=== PATIENT | female | born 1970 | race Caucasian/White ===

== ENCOUNTER 2016-09-10 14:54 | Emergency (ER) | payer OTHER ==
[~2016-09-10] VITALS: Ht 165.1 cm; Wt 101.6 kg
[2016-09-10 14:56] VITALS: TEMP 36.6; Ht 165.1 cm; Wt 101.6 kg
[2016-09-10] MEDS ORDERED: MoRPHine SULFATE 4 MG/ML 1 ML CARP\\VIAL IV STA ×2 (15:45→17:46)
[2016-09-10] MEDS ORDERED: ONDANSETRON INJ 2 MG/ML 2 ML VIAL IV STA (15:45)
[2016-09-10] MEDS ORDERED: SODIUM CHLORIDE 0.9% 1000ML 1,000 ML IV STA (15:45)
[2016-09-10] MEDS ORDERED: OPTIRAY 320 IV PRN (16:00)
[2016-09-10 16:07] LABS: URINE APPEARANCE CLEAR (CLEAR); URINE BILIRUBIN NEG (NEG); URINE COLOR YELLOW; URINE NITRITE NEG (NEG); URINE SPECIFIC GRAVITY 1.016 (1.000-1.030); UROBILINOGEN NEG (NEG); ZZUR CULT IF INDIC CLEAN CATCH NO
[2016-09-10 16:17] LABS: BASO % 0.3 %; BASO ABS # 0.02 K/uL (0-0.2); COMPLETE YES; HEMATOCRIT 40.6 % (37-47); IG% 0.3 %; LYMPH % 26.1 %; LYMPH ABS # 1.66 K/uL (1.2-3.4); MEAN CELL VOLUME 88.1 fL (80-100); MEAN CORPUSCULAR HEMOGLOBIN 29.1 pg (25-34); MEAN PLATELET VOLUME 10.3 fL (7.4-10.4); MONO % 6.8 %; NEUT % 64.5 %; PLATELET COUNT 255 K/uL (130-400); RED BLOOD COUNT 4.61 M/uL (4.2-5.4); WHITE BLOOD COUNT 6.35 K/uL (4.8-10.8)
[2016-09-10] MEDS ORDERED: ASCO1CAP3 PO (16:17)
[2016-09-10] MEDS ORDERED: BIOTCAP2 PO (16:17)
[2016-09-10] MEDS ORDERED: CYAN10005 PO (16:17)
[2016-09-10] MEDS ORDERED: MULT-513 PO (16:17)
[2016-09-10] MEDS ORDERED: CHOL1000 PO (16:17)
[2016-09-10 16:28] LABS: BUN/CREATININE RATIO 11.8 (10-20); CALCIUM 9.2 mg/dl (8.5-10.1); CREATININE 0.96 mg/dl (0.60-1.20); POTASSIUM 3.5 mmol/L (3.5-5.1)
[2016-09-10 16:31] LABS: ALB/GLOB RATIO 1.2 (0.9-2)
[2016-09-10 16:56] LABS: MANUAL MICROSCOPIC REQUIRED? NO; REVIEW REQ? NO
--- NOTE | 2016-09-10 18:26 | DIAGNOSTIC IMAGING REPORT ---
CT OF THE ABDOMEN AND PELVIS WITH CONTRAST CLINICAL HISTORY: Lower abdominal pain and right lower quadrant tenderness. COMPARISON STUDY: None. TECHNIQUE: Following IV administration of 95 mL of Optiray-320, axial images of the abdomen and pelvis were obtained from the lung bases to the proximal femurs. Images were reviewed in the axial, sagittal, and coronal planes. IV contrast was administered without complication. Oral contrast was administered. CT DOSE: 926.35 mGycm FINDINGS: No pneumatosis, free air or portal venous gas is present. There is probable fatty infiltration of the liver. No hepatic lesions are identified. The spleen, adrenal glands, left kidney and pancreas are normal. A 9 mm water attenuation lesion arising from the lower pole of the right kidney represents a cyst. There is no biliary or pancreatic ductal dilatation. There is no peripancreatic or pericholecystic infiltration. A small fat-containing umbilical hernia is noted. The caliber and wall thickness of small and large bowel are normal. The appendix is normal. There is no free fluid. The ovaries are not enlarged. There is no lymphadenopathy. No suspicious skeletal lesions are identified. IMPRESSION: 1. No acute process within the abdomen or pelvis. Normal appendix. 2. Probable fatty infiltration of the liver. 3. Small fat-containing umbilical hernia. Electronically signed by: Kumar Soler M.D. 09/10/2016 6:24 PM Dictated Date/Time: 09/10/2016 6:18 PM
--- NOTE | 2016-09-10 18:55 | EMERGENCY ROOM VISIT NOTE ---
History First contact with patient: 15:16 Chief Complaint: ABDOMINAL PAIN Stated Complaint: BELLY PAIN Nursing Triage Summary: pt sent to ER by [facility] to rule out appey abd pain for 2 days History of Present Illness The patient is a 46 year old female who presents to the Emergency Room with complaints of lower abdominal pain which began 4 days ago. The patient states that initially, she noticed a pressure-like sensation in her lower abdomen. She states that over the past 2 days, she has developed pain across her lower abdomen which radiates into the back. She states that the pain seems to go into her rectum. The pain worsens when she is sitting up or lying flat down. She describes the pain as a burning sensation. The pain is located on both sides of her lower abdomen and in her upper abdomen. She has had 2 episodes of vomiting over the past several days. She has had normal bowel movements. Her last menstrual period ended a few days ago. She denies any abnormal vaginal discharge or bleeding. The patient denies any chest pain or shortness of breath. She denies any fevers, chills or urinary symptoms. The patient has a history of a LEEP procedure but denies any other history of abdominal surgeries. She is otherwise healthy. She rates her overall discomfort a 5/10. She did not take anything at home for pain. She does report she has been under a lot of stress recently and has had ulcers in the past. Review of Systems A complete 10 point review of systems was reviewed with the patient with pertinent positives and negatives as per history of present illness. All else were negative. Social History Smoking Status: Never Smoker Current/Historical Medications Scheduled Ascorbic Acid (Vitamin C), 1 TAB PO DAILY Biotin (Biotin 5000), 1 TAB PO DAILY Cholecalciferol (Vitamin D3), 1 TAB PO DAILY Cyanocobalamin (Vitamin B-12), 1 PO DAILY Multivitamins/Minerals (Mvi With Minerals), 1 TAB PO DAILY Allergies Coded Allergies: No Known Allergies (Unverified , 09/10/16) Physical Exam Vital Signs Date Time Temp Pulse Resp B/P (MAP) Pulse Ox O2 Delivery O2 Flow Rate FiO2 09/10/16 19:28 73 16 164/99 97 09/10/16 17:56 64 16 165/96 100 Room Air 09/10/16 16:00 73 16 167/106 96 Room Air 09/10/16 14:56 36.6 82 20 157/88 96 Room Air Physical Exam VITALS: Vitals are noted on the nurse's note and reviewed by myself. Vital signs stable. GENERAL: This is a 46-year-old female, in no acute distress, nondiaphoretic, well-developed well-nourished. SKIN: Capillary reflex less than 2 seconds. HEENT: Normocephalic. PERRLA. EOMI. Mucous membranes moist. Neck is supple without nuchal rigidity. HEART: Regular rate and rhythm without murmurs gallops or rubs. LUNGS: Clear to auscultation bilaterally without wheezes, rales or rhonchi. ABDOMEN: Positive bowel sounds x 4. Soft, mild tenderness to palpation in the suprapubic region and right lower quadrant. No guarding or rebound tenderness. NEURO: Patient was alert and oriented to person place and time. Medical Decision & Procedures ER Provider Diagnostic Interpretation: CT OF THE ABDOMEN AND PELVIS WITH CONTRAST CLINICAL HISTORY: Lower abdominal pain and right lower quadrant tenderness. COMPARISON STUDY: None. TECHNIQUE: Following IV administration of 95 mL of Optiray-320, axial images of the abdomen and pelvis were obtained from the lung bases to the proximal femurs. Images were reviewed in the axial, sagittal, and coronal planes. IV contrast was administered without complication. Oral contrast was administered. CT DOSE: 926.35 mGycm FINDINGS: No pneumatosis, free air or portal venous gas is present. There is probable fatty infiltration of the liver. No hepatic lesions are identified. The spleen, adrenal glands, left kidney and pancreas are normal. A 9 mm water attenuation lesion arising from the lower pole of the right kidney represents a cyst. There is no biliary or pancreatic ductal dilatation. There is no peripancreatic or pericholecystic infiltration. A small fat-containing umbilical hernia is noted. The caliber and wall thickness of small and large bowel are normal. The appendix is normal. There is no free fluid. The ovaries are not enlarged. There is no lymphadenopathy. No suspicious skeletal lesions are identified. IMPRESSION: 1. No acute process within the abdomen or pelvis. Normal appendix. 2. Probable fatty infiltration of the liver. 3. Small fat-containing umbilical hernia. Laboratory Results 09/10/16 15:37 Red Blood Count 4.61, Mean Corpuscular Volume 88.1, Mean Corpuscular Hemoglobin 29.1, Mean Corpuscular Hemoglobin Concent 33.0, Mean Platelet Volume 10.3, Neutrophils (%) (Auto) 64.5, Lymphocytes (%) (Auto) 26.1, Monocytes (%) (Auto) 6.8, Eosinophils (%) (Auto) 2.0, Basophils (%) (Auto) 0.3, Neutrophils # (Auto) 4.09, Lymphocytes # (Auto) 1.66, Monocytes # (Auto) 0.43, Eosinophils # (Auto) 0.13, Basophils # (Auto) 0.02 09/10/16 15:37 Test 09/10/16 15:37 09/10/16 15:38 White Blood Count 6.35 K/uL (4.8-10.8) Red Blood Count 4.61 M/uL (4.2-5.4) Hemoglobin 13.4 g/dL (12.0-16.0) Hematocrit 40.6 % (37-47) Mean Corpuscular Volume 88.1 fL (80-100) Mean Corpuscular Hemoglobin 29.1 pg (25-34) Mean Corpuscular Hemoglobin Concent 33.0 g/dl (32-36) Platelet Count 255 K/uL (130-400) Mean Platelet Volume 10.3 fL (7.4-10.4) Neutrophils (%) (Auto) 64.5 % Lymphocytes (%) (Auto) 26.1 % Monocytes (%) (Auto) 6.8 % Eosinophils (%) (Auto) 2.0 % Basophils (%) (Auto) 0.3 % Neutrophils # (Auto) 4.09 K/uL (1.4-6.5) Lymphocytes # (Auto) 1.66 K/uL (1.2-3.4) Monocytes # (Auto) 0.43 K/uL (0.11-0.59) Eosinophils # (Auto) 0.13 K/uL (0-0.5) Basophils # (Auto) 0.02 K/uL (0-0.2) RDW Standard Deviation 43.3 fL (36.4-46.3) RDW Coefficient of Variation 13.4 % (11.5-14.5) Immature Granulocyte % (Auto) 0.3 % Immature Granulocyte # (Auto) 0.02 K/uL (0.00-0.02) Anion Gap 7.0 mmol/L (3-11) Est Creatinine Clear Calc Drug Dose 85.6 ml/min Estimated GFR () 81.6 Estimated GFR (Non- 70.4 BUN/Creatinine Ratio 11.8 (10-20) Calcium Level 9.2 mg/dl (8.5-10.1) Total Bilirubin 0.4 mg/dl (0.2-1) Aspartate Amino Transf (AST/SGOT) 13 U/L (15-37) Alanine Aminotransferase (ALT/SGPT) 24 U/L (12-78) Alkaline Phosphatase 73 U/L (45-117) Total Protein 7.1 gm/dl (6.4-8.2) Albumin 3.9 gm/dl (3.4-5.0) Globulin 3.2 gm/dl (2.5-4.0) Albumin/Globulin Ratio 1.2 (0.9-2) Lipase 130 U/L (73-393) Urine Color YELLOW Urine Appearance CLEAR (CLEAR) Urine pH 5.0 (4.5-7.5) Urine Specific [place] 1.016 (1.000-1.030) Urine Protein NEG (NEG) Urine Glucose (UA) NEG (NEG) Urine Ketones NEG (NEG) Urine Occult Blood NEG (NEG) Urine Nitrite NEG (NEG) Urine Bilirubin NEG (NEG) Urine Urobilinogen NEG (NEG) Urine Leukocyte Esterase NEG (NEG) Urine Test NEG (NEG) Medications Administered Medications (Trade) Dose Ordered Sig/Estella Route Start Time Stop Time Status Last Admin Dose Admin Sodium Chloride 1,000 ml @ 999 mls/hr Q1H1M STAT IV 09/10/16 15:45 09/10/16 16:45 DC 09/10/16 16:00 999 MLS/HR Morphine Sulfate (MoRPHine SULFATE INJ) 4 mg NOW STAT IV 09/10/16 15:45 09/10/16 15:47 DC 09/10/16 15:59 4 MG Ondansetron HCl (Zofran Inj) 4 mg NOW STAT IV 09/10/16 15:45 09/10/16 15:47 DC 09/10/16 15:59 4 MG Morphine Sulfate (MoRPHine SULFATE INJ) 4 mg NOW STAT IV 09/10/16 17:46 09/10/16 17:47 DC 09/10/16 17:55 4 MG ED Course The patient was evaluated as above. Labs were drawn and IV access was obtained. Patient was medicated with 4 mg morphine IV and [address] of the abdomen and pelvis was performed and read by radiology as above. Patient was reevaluated and findings were discussed. She did request more pain medication and an additional 4 mg morphine IV were ordered. Discharge instructions were reviewed with the patient. The patient verbalized understanding of my assessment and treatment plan and was discharged home in good condition. Medical Decision Differential diagnosis includes ovarian cyst, ovarian torsion, uterine fibroids , diverticulitis, appendicitis, bowel obstruction, colitis, mesenteric adenitis , mesenteric ischemia, among others. The patient is a 46-year-old female who presents today complaining of lower abdominal pain. Labs revealed no leukocytosis, anemia or concerning electrolyte abnormalities. Lipase was not elevated. Urinalysis was not suggestive of infection. Urine was negative. CT of the abdomen and pelvis was performed with IV and oral contrast and read by radiology with no acute findings within the abdomen and pelvis. Findings were discussed with the patient. She may need further workup as an outpatient but I feel she is safe to be discharged home. I had a lengthy discussion with the patient regarding her symptoms today. I did recommend starting a PPI as she has had some GERD- like symptoms. She will follow-up with her primary care provider. She has an appointment scheduled with him next week. She was encouraged to return here for any worsening of her current condition or as needed. The patient's case was reviewed with Dr. Roberts, ED attending physician, who agreed with my assessment and treatment plan. Based on the patient's presentation and work up, I feel the patient is stable for outpatient treatment. The patient was educated to return to the emergency department for any worsening of their current condition or new/concerning symptoms. She will follow up with her PCP. Blood pressure screening: Patient was found to have an elevated blood pressure and was referred to their primary care provider for recheck and further treatment. Medication reconciliation: I attest that I have personally reviewed the patient 's current medication list. Impression Primary Impression: Lower abdominal pain Departure Information Dispostion Home / Self-Care Condition GOOD Referrals No Doctor, Assigned (PCP) Patient Instructions [facility] Additional Instructions You have been treated in the Emergency Department your Abdominal Pain. Laboratory results and imaging studies have ruled out any emergent causes for your abdominal pain which would warrant admission or surgery. For pain control, you can use the following [id number] medicines (if >12 yo): - Regular strength (325mg/tab) Tylenol (acetaminophen) 2 tabs every 4-6 hours as needed. Do not exceed 12 tablets in a 24 hour period. Avoid taking more than 4 grams (4000 mg) of Tylenol per day. This includes any other sources of acetaminophen you may take on a regular basis. - Regular strength (200 mg/tab) Advil (ibuprofen) 1-2 tabs every 4-6 hours as needed. Do not exceed a dose of 3200 mg per day. Drink plenty of water and stay well hydrated. As with any trip to the Emergency Department, you should follow-up with your Primary Care Provider from today's visit. Return to the emergency department if your symptoms persist despite treatment plan outlined above or if the following symptoms occur: intractable pain, fevers , chills, worsening nausea/vomiting, blood in your stool or urine.
[2016-09-10 19:28] VITALS: BP 164/99; PULSE 73; O2SAT 97
--- NOTE | 2016-09-12 08:48 | EDITING REQUIRED CODING QUERY ---
CQTREATMENT RENDERED WITHOUT A DIAGNOSIS To promote full compliance with coding requirements relating to patient care, physician participation is requested in all cases of laborer steel handling uncertainty. Please assist us with providing a diagnosis/symptom for the test(s) below: A diagnosis/symptom was not documented on your Order. A valid diagnosis/symptom is required to bill all insurances. Please remember that we are unable to code a diagnosis of rule out, probable, possible, questionable, or suspected. Tests that require a diagnosis: DOS 09/10/16 ER VISIT DID NOT SEE DIAGNOSIS ON ER DICTATION PLEASE ADD DIAGNOSIS Provider Signature: __See provider note Date: _09/14/2016 Thank you Luna [facility] Information Management Once completed, please kindly fax back to [phone] For questions please call [phone]
== END 2016-09-10 19:29 | disposition home or self-care (01) ==
LOC: C.EDB 14:56 → C.EDA 19:29
DX: R10.30 Lower abdominal pain, unspecified (principal); K42.9 Umbilical hernia without obstruction or gangrene

== ENCOUNTER 2017-03-01 05:22 | Inpatient (IN) | payer OTHER ==
[2017-02-13 15:45] VITALS: BMI 36.0
--- NOTE | 2017-02-13 16:00 | PAT Medication Instructions ---
Service Date Feb 13, 2017. Current Home Medication List Ascorbic Acid (Vitamin C), 1 TAB PO QAM Biotin (Biotin 5000), 1 TAB PO QAM Bupropion (Wellbutrin Sr), 150 MG PO BID Cholecalciferol (Vitamin D3), 1 TAB PO QAM Cyanocobalamin (Vitamin B-12), 1 PO QAM Multivitamins/Minerals (Mvi With Minerals), 1 TAB PO QAM Medication Instructions For Your Scheduled Surgery - Hold the following medications the morning of surgery: Ascorbic Acid (Vitamin C), 1 TAB PO QAM Biotin (Biotin 5000), 1 TAB PO QAM Cholecalciferol (Vitamin D3), 1 TAB PO QAM Cyanocobalamin (Vitamin B-12), 1 PO QAM Multivitamins/Minerals (Mvi With Minerals), 1 TAB PO QAM - Take the following medications the morning of surgery with a sip of water: Bupropion (Wellbutrin Sr), 150 MG PO BID - Take the following medications as scheduled the night before surgery: Bupropion (Wellbutrin Sr), 150 MG PO BID If you have any questions please call us at [phone] or [phone] or [phone]
[2017-02-13 16:28] LABS: BASO % 0.1 %; BASO ABS # 0.01 K/uL (0-0.2); EOS % 1.9 %; EOS ABS # 0.14 K/uL (0-0.5); HEMATOCRIT 41.1 % (37-47); HEMOGLOBIN 13.5 g/dL (12.0-16.0); IG# 0.01 K/uL (0.00-0.02); LYMPH % 19.9 %; LYMPH ABS # 1.47 K/uL (1.2-3.4); MEAN CELL VOLUME 90.3 fL (80-100); MEAN CORPUSCULAR HEMOGLOBIN 29.7 pg (25-34); MEAN CORPUSCULAR HGB CONC 32.8 g/dl (32-36); MEAN PLATELET VOLUME 10.1 fL (7.4-10.4); MONO % 7.8 %; MONO ABS # 0.58 K/uL (0.11-0.59); NEUT % 70.2 %; NEUT ABS # 5.19 K/uL (1.4-6.5); PLATELET COUNT 245 K/uL (130-400); RED CELL DISTRIBUTION WIDTH CV 13.9 % (11.5-14.5); RED CELL DISTRIBUTION WIDTH SD 45.8 fL (36.4-46.3)
[2017-02-13 16:41] LABS: CALCIUM 8.7 mg/dl (8.5-10.1); POTASSIUM 4.3 mmol/L (3.5-5.1)
[2017-03-01] VITALS (9 sets, daily range): BP systolic 114–155; BP diastolic 69–92; PULSE 71–90; TEMP 36.4–37.1; O2SAT 95–98; Ht 165.1 cm; Wt 99.1 kg
[~2017-03-01] VITALS: Ht 165.1 cm; Wt 99.1 kg
[~2017-03-01 05:22] MED LIST: ASCO1CAP3 PO; BIOTCAP2 PO; BUPR-79 PO; CHOL1000 PO; CYAN10005 PO; MULT-513 PO
[2017-03-01] MEDS: LACTATED RINGER'S 1000ML 1,000 ML IV SCH ×2 (05:47→13:21)
[2017-03-01 05:50] LABS: BASO % 0.2 %; BASO ABS # 0.01 K/uL (0-0.2); EOS % 3.7 %; EOS ABS # 0.21 K/uL (0-0.5); HEMATOCRIT 40.6 % (37-47); HEMOGLOBIN 13.6 g/dL (12.0-16.0); LYMPH % 25.3 %; LYMPH ABS # 1.43 K/uL (1.2-3.4); MEAN CELL VOLUME 89.4 fL (80-100); MONO % 8.7 %; MONO ABS # 0.49 K/uL (0.11-0.59); NEUT % 62.1 %; NEUT ABS # 3.51 K/uL (1.4-6.5); PLATELET COUNT 243 K/uL (130-400); RED CELL DISTRIBUTION WIDTH CV 13.6 % (11.5-14.5); RED CELL DISTRIBUTION WIDTH SD 44.7 fL (36.4-46.3); WHITE BLOOD COUNT 5.65 K/uL (4.8-10.8)
[2017-03-01] MEDS ORDERED: CEFAZOLIN 3000MG IV PUSH 15 ML IV SCH (06:00)
[2017-03-01] MEDS ORDERED: LACTATED RINGER'S 1000ML 1,000 ML IV SCH ×2 (06:00→09:23)
[2017-03-01 06:22] LABS: MEAN CORPUSCULAR HGB CONC 33.5 g/dl (32-36)
[2017-03-01] MEDS ORDERED: EpHEDrine SULFATE INJ 50 MG/ML AMP IV PRN (06:45)
[2017-03-01] MEDS ORDERED: ATROPINE SULFATE 0.1 MG/ML 5ML SYR IV PRN (06:45)
[2017-03-01] MEDS ORDERED: ONDANSETRON INJ 2 MG/ML 2 ML VIAL IV PRN ×2 (06:45→09:30)
[2017-03-01] MEDS ORDERED: FENTANYL CITRATE INJ 50 MCG/1 ML 2 ML VIAL ONE ×2 (06:51→09:23)
[2017-03-01] MEDS ORDERED: PROPOFOL IV EMULSION 10 MG/ML 20 ML VIAL IV ONE (06:51)
[2017-03-01] MEDS ORDERED: LIDOCAINE HCL 2% 2 ML VIAL (20MG/ML) ONE (06:51)
[2017-03-01] MEDS ORDERED: MIDAZOLAM HCL 1 MG/ML 2ML VIAL ONE (06:51)
[2017-03-01] MEDS ORDERED: ROCURONIUM BROMIDE 10 MG/ML 5 ML VIAL IV ONE (06:51)
[2017-03-01] MEDS ORDERED: BUPIVACAINE 0.5 % 5 MG/1 ML MPF 30ML VIAL ONE (06:53)
[2017-03-01] MEDS ORDERED: MINERAL OIL LIGHT 10 ML BTL ONE (06:53)
[2017-03-01] MEDS ORDERED: METHYLENE BLUE 0.5% 10 ML VIAL ONE (06:53)
[2017-03-01] MEDS ORDERED: ACETAMINOPHEN 1000 MG/100 ML IV IV ONE (06:55)
--- NOTE | 2017-03-01 07:03 | History & Physical Bridge Note ---
H&P Re-Evaluation Bridge Note: I have examined the patient, reviewed the History & Physical and in the interval since the performance of the History & Physical I have noted the following changes of clinical significance: No changes noted
[2017-03-01] MEDS ORDERED: ONDANSETRON INJ 2 MG/ML 2 ML VIAL ONE (07:33)
[2017-03-01] MEDS ORDERED: DEXAMETHASONE SOD INJ 4 MG/ML VIAL ONE (07:33)
[2017-03-01] MEDS ORDERED: OXIDIZED CELLULOSE 1 EA TOP ONE (08:55)
--- NOTE | 2017-03-01 09:28 | [facility] Post Operative Brief Note ---
Immediate Operative Summary Operative Date Mar 01, 2017. Pre-Operative Diagnosis Heavy Menstrual Bleeding Post-Operative Diagnosis Heavy Menstrual Bleeding Procedure(s) Performed Total Laparoscopic Hysterectomy, Cystoscopy Surgeon DR. Jeramy Fernandez Energy Management Specialist Surgeon(s) Dr. Tone Spencer Estimated Blood Loss 25 ML Findings Upon laparoscopic exam uterus was at midline and freely mobile. Bilateral tubes and ovaries were grossly normal. No other intraabdominal or pelvic pathology noted. The uterus and cervix were successfully removed laparoscopically and sent to pathology. Anesthesia was then instructed to push methylene blue. Once the vaginal cuff was closed laparoscopically a cystoscopy was performed. On cystoscopic exam the bladder was intact with no injury or suture noted within the wall. Bilateral ureteral openings spilled blue tinged urine indicating bilateral ureters were intact. The patient tolerated the procedure well and was sent to recovery with stable vital signs. Fluids (cc crystalloids) 1000 Specimens Permanment Specimen A: Uterus, cervix Drains Tamayo to gravity Anesthesia General Complication(s) None Disposition Recovery Room / PACU
[2017-03-01] MEDS ORDERED: MEPERIDINE HCL 50 MG/ML CARP IV PRN (09:30)
[2017-03-01] MEDS ORDERED: KETOROLAC TROMETHAMINE 30 MG/ML VIAL IV. PRN (09:30)
[2017-03-01] MEDS ORDERED: SENNA 8.6 MG TAB PO PRN (09:30)
[2017-03-01] MEDS ORDERED: BISACODYL 10 MG SUPP PR PRN (09:30)
[2017-03-01] MEDS ORDERED: MAGNESIUM HYDROXIDE SUSP 30 ML UDC PO PRN (09:30)
[2017-03-01] MEDS: FENTANYL CITRATE INJ 50 MCG/1 ML 2 ML VIAL IV PRN ×4 (09:37→09:52)
[2017-03-01] MEDS: HYDROmorphone INJ 1 MG/ML SYR IV PRN ×4 (09:57→10:12)
--- NOTE | 2017-03-01 10:14 | OPERATIVE REPORT ---
DATE OF OPERATION: 03/01/2017 PREOPERATIVE DIAGNOSIS: Heavy menstrual bleeding. POSTOPERATIVE DIAGNOSIS: Heavy menstrual bleeding. OPERATIVE PROCEDURE: Total laparoscopic hysterectomy and cystoscopy. SURGEON: Jeramy Fernandez DO CHERRY PITTER: Tone Spencer MD ANESTHESIA: General. ESTIMATED BLOOD LOSS: 25 mL IV FLUIDS: 1000 mL crystalloids. SPECIMENS: Uterus and cervix to pathology. DRAINS: Tamayo to gravity. COMPLICATIONS: None. DISPOSITION: Recovery room. OPERATIVE FINDINGS: Upon laparoscopic examination, uterus was at midline and freely mobile. Bilateral tubes and ovaries were grossly normal. No other intra-abdominal or pelvic pathology grossly seen. The uterus and cervix were successfully removed laparoscopically and sent to pathology. Anesthesia was then instructed to push methylene blue. Once the vaginal cuff was closed laparoscopically, a cystoscopy was performed. On cystoscopic exam, the bladder was intact with no injury or suture noted within the bladder wall. Bilateral ureteral openings expelled blue-tinged urine, indicating bilateral ureters were intact. The patient tolerated the procedure well and was sent to recovery with stable vital signs. OPERATIVE PROCEDURE IN DETAIL: The patient was taken to the operating room where general anesthesia was administered. Once the anesthesia was found to be adequate, the patient was placed in the dorsal lithotomy position and was prepped and draped in a manner appropriate for the procedure. A weighted speculum was then placed into the vagina. The anterior lip of the cervix was grasped with a single tooth tenaculum. A large VCare uterine manipulator was then placed within the uterus in an anteverted fashion and was suture ligated to the cervix at 12 o'clock and 6 o'clock position with 0 Vicryl suture. Once to the VCare was then placed, the weighted speculum and single tooth tenaculum were removed. A sterile Tamayo catheter was then placed within the bladder and remained indwelling throughout the entire procedure. At this point, the patient was then ready for the laparoscopic portion of the procedure. Attention was directed towards the abdomen where 0.5% Marcaine was injected below the umbilicus and an 11-mm skin incision was made in a horizontal fashion subumbilically. A Veress needle was then placed within the abdomen and normal saline was injected with no fecal content aspirated. A pneumoperitoneum was then created. The Veress needle was then removed and an 11-mm trocar was then placed within the abdomen under direct laparoscopic visualization. The patient was then placed in a steep Trendelenburg position and the bowel was displaced superiorly away from the pelvis. A second 11-mm skin incision was made on the left side of the abdomen once it was injected with 0.5% Marcaine. An 11-mm trocar was then placed within the incision and into the abdomen under direct laparoscopic visualization. A third 11-mm skin incision was made on the right side of the abdomen once Marcaine was injected, and an 11-mm trocar was placed within the abdomen under direct laparoscopic visualization. After all [address], a thorough examination of the abdomen and pelvis was then performed. Attention was then directed towards the right adnexa where the round ligament was cauterized and transected with the LigaSure. The uteroovarian ligament was then cauterized and transected and continued inferiorly through the broad ligament. The anterior leaf of the broad ligament was and a bladder flap was created on the right side of the lower uterine segment with the LigaSure and the bladder flap was pushed away from the lower uterine segment. Attention was then directed towards the left adnexa where the left round ligament was cauterized and transected and the left uteroovarian ligament was cauterized and transected, continued inferiorly through the broad ligament. The broad ligament was then and the anterior leaf of the broad ligament was cauterized and transected across the lower uterine segment completing the bladder flap. The entire bladder was pushed away from the lower uterus. Bilateral ascending uterine arteries were cauterized and transected, continued inferiorly through the cardinal-uterosacral complex, cauterized and transected and we continued inferiorly. Once we were at the level of the VCare, the cervix and uterus were amputated circumferentially with the LigaSure. Once the entire specimen was amputated, the cervix and uterus was then removed from the vagina. A sterile glove was then placed within the vagina to maintain a pneumoperitoneum. The pelvis was then copiously irrigated with warm saline solution. Excellent hemostasis was noted. The vaginal cuff was then closed with 0 Polysorb suture with the EndoStitch in a continuous locking fashion. The peritoneum was then reapproximated with 0 Polysorb in a continuous running fashion with the EndoStitch as well. Excellent hemostasis was noted. Anesthesia was instructed to push methylene blue. Interceed was then placed over the vaginal cuff to reduce adhesion formation. At this point, all instruments were removed from the abdomen and as much CO2 gas was allowed to percolate through open cannulas. At this point, attention was directed towards her perineum where the Tamayo catheter was removed. The sterile glove was then removed from the vagina. A cystoscope was then introduced into the bladder and a thorough examination was then performed. It was noted that the bladder wall was intact with no injury or suture noted within the wall. Bilateral ureteral openings expelled blue-tinged urine indicating bilateral ureters were intact. No other pathology noted within the bladder. At this point, the cystoscope was removed and a second sterile Tamayo catheter was then placed within the bladder. At this point, the procedure was found to be complete. Attention was redirected towards the abdomen where all 3 trocars were then removed. The fascias of all 3 incisions were reapproximated with 0 Vicryl suture in a [id number] fashion. All 3 skin incisions were then closed with 4-0 Monocryl in a subcuticular fashion. Excellent hemostasis was noted at all 3 incisions. All sponge, instrument and needle counts were found to be correct x2. The patient tolerated the procedure well and was sent to recovery with stable vital signs. I attest to the content of the Intraoperative Record and any orders documented therein. Any exception s are noted below.
--- NOTE | 2017-03-01 10:34 | Anesthesiology Progress Note ---
Anesthesia Post Op Note Date & Time Mar 01, 2017 at 10:34 Vital Signs Pain Intensity: 4 Vital Signs Past 12 Hours Date Time Temp Pulse Resp B/P (MAP) Pulse Ox O2 Delivery O2 Flow Rate FiO2 03/01/17 10:30 36.0 77 14 114/88 95 Nasal Cannula 4 03/01/17 10:20 75 16 123/69 97 Nasal Cannula 4 03/01/17 10:10 84 24 97/81 98 Nasal Cannula 4 03/01/17 10:00 71 16 129/79 98 Nasal Cannula 4 03/01/17 09:50 85 17 127/77 99 Oxymask 10 03/01/17 09:40 85 17 123/78 88 Oxymask 10 03/01/17 09:30 36.6 78 24 125/80 94 Oxymask 10 03/01/17 05:46 36.5 71 18 152/81 (104) 98 Room Air Notes Mental Status: alert / awake / arousable, participated in evaluation Pt Amnestic to Procedure: Yes Nausea / Vomiting: adequately controlled Pain: adequately controlled Airway Patency, RR, SpO2: stable & adequate BP & HR: stable & adequate Hydration State: stable & adequate Anesthetic Complications: no major complications apparent
[2017-03-01] MEDS: MEPERIDINE HCL 50 MG/ML CARP IV PRN ×2 (12:02→18:08)
[2017-03-01] MEDS: IBUPROFEN 600 MG TAB PO PRN ×2 (16:43→22:00)
[2017-03-01] MEDS: OXYCODONE/ACETAMINOPHEN 5-325 TAB PO PRN ×2 (16:44→22:00)
[2017-03-01] MEDS ORDERED: INFLUENZA ADMINISTRATION CHARGE ONE (18:45)
[2017-03-01] MEDS ORDERED: INFLUENZA VIRUS QUAD VACCINE 0.5 ML SYR IM. ONE (18:45)
[2017-03-01 19:23] LABS: HEMATOCRIT 36.5 % (37-47); HEMOGLOBIN 12.2 g/dL (12.0-16.0)
[2017-03-01] MEDS: BuPROPion SR 150 MG TABCR PO SCH (20:44)
[2017-03-02] MEDS: IBUPROFEN 600 MG TAB PO PRN ×2 (03:06→07:36)
[2017-03-02] MEDS: OXYCODONE/ACETAMINOPHEN 5-325 TAB PO PRN ×2 (03:07→07:37)
[2017-03-02 03:45] VITALS: BP 116/68; PULSE 61; TEMP 37.1; O2SAT 96
[2017-03-02 07:24] LABS: BASO % 0.1 %; BASO ABS # 0.01 K/uL (0-0.2); EOS % 0.8 %; EOS ABS # 0.07 K/uL (0-0.5); HEMATOCRIT 35.4 % (37-47); HEMOGLOBIN 11.5 g/dL (12.0-16.0); IG# 0.01 K/uL (0.00-0.02); LYMPH % 23.1 %; LYMPH ABS # 2.01 K/uL (1.2-3.4); MEAN CELL VOLUME 90.5 fL (80-100); MEAN CORPUSCULAR HEMOGLOBIN 29.4 pg (25-34); MEAN CORPUSCULAR HGB CONC 32.5 g/dl (32-36); MEAN PLATELET VOLUME 9.8 fL (7.4-10.4); MONO % 7.7 %; MONO ABS # 0.67 K/uL (0.11-0.59); NEUT % 68.2 %; NEUT ABS # 5.92 K/uL (1.4-6.5); PLATELET COUNT 210 K/uL (130-400); RED CELL DISTRIBUTION WIDTH SD 45.8 fL (36.4-46.3); WHITE BLOOD COUNT 8.69 K/uL (4.8-10.8)
[2017-03-02 07:35] VITALS: BP 133/77; PULSE 67; TEMP 37; O2SAT 98
[2017-03-02 08:33] LABS: CALCIUM 8.3 mg/dl (8.5-10.1); CREATININE 0.85 mg/dl (0.60-1.20); POTASSIUM 3.9 mmol/L (3.5-5.1)
[2017-03-02] MEDS: BuPROPion SR 150 MG TABCR PO SCH (08:54)
[2017-03-02] MEDS ORDERED: MTR600X PO (09:44)
[2017-03-02] MEDS ORDERED: OXYC-57 PO (09:44)
--- NOTE | 2017-03-02 09:46 | Discharge Instructions ---
Discharge Instructions Date of Service Mar 02, 2017. Admission Reason for Admission: Heavy Menstrual Bleeding Discharge Discharge Diagnosis / Problem: s/p laparoscopic hysterectomy Discharge Goals Goal(s): Routine recovery after surgery Activity Recommendations Activity Limitations: per Instructions/Follow-up section . Instructions / Follow-Up Instructions / Follow-Up POST OPERATIVE: BOWEL FUNCTION/MEDICATIONS: 1. Constipation pain and discomfort are the most common complaints 5-7 days after surgery. Points 2-6 address the things that can help. 2. Chewing gum can help stimulate the gut and help improve digestion and motility. 3. Milk of Magnesia 1-2 times per day until return of bowel function. 4. Colace is a stool softener that helps. Taking this 2-3 times per day until bowel function returns to normal is highly recommended. 5. Dulcolax is a laxative that may be used if several days have passed without a bowel movement. Alternatively Miralax may be used daily instead. 6. Drink plenty of fluids as this will also reduce constipation. 7. Narcotic pain medications will be prescribed by your physician. They are safe to use and we encourage you to use them. If you are not allergic, ibuprofen will also be prescribed. Many patients will be able to transition off of the narcotic medications to ibuprofen by postoperative day 3. ACTIVITY RECOMMENDATIONS: 1. Get plenty of rest and listen to your body. If you are tired, take a nap. 2. You may shower, but do not take a tub bath until you see your doctor at the 2 week post operative visit. 3. Absolutely NO intercourse and nothing in the vagina until you are examined by your doctor at the 6 week visit. At that visit it will be determined when such activities can be resumed. This can range from 6-12 weeks after your surgery depending on healing time. 4. The main physical activity in the first week should be walking. By the second week you can slowly increase activity. There are no limits on walking up and down stairs. 5. Do not lift more than 5-10 lbs for 4 weeks. Remember the "one-handed rule", i.e. if you can lift something with only one hand it's likely okay. 6. Minimize gear grinder like vacuuming and exercising for 4 weeks. "Overdoing it" can lead to incisions not healing, pain and vaginal bleeding , so again, listen to your body. 7. Driving can be resumed when you feel able. Do not drive within 24 hours of taking a narcotic medication. EXPECTATIONS: 1. Vaginal spotting, bleeding and discharge are common after surgery. There may even be an odor to the discharge which is often related to sutures used in the vagina. If you experience heavy vaginal bleeding, call the office number day or night [phone]. 2. Bladder discomfort is common after surgery from the catheter. This usually resolves in 1-2 weeks. 3. By the end of the 3rd or 4th week you should be feeling much better. It may take up to 6 weeks for your energy levels to return to normal. 4. Narcotic medications have side effects such as: dizziness, headache, nausea and/or vomiting. If you suspect your pain medication is causing problems, call our office and we may be able to prescribe an alternate medication. 5. The skin incisions are often covered with a liquid bandage. This will gradually peel off over time. CALL THE OFFICE IF YOU HAVE ANY OF THE FOLLOWIN. Temperature of 101 degrees or higher. 2. Severe abdominal or pelvic pain not relieved by pain medication. 3. Persistent nausea or vomiting. 4. Increased pain with urination or difficulty urinating. 5. Bright red bleeding that soaks more than 1 pad per hour. CONTACT PHONE NUMBERS: Main Office: [phone] FOLLOW-UP: Post-Operative Appointments: * Individual instructions will have been given about the timing of your first examination, but this is usually at the end of the second week home. * You will need to call the office at [phone] soon after discharge to make the appointment for your post-op check-up if it has not already been scheduled. * Additional information regarding activity, sexual intercourse and when to return to work will be given at this appointment. WE WISH YOU A SPEEDY RECOVERY! Current Hospital Diet Patient's current hospital diet: Regular Diet Discharge Diet Recommended Diet: Regular OB Diet Procedures Procedures Performed: Total Laparoscopic Hysterectomy, Cystoscopy Pending Studies Studies pending at discharge: no Medical Emergencies . Who to Call and When: Medical Emergencies: If at any time you feel your situation is an emergency, please call 911 immediately. . Non-Emergent Contact Non-Emergency issues call your: Primary Care Provider, Edge Beader . . "Provider Documentation" section prepared by Jeramy Chiera. . VTE Core Measure Inpt VTE Proph given/why not?: Treatment not indicated [place] Drug Monitoring Program Search Results: patient reviewed within database, no issues identified
--- NOTE | 2017-03-02 09:58 | Surgery Progress Note ---
Surgery Progress Note Date of Service Mar 02, 2017. Subjective Post OP Day: 1 + feeling well, + ambulating, + pain controlled Doing well. Pain well controlled. No vaginal bleeding noted. Tolerating regular diet. Ambulating without difficulty. Would like to go home today. Objective Vital Signs: Date Time Temp Pulse Resp B/P (MAP) Pulse Ox O2 Delivery O2 Flow Rate FiO2 03/02/17 07:35 37.0 67 18 133/77 (95) 98 Room Air 03/02/17 07:35 98 Room Air 03/02/17 03:45 37.1 61 16 116/68 (84) 96 Room Air 03/01/17 23:10 Room Air 03/01/17 23:10 37.1 79 16 143/78 (99) 98 Room Air 03/01/17 19:30 36.7 71 16 128/77 (94) 96 Room Air 03/01/17 19:30 96 Room Air 03/01/17 15:30 98 Room Air 03/01/17 15:30 36.6 78 16 116/77 (90) 97 Room Air 03/01/17 14:10 36.4 87 18 117/69 (85) 95 Room Air 03/01/17 13:10 36.4 90 20 127/73 (91) 96 Room Air 03/01/17 12:10 36.5 86 18 155/92 (113) 96 Nasal Cannula 1.0 03/01/17 11:40 36.4 73 18 120/73 (89) 95 Nasal Cannula 1.0 03/01/17 11:40 36.4 73 18 120/73 (89) 95 Room Air 1.0 03/01/17 11:10 97 Room Air 03/01/17 11:10 97 Room Air 03/01/17 11:10 36.9 84 20 114/69 (84) 97 Room Air 03/01/17 11:00 88 12 118/78 96 Nasal Cannula 4 03/01/17 10:45 81 10 109/85 96 Nasal Cannula 4 03/01/17 10:30 36.0 77 14 114/88 95 Nasal Cannula 4 03/01/17 10:20 75 16 123/69 97 Nasal Cannula 4 03/01/17 10:10 84 24 97/81 98 Nasal Cannula 4 03/01/17 10:00 71 16 129/79 98 Nasal Cannula 4 General Appearance: WD/WN, no apparent distress Respiratory/Chest: chest non-tender, lungs clear Cardiovascular: regular rate, rhythm Abdomen: normal bowel sounds, non distended, soft Incision(s): clean, dry, intact Extremities: normal range of motion, non-tender, no calf tenderness Laboratory Results: Results Past 24 Hours Test 03/01/17 19:01 03/02/17 07:14 Range/Units Hemoglobin 12.2 11.5 12.0-16.0 g/dL Hematocrit 36.5 35.4 37-47 % White Blood Count 8.69 4.8-10.8 K/uL Red Blood Count 3.91 4.2-5.4 M/uL Mean Corpuscular Volume 90.5 80-100 fL Mean Corpuscular Hemoglobin 29.4 25-34 pg Mean Corpuscular Hemoglobin Concent 32.5 32-36 g/dl Platelet Count 210 130-400 K/uL Mean Platelet Volume 9.8 7.4-10.4 fL Neutrophils (%) (Auto) 68.2 % Lymphocytes (%) (Auto) 23.1 % Monocytes (%) (Auto) 7.7 % Eosinophils (%) (Auto) 0.8 % Basophils (%) (Auto) 0.1 % Neutrophils # (Auto) 5.92 1.4-6.5 K/uL Lymphocytes # (Auto) 2.01 1.2-3.4 K/uL Monocytes # (Auto) 0.67 0.11-0.59 K/uL Eosinophils # (Auto) 0.07 0-0.5 K/uL Basophils # (Auto) 0.01 0-0.2 K/uL RDW Standard Deviation 45.8 36.4-46.3 fL RDW Coefficient of Variation 14.0 11.5-14.5 % Immature Granulocyte % (Auto) 0.1 % Immature Granulocyte # (Auto) 0.01 0.00-0.02 K/uL Sodium Level 139 136-145 mmol/L Potassium Level 3.9 3.5-5.1 mmol/L Chloride Level 105 98-107 mmol/L Carbon Dioxide Level 27 21-32 mmol/L Anion Gap 7.0 3-11 mmol/L Blood Urea Nitrogen 12 7-18 mg/dl Creatinine 0.85 0.60-1.20 mg/dl Est Creatinine Clear Calc Drug Dose 95.4 ml/min Estimated GFR () 94.6 Estimated GFR (Non- 81.6 BUN/Creatinine Ratio 14.0 10-20 Random Glucose 100 70-99 mg/dl Calcium Level 8.3 8.5-10.1 mg/dl Assessment & Plan POD # 1 s/p Total Laparoscopic Hysterectomy and cystoscopy -D/C home today -F/U in 1-2 weeks.
[2017-03-02 10:15] VITALS: BP 133/77; PULSE 67; TEMP 37; O2SAT 98
== END 2017-03-02 10:15 | disposition home or self-care (01) | DRG 743 ==
LOC: C.ACU 05:22 → C.MS4N 09:25 → ENRESERV 10:05
PROVIDERS: ADMIT Obstetrics & Gynecology; ATTEND Obstetrics & Gynecology
PROC: 0TJB8ZZ Inspection of Bladder, Via Natural or Artificial Opening Endoscopic (ICD-10-PCS; principal; 2017-03-01 07:00)
PROC: 0UT94ZZ Resection of Uterus, Percutaneous Endoscopic Approach (ICD-10-PCS; principal; 2017-03-01 07:00)
DX: N92.0 Excessive and frequent menstruation with regular cycle (principal); F41.9 Anxiety disorder, unspecified; F32.9 Major depressive disorder, single episode, unspecified; E66.9 Obesity, unspecified; Z68.36 Body mass index [BMI] 36.0-36.9, adult; Z87.42 Personal history of other diseases of the female genital tract; Z79.3 Long term (current) use of hormonal contraceptives; Z79.899 Other long term (current) drug therapy; Z80.41 Family history of malignant neoplasm of ovary; Z82.49 Family history of ischemic heart disease and other diseases of the circulatory system; Z83.2 Family history of diseases of the blood and blood-forming organs and certain disorders involving the immune mechanism

== ENCOUNTER 2021-02-28 10:24 | Observation (INO) ==
--- NOTE | 2021-02-28 11:06 | Emergency Department Note ---
Impression & Plan Headache, COVID-19, Weakness, Dyspnea ED Provider Note NAME: NANCY DONG AGE: 50 SEX: F : 1970 ARRIVES VIA: Walk-In INFORMANT: Patient, ED PROVIDER(S): Edgar Zuluaga MD Chief Complaint: Shortness of breath, headache HPI: Patient does present due to concern for shortness of breath headache fatigue and weakness x1 week but recently tested positive for Covid today. The patient states that yesterday she was having some chest discomfort when lying flat. Patient did have some associated shortness of breath and given that she has been feeling some generalized weakness over the last week to get Covid tested today. This was also completed in light as the patient was about to undergo some fasting and a diet and was going to have a meal last night but had no appetite and had lost taste. Patient reports feeling warm but has had no true fever at home. The patient has been taking [id number] medications but without significant improvement in symptoms. The patient was seen around the for a headache and the patient states that she has had it ever since then. The patient has any falls or trauma. The patient denies any numbness tingling or focal weakness. Patient denies any facial droop or slurred speech. Patient denies any prior history of DVT or PE. The patient is had a hysterectomy and is not on any control. Patient denies any recent prolonged car plane travel. The patient is vaccinated for COVID-19 but has not received a booster. ROS: See HPI for pertinent positives and negatives. A total of 10 systems were reviewed and otherwise negative. Past medical history: See below Surgical history: See below Social history: See below Physical Exam: GENERAL: Mildly uncomfortable in appearance, wearing a mask. EYE EXAM: Normal conjunctiva. PERRL, no anisocoria and EOM's grossly intact w/o pain. Mild photophobia. NECK: Supple, no nuchal rigidity, no adenopathy, non-tender. No signs of meningismus. FROM of the neck with good chin to chest and neck extension. No stridor. LUNGS: Clear to auscultation. Normal chest wall mechanics. HEART: NSR, no MRG. ABDOMEN: Abdomen soft, non-tender, normo-active bowel sounds, no masses, no rebound or guarding. BACK: No CVA TTP. SKIN: No rashes and no bruising. UPPER EXTREMITIES: Upper extremities are grossly normal. LOWER EXTREMITIES: Grossly normal, no edema. Negative Homans' sign bilaterally. NEURO EXAM: A&O x3, cranial nerves II-XII grossly intact, normal speech, moves all 4 extremities on command w/o issue. Good finger to nose, no drift, no sensory deficits. Differential diagnoses: Reactive airway disease, pneumonia, pneumothorax, COPD, CHF, infections, cardiac ischemia, pulmonary embolism, musculoskeletal, gastrointestinal, as well as other pathologies. Course: Patient was seen and evaluated the bedside. Full history physical exam was performed. EKG interpreted by me Sinus tachycardia, rate of 106, normal intervals, normal axis, Q-wave in lead III but not contiguous leads. Patient's morphology including Q-wave in lead III is unchanged from comparison EKG completed on February 17, 2021. Only change is the patient's rate has increased. Imaging Studies: See Below Cardiac monitoring: An order was placed for continuous cardiac monitoring. The monitor shows a rate of 82 with sinus rhythm. MDM: Patient did present due to concern for shortness of breath intractable headache and diffuse body aches. Blood works obtained along with CT head CT angiography of the head and neck and the patient was treated symptomatically. Patient's blood work shows a normal white count H&H and platelet count. The patient's kidney function is unremarkable. Troponin not detectable. EKG does show increased rate but patient has had decreased appetite. The patient has no signs or stigmata DVT on exam believe PE to be less likely. Chest x-ray is clear. The patient CT head and CT angiographies are negative. Upon reassessment the patient was still having some mild headache but this states states that it was improved. Additional headache medication was ordered. I did speak with the on- call radiologist Dr. Lowe who also reviewed the CT angios and stated that her venous phases were clear no signs of venous thrombosis. Patient has had mild improvement in symptoms with the additional headache medication. Believe meningitis to be unlikely given the patient's lack of fever here normal white counts and while the patient did have some photophobia the patient may have an u nderlying migraine disorder. Given the patient's lack of white count and fever no nuchal rigidity believe bacterial meningitis to be unlikely. Do not believe she requires an LP at this time. I did offer the patient observation versus close outpatient follow-up given the patient's symptoms do not think it unreasonable for additional pain control and fluids. I did speak with the on- call hospitalist Vianey Ashby PA-C and the patient was admitted to the medicine service by Dr. Mcgarry. Past Med/Surg History Medical History Heavy menstrual bleeding Surgical History History of total hysterectomy Family History Other No pertinent family history Social History Smoking Status: Never smoker Hx Alcohol Use: No Hx Substance Use: No Feels Safe at Home: Yes Immunizations: Vaccinated for COVID-19 but without booster Allergies Allergies Allergy/AdvReac Type Severity Reaction Status Date / Time No Known Allergies Allergy Unverified 02/28/21 12:17 Home Meds Home Medications Medication Instructions Recorded Confirmed multivitamin (Multiple Vitamins) 1 tab PO DAILY 01/30/18 02/28/21 bupropion HCl 150 mg 24 hr tablet, 150 mg PO DAILY 02/19/21 02/28/21 extended release lisinopril 40 mg tablet 40 mg PO DAILY 02/19/21 02/28/21 ondansetron HCl 4 mg tablet 4 mg PO UD PRN 02/28/21 02/28/21 Previous Rx's Medication Instructions Recorded methylprednisolone 4 mg tablets in See Rx Instructions .ROUTE 02/19/21 a dose pack .COMPLEX #21 ea Results & Data (ED) Vital Signs Vital Signs - 24 hr 02/28/21 10:28 02/28/21 11:38 02/28/21 11:40 Temperature 36.8 C Temperature Source Temporal Artery Scan Pulse Rate 105 H 110 H Pulse Rate [Radial] 104 H Pulse Rhythm Regular Pulse Rhythm [Radial] Regular Pulse Strength [Radial] Normal Respiratory Rate 18 18 20 Blood Pressure 136/81 Blood Pressure [Left Arm] 128/86 Blood Pressure Mean 99 Blood Pressure Mean [Left Arm] 100 Blood Pressure Position [Left Arm] Lying Pulse Oximetry 96 94 94 Oxygen Delivery Method Room Air Room Air Room Air Sepsis Recent Fever Within 48 Hours No Sepsis New/Unexplained Change in Mental Status No Sepsis Action Taken by Nursing No Action Required Home Medications Current Medication List: was personally reviewed by me Laboratory Data Attestation: I reviewed the patient's lab results. Result diagrams: 02/28/21 11:28 02/28/21 11:28 Lab Results 02/28/21 02/28/21 Range/Units 11:28 11:28 WBC 7.16 (4.8-10.8) K/uL RBC 4.75 (4.2-5.4) M/uL Hgb 15.1 (12.0-16.0) g/dL Hct 44.6 (37-47) % MCV 93.9 (80-100) fL MCH 31.8 (25-34) pg MCHC 33.9 (32-36) g/dL RDW Std Deviation 42.5 (36.4-46.3) fL RDW Coeff of Diamond 12.4 (11.5-14.5) % Plt Count 217 (130-400) K/uL MPV 10.6 H (7.4-10.4) fL Immature Gran % (Auto) 0.3 % Neut % (Auto) 73.4 % Lymph % (Auto) 13.1 % Cache % (Auto) 12.6 % Eos % (Auto) 0.3 % Baso % (Auto) 0.3 % Neut # (Auto) 5.26 (1.4-6.5) K/uL Lymph # (Auto) 0.94 L (1.2-3.4) K/uL Cache # (Auto) 0.90 H (0.11-0.59) K/uL Eos # (Auto) 0.02 (0-0.5) K/uL Baso # (Auto) 0.02 (0-0.2) K/uL Immature Gran # (Auto) 0.02 (0.00-0.02) K/uL Sodium 137 (136-145) mmol/L Potassium 3.9 (3.5-5.1) mmol/L Chloride 105 (98-107) mmol/L Carbon Dioxide 24 (21-32) mmol/L Anion Gap 8.0 (3-11) BUN 11 (7-18) mg/dl Creatinine 0.92 (0.6-1.2) mg/dl Est Cr Clr Drug Dosing 88.4 ml/min Est GFR ( Amer) 83.6 ml/min Est GFR (Non-Af Amer) 72.1 ml/min BUN/Creatinine Ratio 12.3 (10-20) Glucose 129 H (70-99) mg/dl Calcium 9.8 (8.5-10.1) mg/dl AST 21 (15-37) U/L ALT 38 (12-78) Alkaline Phosphatase 77 (45-117) U/L Troponin I < 0.015 (0-0.045) ng/ml Total Protein 7.8 (6.4-8.2) gm/dl Albumin 4.3 (3.4-5.0) gm/dl Globulin 3.5 (2.5-4.0) gm/dl Albumin/Globulin Ratio 1.2 (0.9-2) TSH 0.913 (0.300-4.500) uIu/ml Administered Medications Discontinued Medications Acetaminophen (Acetaminophen 500 Mg Tab) 1,000 mg PO NOW STA Stop: 02/28/21 11:15 Last Admin: 02/28/21 11:31 Dose: 1,000 mg Documented by: [id number] Diphenhydramine HCl (Diphenhydramine 50 Mg/Ml Vial) 25 mg IV NOW STA Stop: 02/28/21 11:15 Last Admin: 02/28/21 11:33 Dose: 25 mg Documented by: [id number] Sodium Chloride (Nss 1000ml) 1,000 mls @ 999 mls/hr IV .Q1H1M ANA Stop: 02/28/21 12:15 Last Infusion: 02/28/21 12:40 Dose: 0 mls/hr Documented by: [id number] Admin: 02/28/21 11:31 Dose: 999 mls/hr Documented by: [id number] Sodium Chloride (Nss 1000ml) 1,000 mls @ 999 mls/hr IV .Q1H1M ANA Stop: 02/28/21 12:15 Last Infusion: 02/28/21 12:36 Dose: 0 mls/hr Documented by: [id number] Admin: 02/28/21 11:35 Dose: 999 mls/hr Documented by: [id number] Magnesium Sulfate/Dextrose (Magnesium Sulfate / D5w) 1 gm in 100 mls @ 100 mls/hr IV NOW ONE Stop: 02/28/21 12:13 Last Infusion: 02/28/21 12:36 Dose: 0 mls/hr Documented by: [id number] Admin: 02/28/21 11:36 Dose: 100 mls/hr Documented by: [id number] Valproic Acid 1,000 mg/ (Dextrose) 60 mls @ 55 mls/hr IV NOW STA Stop: 02/28/21 14:26 Last Admin: 02/28/21 14:31 Dose: 55 mls/hr Documented by: [id number] Prochlorperazine (Compazine) 2 mls @ 1 mls/min IV ONE ONE Stop: 02/28/21 13:22 Last Admin: 02/28/21 14:30 Dose: 1 mls/min Documented by: [id number] Ioversol (Optiray 320 125ml) 111 ml IV ONCE ONE Stop: 02/28/21 13:46 Last Admin: 02/28/21 13:46 Dose: 111 ml Documented by: [id number] Ketorolac Tromethamine (Ketorolac Tromethamine 15 Mg/Ml Vial) 10 mg IV NOW ONE Stop: 02/28/21 14:27 Last Admin: 02/28/21 14:31 Dose: 10 mg Documented by: [id number] Ketorolac Tromethamine (Ketorolac Tromethamine 15 Mg/Ml Vial) Confirm Administered Dose 15 mg .ROUTE .STK-MED ONE Stop: 02/28/21 14:28 Last Admin: 02/28/21 14:38 Dose: Not Given Documented by: [id number] Ondansetron HCl (Ondansetron Inj 2 Mg/Ml 2 Ml Vial) 4 mg IV NOW STA Stop: 02/28/21 11:15 Last Admin: 02/28/21 11:32 Dose: 4 mg Documented by: [id number] Imaging Data Radiologist's Impression: Chest X-Ray 02/28/21 11:14 XR chest 1V portable CLINICAL HISTORY: weakness TECHNIQUE: Single frontal radiograph of the chest was obtained. Comparison: None available at the time of this dictation. FINDINGS: No lines and tubes are seen. The cardiomediastinal silhouette is normal. The lungs are clear. No evidence of pleural effusion or pneumothorax. IMPRESSION: No acute chest disease. ACT 112: Negative or not required by law. Electronically signed by: Eyal Garcia M.D. 02/28/2021 12:[address] 02/28/21 11:14 CT head/brain wo con, CT angio neck with con, CT angio head w con CLINICAL HISTORY: 50 years-old Female with headache. Acute headache. COVID Positive. TECHNIQUE: Multiple axial CT images of the head were obtained without contrast. CTA head and neck was obtained following the intravenous ministration of 111 mL Optiray 320. 3 the coronal and sagittal MIPS were obtained from the axial data set and were submitted for review. All measurements were obtained according to NASCET criteria. A dose lowering technique was utilized adhering to the principles of ALARA. CT DOSE: 1068.18 mGy.cm COMPARISON: None. FINDINGS: CT HEAD: No acute intracranial hemorrhage, midline shift, intracranial mass, hydrocephalus, territorial ischemia or abnormal extra-axial collection. The calvarium is intact. Mastoid air cells are clear. There is mild mucosal thickening of the ethmoid air cells and maxillary sinuses. CTA HEAD AND NECK: Bovine morphology of the thoracic aortic arch. Patency of the innominate and imaged subclavian arteries. The common and internal carotid arteries are patent. The vertebral and basilar arteries are patent. There is no significant atherosclerotic vascular disease. The middle, anterior and posterior cerebral arteries are patent. No aneurysm, dissection, high-grade stenosis or arterial occlusion. origin of the right posterior cerebral artery. Cerebral venous sinuses are patent. There is no abnormal intracranial enhancement. The lung apices are clear. Unremarkable soft tissues. No acute fracture. Mild degenerative changes of the cervical spine. IMPRESSION: 1. No acute intracranial abnormality. 2. Unremarkable CTA of the head and neck. ACT 112: Negative or not required by law. The above report was generated using voice recognition software. It may contain grammatical, syntax or spelling errors. Electronically signed by: Sanjay Little M.D. 02/28/2021 1:57 PM Head CTA 02/28/21 11:15 CT head/brain wo con, CT angio neck with con, CT angio head w con CLINICAL HISTORY: 50 years-old Female with headache. Acute headache. COVID Positive. TECHNIQUE: Multiple axial CT images of the head were obtained without contrast. CTA head and neck was obtained following the intravenous ministration of 111 mL Optiray 320. 3 the coronal and sagittal MIPS were obtained from the axial data set and were submitted for review. All measurements were obtained according to NASCET criteria. A dose lowering technique was utilized adhering to the principles of ALARA. CT DOSE: 1068.18 mGy.cm COMPARISON: None. FINDINGS: CT HEAD: No acute intracranial hemorrhage, midline shift, intracranial mass, hydrocephalus, territorial ischemia or abnormal extra-axial collection. The calvarium is intact. Mastoid air cells are clear. There is mild mucosal thickening of the ethmoid air cells and maxillary sinuses. CTA HEAD AND NECK: Bovine morphology of the thoracic aortic arch. Patency of the innominate and imaged subclavian arteries. The common and internal carotid arteries are patent. The vertebral and basilar arteries are patent. There is no significant atherosclerotic vascular disease. The middle, anterior and posterior cerebral arteries are patent. No aneurysm, dissection, high-grade stenosis or arterial occlusion. origin of the right posterior cerebral artery. Cerebral venous sinuses are patent. There is no abnormal intracranial enhancement. The lung apices are clear. Unremarkable soft tissues. No acute fracture. Mild degenerative changes of the cervical spine. IMPRESSION: 1. No acute intracranial abnormality. 2. Unremarkable CTA of the head and neck. ACT 112: Negative or not required by law. The above report was generated using voice recognition software. It may contain grammatical, syntax or spelling errors. Electronically signed by: Sanjay Little M.D. 02/28/2021 1:57 PM Neck CTA 02/28/21 11:15 CT head/brain wo con, CT angio neck with con, CT angio head w con CLINICAL HISTORY: 50 years-old Female with headache. Acute headache. COVID Positive. TECHNIQUE: Multiple axial CT images of the head were obtained without contrast. CTA head and neck was obtained following the intravenous ministration of 111 mL Optiray 320. 3 the coronal and sagittal MIPS were obtained from the axial data set and were submitted for review. All measurements were obtained according to NASCET criteria. A dose lowering technique was utilized adhering to the principl es of ALARA. CT DOSE: 1068.18 mGy.cm COMPARISON: None. FINDINGS: CT HEAD: No acute intracranial hemorrhage, midline shift, intracranial mass, hydrocephalus, territorial ischemia or abnormal extra-axial collection. The calvarium is intact. Mastoid air cells are clear. There is mild mucosal thickening of the ethmoid air cells and maxillary sinuses. CTA HEAD AND NECK: Bovine morphology of the thoracic aortic arch. Patency of the innominate and imaged subclavian arteries. The common and internal carotid arteries are patent. The vertebral and basilar arteries are patent. There is no significant atherosclerotic vascular disease. The middle, anterior and posterior cerebral arteries are patent. No aneurysm, dissection, high-grade stenosis or arterial occlusion. origin of the right posterior cerebral artery. Cerebral venous sinuses are patent. There is no abnormal intracranial enhancement. The lung apices are clear. Unremarkable soft tissues. No acute fracture. Mild degenerative changes of the cervical spine. IMPRESSION: 1. No acute intracranial abnormality. 2. Unremarkable CTA of the head and neck. ACT 112: Negative or not required by law. The above report was generated using voice recognition software. It may contain grammatical, syntax or spelling errors. Electronically signed by: Sanjay Little M.D. 02/28/2021 1:57 PM Discharge Plan Visit Data Chief Complaint: Flu Like Symptoms Stated Complaint: FEVER, CHEST PAIN, BACK PAIN, COVID +, HEADACHE ED Provider: Edgar Zuluaga Discharge Problem: Headache, COVID-19, Weakness, Dyspnea Patient Disposition: Admitted As Inpatient Forms Stand Alone Forms: [facility] [place] [employer] Prescriptions Prescriptions: No Action multivitamin [Multiple Vitamins] Tablet 1 tab PO DAILY RF: 0 ondansetron HCl 4 mg tablet 4 mg PO UD PRN (Reason: Nausea) RF: 0 lisinopril 40 mg tablet 40 mg PO DAILY RF: 0 bupropion HCl 150 mg tablet extended release 24 hr 150 mg PO DAILY RF: 0 methylprednisolone 4 mg tablets,dose pack See Rx Instructions .ROUTE .COMPLEX Qty: 21 RF: 0 Referrals Referrals: PCP,NO [Primary Care Provider] -
[2021-02-28] MEDS ORDERED: MAGNESIUM SULFATE / D5W 1 GM/100 ML BAG IV ONE (11:14)
[2021-02-28] MEDS ORDERED: ACETAMINOPHEN 500 MG TAB PO STA (11:14)
[2021-02-28] MEDS ORDERED: ONDANSETRON INJ 2 MG/ML 2 ML VIAL IV STA (11:14)
[2021-02-28] MEDS ORDERED: diphenhydrAMINE 50 MG/ML VIAL IV STA (11:14)
[2021-02-28] MEDS ORDERED: SODIUM CHLORIDE 0.9% 1000ML 1,000 ML IV SCH ×3 (11:15→21:20)
[2021-02-28 11:58] LABS: Basophils # (auto) 0.02 K/uL (0-0.2); Basophils % (auto) 0.3 %; Eosinophils # (auto) 0.02 K/uL (0-0.5); Eosinophils % (auto) 0.3 %; Hematocrit (blood only) 44.6 % (37-47); Hemoglobin 15.1 g/dL (12.0-16.0); Immature Granulocytes # (auto) 0.02 K/uL (0.00-0.02); Immature Granulocytes % (auto) 0.3 %; Lymphocytes # (auto) 0.94 K/uL (1.2-3.4); Lymphocytes % (auto) 13.1 %; Mean Corpuscular Hemoglobin 31.8 pg (25-34); Mean Corpuscular Hgb Conc 33.9 g/dL (32-36); Mean Corpuscular Volume 93.9 fL (80-100); Mean Platelet Volume 10.6 fL (7.4-10.4); Monocytes % (auto) 12.6 %; Neutrophils # (auto) 5.26 K/uL (1.4-6.5); Neutrophils % (auto) 73.4 %; Platelet Count 217 K/uL (130-400); RDW Coefficient of Variation 12.4 % (11.5-14.5); RDW Standard Deviation 42.5 fL (36.4-46.3); Red Blood Count 4.75 M/uL (4.2-5.4); White Blood Count 7.16 K/uL (4.8-10.8)
--- NOTE | 2021-02-28 12:12 | XRay Report ---
XR chest 1V portable CLINICAL HISTORY: weakness TECHNIQUE: Single frontal radiograph of the chest was obtained. Comparison: None available at the time of this dictation. FINDINGS: No lines and tubes are seen. The cardiomediastinal silhouette is normal. The lungs are clear. No evid ence of pleural effusion or pneumothorax. IMPRESSION: No acute chest disease. ACT 112: Negative or not required by law. Electronically signed by: Eyal Garcia M.D. 02/28/2021 12:11 PM
[2021-02-28 12:17] LABS: Alanine Aminotransferase 38 (12-78); Albumin Level 4.3 gm/dl (3.4-5.0); Aspartate Aminotransferase 21 U/L (15-37); BUN Creatinine Ratio 12.3 (10-20); Blood Urea Nitrogen 11 mg/dl (7-18); Calcium 9.8 mg/dl (8.5-10.1); Carbon Dioxide 24 mmol/L (21-32); Chloride 105 mmol/L (98-107); Creatinine Clr Calc Pharmacy 88.4 ml/min; Est GFR (African American) 83.6 ml/min; Est GFR (Non-African American) 72.1 ml/min; Glucose 129 mg/dl (70-99); Potassium 3.9 mmol/L (3.5-5.1); Sodium 137 mmol/L (136-145)
--- NOTE | 2021-02-28 12:25 | Electrocardiogram Report ---
Test Reason : Blood Pressure : / mmHG Vent. Rate : 106 BPM Atrial Rate : 106 BPM P-R Int : 134 ms QRS Dur : 082 ms QT Int : 334 ms P-R-T Axes : 017 041 068 degrees QTc Int : 443 ms Sinus tachycardia Otherwise normal ECG When compared with ECG of 19-FEB-2021 13:07, Vent. rate has increased BY 40 BPM Confirmed by Miguel Ángel Alaniz ([id number]) on 02/28/2021 12:25:07 PM Referred By: ED Confirmed By:Miguel Ángel Alaniz
[2021-02-28 12:27] LABS: Albumin Globulin Ratio 1.2 (0.9-2); Alkaline Phosphatase 77 U/L (45-117); Globulin 3.5 gm/dl (2.5-4.0); Thyroid Stimulating Hormone 0.913 uIu/ml (0.300-4.500); Total Protein 7.8 gm/dl (6.4-8.2); Troponin I < 0.015 ng/ml (0-0.045)
[2021-02-28] MEDS ORDERED: VALPROATE SOD 1,000 MG in DEXTROSE 5% 50 ML IV STA (13:21)
[2021-02-28] MEDS ORDERED: PROCHLORPERAZINE 2 ML IV ONE (13:21)
[2021-02-28] MEDS ORDERED: OPTIRAY 320 125ml IV ONE (13:45)
--- NOTE | 2021-02-28 13:59 | CT Scan Report ---
CT head/brain wo con, CT angio neck with con, CT angio head w con CLINICAL HISTORY: 50 years-old Female with headache. Acute headache. COVID Positive. TECHNIQUE: Multiple axial CT images of the head were obtained without contrast. CTA head and neck was obtained following the intravenous ministration of 111 mL Optiray 320. 3 the coronal and sagittal MN PS were obtained from the axial data set and were submitted for review. All measurements were obtaine d according to NASCET criteria. A dose lowering technique was utilized adhering to the principles of ALARA. CT DOSE: 1068.18 mGy.cm COMPARISON: None. FINDINGS: CT HEAD: No acute intracranial hemorrhage, midline shift, intracranial mass, hydrocephalus, territorial ischem ia or abnormal extra-axial collection. The calvarium is intact. Mastoid air cells are clear. There is mild mucosal thickening of the ethmoi d air cells and maxillary sinuses. CTA HEAD AND NECK: Bovine morphology of the thoracic aortic arch. Patency of the innominate and image d subclavian arteries. The common and internal carotid arteries are patent. The vertebral and basilar arteries are patent. There is no significant atherosclerotic vascular disease. The middle, anterior and posterior cerebral arteries are patent. No aneurysm, dissection, high-grade stenosis or arterial occlusion. origin of the right posterior cerebral artery. Cerebral venous sinuses are patent. T here is no abnormal intracranial enhancement. The lung apices are clear. Unremarkable soft tissues. No acute fracture. Mild degenerative changes of the cervical spine. IMPRESSION: 1. No acute intracranial abnormality. 2. Unremarkable CTA of the head and neck. ACT 112: Negative or not required by law. The above report was generated using voice recognition software. It may contain grammatical, syntax o r spelling errors. Electronically signed by: Sanjay Little M.D. 02/28/2021 1:57 PM
[2021-02-28] MEDS ORDERED: KETOROLAC TROMETHAMINE 15 MG/ML VIAL IV ONE (14:26)
[2021-02-28] MEDS ORDERED: KETOROLAC TROMETHAMINE 15 MG/ML VIAL ONE (14:27)
--- NOTE | 2021-02-28 16:05 | History & Physical Report ---
Date of Service February 28, 2021 Assessment & Plan (1) Headache: Plan: This is a 50yo with PMH of HTN, depression and anxiety who presents with headache, fever (tmax 101 F last night) and SOB for past week but significantly worsened symptoms since yesterday who tested positive for covid earlier today. Intermittent headache for past week with photophobia, phonophobia CT head without acute intracranial abnormality, CTA head/neck unremarkable Given Toradol, Benadryl, Tylenol, Compazine and Depakote in ED with improvement to level of pain Continue IV fluids, PRN Tylenol, Toradol and antiemetics Consider neuro consult if no improvement (2) COVID-19: Plan: Positive outpatient test in clinic today, 02/29/20. PCR test pending now Oxygen saturation of 94% on room air ESR, CRP and d-dimer pendng Received dexamethasone in ED Does not meet criteria for Remdesivir Isolation precautions (3) Hypertension: Plan: Continue lisinopril (4) Depression: Plan: Continue bupropion DVT Ppx: SQ Lovenox Code status: FULL PCP: Mumtaz Dispo: Observation med/surg Patient seen in collaboration with Dr. Mcgarry. Please see addendum. History of Present Illness Chief Complaint: covid, headache Primary Care Provider: NO PCP This is a 50yo with PMH of HTN, depression and anxiety who presents with headache, fever (tmax 101 F last night) and SOB for past week but significantly worsened symptoms since yesterday. Also experiencing worsening cough and decreased taste. Describes headache in the back with radiation towards the front, squeezing character. +photophobia, phonophobia. Has improved with medications given in ER but still painful. First experienced headache around Christmastime that has waxed and waned and was its worst starting last night. Trying OTC medications without improvement in symptoms. Denies any migraine diagnosis. No speech or swallowing difficulties, focal weakness or ambulatory dysfunction. No chest pain, wheezing, nausea, vomiting, abdominal pain, dysuria, diarrhea or constipation. Went to Dr. Meade's clinic this morning and had a positive covid test result. Is vaccinated for Covid-19 but has not yet received booster. Allergies Allergy/AdvReac Type Severity Reaction Status Date / Time No Known Allergies Allergy Unverified 02/28/21 12:17 Home Medications Medication Instructions Recorded Confirmed Type multivitamin (Multiple Vitamins) 1 tab PO DAILY 01/30/18 02/28/21 History bupropion HCl 150 mg 24 hr tablet, 150 mg PO DAILY 02/19/21 02/28/21 History extended release lisinopril 40 mg tablet 40 mg PO DAILY 02/19/21 02/28/21 History methylprednisolone 4 mg tablets in See Rx Instructions .ROUTE 02/19/21 02/28/21 Rx a dose pack .COMPLEX #21 ea ondansetron HCl 4 mg tablet 4 mg PO UD PRN 02/28/21 02/28/21 History Past Med/Surg History Medical History Anxiety Depression Hypertension Surgical History S/P laparoscopic hysterectomy Family History Other Diabetes Heart disease Hypertension Social History Smoking Status: Never smoker Tobacco Cessation Education Requested by Patient: No Hx Alcohol Use: Yes Alcohol Intake Frequency: 2-4 x/Month Hx Substance Use: Yes (tincture with THC and CBD) Prescribed Medications: Marijuana Feels Safe at Home: Yes Review of Systems Review of Systems: At least ten systems reviewed and negative except as noted in the HPI. Physical Exam Physical Exam: Please see Dr. Mcgarry's addendum for physical exam details. Results & Data Results & Data ([facility]) Vital Signs (Past 12 Hours) Vital Signs Temp Pulse Pulse Resp BP BP Pulse Ox 02/28/21 15:59 80 20 138/69 94 02/28/21 15:00 20 92 02/28/21 11:40 110 H 20 94 02/28/21 11:38 104 H 18 128/86 94 02/28/21 10:28 36.8 C 105 H 18 136/81 96 Laboratory Results Short CBC 02/28/21 Range/Units 11:28 WBC 7.16 (4.8-10.8) K/uL Hgb 15.1 (12.0-16.0) g/dL Hct 44.6 (37-47) % Plt Count 217 (130-400) K/uL BMP 02/28/21 11:28 Sodium 137 Potassium 3.9 Chloride 105 Carbon Dioxide 24 BUN 11 Creatinine 0.92 Glucose 129 H Calcium 9.8 Cardiac Enzymes 02/28/21 Range/Units 11:28 Troponin I < 0.015 (0-0.045) ng/ml Liver Function 02/28/21 Range/Units 11:28 AST 21 (15-37) U/L ALT 38 (12-78) Alkaline Phosphatase 77 (45-117) U/L Albumin 4.3 (3.4-5.0) gm/dl Diagnostic Findings Chest X-Ray 02/28/21 11:14 XR chest 1V portable CLINICAL HISTORY: weakness TECHNIQUE: Single frontal radiograph of the chest was obtained. Comparison: None available at the time of this dictation. FINDINGS: No lines and tubes are seen. The cardiomediastinal silhouette is normal. The lungs are clear. No evidence of pleural effusion or pneumothorax. IMPRESSION: No acute chest disease. ACT 112: Negative or not required by law. Electronically signed by: Eyal Garcia M.D. 02/28/2021 12:[address] 02/28/21 11:14 CT head/brain wo con, CT angio neck with con, CT angio head w con CLINICAL HISTORY: 50 years-old Female with headache. Acute headache. COVID Positive. TECHNIQUE: Multiple axial CT images of the head were obtained without contrast. CTA head and neck was obtained following the intravenous ministration of 111 mL Optiray 320. 3 the coronal and sagittal MIPS were obtained from the axial data set and were submitted for review. All measurements were obtained according to NASCET criteria. A dose lowering technique was utilized adhering to the principles of ALARA. CT DOSE: 1068.18 mGy.cm COMPARISON: None. FINDINGS: CT HEAD: No acute intracranial hemorrhage, midline shift, intracranial mass, hydrocephalus, territorial ischemia or abnormal extra-axial collection. The calvarium is intact. Mastoid air cells are clear. There is mild mucosal thickening of the ethmoid air cells and maxillary sinuses. CTA HEAD AND NECK: Bovine morphology of the thoracic aortic arch. Patency of the innominate and imaged subclavian arteries. The common and internal carotid arteries are patent. The vertebral and basilar arteries are patent. There is no significant atherosclerotic vascular disease. The middle, anterior and posterior cerebral arteries are patent. No aneurysm, dissection, high-grade stenosis or arterial occlusion. origin of the right posterior cerebral artery. Cerebral venous sinuses are patent. There is no abnormal intracranial enhancement. The lung apices are clear. Unremarkable soft tissues. No acute fracture. Mild degenerative changes of the cervical spine. IMPRESSION: 1. No acute intracranial abnormality. 2. Unremarkable CTA of the head and neck. ACT 112: Negative or not required by law. The above report was generated using voice recognition software. It may contain grammatical, syntax or spelling errors. Electronically signed by: Sanjay Little M.D. 02/28/2021 1:57 PM Head CTA 02/28/21 11:15 CT head/brain wo con, CT angio neck with con, CT angio head w con CLINICAL HISTORY: 50 years-old Female with headache. Acute headache. COVID Positive. TECHNIQUE: Multiple axial CT images of the head were obtained without contrast. CTA head and neck was obtained following the intravenous ministration of 111 mL Optiray 320. 3 the coronal and sagittal MIPS were obtained from the axial data set and were submitted for review. All measurements were obtained according to NASCET criteria. A dose lowering technique was utilized adhering to the principles of ALARA. CT DOSE: 1068.18 mGy.cm COMPARISON: None. FINDINGS: CT HEAD: No acute intracranial hemorrhage, midline shift, intracranial mass, hydrocephalus, territorial ischemia or abnormal extra-axial collection. The calvarium is intact. Mastoid air cells are clear. There is mild mucosal thickening of the ethmoid air cells and maxillary sinuses. CTA HEAD AND NECK: Bovine morphology of the thoracic aortic arch. Patency of the innominate and imaged subclavian arteries. The common and internal carotid arteries are patent. The vertebral and basilar arteries are patent. There is no significant atherosclerotic vascular disease. The middle, anterior and posterior cerebral arteries are patent. No aneurysm, dissection, high-grade stenosis or arterial occlusion. origin of the right posterior cerebral artery. Cerebral venous sinuses are patent. There is no abnormal intracranial enhancement. The lung apices are clear. Unremarkable soft tissues. No acute fracture. Mild degenerative changes of the cervical spine. IMPRESSION: 1. No acute intracranial abnormality. 2. Unremarkable CTA of the head and neck. ACT 112: Negative or not required by law. The above report was generated using voice recognition software. It may contain grammatical, syntax or spelling errors. Electronically signed by: Sanjay Little M.D. 02/28/2021 1:57 PM Neck CTA 02/28/21 11:15 CT head/brain wo con, CT angio neck with con, CT angio head w con CLINICAL HISTORY: 50 years-old Female with headache. Acute headache. COVID Positive. TECHNIQUE: Multiple axial CT images of the head were obtained without contrast. CTA head and neck was obtained following the intravenous ministration of 111 mL Optiray 320. 3 the coronal and sagittal MIPS were obtained from the axial data set and were submitted for review. All measurements were obtained according to NASCET criteria. A dose lowering technique was utilized adhering to the princip les of NAHOMI. CT DOSE: 1068.18 mGy.cm COMPARISON: None. FINDINGS: CT HEAD: No acute intracranial hemorrhage, midline shift, intracranial mass, hydrocephalus, territorial ischemia or abnormal extra-axial collection. The calvarium is intact. Mastoid air cells are clear. There is mild mucosal thickening of the ethmoid air cells and maxillary sinuses. CTA HEAD AND NECK: Bovine morphology of the thoracic aortic arch. Patency of the innominate and imaged subclavian arteries. The common and internal carotid arteries are patent. The vertebral and basilar arteries are patent. There is no significant atherosclerotic vascular disease. The middle, anterior and posterior cerebral arteries are patent. No aneurysm, dissection, high-grade stenosis or arterial occlusion. origin of the right posterior cerebral artery. Cerebral venous sinuses are patent. There is no abnormal intracranial enhancement. The lung apices are clear. Unremarkable soft tissues. No acute fracture. Mild degenerative changes of the cervical spine. IMPRESSION: 1. No acute intracranial abnormality. 2. Unremarkable CTA of the head and neck. ACT 112: Negative or not required by law. The above report was generated using voice recognition software. It may contain grammatical, syntax or spelling errors. Electronically signed by: Sanjay Little M.D. 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
[2021-02-28 16:47] LABS: Influenza A virus by PCR Negative (Neg); Influenza B virus by PCR Negative (Neg); RSV by PCR Negative (Neg)
[2021-02-28 16:54] LABS: SARS CoV2 RNA(COVID-19) InHosp POSITIVE (Negative)
[2021-02-28 17:36] LABS: D Dimer 660 ug/L FEU (0-500)
[2021-02-28 18:35] LABS: Bilirubin,Total 0.5 mg/dl (0.2-1)
[2021-02-28] MEDS: HYDROmorphone INJ 0.5 MG/0.5 ML SYR IV PRN (19:29)
[2021-02-28] MEDS ORDERED: ACETAMINOPHEN 500 MG TAB ONE (19:44)
--- NOTE | 2021-02-28 19:58 | CT Scan Report ---
CT angio chest PE protocol CT DOSE: 763.64 mGy.cm HISTORY: 50 years-old Female with PE. Acute shortness of breath. COVID Positive. TECHNIQUE: Multiple CTA images of the chest were obtained after the intravenous administration of 120 ml Optiray. Coronal and sagittal MIPS were obtained from the axial data set and were submitted for review. All measurements were obtained according to NASCET criteria. A dose lowering technique was u tilized adhering to the principles of ALARA. COMPARISON: Chest radiograph of same day FINDINGS: CTA: The heart is upper limits of normal in size. No thoracic aortic aneurysm or dissection. The pulmonary arterial tree is not well evaluated secondary to contrast bolus timing. No definitive pulmonary embo wicho identified. CT CHEST: Unremarkable thyroid. No adenopathy. No pneumothorax, pleural effusion, airspace consolidation or ove rt pulmonary edema. The inferior lung bases are only partially imaged. No suspicious pulmonary nodule s or masses identified. The central airways appear patent. Hepatomegaly with hepatic steatosis. The spleen also appears mildly enlarged. Tiny hiatal hernia. Unr emarkable soft tissues. There is no acute fracture identified. IMPRESSION: 1. Limited exam as above. No definite pulmonary embolus identified. 2. No airspace consolidation, pleural effusion or adenopathy. 3. Hepatomegaly with hepatic steatosis. ACT 112: Negative or not required by law. The above report was generated using voice recognition software. It may contain grammatical, syntax o r spelling errors. Electronically signed by: Sanjay Little M.D. 02/28/2021 7:57 PM
[2021-02-28] MEDS ORDERED: ONDANSETRON INJ 2 MG/ML 2 ML VIAL IV PRN (21:20)
[2021-02-28] MEDS ORDERED: ACETAMINOPHEN 325 MG TAB PO PRN (21:20)
[2021-02-28] MEDS ORDERED: POLYETHYLENE (MIRALAX) 17 GM PACK PO PRN (21:20)
[2021-02-28] MEDS ORDERED: PROMETHAZINE HCL 6.25 MG in SODIUM CHLORIDE 0.9% 50 ML IV PRN (21:20)
[2021-02-28] MEDS ORDERED: CALCIUM CARBONATE 500 MG CHEWABLE TAB PO PRN (21:38)
[2021-02-28] MEDS ORDERED: MELATONIN 3 MG TAB PO PRN (21:38)
[2021-02-28] MEDS: KETOROLAC TROMETHAMINE 15 MG/ML VIAL IV PRN (22:10)
[2021-02-28] MEDS: ENOXAPARIN INJ 40 MG/0.4 ML SYR SQ SCH (23:15)
[2021-03-01] MEDS: oxyCODONE HCL IR 5 MG TAB (IMMEDIATE RELEASE) PO PRN ×2 (00:39→07:38)
[2021-03-01 07:03] LABS: Basophils # (auto) 0.01 K/uL (0-0.2); Basophils % (auto) 0.2 %; Eosinophils # (auto) 0.11 K/uL (0-0.5); Eosinophils % (auto) 2.4 %; Hematocrit (blood only) 39.5 % (37-47); Hemoglobin 12.7 g/dL (12.0-16.0); Immature Granulocytes # (auto) 0.01 K/uL (0.00-0.02); Immature Granulocytes % (auto) 0.2 %; Lymphocytes # (auto) 0.98 K/uL (1.2-3.4); Lymphocytes % (auto) 21.2 %; Mean Corpuscular Hgb Conc 32.2 g/dL (32-36); Mean Corpuscular Volume 96.3 fL (80-100); Mean Platelet Volume 10.3 fL (7.4-10.4); Monocytes # (auto) 0.55 K/uL (0.11-0.59); Monocytes % (auto) 11.9 %; Neutrophils # (auto) 2.96 K/uL (1.4-6.5); Neutrophils % (auto) 64.1 %; Platelet Count 172 K/uL (130-400); RDW Coefficient of Variation 12.8 % (11.5-14.5); RDW Standard Deviation 44.7 fL (36.4-46.3); White Blood Count 4.62 K/uL (4.8-10.8)
[2021-03-01] MEDS: buPROPion XL 150 MG TABCR PO SCH (07:24)
[2021-03-01] MEDS: lisinopril 40 MG TAB PO SCH (07:24)
[2021-03-01] MEDS: MULTIVITAMIN TAB PO SCH (07:24)
[2021-03-01 07:29] LABS: Calcium 8.4 mg/dl (8.5-10.1); Creatinine Clr Calc Pharmacy 101.7 ml/min; Est GFR (African American) 98.9 ml/min; Est GFR (Non-African American) 85.4 ml/min; Potassium 3.8 mmol/L (3.5-5.1)
[2021-03-01] MEDS: HYDROmorphone INJ 0.5 MG/0.5 ML SYR IV PRN ×2 (12:10→17:02)
[2021-03-01] MEDS ORDERED: diphenhydrAMINE Capsule 25 MG CAP PO ONE (13:40)
[2021-03-01] MEDS: AMOXICILLIN/CLAVULANATE 875 MG TAB PO SCH (16:58)
--- NOTE | 2021-03-01 17:18 | Hospitalist Progress Note ---
Date of Service March 01, 2021 Assessment & Plan (1) Headache: Plan: This is a 50yo with PMH of HTN, depression and anxiety who presents with headache, fever (tmax 101 F last night) and SOB for past week but significantly worsened symptoms since yesterday who tested positive for covid earlier today. Intermittent headache for past week with photophobia, phonophobia CT head without acute intracranial abnormality, CTA head/neck unremarkable Given Toradol, Benadryl, Tylenol, Compazine and Depakote in ED with improvement to level of pain Continue IV fluids, PRN Tylenol, Toradol and antiemetics Consider neuro consult if no improvement Looks consistent with flushed facies and watery red eyes Still has severe headache without any nausea and or vomiting or neck stiffness Bilateral sinus pain and pressure Localized tenderness involving the maxillary sinus areas Has sore throat as well We'll get strep throat test and start Augmentin for possible sinusitis Benadryl was given for allergic symptoms (2) COVID-19: Plan: Positive outpatient test in clinic today, 02/29/20. PCR test pending now Oxygen saturation of 94% on room air ESR-20, CRP-2.19 and d-dimer-660 Received dexamethasone in ED on 02/19/2021 Does not meet criteria for Remdesivir and/or dexamethasone Isolation precautions (3) Hypertension: Plan: Continue lisinopril (4) Depression: Plan: Continue bupropion DVT Ppx: SQ Lovenox Code status: FULL PCP: Mumtaz Dispo: Observation med/surg Admission and Anticipated Discharge Date Admission Date: February 28, 2021 Subjective 03/01/2021 The patient was seen and examined in Covid unit She complains to have headache with sinus congestion, sore throat and bilateral earache Denies any shortness of breath but has minimal cough Hasn't been requiring any oxygen to maintain saturation Review of Systems Review of Systems: All systems reviewed and are unremarkable except as noted below Physical Exam Physical Exam: Lying in bed comfortably but very anxious Constitutional: well developed, well nourished, + ill appearing and + obese Eyes: PERRL, conjunctivae normal, anicteric sclerae ENMT: external ear and nose normal, oropharynx normal Neck: trachea midline, no thyromegaly Respiratory: no respiratory distress Auscultation: lungs clear to auscultation bilaterally and + diminished lung sounds Cardiovascular: Rate/Rhythm: regular rate and regular rhythm; not tachycardic Heart Sounds: normal S1 and normal S2; no murmur Gastrointestinal (Abdomen): Inspection/Auscultation: normal bowel sounds; abdomen not distended Percussion/Palpation: abdomen soft; abdomen nontender Musculoskeletal: No acute arthritis in any joint Neurologic: Awake and oriented x3. No focal sensory or no motor deficit appreciated Lymphatic: no cervical or axillary lymphadenopathy Results & Data Results & Data ([facility]) Vital Signs (Past 12 Hours) Vital Signs Temp Pulse Resp BP Pulse Ox 03/01/21 11:14 37.6 C H 79 18 138/94 97 03/01/21 07:51 36.8 C 75 18 117/78 95 Laboratory Results Short CBC 03/01/21 Range/Units 06:35 WBC 4.62 L (4.8-10.8) K/uL Hgb 12.7 (12.0-16.0) g/dL Hct 39.5 (37-47) % Plt Count 172 (130-400) K/uL BMP 03/01/21 06:35 Sodium 139 Potassium 3.8 Chloride 107 Carbon Dioxide 26 BUN 10 Creatinine 0.80 Glucose 107 H Calcium 8.4 L Liver Function 02/28/21 Range/Units 11:28 Total Bilirubin 0.5 (0.2-1) mg/dl Medications Administered Current Inpatient Medications Acetaminophen (Acetaminophen 325 Mg Tab) 650 mg PO Q4H PRN PRN Reason: pain/fever Stop: 03/30/21 21:19 Last Admin: 02/28/21 23:25 Dose: 650 mg Documented by: Amoxicillin/Clavulanate Potassium (Amoxicillin/Clavulanate 875 Mg Tab) 1 tab PO BIDM [facility] Stop: 03/08/21 16:59 Last Admin: 03/01/21 16:58 Dose: 1 tab Documented by: Bupropion HCl (Bupropion Xl 150 Mg Tabcr) 150 mg PO DAILY [facility] Stop: 03/31/21 08:59 Last Admin: 03/01/21 07:24 Dose: 150 mg Documented by: Calcium Carbonate (Calcium Carbonate 500 Mg Chewable Tab) 500 mg PO Q6H PRN PRN Reason: Heartburn Stop: 03/30/21 21:37 Last Admin: 02/28/21 22:07 Dose: 500 mg Documented by: Enoxaparin Sodium (Enoxaparin Inj 40 Mg/0.4 Ml Syr) 40 mg SQ Q24H ANA Stop: 03/30/21 21:59 Last Admin: 02/28/21 23:15 Dose: 40 mg Documented by: Hydromorphone HCl (Hydromorphone Inj 0.5 Mg/0.5 Ml Syr) 0.5 mg IV Q6H PRN PRN Reason: Headache or Pain Stop: 03/14/21 19:11 Last Admin: 03/01/21 17:02 Dose: 0.5 mg Documented by: Promethazine HCl 6.25 mg/ (Sodium Chloride) 50.25 mls @ 201 mls/hr IV Q6H PRN PRN Reason: Nausea And Vomiting Stop: 03/30/21 21:19 Ketorolac Tromethamine (Ketorolac Tromethamine 15 Mg/Ml Vial) 30 mg IV Q6H PRN PRN Reason: Pain Stop: 03/05/21 21:19 Last Admin: 02/28/21 22:10 Dose: 30 mg Documented by: Lisinopril (Lisinopril 40 Mg Tab) 40 mg PO DAILY ANA Stop: 03/31/21 08:59 Last Admin: 03/01/21 07:24 Dose: 40 mg Documented by: Melatonin (Melatonin 3 Mg Tab) 3 mg PO HS PRN PRN Reason: Sleep Stop: 03/30/21 21:37 Last Admin: 02/28/21 22:07 Dose: 3 mg Documented by: Multivitamins (Multivitamin Tab) 1 tab PO DAILY ANA Stop: 03/31/21 08:59 Last Admin: 03/01/21 07:24 Dose: 1 tab Documented by: Ondansetron HCl (Ondansetron Inj 2 Mg/Ml 2 Ml Vial) 4 mg IV Q6H PRN PRN Reason: Nausea Stop: 03/30/21 21:19 Oxycodone HCl (Oxycodone Hcl Ir 5 Mg Tab (Immediate Release)) 5 - 10 mg PO QID PRN PRN Reason: Pain Stop: 03/15/21 00:28 Last Admin: 03/01/21 07:38 Dose: 5 mg Documented by: Polyethylene Glycol (Polyethylene (Miralax) 17 Gm Pack) 17 gm PO DAILY PRN PRN Reason: Constipation Stop: 03/30/21 21:19 (1) Headache Headache chronicity pattern: chronic headache Headache type: unspecified Intractability: intractable Qualified Code(s): R51.9 - Headache, unspecified; G89.29 - Other chronic pain
[2021-03-01] MEDS ORDERED: diphenhydrAMINE Capsule 25 MG CAP PO PRN (17:20)
[2021-03-01] MEDS: KETOROLAC TROMETHAMINE 15 MG/ML VIAL IV PRN (19:47)
[2021-03-01] MEDS: ENOXAPARIN INJ 40 MG/0.4 ML SYR SQ SCH (21:21)
[2021-03-01] MEDS ORDERED: MELATONIN 3 MG TAB PO PRN (21:26)
[2021-03-02] MEDS: HYDROmorphone INJ 0.5 MG/0.5 ML SYR IV PRN (00:30)
[2021-03-02] MEDS: KETOROLAC TROMETHAMINE 15 MG/ML VIAL IV PRN (05:17)
[2021-03-02] MEDS: MULTIVITAMIN TAB PO SCH (07:19)
[2021-03-02] MEDS: lisinopril 40 MG TAB PO SCH (07:19)
[2021-03-02] MEDS: buPROPion XL 150 MG TABCR PO SCH (07:19)
[2021-03-02] MEDS: AMOXICILLIN/CLAVULANATE 875 MG TAB PO SCH (07:20)
[2021-03-02] MEDS: oxyCODONE HCL IR 5 MG TAB (IMMEDIATE RELEASE) PO PRN (10:36)
--- NOTE | 2021-03-02 13:11 | Hospitalist Progress Note ---
Date of Service March 02, 2021 Assessment & Plan (1) Headache: Plan: This is a 50yo with PMH of HTN, depression and anxiety who presents with headache, fever (tmax 101 F last night) and SOB for past week but significantly worsened symptoms since yesterday who tested positive for covid earlier today. Intermittent headache for past week with photophobia, phonophobia CT head without acute intracranial abnormality, CTA head/neck unremarkable Given Toradol, Benadryl, Tylenol, Compazine and Depakote in ED with improvement to level of pain Continue IV fluids, PRN Tylenol, Toradol and antiemetics Consider neuro consult if no improvement Looks consistent with flushed facies and watery red eyes Still has severe headache without any nausea and or vomiting or neck stiffness Headache is much improved and does not have any associated symptom Bilateral sinus pain and pressure Localized tenderness involving the maxillary sinus areas Has sore throat as well We'll get strep throat test and start Augmentin for possible sinusitis Benadryl was given for allergic symptoms She was advised to take [id number] nondrowsy antihistamine (2) COVID-19: Plan: Positive outpatient test in clinic today, 02/29/20. PCR test pending now Oxygen saturation of 94% on room air ESR-20, CRP-2.19 and d-dimer-660 Received dexamethasone in ED on 02/19/2021 Does not meet criteria for Remdesivir and/or dexamethasone Isolation precautions until 10 March She will be given some cough medicine (3) Hypertension: Plan: Continue lisinopril Blood pressure is controlled (4) Depression: Plan: Continue bupropion DVT Ppx: SQ Lovenox Code status: FULL PCP: Mumtaz Dispo: Observation med/surg Will be discharged home this afternoon Admission and Anticipated Discharge Date Admission Date: February 28, 2021 Subjective 03/01/2021 The patient was seen and examined in Covid unit She complains to have headache with sinus congestion, sore throat and bilateral earache Denies any shortness of breath but has minimal cough Hasn't been requiring any oxygen to maintain saturation 03/02/2021 The patient was seen and examined in Covid unit She still complains to have headache and at times could be severe Her sinus pain and pressure better Her sore throat is better and a strep throat has been negative Review of Systems Review of Systems: All systems reviewed and are unremarkable except as noted below Respiratory: But no shortness of breath Physical Exam Physical Exam: Lying in bed comfortably but very anxious Constitutional: well developed, well nourished, + ill appearing and + obese Eyes: PERRL, conjunctivae normal, anicteric sclerae ENMT: external ear and nose normal, oropharynx normal Neck: trachea midline, no thyromegaly Respiratory: no respiratory distress Auscultation: lungs clear to auscultation bilaterally and + diminished lung sounds Cardiovascular: Rate/Rhythm: regular rate and regular rhythm; not tachycardic Heart Sounds: normal S1 and normal S2; no murmur Gastrointestinal (Abdomen): Inspection/Auscultation: normal bowel sounds; abdomen not distended Percussion/Palpation: abdomen soft; abdomen nontender Musculoskeletal: No acute arthritis in any joint Neurologic: Alert, awake and oriented x3. No focal sensory and motor deficit appreciated Lymphatic: no cervical or axillary lymphadenopathy Results & Data Results & Data ([facility]) Vital Signs (Past 12 Hours) Vital Signs Temp Pulse Resp BP Pulse Ox 03/02/21 08:05 36.7 C 63 20 126/84 96 Medications Administered Current Inpatient Medications Acetaminophen (Acetaminophen 325 Mg Tab) 650 mg PO Q4H PRN PRN Reason: pain/fever Stop: 03/30/21 21:19 Last Admin: 02/28/21 23:25 Dose: 650 mg Documented by: Amoxicillin/Clavulanate Potassium (Amoxicillin/Clavulanate 875 Mg Tab) 1 tab PO BIDM [facility] Stop: 03/08/21 16:59 Last Admin: 03/02/21 07:20 Dose: 1 tab Documented by: Bupropion HCl (Bupropion Xl 150 Mg Tabcr) 150 mg PO DAILY [facility] Stop: 03/31/21 08:59 Last Admin: 03/02/21 07:19 Dose: 150 mg Documented by: Calcium Carbonate (Calcium Carbonate 500 Mg Chewable Tab) 500 mg PO Q6H PRN PRN Reason: Heartburn Stop: 03/30/21 21:37 Last Admin: 02/28/21 22:07 Dose: 500 mg Documented by: Diphenhydramine HCl (Diphenhydramine Capsule 25 Mg Cap) 25 mg PO Q6H PRN PRN Reason: Allergy Symptoms Stop: 03/31/21 17:19 Enoxaparin Sodium (Enoxaparin Inj 40 Mg/0.4 Ml Syr) 40 mg SQ Q24H ANA Stop: 03/30/21 21:59 Last Admin: 03/01/21 21:21 Dose: 40 mg Documented by: Hydromorphone HCl (Hydromorphone Inj 0.5 Mg/0.5 Ml Syr) 0.5 mg IV Q6H PRN PRN Reason: Headache or Pain Stop: 03/14/21 19:11 Last Admin: 03/02/21 00:30 Dose: 0.5 mg Documented by: Promethazine HCl 6.25 mg/ (Sodium Chloride) 50.25 mls @ 201 mls/hr IV Q6H PRN PRN Reason: Nausea And Vomiting Stop: 03/30/21 21:19 Ketorolac Tromethamine (Ketorolac Tromethamine 15 Mg/Ml Vial) 30 mg IV Q6H PRN PRN Reason: Pain Stop: 03/05/21 21:19 Last Admin: 03/02/21 05:17 Dose: 30 mg Documented by: Lisinopril (Lisinopril 40 Mg Tab) 40 mg PO DAILY ANA Stop: 03/31/21 08:59 Last Admin: 03/02/21 07:19 Dose: 40 mg Documented by: Melatonin (Melatonin 3 Mg Tab) 6 mg PO HS PRN PRN Reason: Sleep Stop: 03/30/21 21:37 Last Admin: 03/01/21 21:39 Dose: 6 mg Documented by: Multivitamins (Multivitamin Tab) 1 tab PO DAILY ANA Stop: 03/31/21 08:59 Last Admin: 03/02/21 07:19 Dose: 1 tab Documented by: Ondansetron HCl (Ondansetron Inj 2 Mg/Ml 2 Ml Vial) 4 mg IV Q6H PRN PRN Reason: Nausea Stop: 03/30/21 21:19 Oxycodone HCl (Oxycodone Hcl Ir 5 Mg Tab (Immediate Release)) 5 - 10 mg PO QID PRN PRN Reason: Pain Stop: 03/15/21 00:28 Last Admin: 03/02/21 10:36 Dose: 5 mg Documented by: Polyethylene Glycol (Polyethylene (Miralax) 17 Gm Pack) 17 gm PO DAILY PRN PRN Reason: Constipation Stop: 03/30/21 21:19 (1) Headache Headache chronicity pattern: chronic headache Headache type: unspecified Intractability: intractable Qualified Code(s): R51.9 - Headache, unspecified; G89.29 - Other chronic pain
--- NOTE | 2021-03-03 07:45 | Discharge Summary ---
Date of Service March 03, 2021 Admission HPI Per Admitting Provider This is a 50yo with PMH of HTN, depression and anxiety who presents with headache, fever (tmax 101 F last night) and SOB for past week but significantly worsened symptoms since yesterday. Also experiencing worsening cough and decreased taste. Describes headache in the back with radiation towards the front, squeezing character. +photophobia, phonophobia. Has improved with medications given in ER but still painful. First experienced headache around Christmastime that has waxed and waned and was its worst starting last night. Trying OTC medications without improvement in symptoms. Denies any migraine diagnosis. No speech or swallowing difficulties, focal weakness or ambulatory dysfunction. No chest pain, wheezing, nausea, vomiting, abdominal pain, dysuria, diarrhea or constipation. Went to Dr. Meade[facility] clinic this morning and had a positive covid test result. Is vaccinated for Covid-19 but has not yet received booster. Admission Exam Per Admitting Provider Lying in the bed very anxious Hemodynamically stable Chest-clear to auscultate bilaterally Heart S1, S2 regular Abdomen-benign Extremities-negative for any edema RESEARCH NURSE-alert, awake and oriented x3, no nuchal rigidity, no photophobia, signs of meningitis Principal Diagnosis COVID-19 virus infection, hypertension, tension headache, acute maxillary sinusitis Discharge Exam Lying in bed comfortably but very anxious Constitutional well developed, well nourished, + ill appearing and + obese Eyes PERRL, conjunctivae normal, anicteric sclerae ENMT external ear and nose normal, oropharynx normal Neck trachea midline, no thyromegaly Respiratory no respiratory distress Auscultation: lungs clear to auscultation bilaterally and + diminished lung sounds Cardiovascular Rate/Rhythm: regular rate and regular rhythm; not tachycardic Heart Sounds: normal S1 and normal S2; no murmur Gastrointestinal (Abdomen) Inspection/Auscultation: normal bowel sounds; abdomen not distended Percussion/Palpation: abdomen soft; abdomen nontender Lymphatic no cervical or axillary lymphadenopathy Discharge Data Allergies Allergy/AdvReac Type Severity Reaction Status Date / Time No Known Allergies Allergy Unverified 02/28/21 12:17 Consultations 02/28/21 15:55 ED Decision to Admit Stat Ordered Studies 02/28/21 11:14 CT head/brain wo con Stat 02/28/21 11:15 CT angio head w con Stat CT angio neck with con Stat 02/28/21 18:09 CT angio chest PE protocol Routine Hospital Course (1) Headache: This is a 50yo with PMH of HTN, depression and anxiety who presents with headache, fever (tmax 101 F last night) and SOB for past week but significantly worsened symptoms since yesterday who tested positive for covid earlier today. Intermittent headache for past week with photophobia, phonophobia CT head without acute intracranial abnormality, CTA head/neck unremarkable Given Toradol, Benadryl, Tylenol, Compazine and Depakote in ED with improvement to level of pain Continue IV fluids, PRN Tylenol, Toradol and antiemetics Consider neuro consult if no improvement Looks consistent with flushed facies and watery red eyes Still has severe headache without any nausea and or vomiting or neck stiffness Headache is much improved and does not have any associated symptom Bilateral sinus pain and pressure Localized tenderness involving the maxillary sinus areas Has sore throat as well We'll get strep throat test and start Augmentin for possible sinusitis Benadryl was given for allergic symptoms She was advised to take [id number] nondrowsy antihistamine (2) COVID-19: Positive outpatient test in clinic today, 02/29/20. PCR test pending now Oxygen saturation of 94% on room air ESR-20, CRP-2.19 and d-dimer-660 Received dexamethasone in ED on 02/19/2021 Does not meet criteria for Remdesivir and/or dexamethasone Isolation precautions until 10 March She will be given some cough medicine (3) Hypertension: Continue lisinopril Blood pressure is controlled (4) Depression: Continue bupropion DVT Ppx: SQ Lovenox Code status: FULL PCP: Mumtaz Dispo: Observation med/surg Will be discharged home this afternoon Total Time Total Time Spent Total Time Spent (In Minutes): 35 minutes Discharge Plan Discharge Items Patient Disposition: Home - Self-Care Reason For Visit: COVID, HEADACHE Discharge Diagnosis: COVID-19 virus infection, hypertension, tension headache, acute maxillary sinusitis Condition on Discharge: Good Activity: Resume your previous activity Non-emergency contact: Primary Care Provider Call non-emergency contact if: you have any medication questions and your symptoms worsen Follow-up/Referrals: Jonny Pandya MD [Primary Care Provider] - (Date & Time 03/06/2021 11:00 AM Provider Jonny Pandya MD Department Family Practice [facility] PLEASE NOTE THAT THIS IS A TELEHEALTH VIDEO APPOINTMENT. PLEASE FOLLOW THE INSTRUCTIONS PROVIDED IN YOUR EMAIL. IF YOU HAVE ANY QUESTIONS REGARDING THIS APPOINTMENT, PLEASE CALL ) Diet: Heart Healthy Addtl Attending Provider Instructions: Please take precautions to avoid fall Take it easy for the next few days You need to be in quarantine until 10 March as instructed below: You can try ibuprofen 600 mg orally with food for the headache Use of narcotics pain medication can cause rebound headache, confusion, constipation and addiction Please keep appointment with your primary care provider Home Isolation COVID-19 Instructions The following information about Home Isolation is from the CDC Website: https://www.cdc.gov/coronavirus/2019-ncov/hcp/gfidppmn-shtauyh-uvqpod.html Stay home except to get medical care People who are mildly ill with COVID-19 are able to isolate at home during their illness. You should restrict activities outside your home, except for getting medical care. Do not go to work, school, or public areas. Avoid using public transportation, ride-sharing, or taxis. Separate yourself from other people and animals in your home People: As much as possible, you should stay in a specific room and away from other people in your home. Also, you should use a separate bathroom, if available. Animals: You should restrict contact with pets and other animals while you are sick with COVID-19, just like you would around other people. Although there have not been reports of pets or other animals becoming sick with COVID-19, it is still recommended that people sick with COVID-19 limit contact with animals until more information is known about the virus. When possible, have another member of your household care for your animals while you are sick. If you are sick with COVID-19, avoid contact with your pet, including petting, snuggling, being kissed or licked, and sharing food. If you must care for your pet or be around animals while you are sick, wash your hands before and after you interact with pets and wear a face mask. Call ahead before visiting your doctor If you have a medical appointment, call the healthcare provider and tell them that you have or may have COVID-19. This will help the healthcare providers office take steps to keep other people from getting infected or exposed. Wear a face mask You should wear a face mask when you are around other people (e.g., sharing a room or vehicle) or pets and before you enter a healthcare providers office. If you are not able to wear a face mask (for example, because it causes trouble breathing), then people who live with you should not stay in the same room with you, or they should wear a face mask if they enter your room. Cover your coughs and sneezes Cover your mouth and nose with a tissue when you cough or sneeze. Throw used tis sues in a lined trash can. Immediately wash your hands with soap and water for at least 20 seconds or, if soap and water are not available, clean your hands with an alcohol-based hand tin can laborer that contains at least 60% alcohol. Clean your hands often Wash your hands often with soap and water for at least 20 seconds, especially after blowing your nose, coughing, or sneezing; going to the bathroom; and before eating or preparing food. If soap and water are not readily available, use an alcohol-based hand tin can laborer with at least 60% alcohol, covering all surfaces of your hands and rubbing them together until they feel dry. Soap and water are the best option if hands are visibly dirty. Avoid touching your eyes, nose, and mouth with unwashed hands. Avoid sharing personal household items You should not share dishes, drinking glasses, cups, eating utensils, towels, or bedding with other people or pets in your home. After using these items, they should be washed thoroughly with soap and water. Clean all high-touch surfaces everyday High touch surfaces include counters, tabletops, doorknobs, bathroom fixtures, toilets, phones, keyboards, tablets, and bedside tables. Also, clean any surfaces that may have blood, stool, or body fluids on them. Use a household cleaning spray or wipe, according to the label instructions. Labels contain instructions for safe and effective use of the cleaning product including precautions you should take when applying the product, such as wearing gloves and making sure you have good ventilation during use of the product. Monitor your symptoms Seek prompt medical attention if your illness is worsening (e.g., difficulty breathing).Beforeseeking care, call your healthcare provider and tell them that you have, or are being evaluated for, COVID-19. Put on a face mask before you enter the facility. These steps will help the healthcare providers office to keep other people in the office or waiting room from getting infected or exposed. Ask your healthcare provider to call the local or state health department. Persons who are placed under active monitoring or facilitated self- monitoring should follow instructions provided by their local health department or occupational health professionals, as appropriate. When working with your local health department check their available hours. If you have a medical emergency and need to call 911, notify the dispatch personnel that you have, or are being evaluated for COVID-19. If possible, put on a face mask before emergency medical services arrive. Discontinuing home isolation Patients with confirmed COVID-19 should remain under home isolation precautions until the risk of secondary transmission to others is thought to be low. The decision to discontinue home isolation precautions should be made on a [id number] basis, in consultation with healthcare providers and formerly [facility], [facility] and [facility] health departments. Pending Studies at Discharge: No Stand-Alone Forms: [facility], Smoking Cessation Medications and DC Order Prescriptions: New amoxicillin-pot clavulanate [Augmentin] 875-125 mg Tablet 1 tab PO BIDM 5 Days Qty: 10 RF: 0 oxycodone 5 mg Tablet 5 mg PO QID PRN (Reason: pain) 3 Days Qty: 10 RF: 0 Lactinex 1 million cell tablet,chewable 1 tab PO BID Qty: 30 RF: 0 dextromethorphan-guaifenesin [Mucus Relief ER DM-MAX] 60-1,200 mg tablet extended release 12 hr 1 tab PO BID Qty: 20 RF: 0 Continued multivitamin [Multiple Vitamins] Tablet 1 tab PO DAILY RF: 0 ondansetron HCl 4 mg tablet 4 mg PO UD PRN (Reason: Nausea) RF: 0 lisinopril 40 mg tablet 40 mg PO DAILY RF: 0 bupropion HCl 150 mg tablet extended release 24 hr 150 mg PO DAILY RF: 0 methylprednisolone 4 mg tablets,dose pack See Rx Instructions .ROUTE .COMPLEX Qty: 21 RF: 0 Discharge Orders: Discharge Order (Routine); Ordered 03/02/21 Ordered By: Misty Martínez/Other Patient Handouts: COVID-19 Home Care Admission Data Admit Date/Time: 02/28/21 16:45 Attending Provider: Misty Mcgarry Admit Provider: Misty Mcgarry Primary Care Provider: Jonny Pandya Other Providers: Misty Mcgarry Other Interventions: Discharge Summary Assessment (RN) Last Done: 03/02/21 14:12
== END 2021-03-02 14:39 | disposition home or self-care (01) ==
LOC: ED 10:24 → EDINP 10:24 → 2W 20:21

== ENCOUNTER 2023-02-08 21:04 | Observation (INO) ==
[2023-02-08] MEDS ORDERED: SODIUM CHLORIDE 0.9% 1,000 ML IV STA (22:06)
[2023-02-08] MEDS ORDERED: FAMOTIDINE 20MG IV PUSH 20 MG/5 ML SYR IV STA (22:06)
[2023-02-08] MEDS ORDERED: DICYCLOMINE HCL 10 MG/ML 2 ML AMP/VIAL IM ONE (22:06)
[2023-02-08] MEDS ORDERED: ONDANSETRON INJ 2 MG/ML 2 ML VIAL IV STA (22:06)
[2023-02-08 22:18] LABS: Appearance Urine Clear (Clear); Bilirubin Urine Negative (Negative); Blood Urine Negative (Negative); Color Urine Yellow; Glucose Urine UA Negative (Negative); Ketones Urine Negative (Negative); Leukocyte Esterase Urine Negative (Negative); Nitrite Urine Negative (Negative); Protein Urine Negative (Negative); Specific Gravity Urine 1.003 (1.000-1.030); Urobilinogen Urine Negative (Negative); pH Urine 6.5 (4.5-7.5)
[2023-02-08 22:37] LABS: Basophils # (auto) 0.06 K/uL (0.00-0.20); Basophils % (auto) 0.9 %; Eosinophils # (auto) 0.16 K/uL (0.00-0.50); Eosinophils % (auto) 2.3 %; Hematocrit (blood only) 35.1 % (37.0-47.0); Hemoglobin 10.9 g/dl (12.0-16.0); Immature Granulocytes # (auto) 0.01 K/uL (0.01-0.20); Immature Granulocytes % (auto) 0.1 %; Lymphocytes % (auto) 34.1 %; Mean Corpuscular Hgb Conc 31.1 g/dL (32.0-36.0); Mean Corpuscular Volume 83.6 fL (80.0-100.0); Mean Platelet Volume 9.2 fL (9.4-12.4); Monocytes # (auto) 0.63 K/uL (0.11-0.59); Monocytes % (auto) 8.9 %; Neutrophils # (auto) 3.78 K/uL (1.40-6.50); Neutrophils % (auto) 53.7 %; Platelet Count 417 K/uL (130-400); RDW Coefficient of Variation 14.6 % (11.5-14.5); RDW Standard Deviation 44.3 fL (36.4-46.3); White Blood Count 7.04 K/ul (4.8-10.8)
[2023-02-08 22:53] LABS: Alanine Aminotransferase 7 U/L (7-52); Albumin Globulin Ratio 1.1 (0.9-2); Alkaline Phosphatase 93 U/L (34-104); Anion Gap 9 (3-11); Aspartate Aminotransferase 9 U/L (13-39); BUN Creatinine Ratio 20.2 (10-20); Bilirubin,Total 0.3 mg/dl (0.2-1.0); Blood Urea Nitrogen 18 mg/dl (6-23); Calcium 9.8 mg/dl (8.6-10.3); Carbon Dioxide 26 mmol/L (21-32); Chloride 101 mmol/L (98-107); Creatinine Clr Calc Pharmacy 76.7 ml/min; Est GFR (African American) 85.8 ml/min; Globulin 3.7 gm/dl (2.5-4.0); Glucose 94 mg/dl (70-99(Fasting)); Lipase 34 U/L (11-82); Potassium 4.8 mmol/L (3.5-5.1); Sodium 136 mmol/L (136-145); Total Protein 7.7 gm/dl (6.0-8.3)
--- NOTE | 2023-02-08 22:58 | Emergency Department Note ---
History of Present Illness General Chief complaint: Abdominal Pain Stated complaint: ABD/RIB/BACK PAIN Time Seen by Provider: 02/08/23 21:50 History of Present Illness Maximum Pain Intensity: 8 This 52-year-old female on Wegovy for wt loss presents to the ER complaining of intermittent left-sided abdominal and back pain for the past few weeks. Patient has been treated twice for urine infection. Patient denies chest pain, dyspnea, fevers, vomiting, diarrhea. She states her urinary symptoms have cleared up. No prior abdominal surgeries. Patient tried an enema with no relief of symptoms. Last bowel movement was Saturday. Colonoscopy in the past showed benign polyps per patient. Home Medications Medication Instructions Recorded Confirmed Type bupropion HCl 150 mg 24 hr tablet, 150 mg PO DAILY 02/19/21 02/08/23 History extended release lisinopril 40 mg tablet 40 mg PO DAILY 02/19/21 02/08/23 History Multiple Vitamin Pack 1 dose PO DAILY 02/08/23 02/08/23 History cyclobenzaprine 5 mg tablet 5 mg PO TID PRN MUSCLE SPASMS 02/08/23 02/08/23 History docusate sodium 100 mg capsule 100 mg PO DAILY 02/08/23 02/08/23 History (Stool Softener) ibuprofen 600 mg tablet 600 mg PO TID PRN Pain 02/08/23 02/08/23 History inulin 2 gram chewable tablet 2 g PO DAILY 02/08/23 02/08/23 History (Fiber Gummies) semaglutide (weight loss) 2.4 2.4 mg subcut WK 02/08/23 02/08/23 History mg/0.75 mL subcutaneous pen injector (Wegovy) Allergies Allergy/AdvReac Type Severity Reaction Status Date / Time No Known Allergies Allergy Verified 02/08/23 21:50 Past Med/Surg History Medical History Depression Anxiety Hypertension Surgical History S/P laparoscopic hysterectomy Family History Other Diabetes Heart disease Hypertension Social History Smoking Status: Never smoker Hx Alcohol Use: Yes Alcohol type: wine Alcohol Intake Frequency: 2-4 x/Month Hx Substance Use: No Preferred Language: Armenian Communication Ability: Effective Registered Pharmacy Technician Required: No Beliefs That Will Affect Care: None Current Living Situation: Spouse Feels Safe at Home: Yes Assistive Devices: None Review of Systems A total of 10 systems reviewed and were otherwise negative Physical Exam Vital Signs Vital Signs - 24 hr 02/08/23 21:08 02/08/23 21:31 02/08/23 22:31 Temperature 36.6 C Temperature Source Temporal Artery Scan Pulse Rate 121 H 90 Pulse Rate from SpO2 Sensor Pulse Rhythm Regular Pulse Strength Normal Respiratory Rate 18 Respiratory Effort / Characteristics Non-Labored Spontaneous Respiratory Depth Normal Respiratory Pattern Regular Blood Pressure 120/72 Blood Pressure Mean 88 Blood Pressure Position Sitting Pulse Oximetry 98 Oxygen Delivery Method Room Air Room Air Sepsis Recent Fever Within 48 Hours No Sepsis New/Unexplained Change in Mental Status N/A Sepsis Action Taken by Nursing No Action Required 02/09/23 00:07 02/09/23 00:30 02/09/23 01:00 Temperature Temperature Source Pulse Rate 90 88 86 Pulse Rate from SpO2 Sensor 86 Pulse Rhythm Pulse Strength Respiratory Rate 23 18 17 Respiratory Effort / Characteristics Respiratory Depth Respiratory Pattern Blood Pressure 93/56 L 94/60 L 107/62 Blood Pressure Mean 68 71 77 Blood Pressure Position Pulse Oximetry 98 96 94 Oxygen Delivery Method Room Air Room Air Room Air Sepsis Recent Fever Within 48 Hours Sepsis New/Unexplained Change in Mental Status Sepsis Action Taken by Nursing 02/09/23 01:30 02/09/23 01:32 Temperature Temperature Source Pulse Rate 87 86 Pulse Rate from SpO2 Sensor 89 Pulse Rhythm Pulse Strength Respiratory Rate 19 Respiratory Effort / Characteristics Respiratory Depth Respiratory Pattern Blood Pressure 98/58 L Blood Pressure Mean 71 Blood Pressure Position Pulse Oximetry 96 Oxygen Delivery Method Room Air Sepsis Recent Fever Within 48 Hours Sepsis New/Unexplained Change in Mental Status Sepsis Action Taken by Nursing VITALS: Vitals are noted on the nurse's note and reviewed by myself. Vital signs stable. GENERAL: Pleasant female with family present, in no acute distress, nondiaphoretic, well-developed well-nourished. SKIN: Capillary reflex less than 2 seconds. HEENT: Normocephalic. PERRLA. EOMI. Nares patent. Mucous membranes moist. Neck is supple without nuchal rigidity. HEART: Regular rate and rhythm LUNGS: Clear to auscultation bilaterally without wheezes, rales or rhonchi. No retractions or accessory muscle use. ABDOMEN: Positive bowel sounds x 4. Normal tympanic percussion. Soft, diffusely tender to palpation increased pain in the lower abdomen, without masses or organomegaly. Clark sign negative. No guarding or rebound tenderness. No CVA tenderness MUSCULOSKELETAL: No gross musculoskeletal defects. NEURO: Patient was alert and oriented to person place and time. No focal neurological deficits. Course Administered Medications Discontinued Medications Azithromycin (Azithromycin 250 Mg Tab) 500 mg PO NOW ONE Stop: 02/09/23 01:40 Last Admin: 02/09/23 02:15 Dose: 500 mg Documented By: HORTENCIA Dicyclomine HCl (Dicyclomine Hcl 10 Mg/Ml 2 Ml Amp/Vial) 20 mg IM NOW ONE Stop: 02/08/23 22:07 Last Admin: 02/08/23 22:26 Dose: 20 mg Documented By: DARYL Sodium Chloride (Nss) 1,000 mls @ 999 mls/hr IV .Q1H1M STA Stop: 02/08/23 23:06 Last Infusion: 02/08/23 23:32 Dose: Infused Documented By: Admin: 02/08/23 22:21 Dose: 999 mls/hr Documented By: DARYL Famotidine (Pepcid 20mg Iv Push) 20 mg in 5 mls @ 2.5 mls/min IV NOW STA Stop: 02/08/23 22:07 Last Admin: 02/08/23 22:22 Dose: 2.5 mls/min Documented By: DARYL Ceftriaxone Sodium (Rocephin) 2,000 mg in 50 mls @ 100 mls/hr IV NOW STA Stop: 02/09/23 02:08 Last Admin: 02/09/23 02:15 Dose: 100 mls/hr Documented By: HORTENCIA Ioversol (Optiray 320 500ml) 87 ml IV ONCE ONE Stop: 02/08/23 23:50 Last Admin: 02/08/23 23:49 Dose: 87 ml Documented By: EDINSON Ondansetron HCl (Ondansetron Inj 2 Mg/Ml 2 Ml Vial) 4 mg IV NOW STA Stop: 02/08/23 22:07 Last Admin: 02/08/23 22:24 Dose: 4 mg Documented By: DARYL Medical Decision Making Medical Records Attestation: I reviewed the patient's medical records. Home Medications Current Medication List: was personally reviewed by me Laboratory Data Attestation: I reviewed the patient's lab results. 02/08/23 22:11 02/08/23 22:11 Lab Results 02/08/23 02/08/23 Range/Units 22:11 Unknown WBC 7.04 (4.8-10.8) K/ul RBC 4.20 (4.20-5.40) M/uL Hgb 10.9 L (12.0-16.0) g/dl Hct 35.1 L (37.0-47.0) % MCV 83.6 (80.0-100.0) fL MCH 26.0 (25.0-34.0) pg MCHC 31.1 L (32.0-36.0) g/dL RDW Std Deviation 44.3 (36.4-46.3) fL RDW Coeff of Diamond 14.6 H (11.5-14.5) % Plt Count 417 H (130-400) K/uL MPV 9.2 L (9.4-12.4) fL Immature Gran % (Auto) 0.1 % Neut % (Auto) 53.7 % Lymph % (Auto) 34.1 % [place] % (Auto) 8.9 % Eos % (Auto) 2.3 % Baso % (Auto) 0.9 % Neut # (Auto) 3.78 (1.40-6.50) K/uL Lymph # (Auto) 2.40 (1.20-3.40) K/uL [place] # (Auto) 0.63 H (0.11-0.59) K/uL Eos # (Auto) 0.16 (0.00-0.50) K/uL Baso # (Auto) 0.06 (0.00-0.20) K/uL Immature Gran # (Auto) 0.01 (0.01-0.20) K/uL Sodium 136 (136-145) mmol/L Potassium 4.8 (3.5-5.1) mmol/L Chloride 101 (98-107) mmol/L Carbon Dioxide 26 (21-32) mmol/L Anion Gap 9 (3-11) BUN 18 (6-23) mg/dl Creatinine 0.89 (0.6-1.2) mg/dl Est Cr Clr Drug Dosing 76.7 ml/min Est GFR ( Amer) 85.8 ml/min Est GFR (Non-Af Amer) 74.0 ml/min BUN/Creatinine Ratio 20.2 H (10-20) Glucose 94 (70-99(Fasting)) mg/dl Calcium 9.8 (8.6-10.3) mg/dl Magnesium 2.0 (1.7-2.4) mg/dl Total Bilirubin 0.3 (0.2-1.0) mg/dl AST 9 L (13-39) U/L ALT 7 (7-52) U/L Alkaline Phosphatase 93 (34-104) U/L Troponin I High Sens < 2.3 (0-14) pg/ml Total Protein 7.7 (6.0-8.3) gm/dl Albumin 4.0 (3.4-5.0) gm/dl Globulin 3.7 (2.5-4.0) gm/dl Albumin/Globulin Ratio 1.1 (0.9-2) Lipase 34 (11-82) U/L HCG, Qual Negative (Negative) Urine Color Yellow Urine Appearance Clear (Clear) Urine pH 6.5 (4.5-7.5) Ur Specific [place] 1.003 (1.000-1.030) Urine Protein Negative (Negative) Urine Glucose (UA) Negative (Negative) Urine Ketones Negative (Negative) Urine Blood Negative (Negative) Urine Nitrite Negative (Negative) Urine Bilirubin Negative (Negative) Urine Urobilinogen Negative (Negative) Ur Leukocyte Esterase Negative (Negative) Imaging Data Attestation: I personally reviewed and interpreted this imaging study as follows: Radiologist's Impression: Abdomen/Pelvis CT 02/08/23 22:06 Exam(s): CT ABDOMEN + PELVIS With Contrast IV Amt: 87 ml opti 320 EXAM: CT Abdomen and Pelvis With Intravenous Contrast CLINICAL HISTORY: mid abd pain, on Wegovy. TECHNIQUE: Axial computed tomography images of the abdomen and pelvis with intravenous contrast. Automated exposure control was utilized for the study. A dose lowering technique was utilized adhering to the principles of ALARA. CONTRAST: Patient received 87 ml opti 320 of IV contrast COMPARISON: No relevant prior studies available. FINDINGS: Lung bases: There is an abnormal solid somewhat heterogeneous density mass in the right lower lobe, partially excluded, measuring up to 4.9 x 5. 5 cm. No consolidation. ABDOMEN: Liver: Unremarkable. No mass. Gallbladder and bile ducts: The gallbladder is only mildly filled with fluid. No calcified gallstones or evidence for gallbladder wall thickening. No biliary dilatation. Pancreas: Unremarkable. No mass. No ductal dilation. Spleen: Unremarkable. No splenomegaly. Adrenals: Unremarkable. No mass. Kidneys and ureters: Excreted contrast in the kidneys somewhat limits evaluation for subtle nephrolithiasis. No hydronephrosis. No abnormal enhancement of the kidneys. Stomach and bowel: Mild to moderate distention of the stomach with retained oral contents. No gastric mucosal thickening. No bowel obstruction. No asymmetric bowel mucosal abnormality. Mild stool burden. No diverticulitis. PELVIS: Appendix: The appendix is not clearly delineated but may be fat atrophied along the lateral aspect of the cecum. No secondary findings to suggest acute appendicitis. Bladder: Minimal contrast in the posterior aspect of the bladder. No bladder wall thickening. Reproductive: Status post hysterectomy. ABDOMEN and PELVIS: Intraperitoneal space: Unremarkable. No free air. No significant fluid collection. Bones/joints: No acute fracture. No dislocation. Soft tissues: Unremarkable. Vasculature: Unremarkable. No abdominal aortic aneurysm. Lymph nodes: Unremarkable. No enlarged lymph nodes. IMPRESSION: 1. There is an abnormal solid somewhat heterogeneous density mass in the right lower lobe, partially excluded, measuring up to 4.9 x 5.5 cm. The primary diagnosis of exclusion is either a primary lung carcinoma or metastatic disease. Recommend nonemergent dedicated imaging of the chest for further workup and evaluation. 2. Mild to moderate distention of the stomach with retained oral contents. No gastric mucosal thickening. No bowel obstruction. No asymmetric bowel mucosal abnormality. Mild stool burden. No diverticulitis. No free intraperitoneal fluid or pneumoperitoneum. Electronically signed by: Vu Frye MD 02/09/23 01:31 AM [facility] Narrative Prior records/ancillary studies reviewed. Triage Nursing notes reviewed. Additional history obtained from family The patient's history was concerning for abdominal pain. Differential diagnosis: Etiologies such as appendicitis, diverticulitis, PUD, biliary pathology, UTI, pancreatitis, obstruction, mesenteric ischemia, aortic pathology, infections, inflammatory bowel disease, renal colic, as well as others were entertained. Physical examination findings: As above. ER treatment provided: An order was placed for continuous cardiac monitoring. The monitor shows a rate of 60-100 with a sinus rhythm per my Independent interpretation. IV fluids, Zofran, Pepcid, Bentyl On reassessment the patient felt better. Diagnostics interpreted by me: ECG: Ordered for upper abdominal pain EKG: Normal sinus, normal intervals, no acute ST-T wave changes. Impression normal sinus rhythm independently interpreted by myself I think arrhythmia is unlikely. EKG shows normal sinus rhythm with no interval abnormalities such as QT prolongation or WPW. There are no findings to suggest Brugada syndrome. Cardiac monitoring in the emergency department reveals no tachycardic or bradycardic dysrhythmia. Hypertrophic cardiomyopathy was considered but there are no clear historical elements pointing toward this. EKG is not suggestive. The QRS voltage is not extremely large and there are no suggestive Q waves. The labs Independently Interpreted by myself revealed no worrisome leukocytosis, normal lipase, negative urine, negative hCG Imaging studies: Chest x-ray with right lower lung large lung mass per my independent or potation CT of the abdomen pelvis was reviewed by myself and read by radiology as above Consultation: A consultation was placed with the hospitalist. The case was discussed and diagnostics were reviewed. The patient was evaluated in the ER for further treatment. Exam and history seem consistent with new large lung mass with abdominal pain. Patient was started on antibiotics for possible pneumonia. Labs and diagnostics were independently provide myself. Radiology read the CAT scan. Medicine was consulted and the case was discussed. Patient be admitted to the medical service for further evaluation and workup for new large lung mass seen on imaging tonight. Patient is agreeable. By the evaluation outlined above emergent etiologies such as appendicitis, diverticulitis, PUD, biliary pathology, UTI, pancreatitis, obstruction, mesenteric ischemia, aortic pathology, inflammatory bowel disease, renal colic, as well as others were deemed relatively unlikely. The pt informed about the findings as listed above. All questions were answered and pleased with the treatment. The chart was completed utilizing [employer] voice recognition software. Grammatical errors, random word insertions, pronoun errors, and incomplete sentences are an occassional consequence of this system due to software limitations, ambient noise, and hardware issues. Any formal questions or concerns about the content, text, or information contained within the body of this dictation should be directly addressed to the physician paraprofessional education assistant for clarification. Impression & Plan Lung mass, Abdominal pain Discharge Plan Visit Data Chief Complaint: Abdominal Pain Stated Complaint: ABD/RIB/BACK PAIN ED Provider: Juanito Saez ED Midlevel Provider: Vanessa Lindsey Discharge Problem: Lung mass, Abdominal pain Patient Disposition: Admitted As Inpatient Condition: Good Forms Stand Alone Forms: [facility] Prescriptions Prescriptions: No Action docusate sodium [Stool Softener] 100 mg Capsule 100 mg PO DAILY ibuprofen 600 mg tablet 600 mg PO TID PRN (Reason: Pain) cyclobenzaprine 5 mg tablet 5 mg PO TID PRN (Reason: MUSCLE SPASMS) Fiber Gummies 2 gram Tablet,Chewable 2 g PO DAILY Wegovy 2.4 mg/0.75 mL pen injector 2.4 mg SUBCUT WK Rx Instructions: MONDAYS Multiple Vitamin Pack 1 dose PO DAILY Rx Instructions: SEVERAL VITAMINS IN A DOSE PACK. lisinopril 40 mg tablet 40 mg PO DAILY bupropion HCl 150 mg tablet extended release 24 hr 150 mg PO DAILY Referrals Referrals: Jonny Pandya MD [Primary Care Provider] -
[2023-02-08 22:59] LABS: Troponin I High Sensitivity < 2.3 pg/ml (0-14)
[2023-02-08 23:22] LABS: Pregnancy Test, Serum Negative (Negative)
[2023-02-08] MEDS ORDERED: OPTIRAY 320 500ml IV ONE (23:49)
--- NOTE | 2023-02-09 01:32 | CT Scan Report ---
Exam(s): CT ABDOMEN + PELVIS With Contrast IV Amt: 87 ml opti 320 EXAM: CT Abdomen and Pelvis With Intravenous Contrast CLINICAL HISTORY: mid abd pain, on Wegovy. TECHNIQUE: Axial computed tomography images of the abdomen and pelvis with intravenous contrast. Automated exposure control was utilized for the study. A dose lowering technique was utilized adhering to the principles of ALARA. CONTRAST: Patient received 87 ml opti 320 of IV contrast COMPARISON: No relevant prior studies available. FINDINGS: Lung bases: There is an abnormal solid somewhat heterogeneous density mass in the right lower lobe, partially excluded, measuring up to 4.9 x 5. 5 cm. No consolidation. ABDOMEN: Liver: Unremarkable. No mass. Gallbladder and bile ducts: The gallbladder is only mildly filled with fluid. No calcified gallstones or evidence for gallbladder wall thickening. No biliary dilatation. Pancreas: Unremarkable. No mass. No ductal dilation. Spleen: Unremarkable. No splenomegaly. Adrenals: Unremarkable. No mass. Kidneys and ureters: Excreted contrast in the kidneys somewhat limits evaluation for subtle nephrolithiasis. No hydronephrosis. No abnormal enhancement of the kidneys. Stomach and bowel: Mild to moderate distention of the stomach with retained oral contents. No gastric mucosal thickening. No bowel obstruction. No asymmetric bowel mucosal abnormality. Mild stool burden. No diverticulitis. PELVIS: Appendix: The appendix is not clearly delineated but may be fat atrophied along the lateral aspect of the cecum. No secondary findings to suggest acute appendicitis. Bladder: Minimal contrast in the posterior aspect of the bladder. No bladder wall thickening. Reproductive: Status post hysterectomy. ABDOMEN and PELVIS: Intraperitoneal space: Unremarkable. No free air. No significant fluid collection. Bones/joints: No acute fracture. No dislocation. Soft tissues: Unremarkable. Vasculature: Unremarkable. No abdominal aortic aneurysm. Lymph nodes: Unremarkable. No enlarged lymph nodes. IMPRESSION: 1. There is an abnormal solid somewhat heterogeneous density mass in the right lower lobe, partially excluded, measuring up to 4.9 x 5.5 cm. The primary diagnosis of exclusion is either a primary lung carcinoma or metastatic disease. Recommend nonemergent dedicated imaging of the chest for further workup and evaluation. 2. Mild to moderate distention of the stomach with retained oral contents. No gastric mucosal thickening. No bowel obstruction. No asymmetric bowel mucosal abnormality. Mild stool burden. No diverticulitis. No free intraperitoneal fluid or pneumoperitoneum. Electronically signed by: Vu Frye MD 02/09/23 01:31 AM
[2023-02-09] MEDS ORDERED: cefTRIAXone SODIUM 2,000 MG/50 ML BAG IV STA (01:39)
[2023-02-09] MEDS ORDERED: AZITHROMYCIN 250 MG TAB PO ONE (01:39)
[2023-02-09] MEDS ORDERED: SODIUM CHLORIDE 0.9% 1,000 ML IV STA (02:19)
[2023-02-09] MEDS ORDERED: LACTULOSE SYRUP 30 GM/45 ML UDP PO STA (03:14)
[2023-02-09] MEDS ORDERED: LORazepam 0.5 MG TAB PO STA ×2 (03:14→20:26)
--- NOTE | 2023-02-09 03:15 | History & Physical Report ---
Date of Service February 09, 2023 Assessment & Plan (1) Abdominal pain: Plan: With constipation Likely adverse reaction from Wegovy home medication for obesity. Incidental finding of right lung mass on imaging New onset anemia, patient without overt bleeding symptoms, FOBT done at the ER was negative hypertension, BP on the lower side anxiety/mood disorder, at baseline OBS GMF Bowel regimen Patient instructed to contact PCP/[facility] pharmacy regarding subsequent dosing of Wegovy given increased constipation symptoms. Dedicated CT chest with contrast for right lung mass after 12 hours post IV contrast administration for CT abdomen pelvis study Inpatient pulmonology consult as per patient request once CT chest study completed. Anemia workup, transfuse PRBC if hemoglobin less than 7 and or for symptomatic anemia DVT prophylaxis. Lovenox subcu Full code Text document was generated using [employer] voice recognition software. It may contain grammatical or spelling errors. Kindly contact undersigned for clarification of any documentation item in question. History of Present Illness Chief Complaint: Abdominal pain Primary Care Provider: Jonny Pandya MD History obtained from patient and records. Medical history significant for hypertension, anxiety/mood disorder, morbid obesity on Wegovy. Last confinement February 2021 for COVID-19 illness. Patient has had significant weight loss since starting Wegovy for morbid obesity months ago. She takes laxative for constipation side effects from medication. 3 weeks ago, patient noted abdominal discomfort and dysuria symptoms. Macrodantin course followed by Bactrim for UTI. UTI symptoms resolved but abdominal discomfort persisted. Worsening fatigue over the last month. No actual chest pain or SOB or cough or headache complaints. 2 weeks ago, patient noted, Worsening achy abdominal discomfort with nausea and constipation symptoms despite home laxative regimen. No black/bloody stools. Incomplete response to outpatient OTC enema. Patient brought to by ER for evaluation. Ceftriaxone and Azithromycin administered at the ER. 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 Allergies Allergy/AdvReac Type Severity Reaction Status Date / Time melatonin AdvReac Intermediate Fatigued Verified 02/09/23 03:22 Home Medications Medication Instructions Recorded Confirmed Type bupropion HCl 150 mg 24 hr tablet, 150 mg PO DAILY 02/19/21 02/08/23 History extended release lisinopril 40 mg tablet 40 mg PO DAILY 02/19/21 02/08/23 History Multiple Vitamin Pack 1 dose PO DAILY 02/08/23 02/08/23 History cyclobenzaprine 5 mg tablet 5 mg PO TID PRN MUSCLE SPASMS 02/08/23 02/08/23 History docusate sodium 100 mg capsule 100 mg PO DAILY 02/08/23 02/08/23 History (Stool Softener) ibuprofen 600 mg tablet 600 mg PO TID PRN Pain 02/08/23 02/08/23 History inulin 2 gram chewable tablet 2 g PO DAILY 02/08/23 02/08/23 History (Fiber Gummies) semaglutide (weight loss) 2.4 2.4 mg subcut WK 02/08/23 02/08/23 History mg/0.75 mL subcutaneous pen injector (Wegovy) Past Med/Surg History Medical History Depression Anxiety Hypertension Surgical History S/P laparoscopic hysterectomy Family History Other Diabetes Heart disease Hypertension Social History Smoking Status: Never smoker Hx Alcohol Use: No Hx Substance Use: No Preferred Language: Martiniquais Communication Ability: Effective Online Facilitator Required: No Beliefs That Will Affect Care: None Current Living Situation: Spouse Feels Safe at Home: Yes Assistive Devices: Glasses Review of Systems Review of Systems: As per HPI, all other systems reviewed and negative Physical Exam Physical Exam: GENERAL: Comfortable, pleasant, slightly anxious, no respiratory distress SKIN: Pallor, warm HEENT: Pale palpebral conjunctivae, no ptosis, dry buccal mucosa NECK : Supple, no tenderness CHEST : CTA, no tenderness HEART : RRR, no obvious murmurs ABDOMEN: Some distention, hypogastric tenderness RECTAL : Intact sphincter, brown stool (FOBT negative) EXTREMITIES : No LE swelling/tenderness, no other conspicuous deformities noted NEUROLOGIC : Coherent, no facial asymmetry, no other gross focality Results & Data Results & Data Vital Signs (Past 12 Hours) Vital Signs Temp Pulse Resp BP Pulse Ox O2 Del Method 02/09/23 03:07 86 19 107/82 98 Room Air 02/09/23 02:00 94 H 22 98/69 L 97 Room Air 02/09/23 01:32 86 02/09/23 01:30 87 19 98/58 L 96 Room Air 02/09/23 01:00 86 17 107/62 94 Room Air 02/09/23 00:30 88 18 94/60 L 96 Room Air 02/09/23 00:07 90 23 93/56 L 98 Room Air 02/08/23 22:31 98 Room Air 02/08/23 21:31 90 02/08/23 21:08 36.6 C 121 H 18 120/72 Room Air Laboratory Results Laboratory Results WBC 7.04 K/ul (4.8-10.8) 02/08/23 22:11 RBC 4.20 M/uL (4.20-5.40) 02/08/23 22:11 Hgb 10.9 g/dl (12.0-16.0) L 02/08/23 22:11 Hct 35.1 % (37.0-47.0) L 02/08/23 22:11 MCV 83.6 fL (80.0-100.0) 02/08/23 22:11 MCH 26.0 pg (25.0-34.0) 02/08/23 22:11 MCHC 31.1 g/dL (32.0-36.0) L 02/08/23 22:11 RDW Std Deviation 44.3 fL (36.4-46.3) 02/08/23 22:11 RDW Coeff of Diamond 14.6 % (11.5-14.5) H 02/08/23 22:11 Plt Count 417 K/uL (130-400) H 02/08/23 22:11 MPV 9.2 fL (9.4-12.4) L 02/08/23 22:11 Immature Gran % (Auto) 0.1 % 02/08/23 22:11 Neut % (Auto) 53.7 % 02/08/23 22:11 Lymph % (Auto) 34.1 % 02/08/23 22:11 [place] % (Auto) 8.9 % 02/08/23 22:11 Eos % (Auto) 2.3 % 12/15/23 22:11 Baso % (Auto) 0.9 % 02/08/23 22:11 Neut # (Auto) 3.78 K/uL (1.40-6.50) 02/08/23 22:11 Lymph # (Auto) 2.40 K/uL (1.20-3.40) 02/08/23 22:11 [place] # (Auto) 0.63 K/uL (0.11-0.59) H 02/08/23 22:11 Eos # (Auto) 0.16 K/uL (0.00-0.50) 02/08/23 22:11 Baso # (Auto) 0.06 K/uL (0.00-0.20) 02/08/23 22:11 Immature Gran # (Auto) 0.01 K/uL (0.01-0.20) 02/08/23 22:11 Sodium 136 mmol/L (136-145) 02/08/23 22:11 Potassium 4.8 mmol/L (3.5-5.1) 02/08/23 22:11 Chloride 101 mmol/L (98-107) 02/08/23 22:11 Carbon Dioxide 26 mmol/L (21-32) 02/08/23 22:11 Anion Gap 9 (3-11) 02/08/23 22:11 BUN 18 mg/dl (6-23) 02/08/23 22:11 Creatinine 0.89 mg/dl (0.6-1.2) 02/08/23 22:11 Est Cr Clr Drug Dosing 76.7 ml/min 02/08/23 22:11 Est GFR ( Amer) 85.8 ml/min 02/08/23 22:11 Est GFR (Non-Af Amer) 74.0 ml/min 02/08/23 22:11 BUN/Creatinine Ratio 20.2 (10-20) H 02/08/23 22:11 Glucose 94 mg/dl (70-99(Fasting)) 02/08/23 22:11 Calcium 9.8 mg/dl (8.6-10.3) 02/08/23 22:11 Magnesium 2.0 mg/dl (1.7-2.4) 02/08/23 22:11 Total Bilirubin 0.3 mg/dl (0.2-1.0) 02/08/23 22:11 AST 9 U/L (13-39) L 02/08/23 22:11 ALT 7 U/L (7-52) 02/08/23 22:11 Alkaline Phosphatase 93 U/L (34-104) 02/08/23 22:11 Troponin I High Sens < 2.3 pg/ml (0-14) 02/08/23 22:11 Total Protein 7.7 gm/dl (6.0-8.3) 02/08/23 22:11 Albumin 4.0 gm/dl (3.4-5.0) 02/08/23 22:11 Globulin 3.7 gm/dl (2.5-4.0) 02/08/23 22:11 Albumin/Globulin Ratio 1.1 (0.9-2) 02/08/23 22:11 Lipase 34 U/L (11-82) 02/08/23 22:11 HCG, Qual Negative (Negative) 02/08/23 22:11 Urine Color Yellow 02/08/23 Unknown Urine Appearance Clear (Clear) 02/08/23 Unknown Urine pH 6.5 (4.5-7.5) 02/08/23 Unknown Ur Specific [place] 1.003 (1.000-1.030) 02/08/23 Unknown Urine Protein Negative (Negative) 02/08/23 Unknown Urine Glucose (UA) Negative (Negative) 02/08/23 Unknown Urine Ketones Negative (Negative) 02/08/23 Unknown Urine Blood Negative (Negative) 02/08/23 Unknown Urine Nitrite Negative (Negative) 02/08/23 Unknown Urine Bilirubin Negative (Negative) 02/08/23 Unknown Urine Urobilinogen Negative (Negative) 02/08/23 Unknown Ur Leukocyte Esterase Negative (Negative) 02/08/23 Unknown Impressions Abdomen/Pelvis CT 02/08/23 22:06 Exam(s): CT ABDOMEN + PELVIS With Contrast IV Amt: 87 ml opti 320 EXAM: CT Abdomen and Pelvis With Intravenous Contrast CLINICAL HISTORY: mid abd pain, on Wegovy. TECHNIQUE: Axial computed tomography images of the abdomen and pelvis with intravenous contrast. Automated exposure control was utilized for the study. A dose lowering technique was utilized adhering to the principles of ALARA. CONTRAST: Patient received 87 ml opti 320 of IV contrast COMPARISON: No relevant prior studies available. FINDINGS: Lung bases: There is an abnormal solid somewhat heterogeneous density mass in the right lower lobe, partially excluded, measuring up to 4.9 x 5. 5 cm. No consolidation. ABDOMEN: Liver: Unremarkable. No mass. Gallbladder and bile ducts: The gallbladder is only mildly filled with fluid. No calcified gallstones or evidence for gallbladder wall thickening. No biliary dilatation. Pancreas: Unremarkable. No mass. No ductal dilation. Spleen: Unremarkable. No splenomegaly. Adrenals: Unremarkable. No mass. Kidneys and ureters: Excreted contrast in the kidneys somewhat limits evaluation for subtle nephrolithiasis. No hydronephrosis. No abnormal enhancement of the kidneys. Stomach and bowel: Mild to moderate distention of the stomach with retained oral contents. No gastric mucosal thickening. No bowel obstruction. No asymmetric bowel mucosal abnormality. Mild stool burden. No diverticulitis. PELVIS: Appendix: The appendix is not clearly delineated but may be fat atrophied along the lateral aspect of the cecum. No secondary findings to suggest acute appendicitis. Bladder: Minimal contrast in the posterior aspect of the bladder. No bladder wall thickening. Reproductive: Status post hysterectomy. ABDOMEN and PELVIS: Intraperitoneal space: Unremarkable. No free air. No significant fluid collection. Bones/joints: No acute fracture. No dislocation. Soft tissues: Unremarkable. Vasculature: Unremarkable. No abdominal aortic aneurysm. Lymph nodes: Unremarkable. No enlarged lymph nodes. IMPRESSION: 1. There is an abnormal solid somewhat heterogeneous density mass in the right lower lobe, partially excluded, measuring up to 4.9 x 5.5 cm. The primary diagnosis of exclusion is either a primary lung carcinoma or metastatic disease. Recommend nonemergent dedicated imaging of the chest for further workup and evaluation. 2. Mild to moderate distention of the stomach with retained oral contents. No gastric mucosal thickening. No bowel obstruction. No asymmetric bowel mucosal abnormality. Mild stool burden. No diverticulitis. No free intraperitoneal fluid or pneumoperitoneum. Electronically signed by: Vu Frye MD 02/09/23 01:31 AM Diagnostic Findings EKG as per my interpretation : Rate 80, NSR, normal axis, no ischemia
[2023-02-09] MEDS ORDERED: KETOROLAC TROMETHAMINE 15 MG/ML VIAL IV STA (03:16)
[2023-02-09] MEDS ORDERED: KETOROLAC TROMETHAMINE 15 MG/ML VIAL IV PRN (03:19)
[2023-02-09] MEDS ORDERED: IBUPROFEN 200 MG TAB PO PRN (03:19)
[2023-02-09] MEDS ORDERED: ACETAMINOPHEN 325 MG TAB PO STA (03:19)
[2023-02-09] MEDS ORDERED: PROMETHAZINE HCL 12.5 MG in SODIUM CHLORIDE 0.9% 50 ML IV PRN (03:19)
[2023-02-09] MEDS ORDERED: LORazepam 0.5 MG TAB PO PRN ×3 (03:19→20:27)
[2023-02-09 04:02] LABS: Basophils # (auto) 0.04 K/uL (0.00-0.20); Basophils % (auto) 0.6 %; Eosinophils # (auto) 0.18 K/uL (0.00-0.50); Eosinophils % (auto) 2.7 %; Hematocrit (blood only) 34.6 % (37.0-47.0); Immature Granulocytes # (auto) 0.01 K/uL (0.01-0.20); Immature Granulocytes % (auto) 0.2 %; Lymphocytes # (auto) 1.87 K/uL (1.20-3.40); Lymphocytes % (auto) 28.5 %; Mean Corpuscular Hemoglobin 26.3 pg (25.0-34.0); Mean Corpuscular Hgb Conc 31.8 g/dL (32.0-36.0); Mean Corpuscular Volume 82.6 fL (80.0-100.0); Mean Platelet Volume 9.1 fL (9.4-12.4); Monocytes # (auto) 0.73 K/uL (0.11-0.59); Monocytes % (auto) 11.1 %; Neutrophils # (auto) 3.74 K/uL (1.40-6.50); Neutrophils % (auto) 56.9 %; Platelet Count 375 K/uL (130-400); RDW Coefficient of Variation 14.6 % (11.5-14.5); RDW Standard Deviation 44.2 fL (36.4-46.3); Red Blood Count 4.19 M/uL (4.20-5.40); Reticulocyte % 0.9 % (0.5-2.0); Reticulocytes # 0.04 10^6/uL (0.02-0.10); White Blood Count 6.57 K/ul (4.8-10.8)
[2023-02-09 04:18] LABS: BUN Creatinine Ratio 18.2 (10-20); Calcium 8.9 mg/dl (8.6-10.3); Creatinine Clr Calc Pharmacy 88.7 ml/min; Est GFR (African American) 102.2 ml/min; Est GFR (Non-African American) 88.2 ml/min
[2023-02-09 04:34] LABS: Thyroid Stimulating Hormone 1.475 uIu/ml (0.300-4.500)
[2023-02-09 04:40] LABS: Ferritin 322.8 ng/ml (8-388)
--- OUTSIDE RECORDS SUMMARY | 2023-02-09 06:10 | External Medical Summary | Summary of Care ---
Author Name Unknown Organization [facility] Address [address] [place] [address] Phone [phone] Care Team Providers Care Audio Video Technician Name Role Phone Jonny Pandya MD Primary Care Provider [phone] Reason for Visit * Reason Comments Urinary Tract Infection Symptoms Encounter Details Date Type Department Care Team (Latest Contact Info) Description 01/30/2023 3:20 PM EST Convenient Care Visit [facility] [address] [place] [address] Vandana Engel PA-C [address] [place] [address] Urinary tract infection without hematuria, site unspecified*; Dysuria; Acute bilateral thoracic back pain Allergies No known active allergiesdocumented as of this encounter (statuses as of 01/30/2023) Medications Medication Sig Dispensed Refills Start Date End Date Status buPROPion HCl ER (XL) 150 MG Oral Tablet Extended Release 24 Hour (Wellbutrin XL) Take 1 Tablet by mouth in the morning. In the morning.. 90 Tablet 3 03/07/2022 Active valACYclovir HCl 1 GM Oral Tablet (Valtrex)Indications: Cold sore take 2 tablets by mouth every 12 hours for 1 DAY FOR COLD SORES 12 Tablet 5 05/25/2022 Active Lisinopril 40 MG Oral TabletIndications:Ess ential hypertension with goal blood pressure less than 130/80 TAKE 1 TABLET IN THE MORNING 90 Tablet 2 07/27/2022 Active Wegovy 2.4 MG/0.75ML Subcutaneous Solution Auto-injector (Semaglutide-Weight Management) Inject 2.4 mg under the skin once a week. 9 mL 0 11/15/2022 Active Sulfamethoxazole-Trim ethoprim 800-160 MG Oral Tablet (Bactrim DS)Indications:Urinar y tract infection without hematuria, site unspecified Take 1 Tablet by mouth in the morning and 1 Tablet before bedtime. Do all this for 7 days. Until gone. 14 Tablet 0 01/30/2023 02/06/2023 Active Cyclobenzaprine HCl 5 MG Oral Tablet (Flexeril)Indications :Acute bilateral thoracic back pain Take 1 Tablet by mouth 3 times a day as needed for Muscle spasms. 30 Tablet 0 01/30/2023 Active Ibuprofen 600 MG Oral Tablet (Motrin)Indications:A cute bilateral thoracic back pain Take 1 Tablet by mouth in the morning and 1 Tablet at noon and 1 Tablet before bedtime. with food for pain. 30 Tablet 1 01/30/2023 Active documented as of this encounter (statuses as of 01/30/2023) Active Problems Problem Noted Date Diagnosed Date Depression with anxiety 02/28/2021 Morbid obesity due to excess calories 02/28/2021 HTN, goal below 130/80 12/22/2019 documented as of this encounter (statuses as of 01/30/2023) Resolved Problems Problem Noted Date Diagnosed Date Resolved Date Class 3 severe obesity due t o excess calories without serious comorbidity with body mass index (BMI) of 40.0 to 44.9 in adult 01/06/202005/2021 H/O abnormal cervical Papanicolaou smear 09/19/2016 01/06/2020 Overview: Conization 2015, pap summer 2015 neg per pt Adjustment disorder with mix ed anxiety and depressed mood 09/19/2016 02/28/2021 Encounter for screening mamm ogram for breast cancer 09/19/2016 01/06/2020 Overview: 8/-neg,50-75% FG documented as of this encounter (statuses as of 01/30/2023) Immunizations Name Administration Dates Next Due SEASONAL INFLUENZA, PF, 6 M & Above, IM , (FLULAVAL or FLUZONE) 12/22/2019 TDAP (age 10 and older)(Boostrix) 12/22/2019 12/22/2029 documented as of this encounter Social History Tobacco Use Types Packs/Day Years Used Date Smoking Tobacco: Never Smokeless Tobacco: Never Tobacco Cessation:Counseling Given: Not Answered Alcohol Use Standard Drinks/Week Comments Yes 0 (1 standard drink = 0.6 oz pur e alcohol) rare PHQ-2 Answer Date Recorded PHQ-2 Score 8 01/06/2020 Hunger Vital Sign Answer Date Recorded Within the past 12 months, y ou worried that your food would run out before you got the money to buy more. Never true 03/06/19 23 Within the past 12 months, t he food you bought just didn't last and you didn't have money to get more. Never true 03/06/2022 Sex and Gender Information Value Date Recorded Sex Assigned at Female 12/22/2019 12:34 PM EDT Gender Identity Female 12/22/2019 12:34 PM EDT Sexual Orientation Straight 12/22/2019 12 :34 PM EDT Job Start Date Occupation Industry Not on file Not on file Not on file documented as of this encounter Last Filed Vital Signs Vital Sign Reading Time Taken Comments Blood Pressure 110/70 01/30/2023 2:55 PM EST Pulse 84 01/30/2023 2:55 PM EST Temperature 37.2 C (98.9 F) 01/30/2023 2:55 PM ES T Respiratory Rate 16 01/30/2023 2:55 PM EST Oxygen Saturation 98% 01/30/2023 2:55 PM EST Inhaled Oxygen Concentration - - Weight 81.7 kg (180 lb 3.2 oz) 01/30/2023 2:55 P M EST Height 157.5 cm (5' 2") 01/30/2023 2:55 PM EST Body Mass Index 32.96 01/30/2023 2:55 PM EST documented in this encounter Progress Notes * Vandana Engel PA-C - 01/30/2023 3:08 PM EST Subjective: Nursing Notes: Lubna Cevallos LPN 01/30/23 1504 Signed 52 yo female presents with dysuria since . Given macrodantin via teledoc. Use AZO HPI: Pt is a 52 year old YO female who presents c/o: Called her tele- doctor around when she had a fever and had some dysuria at that times, rx'd for macrobid and symptoms cleared until yesterday when seemed to come back. Sudden onset Has used someazo Last time had severe burning Aching upper GI around to the middle spine, pain started , was severe then, this pain lessened but never completely went away Dysuria: yes Hematuria: no Increased Frequency: yes Urgency: yes Flank Pain: no Abdominal Pain: lower and upper GI Vaginal D/C: no Fever: no Malaise: no UTI PMHX: yes, and once had a kidney infection and was hospitalized w this Renal Stone PMHX: no Gential Lesion/Rash: no Has had some pain wrapping around upper abdomen to the back some back pain that was intense, after doing a lot of standing Review of Systems Constitutional: Pt has been losing weight this year, use of Wegovy, has been exercising and dieting Respiratory: Negative. Cardiovascular: Negative. Gastrointestinal: Positive for nausea (nothing new, pt has been on Wegovy). Musculoskeletal: Positive for back pain (as noted). Hematological: Negative. PMH: Patient Active Problem List Diagnosis Code HTN, goal below 130/80 I10 Depression with anxiety F41.8 Morbid obesity due to excess calories (HCC) E66.01 Current Outpatient Medications Medication Sig Dispense Refill buPROPion HCl ER (XL) 150 MG Oral Tablet Extended Release 24 Hour (Wellbutrin XL) Take 1 Tablet by mouth in the morning. In the morning.. 90 Tablet 3 Lisinopril 40 MG Oral Tablet TAKE 1 TABLET IN THE MORNING 90 Tablet 2 Wegovy 2.4 MG/0.75ML Subcutaneous Solution Auto-injector (Semaglutide-Weight Management) Inject 2.4mg under the skin once a week. 9 mL 0 Sulfamethoxazole-Trimethoprim 800-160 MG Oral Tablet (Bactrim DS) Take 1 Tablet by mouth in the morning and 1 Tablet before bedtime. Do all this for 7 days. Until gone. 14 Tablet 0 Cyclobenzaprine HCl 5 MG Oral Tablet (Flexeril) Take 1 Tablet by mouth 3 times a day as needed for Muscle spasms. 30 Tablet 0 Ibuprofen 600 MG Oral Tablet (Motrin) Take 1 Tablet by mouth in the morning and 1 Tablet at noon and 1 Tablet before bedtime. with food for pain. 30 Tablet 1 valACYclovir HCl 1 GM Oral Tablet (Valtrex) take 2 tablets by mouth every 12 hours for 1 DAY FOR COLD SORES 12 Tablet 5 No current facility-administered medications for this visit. Past Medical History: Diagnosis Date Depression with anxiety 02/28/2021 H/O abnormal cervical Papanicolaou smear 09/19/2016 Conization 2015, pap summer 2015 neg per pt Morbid obesity due to excess calories (HCC) 02/28/2021 Past Surgical History: Procedure Laterality Date COLONOSCOPY, DIAGNOSTIC (RECTUM) 03/12/2018 diverticulosis, repeat 5 yrs/COLONOSCOPY FLEXIBLE PROXIMAL DIAGNOSTIC performed by Latoya Murray MD at ENDOSCOPY [facility] CONIZATION OF CERVIX 04/26/2015 LAP;W/HYSTERECTOMY 03/01/2017 LUMBAR / SACRAL EPIDURAL, SINGLE LEVEL 11/04/2017 INJECTION TRANSFORAMINAL EPIDURAL LUMBAR OR SACRAL performed by Horton Rico Merino, DO at OR [facility] LUMBAR / SACRAL EPIDURAL, SINGLE LEVEL 12/19/2017 INJECTION TRANSFORAMINAL EPIDURAL LUMBAR OR SACRAL performed by Vivek Rcio Merino, DO at OR [facility] LUMBAR / SACRAL EPIDURAL, SINGLE LEVEL 06/05/2018 INJECTION TRANSFORAMINAL EPIDURAL LUMBAR OR SACRAL performed by Horton Rico Merino, DO at OR [facility] SACROILIAC JOINT INJECT W/GUIDANCE Left 02/09/2019 INJECTION SACROILIAC JOINT performed by Horton Rico Merino, DO at OR [facility] TVT [facility] 2010 prolene mesh -- Dr.Lawrence SchroederPA Review of patient's allergies indicates: No Known Allergies Objective: BP 110/70 | Pulse 84 | Temp 37.2 C (98.9 F) (Tympanic) | Resp 16 | Ht 1.575 m (5' 2") | Wt 81.7kg (180 lb 3.2 oz) | LMP 01/28/2017 | SpO2 98% | BMI 32.96 kg/m | BSA 1.89 m Physical Exam Constitutional: Appearance: Normal appearance. Cardiovascular: Rate and Rhythm: Normal rate and regular rhythm. Heart sounds: Normal heart sounds. Pulmonary: Effort: Pulmonary effort is normal. Breath sounds: Normal breath sounds. Abdominal: General: Abdomen is flat. There is no distension. Palpations: Abdomen is soft. Tenderness: There is no abdominal tenderness. There is no right CVA tenderness, left CVA tendernessor guarding. Musculoskeletal: General: Tenderness (middle thoraic spine that w palpation had some pain that radiated around the front) present. Skin: Findings: No rash. Neurological: Mental Status: She is alert and oriented to person, place, and time. Psychiatric: Mood and Affect: Mood normal. Behavior: Behavior normal. ASSESSMENT/PLAN: Urinary tract infection without hematuria, site unspecified (Primary) - Sulfamethoxazole-Trimethoprim 800-160 MG Oral Tablet (Bactrim DS); Take 1 Tablet by mouth in the morning and 1 Tablet before bedtime. Do all this for 7 days. Until gone. Dysuria - URINALYSIS, POINT OF CARE (ENTER/EDIT) - CULTURE, URINE, QUANTITATIVE Acute bilateral thoracic back pain - Cyclobenzaprine HCl 5 MG Oral Tablet (Flexeril); Take 1 Tablet by mouth 3 times a day as needed for Muscle spasms. - Ibuprofen 600 MG Oral Tablet (Motrin); Take 1 Tablet by mouth in the morning and 1 Tablet at noonand 1 Tablet before bedtime. with food for pain. Discussed home care and that seems like as a pinched nerve in her thoracic spine, not related to UTI symptoms Vandana Engel PA-C documented in this encounter Nursing Notes * Lubna Cevallos LPN - 01/30/2023 3:00 PM EST 52 yo female presents with dysuria since . Given macrodantin via teledoc. Use AZO documented in this encounter Plan of Treatment Pending Results Name Type Priority Associated Diagnoses Date /Time CULTURE, URINE, QUANTITATIVE Lab Routine Dysuria 01/30/2023 3:29 PM EST Scheduled Procedures Name Priority Associated Diagnoses Date/Ti me COLONOSCOPY FLEXIBLE PROXIMA L DIAGNOSTIC Recall Family history of uterine cancer Screening for malignant neoplasm of colon Health Maintenance Due Date Last Done Comments Hepatitis B (1 of 3 - 3-dose series) 1969 COVID-19 Vaccine (#1) 1969 HIV Screening 1984 Hepatitis C Screening 1987 Zoster Vaccines (1 of 2) 2019 Depression Screening 01/05/2021 01/06/2020 Mammogram 05/11/2021 05/11/2020, 10/10/2016 Influenza Vaccine (FLU shot) (#1) 2022 12/22/2019 COLONOSCOPY-EVERY 5 YRS AGES 18-100 03/12/2023 03/12/2018, 03/12/2018 GFR 05/31/2023 05/30/2022, 10/2018, 09/10/2016 Albumin/Creatinine Ratio 05/30/2025 05/30/2022 Diabetes Screening 05/30/2025 05/30/2022, 0 03/05/2018, 12/03/2016, Additional history exists Lipid Panel 05/31/2027 05/30/2022 DTaP,Tdap,and Td Vaccines (2 - Td or Tdap) 12/21/2029 12/22/2019 Pap Smear Discontinued 01/11/2017, 09/28/2015 GARDASIL-HPV IMMUNIZATION SERIES Aged Out No longer eligible based on patient's age to complete this topic MENINGOCOCCAL (MENACTRA/MENVEO) Aged Out No longer eligible based on patient's age to complete this topic Pneumococcal Vaccine: Pediatrics (0 to 5 Years) and At-Risk Patients (6 to 64 Years) Aged Out No longer eligible based on patient's age to complete this topic documented as of this encounter Medical Devices Not on filedocumented as of this encounter Procedures Procedure Name Priority Date/Time Associated Diagnosis Comments URINALYSIS, POINT OF CARE (ENTER/EDIT) Routine 01/30/2023 Dysuria documented in this encounter Results * (ABNORMAL) URINALYSIS, POINT OF CARE (ENTER/EDIT) (01/30/2023) Color, Urine Yellow Yellow or Light Yellow Clarity, Urine Clear Clear Glucose, Urine Negative Negative mg/dL Bilirubin, Urine Negative Negative Ketone, Urine Negative Negative mg/dL Specific [place], Urine 1.025 1.003 - 1.030 Blood, Urine Negative Negative pH, Urine 6.0 5.0 - 7.5 units Protein, Urine Negative Negative mg/dL Urobilinogen, Urine 1.0 0.2 - 1.0 mg/dL Nitrite, Urine Positive Negative Esterase, Urine Negative Negative Urine 01/30/2023 Vandana Engel PA-C LAB POINT OF C ARE TEST ENTER/EDIT ORDERABLES documented in this encounter Visit Diagnoses Diagnosis Urinary tract infection without hematuria, site unspecified- Primary Dysuria Acute bilateral thoracic back pain documented in this encounter Care Teams Audio Video Technician Relationship Specialty Start Date End Date Jonny Pandya MD [address] [facility] [place] [id number] PCP - General Family Medicine 01/06/20 documented as of this encounter
--- OUTSIDE RECORDS SUMMARY | 2023-02-09 06:10 | External Medical Summary | Summary of Care ---
Author Name Unknown Organization [facility] Address [address] [place] [address] Phone [phone] Care Team Providers Care Senior Firewall Engineer Name Role Phone Jonny Pandya MD Primary Care Provider [phone] [phone] Reason for Visit * Reason Comments Urinary Tract Infection Symptoms Encounter Details Date Type Department Care Team (Latest Contact Info) Description 01/30/2023 3:20 PM EST Convenient Care Visit [facility] [address] [place] [address] Vandana Engel PA-C [address] [place] [address] Urinary tract infection without hematuria, site unspecified*; [...] performed by Latoya Murray MD at ENDOSCOPY [facility] CONIZATION OF CERVIX 04/26/2015 LAP;W/HYSTERECTOMY 03/01/2017 LUMBAR / SACRAL EPIDURAL, SINGLE LEVEL 11/04/2017 INJECTION TRANSFORAMINAL EPIDURAL LUMBAR OR SACRAL performed by [place] Rico Merino, DO at OR [facility] LUMBAR / SACRAL EPIDURAL, SINGLE LEVEL 12/19/2017 INJECTION TRANSFORAMINAL EPIDURAL LUMBAR OR SACRAL performed by Vivek Rico Merino, DO at OR [facility] LUMBAR / SACRAL EPIDURAL, SINGLE LEVEL 06/05/2018 INJECTION TRANSFORAMINAL EPIDURAL LUMBAR OR SACRAL performed by [place] Rico Merino, DO at OR [facility] SACROILIAC JOINT INJECT W/GUIDANCE Left 02/09/2019 INJECTION SACROILIAC JOINT performed by [place] Rico Merino, DO at OR [facility] TVT [facility] 2010 prolene mesh -- Dr.Lawrence [...] Routine Dysuria 01/30/2023 3:29 PM EST Scheduled Orders Name Type Priority Associated Diagnoses Orde r Schedule URINALYSIS, POINT OF CARE (ENTER/EDIT) Point of Care Testing Routine Dysuria Ordered: 01/30/2023 Scheduled Procedures Name Priority Associated Diagnoses Date/Ti [...] Not on filedocumented as of this encounter Visit Diagnoses Diagnosis Urinary tract infection without hematuria, site unspecified- Primary Dysuria Acute bilateral thoracic back pain documented in this encounter Care Teams Senior Firewall Engineer Relationship Specialty Start Date End Date Jonny Pandya MD [address] [place] [address] PCP - General Family Medicine 01/06/20 documented as of this encounter
[2023-02-09 06:11] LABS: Folate (Folic Acid),Ser orPlas 7.97 ng/ml (>5.38)
--- OUTSIDE RECORDS SUMMARY | 2023-02-09 06:11 | External Medical Summary | Summary of Care ---
Author Name Unknown Organization [facility] Address [address] [place] [address] Phone [phone] Care Team Providers Care Ultrasound Technologist Name Role Phone Jonny Pandya MD Primary Care Provider [phone] [phone] Reason for Visit * Reason Onset Date Comments Scheduling 09/13/2022 6 months with me Encounter Details Date Type Department Care Team Description 09/13/2022 Telephone Nutrition & Weight Management, [facility] [address] [place] [address] Claudine Sifuentes PA-C [address] [place] [address] Scheduling (6 months with me ) Allergies No known active allergiesdocumented as of this encounter (statuses as of 09/19/2022) Medications Medication Sig Dispensed Refills Start Date End Date Status buPROPion HCl ER (XL) 150 MG Oral Tablet Extended Release 24 Hour (Wellbutrin XL) Take 1 Tablet by mouth in the morning. In the morning.. 90 Tablet 3 03/07/2022 Active valACYclovir HCl 1 GM Oral Tablet (Valtrex)Indications:C old sore take 2 tablets by mouth every 12 hours for 1 DAY FOR COLD SORES 12 Tablet 5 05/25/2022 Active Lisinopril 40 MG Oral TabletIndications:Esse ntial hypertension with goal blood pressure less than 130/80 TAKE 1 TABLET IN THE MORNING 90 Tablet 2 07/27/2022 Active Wegovy 2.4 MG/0.75ML Subcutaneous Solution Auto-injector (Semaglutide-Weight Management) Inject 2.4 mg under the skin once a week. 9 mL 0 08/30/2022 Active documented as of this encounter (statuses as of 09/19/2022) Active Problems Problem Noted Date Depression with anxiety 02/28/2021 Morbid obesity due to excess calories HTN, goal below 130/80 12/22/2019 documented as of this encounter (statuses as of 09/19/2022) Resolved Problems Problem Noted Date Resolved Date Class 3 severe obesity due t o excess calories without serious comorbidity with body mass index (BMI) of 40.0 to 44.9 in adult 01/06/2020 02/28/2021 H/O abnormal cervical Papanicolaou smear 017 01/06/2020 Overview: Conization 2015, pap summer 2015 neg per pt Adjustment disorder with mixed anxiety and depre ssed mood 09/19/2016 02/28/2021 Encounter for screening mammogram for breast can cer 09/19/2016 01/06/2020 Overview: 8/17-neg,50-75% FG documented as of this encounter (statuses as of 09/19/2022) Immunizations Name Administration Dates Next Due Seasonal Influenza, Quadriva lent, No Preserve, 6 Mons & Above, IM 12/22/2019 TDAP (age 10 and older)(Boostrix) 12/22/2019 12/22/2029 documented as of this encounter Social History Tobacco Use Types Packs/Day Years Used Date Smoking Tobacco: Never Smokeless Tobacco: Never Alcohol Use Standard Drinks/Week Comments Yes 0 (1 standard drink = 0.6 oz pur e alcohol) rare Food Insecurity Answer Date Recorded Within the past 12 months, y ou worried that your food would run out before you got money to buy more. Never true 03/06/2022 Within the past 12 months, t he food you bought just didn't last and you didn't have money to get more. Never true 03/06/2022 Sex Assigned at Date Recorded Female 12/22/2019 12:34 PM EDT Job Start Date Occupation Industry Not on file Not on file Not on file documented as of this encounter Miscellaneous Notes * Telephone Encounter - JONATHON Bergman 09/19/2022 3:43 PM EDT LMOM for pt to call back to schedule * Telephone Encounter - JONATHON Bergman - 09/13/2022 8:57 AM EDT Patient needs to be scheduled for the following appt per the checkout notes after VV on 09/12 w/ Susana: 6 months with me LMOM for pt to call back to schedule documented in this encounter Plan of Treatment Scheduled Procedures Name Priority Associated Diagnoses Date/Ti me COLONOSCOPY FLEXIBLE PROXIMA L DIAGNOSTIC Recall Family history of uterine cancer Screening for malignant neoplasm of colon Health Maintenance Due Date Last Done Comments Hepatitis B (1 of 3 - 3-dose series) 1969 COVID-19 Vaccine (#1) 1969 HIV Screening 1984 Hepatitis C Screening 1987 Zoster Vaccines (1 of 2) 2019 Depression Screening, Annual for Pts 12 and Over 01/05/2021 01/06/2020 Mammogram 05/11/2021 05/11/2020, 10/10/2016 Influenza [...] Not on filedocumented as of this encounter Care Teams Ultrasound Technologist Relationship Specialty Start Date End Date Jonny Pandya MD [address] [place] [address] PCP - General Family Medicine 01/06/20 documented as of this encounter
--- OUTSIDE RECORDS SUMMARY | 2023-02-09 06:11 | External Medical Summary | Summary of Care ---
Author Name Unknown Organization [facility] Address [address] [place] [address] Phone [phone] Care Team Providers Care Telephone Lines Repairer Name Role Phone Jonny Pandya MD Primary Care Provider [phone] Reason for Visit * Reason Onset Date Comments Scheduling 09/13/2022 6 months with me Encounter Details Date Type Department Care Team Description 09/13/2022 Telephone Nutrition & Weight Management, [facility] [address] [place] [address] Claudine Sifuentes PA-C [address] [place] [address] Scheduling (6 months with me ) Allergies No known active allergiesdocumented as of this encounter (statuses as of 09/13/2022) Medications Medication Sig Dispensed Refills Start Date [...] as of this encounter (statuses as of 09/13/2022) Active Problems Problem Noted Date Depression with anxiety 02/28/2021 Morbid obesity due to excess calories HTN, goal below 130/80 12/22/2019 documented as of this encounter (statuses as of 09/13/2022) Resolved Problems Problem Noted Date Resolved Date [...] as of this encounter (statuses as of 09/13/2022) Immunizations Name Administration Dates Next Due Seasonal [...] Notes * Telephone Encounter - JONATHON Bergman 09/13/2022 8:57 AM EDT Patient needs to [...] Over 01/05/2021 01/06/2020 Mammogram 05/11/2021 05/11/2020, 10/10/2016 Pap Smear 01/11/2022 01/11/2017, 09/28/2015 Influenza Vaccine (FLU shot) (#1) 2022 12/22/2019 COLONOSCOPY-EVERY 5 YRS AGES 18-100 03/12/2023 03/12/2018, 03/12/2018 GFR 05/31/2023 05/30/2022, 10/2018, 09/10/2016 Albumin/Creatinine Ratio 05/30/2025 05/30/2022 Diabetes Screening 05/30/2025 05/30/2022, 0 03/05/2018, 12/03/2016, Additional history exists Lipid Panel 05/31/2027 05/30/2022 DTaP,Tdap,and Td Vaccines (2 - Td or Tdap) 12/21/2029 12/22/2019 GARDASIL-HPV IMMUNIZATION SERIES Aged Out No longer [...] filedocumented as of this encounter Care Teams Telephone Lines Repairer Relationship Specialty Start Date End Date Jonny Pandya MD [address] [place] [address] PCP - General Family Medicine 01/06/20 documented as of this encounter
--- OUTSIDE RECORDS SUMMARY | 2023-02-09 06:11 | External Medical Summary | Summary of Care ---
Author Name Unknown Organization [facility] Address [address] [place] [address] Phone [phone] Care Team Providers Care Polisher And Sander Name Role Phone Jonny Pandya MD Primary Care Provider [phone] Reason for Visit * Reason Onset Date Comments Medication Refill 11/14/2022 Encounter Details Date Type Department Care Team Description 11/14/2022 Refill Nutrition & Weight Management, [facility] [address] [place] [address] Claudine Reynolds PA-C [address] [facility] [place] [address] Allergies No known active allergiesdocumented as of this encounter (statuses as of 11/15/2022) Medications Medication Sig Dispensed Refills Start Date End Date Status buPROPion HCl ER (XL) 150 MG Oral Tablet Extended Release 24 Hour (Wellbutrin XL) Take 1 Tablet by mouth in the morning. In the morning.. 90 Tablet 3 03/07/2022 Active valACYclovir HCl 1 GM Oral Tablet (Valtrex)Indication s:Cold sore take 2 tablets by mouth every 12 hours for 1 DAY FOR COLD SORES 12 Tablet 5 05/25/2022 Active Lisinopril 40 MG Oral TabletIndications:E ssential hypertension with goal blood pressure less than 130/80 TAKE 1 TABLET IN THE MORNING 90 Tablet 2 07/27/2022 Active Wegovy 2.4 MG/0.75ML Subcutaneous Solution Auto-injector (Semaglutide-Weight Management) Inject 2.4 mg under the skin once a week. 9 mL 0 11/15/2022 Active Wegovy 2.4 MG/0.75ML Subcutaneous Solution Auto-injector (Semaglutide-Weight Management) Inject 2.4 mg under the skin once a week. 9 mL 0 08/30/2022 11/14/2022 Discontinued (Refill) documented as of this encounter (statuses as of 11/15/2022) Active Problems Problem Noted Date Depression with anxiety 02/28/2021 Morbid obesity due to excess calories HTN, goal below 130/80 12/22/2019 documented as of this encounter (statuses as of 11/15/2022) Resolved Problems Problem Noted Date Resolved Date [...] as of this encounter (statuses as of 11/15/2022) Immunizations Name Administration Dates Next Due Seasonal Influenza, PF, 6 mo ns & Above, IM , (Flulaval) 12/22/2019 TDAP (age 10 and older)(Boostrix) 12/22/2019 [...] encounter Miscellaneous Notes * Telephone Encounter - Claudine Reynolds PA-C - 11/15/2022 9:46 AM EDT Signed Prescriptions: Disp Refills Wegovy 2.4 MG/0.75ML Subcutaneous Solution*9 mL 0 Sig: Inject 2.4 mg under the skin once a week. Authorizing Provider: CLAUDINE REYNOLDS * Telephone Encounter - Lisa Rosales LPN - 11/15/2022 9:36 AM EDTPending Prescriptions: Disp Refills Wegovy 2.4 MG/0.75ML Subcutaneous Solution*9 mL 0 Sig: Inject 2.4 mg under the skin once a week. * Telephone Encounter - Lisa Rosales LPN - 11/15/2022 9:36 AM EDT Did you pend patient's preferred pharmacy and medication before forwarding?yes Pharmacy: [facility]- [place] Pending Prescriptions: Disp Refills Wegovy 2.4 MG/0.75ML Subcutaneous Solutio*9 mL 0 Sig: Inject 2.4 mg under the skin once a week. Last Visit: 05/10/2022 (in office), 09/12/2022 (telemedicine) Next Visit: Visit date not found If no future appointments scheduled, and last appointment is greater than a year ago, please schedule patient for a follow-up appointment Last date the medication was ordered: 08/30/22 Is this request for a controlled substance?No Urine Drug Screen:No results found for this or any previous visit. Patient Phone Numbers Labs: Lab Results Component Value Date/Time CREAT 0.9 05/30/2022 09:41 AM CREAT 0.7 03/05/2018 11:10 AM POTASSIUM 4.5 05/30/2022 09:41 AM POTASSIUM 4.0 03/05/2018 11:10 AM TSH 2.36 03/05/2018 11:10 AM LDLCALC 129 05/30/2022 09:41 AM ALT 23 03/05/2018 11:10 AM documented in this encounter Plan of Treatment [...] filedocumented as of this encounter Care Teams Polisher And Sander Relationship Specialty Start Date End Date Jonny Pandya MD [address] [place] [address] PCP - General Family Medicine 01/06/20 documented as of this encounter
--- OUTSIDE RECORDS SUMMARY | 2023-02-09 06:11 | External Medical Summary ---
Author Name Unknown Address Unknown Organization K01:[facility] [place] [address] [place] [address] Laboratory Report Ordering Provider Test Date Status BENIGNOCURT 01/30/2023 15:29:06 Final Observation Date Value Abnormality Reference (Units) Status Bacteria identified in Specimen by Culture 01/30/2023 15:29:06 No significant growth Final Test: Culture, Urine, Quanti tative
Specimen Source: Urine, Clean Catch
Specimen Type: Urine
Specimen Date: 01/30/2023 3:29 PM
Result Date: 01/31/2023 4:11 PM
Result Status: Final result
Resulting Lab: [facility] [place]
[address]
[place] [id number]

CULTURE

No significant growth

null Performing Location [facility] [place] [address] [place] [id number]
--- OUTSIDE RECORDS SUMMARY | 2023-02-09 06:11 | External Medical Summary | Summary of Care ---
Author Name Unknown Organization [facility] Address [address] [place] [address] Phone [phone] Care Team Providers Care Nanosystems Engineer Name Role Phone Jonny Pandya MD Primary Care Provider [phone] Reason for Visit * Reason Comments New Med Request Encounter Details Date Type Department Care Team Description 08/29/2022 Refill Nutrition & Weight Management, [facility] [address] [place] [address] Claudine Sifuentes PA-C [address] [place] [address] Allergies No known active allergiesdocumented as of this encounter (statuses as of 08/29/2022) Medications Medication Sig Dispensed Refills Start Date End Date Status Insulin Pen Needle 32G X 6 MMIndications:Morbid obesity due to excess calories (HCC) Use as directed with Saxenda Pen 100 Each 2 02/20/2022 Active buPROPion HCl ER (XL) 150 MG Oral Tablet Extended Release 24 Hour (Wellbutrin XL) Take 1 Tablet by mouth in the morning. In the morning.. 90 Tablet 3 03/07/2022 Active valACYclovir HCl 1 GM Oral Tablet (Valtrex)Indications: Cold sore take 2 tablets by mouth every 12 hours for 1 DAY FOR COLD SORES 12 Tablet 5 05/25/2022 Active Wegovy 2.4 MG/0.75ML Subcutaneous Solution Auto-injector (Semaglutide-Weight Management) Inject 2.4 mg under the skin once a week. 9 mL 0 06/29/2022 Active Lisinopril 40 MG Oral TabletIndications:Ess ential hypertension with goal blood pressure less than 130/80 TAKE 1 TABLET IN THE MORNING 90 Tablet 2 07/27/2022 Active documented as of this encounter (statuses as of 08/29/2022) Active Problems Problem Noted Date Depression with anxiety 02/28/2021 Morbid obesity due to excess calories HTN, goal below 130/80 12/22/2019 documented as of this encounter (statuses as of 08/29/2022) Resolved Problems Problem Noted Date Resolved Date [...] as of this encounter (statuses as of 08/29/2022) Immunizations Name Administration Dates Next Due Seasonal [...] encounter Miscellaneous Notes * Telephone Encounter - Lisa Rosales LPN - 08/29/2022 9:11 AM EDTRefused Prescriptions: Disp Refills Wegovy 2.4 MG/0.75ML Subcutaneous Solution* 0 Refused By: LISA ROSALES MReason for Refusal: Other (comment below) documented in this encounter Plan of Treatment Upcoming Encounters Date Type Specialty Care Team Description 09/12/2022 Telemedicine Gastroenterology Claudine Sifuentes PA-C [address] [place] [address] Scheduled Procedures Name Priority Associated Diagnoses Date/Ti [...] 18-100 03/12/2023 03/12/2018, 03/12/2018 GFR 05/31/2023 05/30/2022, 0 10/2018, 09/10/2016 Albumin/Creatinine Ratio 05/30/2025 05/30/2022 Diabetes [...] filedocumented as of this encounter Care Teams Nanosystems Engineer Relationship Specialty Start Date End Date Jonny Pandya MD [address] [place] [address] PCP - General Family Medicine 01/06/20 documented as of this encounter
--- OUTSIDE RECORDS SUMMARY | 2023-02-09 06:11 | External Medical Summary | Summary of Care ---
Author Name Unknown Organization [facility] Address [address] [place] [address] Phone [phone] Care Team Providers Care Vp Cardiovascular Service Line Name Role Phone Jonny Pandya MD Primary Care Provider [phone] [phone] Reason for Visit * Reason Onset Date Comments Precert Approved 11/19/2022 [place] Encounter Details Date Type Department Care Team Description 11/19/2022 Telephone Nutrition & Weight Management, [facility] [address] [place] [address] Claudine Sifuentes PA-C [address] [facility] [address] Precert Approved ( ABRAHAM) Allergies No known active allergiesdocumented as of this encounter (statuses as of 11/20/2022) Medications Medication Sig Dispensed Refills Start Date [...] a week. 9 mL 0 11/15/2022 Active documented as of this encounter (statuses as of 11/20/2022) Active Problems Problem Noted Date Depression with anxiety 02/28/2021 Morbid obesity due to excess calories HTN, goal below 130/80 12/22/2019 documented as of this encounter (statuses as of 11/20/2022) Resolved Problems Problem Noted Date Resolved Date [...] as of this encounter (statuses as of 11/20/2022) Immunizations Name Administration Dates Next Due Seasonal [...] Telephone Encounter - Lisa Rosales LPN - 11/19/2022 12:35 PM EDT Wegovy 2.4mg requires prior auth. [id number] [id number] ID: [id number] Class 3 severe obesity due to excess calories with body mass index (BMI) of 40.0 to 44.9 in adult, unspecified whether serious comorbidity present (HCC) HTN, goal below 130/80 - Avoid phentermine Starting wt: 222lb Current wt: 186lb 17% loss documented in this encounter Plan of Treatment [...] filedocumented as of this encounter Care Teams Vp Cardiovascular Service Line Relationship Specialty Start Date End Date Jonny Pandya MD [address] [place] [address] PCP - General Family Medicine 01/06/20 documented as of this encounter
--- OUTSIDE RECORDS SUMMARY | 2023-02-09 06:11 | External Medical Summary | Summary of Care ---
Author Name Unknown Organization [facility] Address [address] [place] [address] Phone [phone] Care Team Providers Care Fitter Mechanic Name Role Phone Jonny Pandya MD Primary Care Provider [phone] [phone] Encounter Details Date Type Department Care Team Description 09/12/2022 Telemedicine Nutrition & Weight Management, [facility] [address] [place] [address] Claudine Sifuentes PA-C [address] [place] [address] Class 3 severe obesity due to excess calories with body mass index (BMI) of 40.0 to 44.9 in adult, unspecified whether serious comorbidity present (HCC)*; Abnormal weight gain Allergies No known active allergiesdocumented as of this encounter (statuses as of 09/12/2022) Medications Medication Sig Dispensed Refills Start Date End Date Status buPROPion HCl ER (XL) 150 MG Oral Tablet Extended Release 24 Hour (Wellbutrin XL) Take 1 Tablet by mouth in the morning. In the morning.. 90 Tablet 3 03/07/2022 Active valACYclovir HCl 1 GM Oral Tablet (Valtrex)Indicatio ns:Cold sore take 2 tablets by mouth every 12 hours for 1 DAY FOR COLD SORES 12 Tablet 5 05/25/2022 Active Lisinopril 40 MG Oral TabletIndications: Essential hypertension with goal blood pressure less than 130/80 TAKE 1 TABLET IN THE MORNING 90 Tablet 2 07/27/2022 Active Wegovy 2.4 MG/0.75ML Subcutaneous Solution Auto-injector (Semaglutide-Weigh t Management) Inject 2.4 mg under the skin once a week. 9 mL 0 08/30/2022 Active Insulin Pen Needle 32G X 6 MMIndications:Morb id obesity due to excess calories (HCC) Use as directed with Saxenda Pen 100 Each 2 02/20/2022 3 Discontinued documented as of this encounter (statuses as of 09/12/2022) Active Problems Problem Noted Date Depression with anxiety 02/28/2021 Morbid obesity due to excess calories HTN, goal below 130/80 12/22/2019 documented as of this encounter (statuses as of 09/12/2022) Resolved Problems Problem Noted Date Resolved Date [...] for breast can cer 09/19/2016 01/06/2020 Overview: 8/-neg,50-75% FG documented as of this encounter (statuses as of 09/12/2022) Immunizations Name Administration Dates Next Due Seasonal [...] on file documented as of this encounter Progress Notes * Claudine Sifuentes PA-C - 09/12/2022 10:40 AM EDT [facility] Note Follow up There are no exam notes on file for this visit. Patient location: HOME. I was in a hospital or clinic location. After connecting through [employer],patient was verified with two unique identifiers. 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 Methods to assure confidentiality were taken. Patient acknowledged consent and understanding of pr ivacy and security of the Telemedicine visit. The patient agreed to participate. HPI Sybil Workman presents in follow up to the comprehensive weight management clinic. The patient is a 52 year old female Patient is receiving ongoing education regarding dietary and physical modifications for weight loss. Initial clinic visit01/12/22. Weight 245lbs Height 62"Body mass index is 44.81 kg/m. - Today's weight: 198 lbs - Total weight loss of -47 since initial weight in clinic - Patient's last follow up with GI/Nutrition clinic was on 05/10/22 222 - The patient's weight has -24 lbs since the last visit Wt Readings from Last 6 Encounters: 05/10/22 100.8 kg (222 lb 4.8 oz) 01/12/22 111.1 kg (245 lb) 01/06/20 111.1 kg (245 lb) 04/25/18 108.2 kg (238 lb 8 oz) 04/15/18 98.4 kg (217 lb) 03/05/18 98.4 kg (217 lb) 09/12/2022 -down to 198 -is having a lot of constipation-- tries ducolax -having fatigue -got naked whey protein powder -dream goal 150; happy at 170 05/10/2022 -in clinic follow up Wegovy 2.4mg weekly -broke her toe and was not able to get around well and was snacking more 03/21/2022 -visit with provider; patient also saw RD today -some nausea the first couple weeks -got down to 225 but now at 227 -working to do 10 min exercise every day Visit 01/12/22 - Overall goal:lose weight, feel better (175-180) - Wt hx:had thought about bariatric surgery in the past. Did Keto and lost 15- 20 pounds, weight watchers - Highest wt as adult:250 - Lowest wt as adult:135 Current diet: Breakfast-- coffee, yogurt Snack-- nuts, cheese fruits Lunch-- salads Snack-- crackers, protein bar (barbell) Dinner-- variety Snack-- popcorn Drinks-- zero sugar tea, water Meals Away from Home-- 3 times per week Weight loss Pharmacotherapy: yes Semaglutide 2.4mg weekly Past Medical History Patient Active Problem List Diagnosis Code HTN, goal below 130/80 I10 Depression with anxiety F41.8 Morbid obesity due to excess calories ([facility]) E66.01 Current Medications: Current Outpatient Medications Medication Sig Dispense Refill buPROPion HCl ER (XL) 150 MG Oral Tablet Extended Release 24 Hour (Wellbutrin XL) Take 1 Tabletby mouth in the morning. In the morning.. 90 Tablet 3 valACYclovir HCl 1 GM Oral Tablet (Valtrex) take 2 tablets by mouth every 12 hours for 1 DAY FOR COLD SORES 12 Tablet 5 Lisinopril 40 MG Oral Tablet TAKE 1 TABLET IN THE MORNING 90 Tablet 2 Wegovy 2.4 MG/0.75ML Subcutaneous Solution Auto-injector (Semaglutide-Weight Management) Inject2.4 mg under the skin once a week. 9 mL 0 No current facility-administered medications for this visit. Review of Systems: Review of Systems Gastrointestinal: Negative for abdominal pain, diarrhea, nausea and vomiting. Musculoskeletal: Positive for arthralgias. PHYSICAL EXAMINATION: [facility] 01/28/2017 Physical Exam Vitals and nursing note reviewed. Constitutional: Appearance: Normal appearance. HENT: Head: Normocephalic and atraumatic. Cardiovascular: Normal rate. Pulmonary: Effort: Pulmonary effort is normal. No respiratory distress. Neurological: Mental Status: She is alert and oriented to person, place, and time. Psychiatric: Mood and Affect: Mood normal. Assessment and Plan: Abnormal weight gain / There is no height or weight on file to calculate BMI. / Morbid obesity : - Barriers are consistency - Motivators are feeling better overall, avoiding/reducing co-morbid conditions, - The patient was encouraged to to avoid all fruit juices and regular sodas, consume at least 64 ounces of water per day, keep food logs and get weighed on a weekly basis. They were encouraged to increase physical activity as prescribed. - Handouts regarding nutrition and physical activity were provided, as appropriate. There are no diagnoses linked to this encounter. GOALS -minimum 60g protein per day; aim for 20g protein per meal-- really work to get in protein; aim [id number] per day Add a multivitamin -minimum 1200 calories per day -increase exercise as able with goal 150 min per week -diet per RD -add protein -continue wegovy 2.4mg weekly Diagnoses and all orders for this visit: Class 3 severe obesity due to excess calories with body mass index (BMI) of 40.0 to 44.9 in adult, unspecified whether serious comorbidity present (HCC) Goals as above Continue wegovy 2.4mg weekly Sent in earlier this month Abnormal weight gain HTN, goal below 130/80 Continue lisinopril Depression with anxiety stable The patient agreed to try the plan as discussed and return in 6 months. They were encouraged to call or send a patient portal message in the meantime with any questions or concerns prior to their next clinic visit. I spent a total of 18 minutes on the date of service in preparation, delivery, and documentation ofthe care provided to Sybil Workman excluding any time spent in the performance of separately billed services. This included but was no limited to providing counseling about the benefits of weight loss, about their nutritional status, detailed explanations about calorie count, types of nutrients to choose, and composition of the meals. Motivational interview provided in order to prepare the patient to achieve future goals. Claudine Sifuentes PA-C, [facility] Nutrition and Weight Management [facility] ([facility]) documented in this encounter Plan of Treatment [...] as of this encounter Visit Diagnoses Diagnosis Class 3 severe obesity due to excess calories with body mass index (BMI) of 40.0 to 44.9 in adult, unspecified whether serious comorbidity present (HCC)- Primary Abnormal weight gain documented in this encounter Care Teams Fitter Mechanic Relationship Specialty Start Date End Date Jonny Pandya MD [address] [facility] [place] [address] PCP - General Family Medicine 01/06/20 documented as of this encounter
--- OUTSIDE RECORDS SUMMARY | 2023-02-09 06:11 | External Medical Summary | Summary of Care ---
Author Name Unknown Organization [facility] Address [address] [place] [address] Phone [phone] Care Team Providers Care News Librarian Name Role Phone Jonny Pandya MD Primary Care Provider [phone] Reason for Visit * Reason Comments eRx-Medication Refill Encounter Details Date Type Department Care Team Description 11/20/2022 Refill Nutrition & Weight Management, [facility] [address] [place] [address] Claudine Sifuentes PA-C [address] [facility] [place] [address] Allergies No known active allergiesdocumented as of [...] Telephone Encounter - Lisa Rosales LPN - 11/20/2022 2:34 PM EDTRefused Prescriptions: Disp Refills Wegovy 2.4 MG/0.75ML Subcutaneous Solution*9 mL 3 Sig: INJECT 2.4 MG UNDER THE SKIN WEEKLYRefused By: LISA ROSALES MReason for Refusal: Duplicate Request------- documented in this encounter Plan of Treatment [...] filedocumented as of this encounter Care Teams News Librarian Relationship Specialty Start Date End Date Jonny Pandya MD [address] [place] [address] PCP - General Family Medicine 01/06/20 documented as of this encounter
--- OUTSIDE RECORDS SUMMARY | 2023-02-09 06:11 | External Medical Summary | Summary of Care ---
Author Name Unknown Organization [facility] Address [address] [place] [address] Phone [phone] Care Team Providers Care Garment Mender Name Role Phone Jonny Pandya MD Primary Care Provider [phone] Encounter Details Date Type Department Care Team Description 08/27/2022 Orders Only Outcomes Research Department [address], [place] [id number] Vanessa Munson CHRA MyCode Research Other*[id number] Allergies No known active allergiesdocumented as of this encounter (statuses as of 08/27/2022) Medications Medication Sig Dispensed Refills Start Date [...] as of this encounter (statuses as of 08/27/2022) Active Problems Problem Noted Date Depression with anxiety 02/28/2021 Morbid obesity due to excess calories HTN, goal below 130/80 12/22/2019 documented as of this encounter (statuses as of 08/27/2022) Resolved Problems Problem Noted Date Resolved Date [...] as of this encounter (statuses as of 08/27/2022) Immunizations Name Administration Dates Next Due Seasonal [...] on file documented as of this encounter Plan of Treatment Upcoming Encounters Date Type Specialty Care Team Description 09/12/2022 Telemedicine Gastroenterology Claudine Sifuentes PA-C [address] [place] [address] Scheduled Orders Name Type Priority Associated Diagnoses Orde r Schedule MYCODE INITIAL ADULT Lab Routine My[facility] Research Other*[id number] Expected: 08/27/2022 (Approximate), Expires: 09/16/2023 Scheduled Procedures Name Priority Associated Diagnoses Date/Ti [...] as of this encounter Visit Diagnoses Diagnosis My[facility] Research Other*[id number] documented in this encounter Care Teams Garment Mender Relationship Specialty Start Date End Date Jonny Pandya MD [address] [place] [address] PCP - General Family Medicine 01/06/20 documented as of this encounter
--- OUTSIDE RECORDS SUMMARY | 2023-02-09 06:11 | External Medical Summary | Summary of Care ---
Author Name Unknown Organization [facility] Address [address] [place] [address] Phone [phone] Care Team Providers Care Crm Analyst Name Role Phone Jonny Pandya MD Primary Care Provider [phone] Reason for Visit * Reason Onset Date Comments Scheduling 09/13/2022 6 months with me Encounter Details Date Type Department Care Team Description 09/13/2022 Telephone Nutrition & Weight Management, [facility] [address] [place] [address] Claudine Sifuentes PA-C [address] [place] [address] Scheduling (6 months with me ) Allergies No known active allergiesdocumented as of this encounter (statuses as of 09/21/2022) Medications Medication Sig Dispensed Refills Start Date [...] as of this encounter (statuses as of 09/21/2022) Active Problems Problem Noted Date Depression with anxiety 02/28/2021 Morbid obesity due to excess calories HTN, goal below 130/80 12/22/2019 documented as of this encounter (statuses as of 09/21/2022) Resolved Problems Problem Noted Date Resolved Date [...] as of this encounter (statuses as of 09/21/2022) Immunizations Name Administration Dates Next Due Seasonal [...] Notes * Telephone Encounter - JONATHON Bergman 09/21/2022 1:05 PM EDT Letter sent * Telephone Encounter - JONATHON Bergman - 09/19/2022 3:43 PM EDT LMOM for pt [...] filedocumented as of this encounter Care Teams Crm Analyst Relationship Specialty Start Date End Date Jonny Pandya MD [address] [place] [address] PCP - General Family Medicine 01/06/20 documented as of this encounter
--- OUTSIDE RECORDS SUMMARY | 2023-02-09 06:11 | External Medical Summary | Summary of Care ---
Author Name Unknown Organization [facility] Address [address] [place] [address] Phone [phone] Care Team Providers Care Middle [employer] Football Coach Name Role Phone Jonny Pandya MD Primary Care Provider [phone] Reason for Visit * Reason Onset Date Comments Scheduling 09/13/2022 6 months with me Encounter Details Date Type Department Care Team Description 09/13/2022 Telephone Nutrition & Weight Management, [facility] [address] [place] [address] Claudine Sifuentes PA-C [address] [place] [address] Scheduling (6 months with me ) Allergies No known active allergiesdocumented as of this encounter (statuses as of 10/10/2022) Medications Medication Sig Dispensed Refills Start Date [...] as of this encounter (statuses as of 10/10/2022) Active Problems Problem Noted Date Depression with anxiety 02/28/2021 Morbid obesity due to excess calories HTN, goal below 130/80 12/22/2019 documented as of this encounter (statuses as of 10/10/2022) Resolved Problems Problem Noted Date Resolved Date [...] as of this encounter (statuses as of 10/10/2022) Immunizations Name Administration Dates Next Due Seasonal [...] Notes * Telephone Encounter - JONATHON Bergman 10/10/2022 10:58 AM EDT LMOM for pt to call back to schedule * Telephone Encounter - JONATHON Bergman - 09/21/2022 1:05 PM EDT Letter sent * [...] filedocumented as of this encounter Care Teams Middle School Football Coach Relationship Specialty Start Date End Date Jonny Pandya MD [address] [place] [address] PCP - General Family Medicine 01/06/20 documented as of this encounter
[2023-02-09] MEDS ORDERED: CYCLOBENZAPRINE HCL 5 MG TAB PO PRN (06:40)
--- NOTE | 2023-02-09 07:59 | XRay Report ---
TWO VIEW CHEST CLINICAL HISTORY: Mass seen by CT. FINDINGS: PA and lateral chest radiographs are compared to chest x-ray and chest CT dated 02/28/2021. C orrelation is made with abdominal CT dated 02/08/2023. The cardiomediastinal silhouette is unremarkab le. A 7.5 cm ovoid opacity projects over the right lower lung along the course of the major fissure. The lungs and pleural spaces are otherwise clear. There is no pneumothorax. The bony thorax appears intact. IMPRESSION: 1. A 7.5 cm ovoid opacity projects over the right lower lung along the course of the major fissure. T his is new from 02/28/2021 and is consistent with a pulmonary mass when correlated with today's abdomin al CT. 2. The lungs are otherwise clear. ACT 112: Negative or not required by law. Electronically signed by: Jn Aly M.D. 02/09/2023 7:57 AM
[2023-02-09] MEDS: ENOXAPARIN INJ 40 MG/0.4 ML SYR SQ SCH (08:00)
[2023-02-09] MEDS: DOCUSATE SODIUM/SENNA 50/8.6MG TAB PO SCH (08:01)
[2023-02-09] MEDS: MULTIVITAMIN TAB PO SCH (08:01)
[2023-02-09] MEDS: buPROPion XL 150 MG TABCR PO SCH (08:01)
[2023-02-09] MEDS: lisinopril 10 MG TAB PO SCH (08:01)
[2023-02-09] MEDS ORDERED: INFLUENZA VIRUS QUADRIVALENT VACCINE (IIV4) 0.5 ML SYR IM ONE (09:00)
--- NOTE | 2023-02-09 13:36 | Communication Note ---
Date of Service: February 09, 2023 Patient was seen and examined at bedside. 52-year-old lady with PMH of HTN, anxiety/mood disorder, morbid obesity on Wegovy [has had significant weight loss since starting Wegovy for morbid obesity months ago] presented with worsening abdominal discomfort with nausea and constipation symptoms despite home laxative regimen. 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 Also patient reports worsening fatigue over the last month but no active chest pain or shortness of breath or cough or headache. Patient denies any black or bloody stools. She is being managed for the following: Abdominal pain Constipation Likely adverse reaction from Wegovy being used for obesity management. Admitting CTAP with no abdominal pathology. Bowel regimen to titrate 1 bowel movement every 1 to 2 days. Hold Wegovy, patient instructed to contact [facility] pharmacy regarding subsequent dosing of Wegovy given increased constipation symptoms/abdominal pain. Will follow. Right lung mass Incidental finding on admitting CTAP, 4.9 x 5.5 cm right lower lobe mass noted and CT scan of the chest recommended. Await diagnostic CT chest, pulm consult afterwards. Will follow. New onset anemia: Baseline hemoglobin around 13, patient presented with fatigue ongoing for more than a month, admitting hemoglobin of 10.9 FOBT done in the ED was negative, patient with no complaints of black stool or bloody stool. Iron profile with low iron, low vitamin B12 and low normal folate. Supplement all of them. Will start PO iron once bowels are regular. Other chronic medical conditions: Continue with/resume home meds as and when able. hypertension, BP fairly under control anxiety/mood disorder, at baseline DVT prophylaxis. Lovenox subcu Full code
[2023-02-09] MEDS: POLYETHYLENE (MIRALAX) 17 GM PACK PO PRN (13:46)
[2023-02-09] MEDS ORDERED: OPTIRAY 320 500ml IV ONE (15:10)
--- NOTE | 2023-02-09 18:41 | CT Scan Report ---
CT SCAN OF THE CHEST WITH IV CONTRAST CLINICAL HISTORY: Lung mass. COMPARISON STUDY: Chest x-ray dated 02/09/2023. Chest CT dated 02/28/2021. TECHNIQUE: Following the IV administration of 89 cc of Optiray 320, CT scan of the thorax was perform ed from the thoracic inlet to the upper abdomen. Images are reviewed in the axial, sagittal, and elena nal planes. IV contrast was administered without complication. A dose lowering technique was utilize d adhering to the principles of ALARA. CT DOSE: 664.65 mGy.cm FINDINGS: Thyroid: Imaged portions of the thyroid gland are normal in size and attenuation. Thoracic aorta: The thoracic aorta is normal in caliber and demonstrates bovine variant arch anatomy. No dissection is seen. Pulmonary vasculature: The pulmonary trunk is normal in caliber. There are no filling defects identif ied in the central pulmonary vessels to indicate pulmonary embolus. Note that this examination was no t protocoled for evaluation of the pulmonary arteries. Heart: The heart is normal in size and without pericardial effusion. Lungs and pleural spaces: There is no airspace consolidation typical for pneumonia or pleural effusio n. The trachea and central airways are clear. There is a large heterogeneous well marginated/lobulate d mass lesion in the right lower lung centered in the right middle and right lower lobes along the ma corky fissure. This also closely approximates the minor fissure. The mass measures 6.3 x 5.1 x 7.2 cm, and extends from the left hilum to the diaphragm. Heterogeneous foci of low attenuation within the le anayeli may represent central necrosis. No additional pulmonary lesions are identified in either lung. Mediastinum: There is no mediastinal lymphadenopathy. Leny: Clear. Axillae: There is no axillary lymphadenopathy. Upper abdomen: Partially visualized upper abdominal viscera is within normal limits. Skeletal structures: No lytic or blastic bony lesions are seen. IMPRESSION: 1. There is a 7.2 cm heterogeneous mass in the right lower lung as detailed above. This is new from 2 022 and neoplasm is the diagnosis of exclusion. This is centered along the major fissure, and this co uld be bronchogenic or possibly pleural based in origin. Tissue sampling will be required. Follow-up of with pulmonology recommended. 2. No additional pulmonary lesions are identified. 3. There is no mediastinal or hilar lymphadenopathy. 4. There is no airspace consolidation typical for pneumonia or pleural effusion. ACT 112: Positive. There are findings on this exam that require communication between the performing entity and the patient following Patient Test Result Information Act ([place] Act 112) guidelines. Electronically signed by: Jn Aly M.D. 02/09/2023 6:39 PM
[2023-02-09] MEDS ORDERED: MELATONIN 3 MG TAB PO SCH (20:00)
[2023-02-09] MEDS: ACETAMINOPHEN 325 MG TAB PO PRN (20:01)
[2023-02-10] MEDS: ACETAMINOPHEN 325 MG TAB PO PRN (04:07)
[2023-02-10] MEDS ORDERED: LORazepam 1 MG TAB PO PRN (04:53)
[2023-02-10] MEDS ORDERED: LORazepam 0.5 MG TAB PO STA (05:15)
[2023-02-10] MEDS ORDERED: CYANOCOBALAMIN (B-12) 500 MCG TABLET PO SCH (09:00)
[2023-02-10] MEDS ORDERED: FERROUS GLUCONATE 324 MG TAB PO SCH (09:00)
[2023-02-10] MEDS ORDERED: FOLIC ACID 1 MG TAB PO SCH (09:00)
--- NOTE | 2023-02-10 09:50 | Pulmonary Consultation ---
Date of Consultation February 10, 2023 Assessment & Plan (1) Lung mass: Plan Impression: 52-year-old non-smoking female with incidental finding of heterogeneous mass within the fissure of the right lung. Doubling time is difficult to calculate his lesion was not present on a CT scan from about 2 years ago. Patient is relatively asymptomatic from a lung standpoint and the lesion appears to be within the fissure with distortion of the surrounding pulmonary parenchyma and subpleural tenting. Recommendations: 1. Abnormal CT scan: Images were extensively reviewed and reviewed with the patient and her at bedside. Given the fact the lesion was not identified 2 years ago and is 7 cm in size with the patient being asymptomatic and with it being within the fissure, there is a broad differential diagnosis to include pseudotumor, solitary fibrous tumor of the pleura, lymphoma, and other more rare conditions including sarcoma. Lesion is not amenable to bronchoscopic biopsy as the lesion is likely outside of the lung with the airways being displaced by the lesion. CT-guided biopsy would have a high incidence of pneumothorax as the intrapleural location would require crossing the pleura on 2 separate occasions. This point, would recommend the patient be evaluated by thoracic surgery for consideration of video-assisted thoracoscopic evaluation with potential biopsy/resection. The patient is a good pulmonary candidate. She is open to this prospect and wishes to have her evaluation conducted at [facility] [address] [facility]. I will review the case with the thoracic surgery team at [facility] [address] and have our office make an outpatient referral Saturday for the patient to be seen. I spent an extensive amount of time discussing with the patient and with her diagnostic possibilities, workup, and evaluation moving forward. 2. This is an outpatient evaluation. Advised the patient that I do not think she needs urgent surgical evaluation. She is comfortable with going home. I provided her my contact information and will assist in getting her evaluated in the outpatient setting as quickly as possible. A total of 80 minutes was spent in evaluation management coordinating care for this patient. History of Present Illness Attending Physician: Anamaria Todd MD History of Present Illness Asked by hospitalist to evaluate this patient with incidental finding on a chest x-ray of pulmonary consolidation/mass. History is obtained from discussion with the patient as well as review the electronic medical record. Patient is a 52-year-old female who is on Wegovy and has some GI issues associated with that medication. She was admitted to the hospital 02/09/2023 with complaints of abdominal pain. As part of her workup she had a CT of the chest performed. The lung bases showed a heterogeneous density in the year of the right lung which was not completely evaluated and dedicated CT scanning was recommended. The patient had a CT scan performed February 2021 which demonstrated no significant abnormality in the region of interest. CT confirmed what appeared to be a heterogeneous mass/density within the fissure with distortion of the surrounding pulmonary architecture due to mass effect. Patient is a lifelong non-smoker. She does have a history of lung cancer in some family members but they were heavy tobacco abusers. 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 No significant pet exposures. She has had about a 70 pound weight loss but this has been intentional. She does not report any coughing, wheezing, or sputum production. No chest pain or palpitations. She does not report any constitutional symptoms such as fevers chills or night sweats. She overall feels that this is as healthy as she has been in years. She cannot recall having had other imaging performed other than the CT of the chest when she was diagnosed with COVID about 2 years ago. Allergies Allergy/AdvReac Type Severity Reaction Status Date / Time melatonin AdvReac Intermediate Fatigued Verified 02/09/23 03:22 Home Medications Medication Instructions Recorded Confirmed Type bupropion HCl 150 mg 24 hr tablet, 150 mg PO DAILY 02/19/21 02/08/23 History extended release lisinopril 40 mg tablet 40 mg PO DAILY 02/19/21 02/08/23 History Multiple Vitamin Pack 1 dose PO DAILY 02/08/23 02/08/23 History cyclobenzaprine 5 mg tablet 5 mg PO TID PRN MUSCLE SPASMS 02/08/23 02/08/23 History docusate sodium 100 mg capsule 100 mg PO DAILY 02/08/23 02/08/23 History (Stool Softener) ibuprofen 600 mg tablet 600 mg PO TID PRN Pain 02/08/23 02/08/23 History inulin 2 gram chewable tablet 2 g PO DAILY 02/08/23 02/08/23 History (Fiber Gummies) semaglutide (weight loss) 2.4 2.4 mg subcut WK 02/08/23 02/08/23 History mg/0.75 mL subcutaneous pen injector (Wegovy) Patient History Medical History Depression Anxiety Hypertension Surgical History S/P laparoscopic hysterectomy Family History Other Diabetes Heart disease Hypertension Social History Smoking Status: Never smoker Hx Alcohol Use: No Hx Substance Use: No Preferred Language: Slovak Communication Ability: Effective 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 Beliefs That Will Affect Care: None Current Living Situation: Spouse Other Information That Helps Us Care for You: No Feels Safe at Home: Yes Safety Concerns: Feels Safe At This Time Assistive Devices: Glasses Assistive Devices Comment: glasses for reading Review of Systems Review of Systems: All systems reviewed & are unremarkable except as noted in Subjective Physical Exam Constitutional: WD/WN, vitals as above Neck: trachea midline, no thyromegaly Respiratory: normal respiratory effort, lungs clear to auscultation Cardiovascular: RRR, no murmur, no edema Gastrointestinal (Abdomen): normal bowel sounds, soft, nontender, no hepatosplenomegaly Musculoskeletal: Extremities: extremities normal to inspection Skin: no rashes, warm and dry Neurologic: Nonfocal exam Lymphatic: no cervical lymphadenopathy Results & Data Results & Data Vital Signs (Past 12 Hours) Vital Signs Temp Pulse Resp BP Pulse Ox O2 Del Method 02/10/23 07:02 36.7 C 78 16 106/72 99 Room Air Critical Care Results & Data Vital Signs (Past 12 Hours) Vital Signs Temp Pulse Resp BP Pulse Ox O2 Del Method 02/10/23 07:02 36.7 C 78 16 106/72 99 Room Air Lab & Micro Results (Past 24 Hours) No Data to Display No Data to Display No Data to Display Diagnostic Findings (Past 24 Hours) Chest CT 02/09/23 13:30 CT SCAN OF THE CHEST WITH IV CONTRAST CLINICAL HISTORY: Lung mass. COMPARISON STUDY: Chest x-ray dated 02/09/2023. Chest CT dated 02/28/2021. TECHNIQUE: Following the IV administration of 89 cc of Optiray 320, CT scan of the thorax was performed from the thoracic inlet to the upper abdomen. Images are reviewed in the axial, sagittal, and coronal planes. IV contrast was administered without complication. A dose lowering technique was utilized adhering to the principles of ALARA. CT DOSE: 664.65 mGy.cm FINDINGS: Thyroid: Imaged portions of the thyroid gland are normal in size and attenuation. Thoracic aorta: The thoracic aorta is normal in caliber and demonstrates bovine variant arch anatomy. No dissection is seen. Pulmonary vasculature: The pulmonary trunk is normal in caliber. There are no filling defects identified in the central pulmonary vessels to indicate pulmonary embolus. Note that this examination was not protocoled for evaluation of the pulmonary arteries. Heart: The heart is normal in size and without pericardial effusion. Lungs and pleural spaces: There is no airspace consolidation typical for pneumonia or pleural effusion. The trachea and central airways are clear. There is a large heterogeneous well marginated/lobulated mass lesion in the right lower lung centered in the right middle and right lower lobes along the major fissure. This also closely approximates the minor fissure. The mass measures 6.3 x 5.1 x 7.2 cm, and extends from the left hilum to the diaphragm. Heterogeneous foci of low attenuation within the lesion may represent central necrosis. No additional pulmonary lesions are identified in either lung. Mediastinum: There is no mediastinal lymphadenopathy. Leny: Clear. Axillae: There is no axillary lymphadenopathy. Upper abdomen: Partially visualized upper abdominal viscera is within normal limits. Skeletal structures: No lytic or blastic bony lesions are seen. IMPRESSION: 1. There is a 7.2 cm heterogeneous mass in the right lower lung as detailed above. This is new from 2021 and neoplasm is the diagnosis of exclusion. This is centered along the major fissure, and this could be bronchogenic or possibly pleural based in origin. Tissue sampling will be required. Follow-up of with pulmonology recommended. 2. No additional pulmonary lesions are identified. 3. There is no mediastinal or hilar lymphadenopathy. 4. There is no airspace consolidation typical for pneumonia or pleural effusion. ACT 112: Positive. There are findings on this exam that require communication between the performing entity and the patient following Patient Test Result Information Act ([place] Act 112) guidelines. Electronically signed by: Jn Aly M.D. 02/09/2023 6:39 PM I & O Totals 24 Hours 1202/10/23 02/11/23 06:59 06:59 06:59 Intake Total 1050 / 1050 1780 / 1780 Balance 1050 / 1050 1780 / 1780 Cumulative 02/08/23 21:04 thru 02/09/23 22:00 Intake Total 2830 Balance 2830 RT Ventilator Mngmt (Last Documented) Ventilator Ordered Settings Respiratory Rate 16 02/10/23 07:02 Ventilator - PT Measurements Respiratory Rate 16 PG Care Time/CCT Total # of Minutes Spent Total Time Spent with Patient: Total time spent is greater than 50% in coordination of care (as documented) at patient's floor/unit and/or counseling patient: Coding Level of Care Code 79186 IN/OBS CONSULT LVL 5,80M Diagnoses Lung mass R91.8
[2023-02-10] MEDS: MULTIVITAMIN TAB PO SCH (10:25)
[2023-02-10] MEDS: lisinopril 10 MG TAB PO SCH (10:25)
[2023-02-10] MEDS: buPROPion XL 150 MG TABCR PO SCH (10:25)
[2023-02-10] MEDS: DOCUSATE SODIUM/SENNA 50/8.6MG TAB PO SCH (10:26)
[2023-02-10] MEDS: ENOXAPARIN INJ 40 MG/0.4 ML SYR SQ SCH (10:27)
[2023-02-10] MEDS: POLYETHYLENE (MIRALAX) 17 GM PACK PO PRN (10:33)
[2023-02-10] MEDS ORDERED: LACTULOSE SYRUP 30 GM/45 ML UDP PO STA (11:17)
[2023-02-10] MEDS ORDERED: hydrOXYzine HCl 25 MG TAB PO PRN (11:39)
[2023-02-10] MEDS ORDERED: busPIRone 7.5 MG TAB PO SCH (11:45)
[2023-02-10] MEDS ORDERED: IRON SUCROSE 400 MG in SODIUM CHLORIDE 0.9% 250 ML IV ONE (12:00)
--- NOTE | 2023-02-10 12:26 | Discharge Summary ---
Date of Service February 10, 2023 Admission HPI Per Admitting Provider History obtained from patient and records. Medical history significant for hypertension, anxiety/mood disorder, morbid obesity on Wegovy. Last confinement February 2021 for COVID-19 illness. Patient has had significant weight loss since starting Wegovy for morbid obesity months ago. She takes laxative for constipation side effects from medication. 3 weeks ago, patient noted abdominal discomfort and dysuria symptoms. Macrodantin course followed by Bactrim for UTI. UTI symptoms resolved but abdominal discomfort persisted. Worsening fatigue over the last month. No actual chest pain or SOB or cough or headache complaints. 2 weeks ago, patient noted, Worsening achy abdominal discomfort with nausea and constipation symptoms despite home laxative regimen. No black/bloody stools. Incomplete response to outpatient OTC enema. Patient brought to by ER for evaluation. Ceftriaxone and Azithromycin administered at the ER. 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 Admission Exam Per Admitting Provider GENERAL: Comfortable, pleasant, slightly anxious, no respiratory distress SKIN: Pallor, warm HEENT: Pale palpebral conjunctivae, no ptosis, dry buccal mucosa NECK : Supple, no tenderness CHEST : CTA, no tenderness HEART : RRR, no obvious murmurs ABDOMEN: Some distention, hypogastric tenderness RECTAL : Intact sphincter, brown stool (FOBT negative) EXTREMITIES : No LE swelling/tenderness, no other conspicuous deformities noted NEUROLOGIC : Coherent, no facial asymmetry, no other gross focality Principal Diagnosis Abdominal pain and constipation likely secondary to Wegovy side effect Right lung mass, thoracic surgery eval pending New onset anemia Discharge Exam GENERAL: Alert and oriented x3. NAD, on RA. anxious appearing. HEENT: No pallor, no icterus. Pupils equal, round and reactive to light. Oral mucosa moist. NECK: No JVD, no neck masses. HEART: S1 and S2 heard. Regular rate and rhythm. No murmur, no gallop. RESPIRATORY SYSTEM: Normal AP diameter. No accessory muscle use. No wheezing, no crackles. ABDOMEN: Soft, bowel sounds present, nontender, no distention. CENTRAL NERVOUS SYSTEM: No facial droop. Speech is clear. Obeys simple commands. Moves extremities. EXTREMITIES: No edema, no erythema seen. Discharge Data Allergies Allergy/AdvReac Type Severity Reaction Status Date / Time melatonin AdvReac Intermediate Fatigued Verified 02/09/23 03:22 Consultations 02/09/23 02:05 ED Decision to Admit Stat 02/09/23 15:41 Consult Pulmonology Routine 02/10/23 09:57 Consult Patient Services Routine Ordered Studies 02/08/23 22:06 CT abd pelvis IV con only Stat 02/09/23 13:30 CT chest diagnostic w con Routine Hospital Course (1) Abdominal pain: Plan 52-year-old lady with PMH of HTN, anxiety/mood disorder, morbid obesity on Wegovy [has had significant weight loss since starting Wegovy for morbid obesity months ago] presented with worsening abdominal discomfort with nausea and constipation symptoms despite home laxative regimen. 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 Also patient reports worsening fatigue over the last month but no active chest pain or shortness of breath or cough or headache. Patient denies any black or bloody stools. She was managed for the following: Abdominal pain Constipation Likely adverse reaction from Wegovy being used for obesity management. Admitting CTAP with no abdominal pathology. Bowel regimen to titrate 1 bowel movement every 1 to 2 days. Hold Wegovy, patient instructed to contact [facility] pharmacy regarding subsequent dosing of Wegovy given increased constipation symptoms/abdominal pain. Pt reports improvement in abd misha. Right lung mass Incidental finding on admitting CTAP, 4.9 x 5.5 cm right lower lobe mass noted and CT scan of the chest recommended. CT chest reviewed, Pulm evaled, pt will need OP thoracic surgeon eval. Pt is aware and is going to f/u w/ pulm office to set up the referral. New onset anemia: Baseline hemoglobin around 13, patient presented with fatigue ongoing for more than a month, admitting hemoglobin of 10.9 FOBT done in the ED was negative, patient with no complaints of black stool or bloody stool. Iron profile with low iron, low vitamin B12 and low normal folate. Supplement all of them. Pt aware to start PO iron once bowels are regular. Will give iv iron before leaving. Other chronic medical conditions: Continue with/resume home meds as and when able. hypertension, BP lower side, home lisinopril dose reduced on dc. anxiety/mood disorder, at baseline DVT prophylaxis. Lovenox subcu Full code Patient is being discharged to home with following instruction at the point of discharge: Follow-up with your primary care physician within a week time and likely you will need labs CBC/CMP/magnesium/phosphorus. For your right lung mass evaluation, you will need follow-up with your pulmonology and establishing with outpatient thoracic surgeon for further evaluation. Coordinate with your pulmonology office to set up the referral. For your abdominal pain/constipation/fatigue, this could be likely side effects of Wegovy. Hold Wegovy until further discussion with your [facility] pharmacy regarding subsequent dosing. You can use [id number] laxatives with a goal of 1 bowel movements a day. For your newfound anemia with low iron and low folate and vitamin B12 levels, you are started on folate and vitamin B12 supplement. Once your bowel movements are regular, you can start taking iron tablet once daily. You have been given IV iron while in the hospital. Follow-up with the PCP for long-term monitoring of your anemia. For your anxiety, you will be started on a low-dose of BuSpar, you can take as needed Vistaril for your breakthrough anxiety. Continue to follow-up with the PCP office for long-term monitoring/management. Take your medications as prescribed. Please make sure that you are able to get your medications today by calling your pharmacy before you leave the hospital so that your treatment continuity is not broken. Home Health Attestation I certify that this patient is under my care and that I, or a physicians medical record assistant working with me, had a face to-face encounter that meets the home health [id number] encounter requirements with this patient. The encounter with the patient was in whole, or in part, for the following medical condition, which is the primary reason for home health care (list medical condition): I certify that, based on my findings, the following services are medically necessary home health services: My clinical findings support the need for the above services because: Further, I certify that my clinical findings support that this patient is homebound (i.e. absences from home require considerable and taxing effort and are for medical reasons or yarsani services or infrequently or of short duration when for other reasons) because: Certification for Home Health Services: Based on the above findings, I certify that this patient is confined to the home and needs intermittent care home care, physical therapy and/or speech therapy or continues to need occupational therapy. The patient is under my care, and I have initiated the establishment of the plan of care. This patient will be followed by a physician who will periodically review the plan of care. Total Time Total Time Spent Total Time Spent (In Minutes): 45 Discharge Plan Discharge Items Patient Disposition: Home - Self-Care Reason For Visit: ABD PAIN Discharge Diagnosis: Abdominal pain and constipation likely secondary to Wegovy side effect Right lung mass, thoracic surgery eval pending New onset anemia Condition on Discharge: Good Activity: Resume your previous activity Non-emergency contact: Primary Care Provider Call non-emergency contact if: you have any medication questions, your symptoms worsen and your temperature is above 101.5 Follow-up/Referrals: Jonny Pandya MD [Primary Care Provider] - Diet: Regular Addtl Attending Provider Instructions: Follow-up with your primary care physician within a week time and likely you will need labs CBC/CMP/magnesium/phosphorus. For your right lung mass evaluation, you will need follow-up with your pulmonology and establishing with outpatient thoracic surgeon for further evaluation. Coordinate with your pulmonology office to set up the referral. For your abdominal pain/constipation/fatigue, this could be likely side effects of Wegovy. Hold Wegovy until further discussion with your [facility] pharmacy regarding subsequent dosing. You can use [id number]-mdyyifm laxatives with a goal of 1 bowel movements a day. For your newfound anemia with low iron and low folate and vitamin B12 levels, you are started on folate and vitamin B12 supplement. Once your bowel movements are regular, you can start taking iron tablet once daily. You have been given IV iron while in the hospital. Follow-up with the PCP for long-term monitoring of your anemia. For your anxiety, you will be started on a low-dose of BuSpar, you can take as needed Vistaril for your breakthrough anxiety. Continue to follow-up with the PCP office for long-term monitoring/management. Take your medications as prescribed. Please make sure that you are able to get your medications today by calling your pharmacy before you leave the hospital so that your treatment continuity is not broken. Pending Studies at Discharge: No Stand-Alone Forms: [facility], Smoking Cessation Medications and DC Order Prescriptions: New ferrous gluconate 324 mg (38 mg iron) Tablet 324 mg PO QAM Qty: 30 0RF buspirone 7.5 mg Tablet 7.5 mg PO BID Qty: 60 0RF hydroxyzine HCl 25 mg Tablet 25 mg PO Q8H PRN (Reason: anxiety) Qty: 60 0RF cyanocobalamin (vitamin B-12) 500 mcg Tablet 500 mcg PO QAM Qty: 30 0RF folic acid 1 mg Tablet 1 mg PO QAM Qty: 30 0RF Continued docusate sodium [Stool Softener] 100 mg Capsule 100 mg PO DAILY ibuprofen 600 mg tablet 600 mg PO TID PRN (Reason: Pain) cyclobenzaprine 5 mg tablet 5 mg PO TID PRN (Reason: MUSCLE SPASMS) Fiber Gummies 2 gram Tablet,Chewable 2 g PO DAILY Wegovy 2.4 mg/0.75 mL pen injector 2.4 mg SUBCUT WK Rx Instructions: MONDAYS Multiple Vitamin Pack 1 dose PO DAILY Rx Instructions: SEVERAL VITAMINS IN A DOSE PACK. bupropion HCl 150 mg tablet extended release 24 hr 150 mg PO DAILY Changed lisinopril 40 mg tablet 20 mg PO DAILY Qty: 15 0RF Discharge Orders: Discharge Order (Routine); Ordered 02/10/23 Ordered By: Anamaria Todd Admission Data Admit Date/Time: 02/09/23 03:17 Attending Provider: Anamaria Todd Admit Provider: Winston Montgomery Primary Care Provider: Jonny Pandya Other Providers: Winston Montgomery; Michael Martins; Julián Peralta; Reg Davies; Marzena Kincaid; Maxine Magallon; Lucita Tirado; Kashif Broussard; Jason Wilcox; Liz Lu
--- NOTE | 2023-02-10 22:47 | Electrocardiogram Report ---
Test Reason : Blood Pressure : / mmHG Vent. Rate : 080 BPM Atrial Rate : 080 BPM P-R Int : 162 ms QRS Dur : 088 ms QT Int : 400 ms P-R-T Axes : 051 053 051 degrees QTc Int : 461 ms Normal sinus rhythm Normal ECG When compared with ECG of 28-FEB-2021 11:22, No significant change was found Confirmed by Ryder Puga ([id number]) on 02/10/2023 10:47:26 PM Referred By: REFERRED SELF Confirmed By:Ryder Puga
== END 2023-02-10 16:28 | disposition home or self-care (01) ==
LOC: ED 21:04 → 3W 21:04

== ENCOUNTER 2023-02-14 07:25 | Inpatient (IN) ==
--- OUTSIDE RECORDS SUMMARY | 2023-02-14 07:29 | External Medical Summary | Summary of Care ---
Author Name Unknown Organization [facility] Address [address] [place] [address] Phone [phone] Care Team Providers Care Double End Tenoner Setter Name Role Phone Jonny Pandya MD Primary Care Provider [phone] Encounter Details Date Type Department Care Team (Latest Contact Info) Description 02/09/2023 1:40 AM EST - 02/09/2023 3:19 PM EST Hospital Encounter Radiology Film File [address], [place] [id number] Discharge Disposition: Home - Self Care Allergies No known active allergiesdocumented as of this encounter (statuses as of 02/13/2023) Medications Medication Sig Dispensed Refills Start Date [...] a week. 9 mL 0 11/15/2022 Active Cyclobenzaprine HCl 5 MG Oral Tablet (Flexeril)Indications: Acute bilateral thoracic back pain Take 1 Tablet by mouth 3 times a day as needed for Muscle spasms. 30 Tablet 0 01/30/2023 Active Ibuprofen 600 MG Oral Tablet (Motrin)Indications:Ac [place] bilateral thoracic back pain Take 1 Tablet by mouth in the morning and 1 Tablet at noon and 1 Tablet before bedtime. with food for pain. 30 Tablet 1 01/30/2023 Active documented as of this encounter (statuses as of 02/13/2023) Active Problems Problem Noted Date Diagnosed Date Depression with anxiety 02/28/2021 Morbid obesity due to excess calories 02/28/2021 HTN, goal below 130/80 12/22/2019 documented as of this encounter (statuses as of 02/13/2023) Resolved Problems Problem Noted Date Diagnosed Date [...] ogram for breast cancer 09/19/2016 01/06/2020 Overview: 8-neg,50-75% FG documented as of this encounter (statuses as of 02/13/2023) Immunizations Name Administration Dates Next Due Seasonal Influenza, PF, 6 M & above, IM , (FluLaval or Fluzone) 12/22/2019 TDAP (age 10 and older)(Boostrix) 12/22/2019 [...] Plan of Treatment Upcoming Encounters Date Type Department Care Team (Late st Contact Info) Description 02/15/2023 11:40 AM EST Telemedicine Nutrition & Weight Management, [facility] [address] [place] [address] Claudine Sifuentes PA-C [address] [place] [address] Scheduled Procedures Name Priority Associated Diagnoses Date/Ti [...] Procedure Name Priority Date/Time Associated Diagnosis Comments RADIOLOGY EXAM - GENERAL RAD (IMAGES ONLY,NO REPORT) Routine 02/09/2023 1:40 AM EST documented in this encounter Results * RADIOLOGY EXAM - GENERAL RAD (IMAGES ONLY,NO REPORT) (02/09/2023 1:40 AM EST) 02/09/2023 1:40 AM EST Narrative Scheduling, Silent - 02/12/2023 1:47 PM EST This is an imaging study not interpreted or resulted by a [facility] or [facility] contracted radiologist. Jonny Pandya MD RADIOLOGY (RAD [facility]) documented in this encounter Care Teams Double End Tenoner Setter Relationship Specialty Start Date End Date Jonny Pandya MD [address] [facility] [place] [address] PCP - General Family Medicine 01/06/20 documented as of this encounter
--- OUTSIDE RECORDS SUMMARY | 2023-02-14 07:29 | External Medical Summary | Summary of Care ---
Author Name Unknown Organization [facility] Address [address] [place] [address] Phone [phone] Care Team Providers Care Video News Editor Name Role Phone Jonny Pandya MD Primary Care Provider [phone] Encounter Details Date Type Department Care Team (Latest Contact Info) Description 02/28/2021 7:40 PM EST - 02/28/2021 11:59 PM EST Hospital Encounter Radiology Film File [address] [place], [place] [phone] Discharge Disposition: Home - Self Care Allergies No known active allergiesdocumented as of this encounter (statuses as of 02/13/2023) Medications No known medicationsdocumented as of this encounter (statuses as of [...] ogram for breast cancer 09/19/2016 01/06/2020 Overview: 10/11-neg,50-75% FG documented as of this encounter (statuses [...] AM EST Telemedicine Nutrition & Weight Management, [facility] [address] [place] [address] Claudine Sifuentes PA-C [address] [place] [id number] Scheduled Procedures Name Priority Associated Diagnoses Date/Ti [...] Date/Time Associated Diagnosis Comments RADIOLOGY EXAM - CT (IMAGES ONLY, NO REPORT) Routine 02/28/2021 7:40 PM EST documented in this encounter Results * RADIOLOGY EXAM - CT (IMAGES ONLY, NO REPORT) (02/28/2021 7:40 PM EST) 02/28/2021 7:38 PM EST Narrative Scheduling, Silent - 02/12/2023 1:44 PM EST This is an imaging study not interpreted or resulted by a [facility] or [facility] contracted radiologist. Jonny Pandya MD RAD CT documented in this encounter Care Teams Video News Editor Relationship Specialty Start Date End Date Jonny Pandya MD [address] [place] [address] PCP - General Family Medicine 01/06/20 documented as of this encounter
--- OUTSIDE RECORDS SUMMARY | 2023-02-14 07:29 | External Medical Summary | Summary of Care ---
Author Name Unknown Organization [facility] Address [address] [place] [address] Phone [phone] Care Team Providers Care Contact Lens Curve Grinder Name Role Phone Jonny Pandya MD Primary Care Provider [phone] Encounter Details Date Type Department Care Team (Latest Contact Info) Description 02/09/2023 3:20 PM EST - 02/09/2023 11:59 PM EST Hospital Encounter Radiology Film File [address] [place], [place] [phone] Discharge Disposition: Home - Self Care Allergies [...] Active Ibuprofen 600 MG Oral Tablet (Motrin)Indications:Ac [place]ul bilateral thoracic back pain Take 1 Tablet [...] AM EST Telemedicine Nutrition & Weight Management, [facility] [address] [place] [address] Claudine Sifuentes PA-C [address] [place] [address] Scheduled Procedures Name Priority Associated Diagnoses Date/Ti [...] - CT (IMAGES ONLY, NO REPORT) Routine 02/09/2023 3:20 PM EST documented in this encounter Results * RADIOLOGY EXAM - CT (IMAGES ONLY, NO REPORT) (02/09/2023 3:20 PM EST) 02/09/2023 3:16 PM EST Narrative Scheduling, Silent - 02/12/2023 1:49 PM EST This is an imaging study not interpreted or resulted by a [facility] or [facility] contracted radiologist. Jonny Pandya MD RAD CT documented in this encounter Care Teams Contact Lens Curve Grinder Relationship Specialty Start Date End Date Jonny Pandya MD [address] [facility] [place] [address] PCP - General Family Medicine 01/06/20 documented as of this encounter
[2023-02-14] MEDS ORDERED: fentaNYL citrate PF 100 MCG/2 ML VIAL ONE ×2 (08:53→10:24)
[2023-02-14] MEDS: oxyCODONE HCL IR 5 MG TAB (IMMEDIATE RELEASE) PO PRN ×2 (11:10→22:48)
--- NOTE | 2023-02-14 11:26 | History & Physical Report ---
Date of Service February 14, 2023 Assessment & Plan (1) Lung mass: (2) Pneumothorax: (3) Hypertension: (4) Anemia: (5) Anxiety: Plan: RLL Lung Mass s/p IR guided Biopsy with resultant Pneumothorax - Admit to tele for admission - Obtain CMP, CBC w/ diff - Serial CXR, next one now to eval pneumothorax resolves - Pain control ordered - given fentanyl 100 mg IV s/p chest tube insertion, will allow toradol and oxycodone IR for pain relief, given 1x dose of ativan and dilaudid due to severe pain - will reassess as needed - Consult pulmonology for management of chest tube - Incentive spirometry Anemia - Hgb was 10.9 on admission recently, will trend, not on blood thinners/antiplatelet medications - Continue iron supplementation w/ stool softeners photovoltaic installer her recent hx of constipation issues during last admission - Hx of Fatigue ongoing for greater than 1 month, - Continue on iron, vitamin B12, folic acid HTN - Chronic, stable - Cont lisionpril Anxiety - May Continue on wellbutrin, buspar DVT ppx: teds FEN/GI: HH diet Lines: Obtain 2 PIV CODE: FULL Dispo: From home, likely to remain in the hospital x 1-2 days History of Present Illness Chief Complaint: Pneumothorax s/p IR lung mass biopsy Primary Care Provider: Jonny Pandya MD This is a 52 yo F with PMHx of anxiety, mood disorder, hypertension, morbid obesity s/p significant weight loss since starting [employer] for morbid obestity many months ago, intermittent constipation. She was recently admitted for completely unrelated reasons including hx of UTI and abdominal discomfort caused by constipation. A CT of the abdomen pelviso was concerning for a lung mass in the RLL noted, which was not present there on previous scan about 2 years ago. Provider Engagement Executive was consulted and recommended lung mass biopsy, for which she presented today for the procedure to our medical facility. The patient underwent the procedure and subsequently suffered a pneumothorax. IR has called medicine to admit the patient for further management along with pulmonology. Pt is sitting with her at bedside, she is intermittently tearful and tries to play off significant amount of pain. She is previously a very healthy person, without significant medical history. Only surgical procedure she has had is a hysterectomy in 2018, ovaries remain. She denies any other complaints. Patient has had recent bowel movement, 2 days ago status post her most recent hospital stay here for issues associated with constipation. She denies any nausea. Pt also notes that she has noticed R sided chest pain with wearing things like underwire bra. Pt is s/p chest tube insertion by pulm, VSS are stable. Will obtain CXR s/p chest tube insertion, serial CXR, pain management, incentive spirometry. Allergies Allergy/AdvReac Type Severity Reaction Status Date / Time melatonin AdvReac Intermediate Fatigued Verified 02/09/23 03:22 Home Medications Medication Instructions Recorded Confirmed Type bupropion HCl 150 mg 24 hr tablet, 150 mg PO DAILY 02/19/21 02/14/23 History extended release cyclobenzaprine 5 mg tablet 5 mg PO TID PRN MUSCLE SPASMS 02/08/23 02/14/23 History docusate sodium 100 mg capsule 100 mg PO DAILY 02/08/23 02/14/23 History (Stool Softener) ibuprofen 600 mg tablet 600 mg PO TID PRN Pain 02/08/23 02/14/23 History inulin 2 gram chewable tablet 2 g PO DAILY 02/08/23 02/14/23 History (Fiber Gummies) semaglutide (weight loss) 2.4 2.4 mg subcut WK 02/08/23 02/14/23 History mg/0.75 mL subcutaneous pen injector (Mando) buspirone 7.5 mg tablet 7.5 mg PO BID #60 tabs 02/10/23 02/14/23 Rx cyanocobalamin (vitamin B-12) 500 500 mcg PO QAM #30 tabs 02/10/23 02/14/23 Rx mcg tablet ferrous gluconate 324 mg (38 mg 324 mg PO QAM #30 tabs 02/10/23 02/14/23 Rx iron) tablet folic acid 1 mg tablet 1 mg PO QAM #30 tabs 02/10/23 02/14/23 Rx hydroxyzine HCl 25 mg tablet 25 mg PO Q8H PRN anxiety #60 tabs 02/10/23 02/14/23 Rx lisinopril 40 mg tablet 20 mg (1/2 x 40 mg) PO DAILY #15 02/10/23 02/14/23 Rx tabs Past Med/Surg History Medical History (Updated 02/14/23 @ 14:42 by Julián Peralta MD) Postprocedural pneumothorax Depression Anxiety Hypertension Surgical History S/P laparoscopic hysterectomy Family History Other Diabetes Heart disease Hypertension Social History Smoking Status: Never smoker Second Hand Exposure: No; Do You Dip or Chew Tobacco: No; Tobacco Cessation Education Requested by Patient: No Hx Alcohol Use: Yes Alcohol type: wine and hard liquor Alcohol Intake Frequency: 2-4 x/Month Hx Substance Use: Yes Prescribed Medications: Marijuana Last Used Substance: Days (ago) Preferred Language: Tunisian Communication Ability: Effective Chairperson Anesthesiology Required: No Beliefs That Will Affect Care: None Current Living Situation: Spouse and Family Other Information That Helps Us Care for You: No Feels Safe at Home: Yes Safety Concerns: Feels Safe At This Time Assistive Devices: None Review of Systems Review of Systems: Constitutional: No fever, sweats or chills Eyes: No diplopia, no worsening or blurred vision ENT: normal hearing, no trouble swallowing Respiratory: No cough, sputum, dyspnea at rest or on exertion, + significant R sided chest pain where tube is placed. Cardiovascular: No chest pain, tightness or palpitations Abdomen: No pain, nausea, vomiting, diarrhea, last BM 2 days ago Musculoskeletal: No joint pain, calf pain, swelling Neurologic: No weakness, numbness/tingling, or balance problems Psychiatric: + anxiety, no depression Skin: No rash or itch Physical Exam Physical Exam: Please refer to attending physical and exam. Results & Data Results & Data Vital Signs (Past 12 Hours) Vital Signs Temp Pulse Resp BP Pulse Ox O2 Del Method 02/14/23 11:00 36.6 C 78 20 136/78 99 Room Air 02/14/23 10:45 36.6 C 78 20 132/74 99 Room Air 02/14/23 10:30 36.6 C 78 20 136/78 99 Room Air 02/14/23 07:40 36.6 C 80 20 110/64 98 Room Air Diagnostic Findings Thoracentesis CT 02/14/23 00:00 CT-guided right middle/lower lobe lung mass core biopsy and right pleural pigtail catheter placement INDICATION: Right middle/lower lobe lung mass PROCEDURE: Procedure and risks were explained. Informed consent was obtained. A final timeout was completed. The patient was placed in a left decubitus position on the CT exam table. The right lateral thorax was prepped and draped in sterile fashion. 1% buffered lidocaine was utilized for skin anesthesia. The patient received 100 mcg fentanyl IV during the entire procedure. Utilizing CT guidance, a 19-gauge coaxial needle was advanced into the right middle/lower lobe lung mass. A 20-gauge core biopsy needle was advanced, and three 2 cm cores were obtained and given to the pathologist for review. The c oaxial needle was removed. Post-CT imaging demonstrated a small right pneumothorax. Delayed imaging demonstrated an increase in size of the right- sided pneumothorax. An 18-gauge 10 cm Chiba needle was advanced into the right pleural space under CT guidance. A 0.035 Amplatz wire was introduced through the entry needle and exchanged for an 8 [place] locking pigtail catheter. The pigtail was placed to 20 cm H2O wall suction and sutured to the skin with 2-0 silk. Post pleural pigtail catheter placement demonstrated adequate catheter position with significant reduction of the pneumothorax size. The patient tolerated both procedures well. She will be admitted for further pneumothorax/chest tube management. Vital signs will be monitored on the floor. IMPRESSION: Right middle/lower lobe lung mass core biopsy and subsequent right pleural pigtail catheter placement as detailed above. Performed, dictated, and signed by Vu Cha PA-C; to be co-signed by Dr. Oseas Brooks. Electronically signed by: Oseas Brooks M.D. 02/14/2023 12:[address] 02/14/23 08:00 CT-guided right middle/lower lobe lung mass core biopsy and right pleural pigtail catheter placement INDICATION: Right middle/lower lobe lung mass PROCEDURE: Procedure and risks were explained. Informed consent was obtained. A final timeout was completed. The patient was placed in a left decubitus position on the CT exam table. The right lateral thorax was prepped and draped in sterile fashion. 1% buffered lidocaine was utilized for skin anesthesia. The patient re ceived 100 mcg fentanyl IV during the entire procedure. Utilizing CT guidance, a 19-gauge coaxial needle was advanced into the right middle/lower lobe lung mass. A 20-gauge core biopsy needle was advanced, and three 2 cm cores were obtained and given to the pathologist for review. The coaxial needle was removed. Post-CT imaging demonstrated a small right pneumothorax. Delayed imaging demonstrated an increase in size of the right- sided pneumothorax. An 18-gauge 10 cm Chiba needle was advanced into the right pleural space under CT guidance. A 0.035 Amplatz wire was introduced through the entry needle and exchanged for an 8 [place] Citizen locking pigtail catheter. The pigtail was placed to 20 cm H2O wall suction and sutured to the skin with 2-0 silk. Post pleural pigtail catheter placement demonstrated adequate catheter position with significant reduction of the pneumothorax size. The patient tolerated both procedures well. She will be admitted for further pneumothorax/chest tube management. Vital signs will be monitored on the floor. IMPRESSION: Right middle/lower lobe lung mass core biopsy and subsequent right pleural pigtail catheter placement as detailed above. Performed, dictated, and signed by Vu Cha PA-C; to be co-signed by Dr. Oseas Brooks. Electronically signed by: Oseas Brooks M.D. 02/14/2023 12:47 PM Code Status & VTE Plan Code Status Full code VTE Prophylaxis Plan VTE Prophylaxis will be ordered: Yes Supervising Physician Co-Signing Physician Notes I have seen and discussed the case with the collaborating AUSTEN. I agree with the above H&P. I have reviewed and confirmed the patients medical history, the findings on physical examination, and the patients diagnosis and treatment plan with Allan BOYCE and agree with the information documented. In short, Ms. Sravanthi Workman is a 52 year old woman with recently discovered lung mass who underwent biopsy 02/14 with subsequent pneumothorax. Pulm placed chest tube shortly thereafter, prompting admission. Patient remained hemodynamically stable. Labs unremarkable outside of stable anemia previously evaluated during recent admission on 02/09. Patient endorses pain at chest tube site, but denies any SOB. She mostly endorses anxitey and frustration with escalation of recent events when everything seemed to be "going so well." Physical Exam GENERAL: Uncomfortable, slightly anxious, no respiratory distress SKIN: Pallor, warm; HEENT: Pale palpebral conjunctivae, no ptosis, dry buccal mucosa NECK : Supple, no tenderness CHEST : CTABL, right chest tube in place with no surrounding hematoma or erythema HEART : RRR, no obvious murmurs ABDOMEN: NTND EXTREMITIES : No LE swelling/tenderness, no other conspicuous deformities noted NEUROLOGIC : Coherent, no facial asymmetry, no other gross focalit Plan Pneumothorax 2/2 biopsy s/p pigtail Right Lung Mass -Pulm following,appreciate recommendations for chest tube management Pain management prn Anxiety Resume home medication, as well as prns Rest of plan as above
[2023-02-14] MEDS ORDERED: HYDROmorphone INJ 1 MG/ML SYRINGE IV STA (12:18)
[2023-02-14] MEDS ORDERED: LORazepam 0.5 MG in SYRINGE 0.25 ML IV STA (12:18)
--- NOTE | 2023-02-14 12:44 | CT Scan Report ---
CT-guided right middle/lower lobe lung mass core biopsy and right pleural pigtail catheter placement INDICATION: Right middle/lower lobe lung mass PROCEDURE: Procedure and risks were explained. Informed consent was obtained. A final timeout was com pleted. The patient was placed in a left decubitus position on the CT exam table. The right lateral t horax was prepped and draped in sterile fashion. 1% buffered lidocaine was utilized for skin anesthes ia. The patient received 100 mcg fentanyl IV during the entire procedure. Utilizing CT guidance, a 19-gauge coaxial needle was advanced into the right middle/lower lobe lung m ass. A 20-gauge core biopsy needle was advanced, and three 2 cm cores were obtained and given to the pathologist for review. The coaxial needle was removed. Post-CT imaging demonstrated a small right pn eumothorax. Delayed imaging demonstrated an increase in size of the right-sided pneumothorax. An 18-g auge 10 cm Chiba needle was advanced into the right pleural space under CT guidance. A 0.035 Amplatz wire was introduced through the entry needle and exchanged for an 8 [place] locking pigtail catheter. The pigtail was placed to 20 cm H2O wall suction and sutured to the skin with 2-0 silk. Post pleural pigtail catheter placement demonstrated adequate catheter position with significant reduction of the pneumothorax size. The patient tolerated both procedures well. She will be admitted for further pneum othorax/chest tube management. Vital signs will be monitored on the floor. IMPRESSION: Right middle/lower lobe lung mass core biopsy and subsequent right pleural pigtail cathet er placement as detailed above. Performed, dictated, and signed by Vu Cha PA-C; to be co-signed by Dr. Oseas Brooks. Electronically signed by: Oseas Brooks M.D. 02/14/2023 12:47 PM
--- NOTE | 2023-02-14 13:10 | XRay Report ---
XR chest 1V portable CLINICAL HISTORY: S/p chest tube, pneumothorax COMPARISON STUDY: Chest radiograph and chest CT February 09, 2023. FINDINGS: Right lung mass is again noted. Right pleural catheter is in place. As expected, there is a small amount of gas within the right chest wall. Small right pneumothorax with superior pleural sepa ration of 4 mm is noted. No consolidation is identified. IMPRESSION: 1. Right pleural catheter in place. Small right pneumothorax. 2. Redemonstration of the right lung mass. ACT 112: Negative or not required by law. Electronically signed by: Kumar Soler M.D. 02/14/2023 1:08 PM
[2023-02-14] MEDS: ONDANSETRON INJ 2 MG/ML 2 ML VIAL IV PRN ×2 (14:31→22:48)
[2023-02-14] MEDS: KETOROLAC TROMETHAMINE 15 MG/ML VIAL IV PRN (14:32)
--- NOTE | 2023-02-14 14:45 | Pulmonary Consultation ---
Date of Consultation February 14, 2023 Assessment & Plan (1) Postprocedural pneumothorax: Continue chest tube to suction for the next 2 hours. If airleak diminishes, instructed nurse to place the patient to waterseal and then we will obtain a chest x-ray 2 hours status post waterseal. (2) Lung mass: Etiology unclear. She was exposed to significant secondhand tobacco as a child. She denies any personal history of cancer. She is a lifelong non-smoker. Possible solid fibrous tumor versus other rare malignancies. Preliminary pathology suggest possible benign tissue. Will await final pathology and immunohistochemical stains. Patient is going to follow-up with thoracic surgery as an outpatient. History of Present Illness Reason for Consultation: Postprocedural pneumothorax Attending Physician: Reg Davies MD History of Present Illness 52-year-old female who was recently discharged from the hospital 02/10/2023 due to abdominal discomfort presented today for an elective CT-guided biopsy of the incidentally discovered lung mass. She was seen by Dr. Davies 02/10/2023 who referred her for a CT-guided biopsy. Unfortunately, she developed a pneumothorax postbiopsy earlier today and had a small bore pigtail chest tube placed with evacuation of the pneumothorax. She has a mild persistent air leak present at this time. She is complaining of some mild chest pain at the site of the insertion. Her is at bedside. She has not any respiratory distress at this time. Biopsy results from the lesion are pending. Allergies Allergy/AdvReac Type Severity Reaction Status Date / Time melatonin AdvReac Intermediate Fatigued Verified 02/09/23 03:22 Home Medications Medication Instructions Recorded Confirmed Type bupropion HCl 150 mg 24 hr tablet, 150 mg PO DAILY 02/19/21 02/14/23 History extended release cyclobenzaprine 5 mg tablet 5 mg PO TID PRN MUSCLE SPASMS 02/08/23 02/14/23 History docusate sodium 100 mg capsule 100 mg PO DAILY 02/08/23 02/14/23 History (Stool Softener) ibuprofen 600 mg tablet 600 mg PO TID PRN Pain 02/08/23 02/14/23 History inulin 2 gram chewable tablet 2 g PO DAILY 02/08/23 02/14/23 History (Fiber Gummies) semaglutide (weight loss) 2.4 2.4 mg subcut WK 02/08/23 02/14/23 History mg/0.75 mL subcutaneous pen injector (Mando) buspirone 7.5 mg tablet 7.5 mg PO BID #60 tabs 02/10/23 02/14/23 Rx cyanocobalamin (vitamin B-12) 500 500 mcg PO QAM #30 tabs 02/10/23 02/14/23 Rx mcg tablet ferrous gluconate 324 mg (38 mg 324 mg PO QAM #30 tabs 02/10/23 02/14/23 Rx iron) tablet folic acid 1 mg tablet 1 mg PO QAM #30 tabs 02/10/23 02/14/23 Rx hydroxyzine HCl 25 mg tablet 25 mg PO Q8H PRN anxiety #60 tabs 02/10/23 02/14/23 Rx lisinopril 40 mg tablet 20 mg (1/2 x 40 mg) PO DAILY #15 02/10/23 02/14/23 Rx tabs Patient History Medical History (Updated 02/14/23 @ 14:42 by Julián Peralta MD) Postprocedural pneumothorax Depression Anxiety Hypertension Surgical History S/P laparoscopic hysterectomy Family History Other Diabetes Heart disease Hypertension Social History Smoking Status: Never smoker Second Hand Exposure: No; Do You Dip or Chew Tobacco: No; Tobacco Cessation Education Requested by Patient: No Hx Alcohol Use: Yes Alcohol type: wine and hard liquor Alcohol Intake Frequency: 2-4 x/Month Hx Substance Use: Yes Prescribed Medications: Marijuana Last Used Substance: Days (ago) Preferred Language: Malaysian Communication Ability: Effective Arcade Games Mechanic Required: No Beliefs That Will Affect Care: None Current Living Situation: Spouse and Family Other Information That Helps Us Care for You: No Feels Safe at Home: Yes Safety Concerns: Feels Safe At This Time Assistive Devices: None Review of Systems Review of Systems: All systems reviewed & are unremarkable except as noted in HPI & below Physical Exam Physical Exam: Constitutional: Patient appears to be of their stated age. Patient is in no apparent distress. Patient is well-developed. Eyes: Pupils are equal round and reactive to light. Conjunctivae are normal. Anicteric sclera. Ears nose, mouth and throat: Deferred. Neck: Trachea is midline. Visual inspection is normal. Respiratory: Clear to auscultation bilaterally. No use of accessory muscles. No significant clubbing noted. Right pigtail catheter noted in the mid axillary line. Mild crepitus noted. Cardiovascular: Regular rate and rhythm. No murmurs. No edema. Gastrointestinal: Normal bowel sounds, soft, nontender and nondistended. No hepatosplenomegaly noted. Musculoskeletal: No cyanosis. Patient is able to move all extremities. Strength is 5 out of 5 in the upper and lower extremities. Skin: No rashes, warm dry and intact. Neurologic: No obvious focal neurological deficits seen. Psychiatric: Alert and oriented x3 with a euthymic affect. Results & Data Results & Data Vital Signs (Past 12 Hours) Vital Signs Temp Pulse Resp BP Pulse Ox O2 Del Method 02/14/23 13:17 36.8 C 70 22 105/68 95 Room Air 02/14/23 12:47 37.0 C 89 20 115/72 Room Air 02/14/23 12:17 36.6 C 72 24 110/78 96 Room Air 02/14/23 11:55 36.8 C 73 18 107/74 97 Room Air 02/14/23 11:30 36.6 C 74 20 126/74 99 Room Air 02/14/23 11:15 36.6 C 74 20 122/78 99 Room Air 02/14/23 11:00 36.6 C 78 20 136/78 99 Room Air 02/14/23 10:45 36.6 C 78 20 132/74 99 Room Air 02/14/23 10:30 36.6 C 78 20 136/78 99 Room Air 02/14/23 07:40 36.6 C 80 20 110/64 98 Room Air PG Care Time/CCT Total # of Minutes Spent Total Time Spent with Patient: Total time spent is greater than 50% in coordination of care (as documented) at patient's floor/unit and/or counseling patient: Coding Level of Care Code 23135 IN/OBS CONSULT LVL 4,60M Diagnoses Postprocedural pneumothorax J95.811 Lung mass R91.8
[2023-02-14] MEDS: hydrOXYzine HCl 25 MG TAB PO PRN ×2 (17:31→22:48)
[2023-02-14] MEDS: ACETAMINOPHEN 325 MG TAB PO PRN (17:31)
--- NOTE | 2023-02-14 18:26 | XRay Report ---
XR chest 1V portable CLINICAL HISTORY: Chest tube placed to water seal at 1600. pneumo TECHNIQUE: Single frontal radiograph of the chest was obtained. Comparison: Comparison is made to chest radiograph 02/14/[address] chest 02/09/2023 FINDINGS: Right chest tube is seen. The cardiomediastinal silhouette is normal. Right lung mass is seen. Previo usly noted pneumothorax is significantly decreased in size of a tiny basilar component. Subcutaneous emphysema is again noted. IMPRESSION: Significant decrease in size of previously noted pneumothorax with a chest tube in place. Subcutaneou s emphysema is seen. ACT 112: Negative or not required by law. Electronically signed by: Eyal Garcia M.D. 02/14/2023 6:24 PM
[2023-02-14] MEDS ORDERED: HYDROmorphone INJ 0.5 MG/0.5 ML SYR IV STA (20:15)
[2023-02-14] MEDS: busPIRone 7.5 MG TAB PO SCH (20:28)
[2023-02-14] MEDS ORDERED: bisacodyL 10 MG SUPP PR STA (23:03)
[2023-02-14] MEDS ORDERED: FAMOTIDINE 20 MG in SYRINGE 3 ML IV STA (23:13)
[2023-02-14] MEDS ORDERED: LIDOCAINE 5% 1 PATCH TD STA (23:25)
[2023-02-15] MEDS ORDERED: HYDROmorphone INJ 0.5 MG/0.5 ML SYR IV STA (01:30)
--- NOTE | 2023-02-15 07:06 | XRay Report ---
XR chest 1V portable HISTORY: 4 hours post clamping of chest tube- eval pneumo COMPARISON: Chest 02/14/2023. FINDINGS: A right lateral chest tube is unchanged in position. There has been interval increase in si ze in the moderate to large right pneumothorax with a maximal pleural gap of 4 cm. No significant mid line shift. The heart remains mildly enlarged. The left lung is clear. A 7 cm right lower lobe mass a gain noted. IMPRESSION: 1. Interval increase in size in the moderate to large right pneumothorax. The right-sided chest tube is unchanged in position. 2. Right lower lobe 7 cm mass again noted. ACT 112: Negative or not required by law. Electronically signed by: Oseas Brooks M.D. 02/15/2023 7:04 AM
--- NOTE | 2023-02-15 07:07 | XRay Report ---
XR chest 1V portable HISTORY: eval pneumothorax back to water seal/suction COMPARISON: Chest 02/14/2023. FINDINGS: Interval decrease in size in the now small right apical pneumothorax demonstrates a maximal pleural gap of 1 cm. Right-sided chest tube is unchanged in position. There is right chest wall subc utaneous emphysema again noted. The right lower lobe 7 cm mass is also noted. The left lung is clear. No evidence for pulmonary edema. The heart remains stable in size. No acute fractures. IMPRESSION: 1. Interval decrease in size of the now small right pneumothorax. The right chest tube is unchanged i n position. 2. A 7 cm right lower lobe mass again noted. ACT 112: Negative or not required by law. Electronically signed by: Oseas Brooks M.D. 02/15/2023 7:06 AM
[2023-02-15 07:51] LABS: Basophils # (auto) 0.01 K/uL (0.00-0.20); Basophils % (auto) 0.2 %; Eosinophils # (auto) 0.14 K/uL (0.00-0.50); Eosinophils % (auto) 2.9 %; Hemoglobin 10.3 g/dl (12.0-16.0); Immature Granulocytes # (auto) 0.01 K/uL (0.01-0.20); Immature Granulocytes % (auto) 0.2 %; Lymphocytes # (auto) 1.39 K/uL (1.20-3.40); Lymphocytes % (auto) 28.8 %; Mean Corpuscular Hemoglobin 26.4 pg (25.0-34.0); Mean Corpuscular Hgb Conc 31.2 g/dL (32.0-36.0); Mean Corpuscular Volume 84.6 fL (80.0-100.0); Mean Platelet Volume 9.1 fL (9.4-12.4); Monocytes # (auto) 0.43 K/uL (0.11-0.59); Monocytes % (auto) 8.9 %; Neutrophils # (auto) 2.84 K/uL (1.40-6.50); Platelet Count 322 K/uL (130-400); RDW Standard Deviation 45.3 fL (36.4-46.3); White Blood Count 4.82 K/ul (4.8-10.8)
[2023-02-15 07:52] LABS: Albumin Globulin Ratio 1.1 (0.9-2); Albumin Level 3.3 gm/dl (3.4-5.0); BUN Creatinine Ratio 22.1 (10-20); Bilirubin,Total 0.3 mg/dl (0.2-1.0); Calcium 8.5 mg/dl (8.6-10.3); Creatinine Clr Calc Pharmacy 102.3 ml/min; Est GFR (African American) 115.7 ml/min; Est GFR (Non-African American) 99.9 ml/min; Globulin 3.1 gm/dl (2.5-4.0); Potassium 4.1 mmol/L (3.5-5.1); Total Protein 6.4 gm/dl (6.0-8.3)
[2023-02-15] MEDS: ACETAMINOPHEN 325 MG TAB PO PRN ×3 (08:11→22:57)
[2023-02-15] MEDS: ONDANSETRON INJ 2 MG/ML 2 ML VIAL IV PRN (08:11)
[2023-02-15] MEDS: DOCUSATE SODIUM 100 MG CAP PO SCH (08:11)
[2023-02-15] MEDS: oxyCODONE HCL IR 5 MG TAB (IMMEDIATE RELEASE) PO PRN ×2 (08:11→14:23)
[2023-02-15] MEDS: lisinopril 20 MG TAB PO SCH (08:12)
[2023-02-15] MEDS: buPROPion XL 150 MG TABCR PO SCH (08:12)
[2023-02-15] MEDS: FERROUS GLUCONATE 324 MG TAB PO SCH (08:12)
[2023-02-15] MEDS: FOLIC ACID 1 MG TAB PO SCH (08:12)
[2023-02-15] MEDS: CYANOCOBALAMIN (B-12) 500 MCG TABLET PO SCH (08:12)
[2023-02-15] MEDS: busPIRone 7.5 MG TAB PO SCH ×2 (08:12→19:30)
[2023-02-15] MEDS ORDERED: NON-FORMULARY MEDICATION (Inulin [Fiber Gummies] 2 gram Tablet,Chewable) PO SCH (09:00)
[2023-02-15] MEDS: KETOROLAC TROMETHAMINE 15 MG/ML VIAL IV PRN ×2 (09:30→19:41)
[2023-02-15] MEDS: hydrOXYzine HCl 25 MG TAB PO PRN ×2 (09:30→19:30)
--- NOTE | 2023-02-15 10:19 | Pulmonology Progress Note ---
Date of Service February 15, 2023 Assessment & Plan (1) Postprocedural pneumothorax: Plan: She had reexpansion of pneumothorax overnight when the chest tube was clamped. She was placed back on suction to -20 cm H2O. There is no significant air leak seen today. I have placed her back to waterseal. Will repeat a chest x-ray later this afternoon. (2) Lung mass: Plan: Etiology unclear. She was exposed to significant secondhand tobacco as a child. She denies any personal history of cancer. She is a lifelong non-smoker. Possible solid fibrous tumor versus other rare malignancies. Preliminary pathology suggest possible benign tissue. Will await final pathology and immunohistochemical stains. Patient is going to follow-up with thoracic surgery as an outpatient. Admission and Anticipated Discharge Date Admission Date: February 14, 2023 Subjective Patient is experiencing a lot of pain around the right sided chest tube. Her sleep is poor last night. Her chest tube was clamped in the evening and she had reexpansion of the pneumothorax. She is currently on suction. She denies any fevers, chills or night sweats. Review of Systems Review of Systems: All systems reviewed & are unremarkable except as noted in HPI & below Physical Exam Physical Exam: Constitutional: Patient appears to be of their stated age. Patient is in no apparent distress. Patient is well-developed. Eyes: Pupils are equal round and reactive to light. Conjunctivae are normal. Anicteric sclera. Ears nose, mouth and throat: Deferred. Neck: Trachea is midline. Visual inspection is normal. Respiratory: Clear to auscultation bilaterally. No use of accessory muscles. No significant clubbing noted. Right pigtail catheter noted in the mid axillary line. Mild crepitus noted. Cardiovascular: Regular rate and rhythm. No murmurs. No edema. Gastrointestinal: Normal bowel sounds, soft, nontender and nondistended. No hepatosplenomegaly noted. Musculoskeletal: No cyanosis. Patient is able to move all extremities. Strength is 5 out of 5 in the upper and lower extremities. Skin: No rashes, warm dry and intact. Neurologic: No obvious focal neurological deficits seen. Psychiatric: Alert and oriented x3 with a euthymic affect. Results & Data Results & Data Vital Signs (Past 12 Hours) Vital Signs Temp Pulse Pulse Resp BP Pulse Ox O2 Del Method 02/15/23 10:14 36.4 C L 70 19 96/62 L 96 Room Air 02/15/23 07:49 36.7 C 77 17 127/82 97 Room Air 02/14/23 23:06 37.0 C 71 20 101/68 94 Room Air 02/14/23 22:35 64 PG Care Time/CCT Total # of Minutes Spent Total Time Spent with Patient: Total time spent is greater than 50% in coordination of care (as documented) at patient's floor/unit and/or counseling patient: Coding Level of Care Code 48126 SUB INP/OBS CARE 2/35MIN Diagnoses Postprocedural pneumothorax J95.811 Lung mass R91.8
[2023-02-15] MEDS: POLYETHYLENE (MIRALAX) 17 GM PACK PO SCH (11:09)
[2023-02-15] MEDS: HYDROmorphone INJ 0.5 MG/0.5 ML SYR IV PRN ×3 (11:09→20:49)
--- NOTE | 2023-02-15 13:18 | Hospitalist Progress Note ---
Date of Service February 15, 2023 Assessment & Plan (1) Lung mass: (2) Pneumothorax: (3) Hypertension: (4) Anemia: (5) Anxiety: Plan: RLL Lung Mass s/p IR guided Biopsy Right-sided pneumothorax Patient was recently admitted from 02/09-02/10; she was found to have lung mass. Patient came to ED on 02/[address]-guided biopsy. Found to have pneumothorax postbiopsy; pigtail chest tube was placed. Patient was admitted for further management. Reexpansion of pneumothorax overnight when chest tube was clamped. Patient is currently back on suction of -20 cm H2O. Management of chest tube as per surgery. Pain control Anemia -Hemoglobin of 10.3 Ferritin major recently is 226. 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 HTN - Chronic, stable - Cont lisionpril Anxiety - May Continue on wellbutrin, buspar DVT ppx: teds FEN/GI: HH diet Lines: Obtain 2 PIV CODE: FULL Dispo: From home, admitted due to pneumothorax; had chest tube. Possible discharge in next few days. Please note the above document was generated using voice recognition software. It may contain grammatical, syntax or spelling errors. Any formal questions or concerns about the content, text or information contained within the body of this dictation should be directly addressed to the provider for clarification Admission and Anticipated Discharge Date Admission Date: February 14, 2023 Subjective Patient seen and examined at bedside. She is lying in the bed; reports pain at the chest tube site. No shortness of breath. Review of Systems Review of Systems: All systems reviewed & are unremarkable except as noted in Subjective Physical Exam Physical Exam: Constitutional: WD/WN, vitals as above, NAD, sitting up in bed, pleasant, conversing easily Respiratory: Bilateral vesicular breath sound. Cardiovascular: RRR, no murmur, no edema Vessels: no JVD or carotid bruit Abdomen: normal bowel sounds, soft, nontender, no hepatosplenomegaly Musculoskeletal: no cyanosis or clubbing, extremities motor strength 5/5 Skin: no rashes, warm and dry normal turgor Neurologic: PERRL, EOMI, accommodation nl, no face palsy, no dysarthria CN's II- XI intact bilaterally and moves all extremities Psychiatric: A+Ox3, euthymic affect Results & Data Results & Data Vital Signs (Past 12 Hours) Vital Signs Temp Pulse Resp BP Pulse Ox O2 Del Method 02/15/23 10:14 36.4 C L 70 19 96/62 L 96 Room Air 02/15/23 08:00 Room Air 02/15/23 07:49 36.7 C 77 17 127/82 97 Room Air Laboratory Results Laboratory Results WBC 4.82 K/ul (4.8-10.8) 02/15/23 07:05 RBC 3.90 M/uL (4.20-5.40) L 02/15/23 07:05 Hgb 10.3 g/dl (12.0-16.0) L 02/15/23 07:05 Hct 33.0 % (37.0-47.0) L 02/15/23 07:05 MCV 84.6 fL (80.0-100.0) 02/15/23 07:05 MCH 26.4 pg (25.0-34.0) 02/15/23 07:05 MCHC 31.2 g/dL (32.0-36.0) L 02/15/23 07:05 RDW Std Deviation 45.3 fL (36.4-46.3) 02/15/23 07:05 RDW Coeff of Diamond 15.0 % (11.5-14.5) H 02/15/23 07:05 Plt Count 322 K/uL (130-400) 02/15/23 07:05 MPV 9.1 fL (9.4-12.4) L 02/15/23 07:05 Immature Gran % (Auto) 0.2 % 02/15/23 07:05 Neut % (Auto) 59.0 % 02/15/23 07:05 Lymph % (Auto) 28.8 % 02/15/23 07:05 Barton % (Auto) 8.9 % 02/15/23 07:05 Eos % (Auto) 2.9 % 02/15/23 07:05 Baso % (Auto) 0.2 % 02/15/23 07:05 Neut # (Auto) 2.84 K/uL (1.40-6.50) 02/15/23 07:05 Lymph # (Auto) 1.39 K/uL (1.20-3.40) 02/15/23 07:05 Barton # (Auto) 0.43 K/uL (0.11-0.59) 02/15/23 07:05 Eos # (Auto) 0.14 K/uL (0.00-0.50) 02/15/23 07:05 Baso # (Auto) 0.01 K/uL (0.00-0.20) 02/15/23 07:05 Immature Gran # (Auto) 0.01 K/uL (0.01-0.20) 02/15/23 07:05 Sodium 136 mmol/L (136-145) 02/15/23 07:05 Potassium 4.1 mmol/L (3.5-5.1) 02/15/23 07:05 Chloride 104 mmol/L (98-107) 02/15/23 07:05 Carbon Dioxide 25 mmol/L (21-32) 02/15/23 07:05 Anion Gap 7 (3-11) 02/15/23 07:05 BUN 15 mg/dl (6-23) 02/15/23 07:05 Creatinine 0.68 mg/dl (0.6-1.2) 02/15/23 07:05 Est Cr Clr Drug Dosing 102.3 ml/min 02/15/23 07:05 Est GFR ( Amer) 115.7 ml/min 02/15/23 07:05 Est GFR (Non-Af Amer) 99.9 ml/min 02/15/23 07:05 BUN/Creatinine Ratio 22.1 (10-20) H 02/15/23 07:05 Glucose 82 mg/dl (70-99(Fasting)) 02/15/23 07:05 Calcium 8.5 mg/dl (8.6-10.3) L 02/15/23 07:05 Total Bilirubin 0.3 mg/dl (0.2-1.0) 02/15/23 07:05 AST 9 U/L (13-39) L 02/15/23 07:05 ALT 7 U/L (7-52) 02/15/23 07:05 Alkaline Phosphatase 78 U/L (34-104) 02/15/23 07:05 Total Protein 6.4 gm/dl (6.0-8.3) 02/15/23 07:05 Albumin 3.3 gm/dl (3.4-5.0) L 02/15/23 07:05 Globulin 3.1 gm/dl (2.5-4.0) 02/15/23 07:05 Albumin/Globulin Ratio 1.1 (0.9-2) 02/15/23 07:[address] 02/14/23 00:00 CT-guided right middle/lower lobe lung mass core biopsy and right pleural pigtail catheter placement INDICATION: Right middle/lower lobe lung mass PROCEDURE: Procedure and risks were explained. Informed consent was obtained. A final timeout was completed. The patient was placed in a left decubitus position on the CT exam table. The right lateral thorax was prepped and draped in sterile fashion. 1% buffered lidocaine was utilized for skin anesthesia. The patient received 100 mcg fentanyl IV during the entire procedure. Utilizing CT guidance, a 19-gauge coaxial needle was advanced into the right middle/lower lobe lung mass. A 20-gauge core biopsy needle was advanced, and three 2 cm cores were obtained and given to the pathologist for review. The coaxial needle was removed. Post-CT imaging demonstrated a small right pneumothorax. Delayed imaging demonstrated an increase in size of the right- sided pneumothorax. An 18-gauge 10 cm Chiba needle was advanced into the right pleural space under CT guidance. A 0.035 Amplatz wire was introduced through the entry needle and exchanged for an 8 Nepali locking pigtail catheter. The pigtail was placed to 20 cm H2O wall suction and sutured to the skin with 2-0 silk. Post pleural pigtail catheter placement demonstrated adequate catheter position with significant reduction of the pneumothorax size. The patient tolerated both procedures well. She will be admitted for further pneumothorax/chest tube management. Vital signs will be monitored on the floor. IMPRESSION: Right middle/lower lobe lung mass core biopsy and subsequent right pleural pigtail catheter placement as detailed above. Performed, dictated, and signed by Vu Cha PA-C; to be co-signed by Dr. Oseas Brooks. Electronically signed by: Oseas Brooks M.D. 02/14/2023 12:[address] 02/14/23 08:00 CT-guided right middle/lower lobe lung mass core biopsy and right pleural pigtail catheter placement INDICATION: Right middle/lower lobe lung mass PROCEDURE: Procedure and risks were explained. Informed consent was obtained. A final timeout was completed. The patient was placed in a left decubitus position on the CT exam table. The right lateral thorax was prepped and draped in sterile fashion. 1% buffered lidocaine was utilized for skin anesthesia. The patient received 100 mcg fentanyl IV during the entire procedure. Utilizing CT guidance, a 19-gauge coaxial needle was advanced into the right middle/lower lobe lung mass. A 20-gauge core biopsy needle was advanced, and three 2 cm cores were obtained and given to the pathologist for review. The coaxial needle was removed. Post-CT imaging demonstrated a small right pneumothorax. Delayed imaging demonstrated an increase in size of the right- sided pneumothorax. An 18-gauge 10 cm Chiba needle was advanced into the right pleural space under CT guidance. A 0.035 Amplatz wire was introduced through the entry needle and exchanged for an 8 Nepali locking pigtail catheter. The pigtail was placed to 20 cm H2O wall suction and sutured to the skin with 2-0 silk. Post pleural pigtail catheter placement demonstrated adequate catheter position with significant reduction of the pneumothorax size. The patient tolerated both procedures well. She will be admitted for further pneumothorax/chest tube management. Vital signs will be monitored on the floor. IMPRESSION: Right middle/lower lobe lung mass core biopsy and subsequent right pleural pigtail catheter placement as detailed above. Performed, dictated, and signed by Vu Cha PA-C; to be co-signed by Dr. Oseas Brooks. Electronically signed by: Oseas Brooks M.D. 02/14/2023 12:47 PM Chest X-Ray 02/15/23 02:00 XR chest 1V portable HISTORY: eval pneumothorax back to water seal/suction COMPARISON: Chest 02/14/2023. FINDINGS: Interval decrease in size in the now small right apical pneumothorax demonstrates a maximal pleural gap of 1 cm. Right-sided chest tube is unchanged in position. There is right chest wall subcutaneous emphysema again noted. The right lower lobe 7 cm mass is also noted. The left lung is clear. No evidence for pulmonary edema. The heart remains stable in size. No acute fractures. IMPRESSION: 1. Interval decrease in size of the now small right pneumothorax. The right chest tube is unchanged in position. 2. A 7 cm right lower lobe mass again noted. ACT 112: Negative or not required by law. Electronically signed by: Oseas Brooks M.D. 02/15/2023 7:06 AM
--- NOTE | 2023-02-15 17:00 | XRay Report ---
XR chest 1V portable CLINICAL HISTORY: Chest Tube, Pneumothorax TECHNIQUE: Single frontal radiograph of the chest was obtained. Comparison: Comparison is made to chest x-ray 02/15/2023 FINDINGS: Right chest tube is seen. No significant residual pneumothorax is seen. The kidneys emphysema remains . The cardiomediastinal silhouette is stable. Redemonstration of right lung mass. IMPRESSION: Previously noted pneumothorax has essentially resolved. A chest tube remains in place and subcutaneou s emphysema remains. Stable right lower lobe mass. ACT 112: Negative or not required by law. Electronically signed by: Eyal Garcia M.D. 02/15/2023 4:57 PM
[2023-02-15] MEDS: ZOLPIDEM TARTRATE 5 MG TAB PO PRN (22:54)
[2023-02-16] MEDS: HYDROmorphone INJ 0.5 MG/0.5 ML SYR IV PRN ×5 (03:09→21:20)
[2023-02-16] MEDS: oxyCODONE HCL IR 5 MG TAB (IMMEDIATE RELEASE) PO PRN ×3 (05:35→19:55)
--- NOTE | 2023-02-16 07:18 | XRay Report ---
XR chest 1V portable CLINICAL HISTORY: Pneumothorax. COMPARISON STUDY: Chest radiograph February 15, 2023 at 8:20 PM. FINDINGS: Right pleural catheter is in place. As before, there is gas within the right chest wall. Th is has slightly decreased. A small right pneumothorax has decreased in size. Superior pleural separat ion now measures 3 mm, previously 6 mm. Right lower lung mass is again noted. Cardiomediastinal silho uette is stable. No evidence for pulmonary edema. IMPRESSION: Right pleural catheter in place. Small right pneumothorax, decreased in size since prior chest radiograph. ACT 112: Negative or not required by law. Electronically signed by: Kumar Soler M.D. 02/16/2023 7:16 AM
--- NOTE | 2023-02-16 08:06 | XRay Report ---
XR chest 1V portable CLINICAL HISTORY: s/p clamping of CT eval Pneumo COMPARISON STUDY: Chest radiograph February 15, 2023 at 4:46 PM. FINDINGS: Right pleural catheter remains in place. A small right pneumothorax has mildly decreased in size. Superior pleural separation measures 6 mm. Right lower lung mass is again noted. Gas within th e right chest wall is similar to prior study. IMPRESSION: Right pleural catheter in place. Slight decrease in size of a small right pneumothorax. ACT 112: Negative or not required by law. Electronically signed by: Kumar Soler M.D. 02/16/2023 8:04 AM
[2023-02-16] MEDS: buPROPion XL 150 MG TABCR PO SCH (08:20)
[2023-02-16] MEDS: FERROUS GLUCONATE 324 MG TAB PO SCH (08:20)
[2023-02-16] MEDS: FOLIC ACID 1 MG TAB PO SCH (08:20)
[2023-02-16] MEDS: CYANOCOBALAMIN (B-12) 500 MCG TABLET PO SCH (08:20)
[2023-02-16] MEDS: DOCUSATE SODIUM 100 MG CAP PO SCH (08:20)
[2023-02-16] MEDS: busPIRone 7.5 MG TAB PO SCH ×2 (08:20→19:40)
[2023-02-16] MEDS: lisinopril 20 MG TAB PO SCH (08:21)
[2023-02-16] MEDS: POLYETHYLENE (MIRALAX) 17 GM PACK PO SCH (08:25)
[2023-02-16] MEDS: hydrOXYzine HCl 25 MG TAB PO PRN ×2 (08:27→22:03)
--- NOTE | 2023-02-16 11:55 | Pulmonology Progress Note ---
Date of Service February 16, 2023 Assessment & Plan (1) Postprocedural pneumothorax: Plan: Unfortunately, she keeps developing pneumothorax when the chest tube is clamped. Will continue on suction for a few more hours and then start back on waterseal. Patient seems to have a prolonged intermittent airleak. We discussed options including prolonged hospitalization with chest tube, going home with a Heimlich valve and potential transfer to tertiary center for VATS. Will see how she does today and reevaluate the situation tomorrow. (2) Lung mass: Plan: Etiology unclear. She was exposed to significant secondhand tobacco as a child. She denies any personal history of cancer. She is a lifelong non-smoker. Possible solid fibrous tumor versus other rare malignancies. Preliminary patho logy suggest possible benign tissue. Will await final pathology and immunohistochemical stains. Patient is going to follow-up with thoracic surgery as an outpatient. (3) Subcutaneous emphysema: Plan: Secondary to chest tube insertion. Admission and Anticipated Discharge Date Admission Date: February 14, 2023 Subjective She continues to become severely symptomatic with chest tube clamping trials. She notes severe chest pain and shortness of breath. I clamped the chest tube earlier this morning and she developed rapid chest pain. Chest tube was placed back on suction with improvement of symptoms. Review of Systems Review of Systems: All systems reviewed & are unremarkable except as noted in HPI & below Physical Exam Physical Exam: Constitutional: Patient appears to be of their stated age. Patient is in no apparent distress. Patient is well-developed. Eyes: Pupils are equal round and reactive to light. Conjunctivae are normal. Anicteric sclera. Ears nose, mouth and throat: Deferred. Neck: Trachea is midline. Visual inspection is normal. Respiratory: Clear to auscultation bilaterally. No use of accessory muscles. No significant clubbing noted. Right pigtail catheter noted in the mid axillary line. Mild crepitus noted. Cardiovascular: Regular rate and rhythm. No murmurs. No edema. Gastrointestinal: Normal bowel sounds, soft, nontender and nondistended. No hepatosplenomegaly noted. Musculoskeletal: No cyanosis. Patient is able to move all extremities. Strength is 5 out of 5 in the upper and lower extremities. Skin: No rashes, warm dry and intact. Neurologic: No obvious focal neurological deficits seen. Psychiatric: Alert and oriented x3 with a euthymic affect. Results & Data Results & Data Vital Signs (Past 12 Hours) Vital Signs Temp Pulse Pulse Resp BP Pulse Ox O2 Del Method 02/16/23 11:19 36.8 C 80 19 103/55 L 97 Room Air 02/16/23 08:05 70 02/16/23 08:00 Room Air 02/16/23 07:29 36.6 C 73 19 92/55 L 97 Room Air 02/16/23 03:14 37.3 C 90 18 99/64 L 98 Room Air PG Care Time/CCT Total # of Minutes Spent Total Time Spent with Patient: Total time spent is greater than 50% in coordination of care (as documented) at patient's floor/unit and/or counseling patient: Coding Level of Care Code 61373 SUB INP/OBS CARE 2/35MIN Diagnoses Postprocedural pneumothorax J95.811 Lung mass R91.8 Subcutaneous emphysema T79.7XXA
--- NOTE | 2023-02-16 16:13 | Hospitalist Progress Note ---
Date of Service February 16, 2023 Assessment & Plan (1) Lung mass: (2) Pneumothorax: (3) Hypertension: (4) Anemia: (5) Anxiety: Plan: RLL Lung Mass s/p IR guided Biopsy Right-sided pneumothorax Patient was recently admitted from 02/09-02/10; she was found to have lung mass. Patient came to ED on 02/[address]-guided biopsy. Found to have pneumothorax postbiopsy; pigtail chest tube was placed. Patient was admitted for further management. Management of chest tube as per pulmonology. Patient currently on suction. Pain control with Dilaudid. Anemia -Hemoglobin of 10.3 Ferritin major recently is 226. 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 HTN - Chronic, stable - Cont lisionpril Anxiety - May Continue on wellbutrin, buspar DVT ppx: teds FEN/GI: HH diet Lines: Obtain 2 PIV CODE: FULL Dispo: From home, admitted due to pneumothorax; has chest tube. Possible discharge in next few days. Please note the above document was generated using voice recognition software. It may contain grammatical, syntax or spelling errors. Any formal questions or concerns about the content, text or information contained within the body of this dictation should be directly addressed to the provider for clarification Admission and Anticipated Discharge Date Admission Date: February 14, 2023 Subjective Patient seen and examined at bedside. Pigtail catheter clamped again. Patient reported sharp chest pain and shortness of breath. Placed back on suction. Review of Systems Review of Systems: All systems reviewed & are unremarkable except as noted in Subjective Physical Exam Physical Exam: Constitutional: WD/WN, vitals as above, NAD, sitting up in bed, pleasant, conversing easily Respiratory: Bilateral vesicular breath sound. Cardiovascular: RRR, no murmur, no edema Vessels: no JVD or carotid bruit Abdomen: normal bowel sounds, soft, nontender, no hepatosplenomegaly Musculoskeletal: no cyanosis or clubbing, extremities motor strength 5/5 Skin: no rashes, warm and dry normal turgor Neurologic: PERRL, EOMI, accommodation nl, no face palsy, no dysarthria CN's II- XI intact bilaterally and moves all extremities Psychiatric: A+Ox3, euthymic affect Results & Data Results & Data Vital Signs (Past 12 Hours) Vital Signs Temp Pulse Pulse Resp BP Pulse Ox O2 Del Method 02/16/23 16:10 36.9 C 81 17 104/62 98 Room Air 02/16/23 15:21 83 02/16/23 11:19 36.8 C 80 19 103/55 L 97 Room Air 02/16/23 08:05 70 02/16/23 08:00 Room Air 02/16/23 07:29 36.6 C 73 19 92/55 L 97 Room Air
[2023-02-16] MEDS ORDERED: MoRPHine SULFATE 2 MG/ML CARP IV STA (21:37)
[2023-02-16] MEDS: KETOROLAC TROMETHAMINE 15 MG/ML VIAL IV PRN (22:17)
[2023-02-17] MEDS: ZOLPIDEM TARTRATE 5 MG TAB PO PRN ×2 (01:17→23:05)
[2023-02-17] MEDS: HYDROmorphone INJ 0.5 MG/0.5 ML SYR IV PRN ×4 (01:17→20:13)
[2023-02-17 07:26] LABS: Basophils # (auto) 0.02 K/uL (0.00-0.20); Basophils % (auto) 0.4 %; Eosinophils # (auto) 0.19 K/uL (0.00-0.50); Eosinophils % (auto) 3.5 %; Hematocrit (blood only) 34.7 % (37.0-47.0); Hemoglobin 10.7 g/dl (12.0-16.0); Immature Granulocytes # (auto) 0.01 K/uL (0.01-0.20); Immature Granulocytes % (auto) 0.2 %; Lymphocytes # (auto) 1.22 K/uL (1.20-3.40); Lymphocytes % (auto) 22.3 %; Mean Corpuscular Hgb Conc 30.8 g/dL (32.0-36.0); Mean Corpuscular Volume 84.4 fL (80.0-100.0); Mean Platelet Volume 8.9 fL (9.4-12.4); Monocytes # (auto) 0.56 K/uL (0.11-0.59); Monocytes % (auto) 10.2 %; Neutrophils # (auto) 3.48 K/uL (1.40-6.50); Neutrophils % (auto) 63.4 %; Platelet Count 337 K/uL (130-400); RDW Standard Deviation 45.4 fL (36.4-46.3); Red Blood Count 4.11 M/uL (4.20-5.40); White Blood Count 5.48 K/ul (4.8-10.8)
[2023-02-17 07:40] LABS: BUN Creatinine Ratio 22.4 (10-20); Creatinine Clr Calc Pharmacy 104.5 ml/min; Est GFR (African American) 116.3 ml/min; Est GFR (Non-African American) 100.4 ml/min; Potassium 4.2 mmol/L (3.5-5.1)
[2023-02-17] MEDS: CYANOCOBALAMIN (B-12) 500 MCG TABLET PO SCH (08:13)
[2023-02-17] MEDS: lisinopril 20 MG TAB PO SCH (08:13)
[2023-02-17] MEDS: FOLIC ACID 1 MG TAB PO SCH (08:13)
[2023-02-17] MEDS: buPROPion XL 150 MG TABCR PO SCH (08:13)
[2023-02-17] MEDS: FERROUS GLUCONATE 324 MG TAB PO SCH (08:13)
[2023-02-17] MEDS: busPIRone 7.5 MG TAB PO SCH ×2 (08:13→19:59)
[2023-02-17] MEDS: DOCUSATE SODIUM 100 MG CAP PO SCH (08:13)
[2023-02-17] MEDS: POLYETHYLENE (MIRALAX) 17 GM PACK PO SCH (08:19)
[2023-02-17] MEDS: oxyCODONE HCL IR 5 MG TAB (IMMEDIATE RELEASE) PO PRN ×3 (08:19→23:03)
--- NOTE | 2023-02-17 08:37 | XRay Report ---
XR chest 1V portable HISTORY: eval right pneumothorax CT water seal COMPARISON: Chest 02/16/2023. FINDINGS: The right pleural catheter is in place. Tiny right apical pneumothorax with a pleural cap a 3 mm remains unchanged. Right chest wall subcutaneous emphysema. Right lower lobe mass again noted. The heart is normal in size. The left lung is clear. IMPRESSION: No change in the tiny right pneumothorax. Right pleural catheter is in place. ACT 112: Negative or not required by law. Electronically signed by: Oseas Brooks M.D. 02/17/2023 8:36 AM
[2023-02-17] MEDS ORDERED: MAGNESIUM HYDROXIDE SUSP 30 ML UDC PO ONE (08:44)
--- NOTE | 2023-02-17 08:48 | Pulmonology Progress Note ---
Date of Service February 17, 2023 Assessment & Plan (1) Postprocedural pneumothorax: (2) Lung mass: (3) Subcutaneous emphysema: Plan: Secondary to chest tube insertion. Plan -- Iatrogenic pneumothorax S/p biopsy 02/14/[address] -- Right-sided pulmonary mass S/p biopsy Non smoker, she was exposed to significant secondhand tobacco as a child. Follow-up pathology Outpatient CT surgery follow-up Plan: Chest x-ray from today does not show any signs of pneumothorax. Patient complained of worsening chest tightness and pain after the tube was clamped. Chest x-ray was repeated while she was complaining of the pain and no pneumothorax or worsening of the subcu emphysema was appreciated. I unclamped the tube, no air bubbling was appreciated. Patient's chest tightness and discomfort could be related to the chest tube itself irritating one of the intercostal nerves. I do not have a clear etiology especially given that there is no worsening of pneumothorax or subcu emphysema after clamping the tube for patient's chest tightness and pain getting worse after clamping. Will continue to keep the patient on waterseal, repeat chest x-ray in the morning Heimlich valve and potential transfer to tertiary center for VATS other 2 options. Patient is not interested in Heimlich valve right now Recommend right upper quadrant ultrasound as patient does have right upper quadrant tenderness with positive Clark's Case was discussed with Dr. Leal. Please note the above document was generated using voice recognition software. It may contain grammatical, syntax or spelling errors.Any formal questions or concerns about the content, text or information contained within the body of this dictation should be directly addressed to the provider for clarification. Admission and Anticipated Discharge Date Admission Date: February 14, 2023 Subjective Patient seen and examined at bedside. 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 She was in pain and seem to be frustrated She says she is in constant pain but since the tube was clamped early in the morning that tightness has worsened on the right side Denies any nausea vomiting. Was asking if she will be transferred to CT surgery. Review of Systems 2 Review of Systems: All systems reviewed & are unremarkable except as noted in Subjective Physical Exam 2 Physical Exam: Constitutional: No acute distress HEENT: EOMI, PERRLA, subcu crepitus appreciated on the right side posterior laterally Respiratory system: Good air entry bilaterally, no wheeze, no rhonchi, mild crackles bilateral lower lobes CVS: S1-S2 positive, no murmurs or gallops Abdomen: Soft, nondistended, positive bowel sounds x4, positive right upper quadrant tenderness with positive Clark's, no rebound Extremities: +2 pulses bilaterally radialis/ dorsalis pedis, no cyanosis, no edema Neuro: Awake alert oriented x3 Psych: Normal mood and affect G/U: No Tamayo Skin: no rashes, warm and dry Lymphatic: no cervical or axillary lymphadenopathy Results & Data Results & Data Vital Signs (Past 12 Hours) Vital Signs Temp Pulse Pulse Resp BP BP Pulse Ox 02/17/23 08:05 37.1 C 74 18 114/73 96 02/17/23 07:56 98 H 02/17/23 04:13 37.1 C 76 18 104/56 L 96 02/17/23 01:03 80 02/16/23 23:24 37.1 C 82 18 97/58 L 99 O2 Del Method 02/17/23 08:05 Room Air 02/17/23 07:56 02/17/23 04:13 Room Air 02/17/23 01:03 02/16/23 23:24 Room Air Laboratory Results 02/17/23 06:26 02/17/23 06:26 PG Care Time/CCT Total # of Minutes Spent Total Time Spent with Patient: Total time spent is greater than 50% in coordination of care (as documented) at patient's floor/unit and/or counseling patient: Coding Level of Care Code 19440 SUB INP/OBS CARE 3/50MIN Diagnoses Postprocedural pneumothorax J95.811 Lung mass R91.8 Subcutaneous emphysema T79.7XXA
--- NOTE | 2023-02-17 08:50 | XRay Report ---
XR chest 1V portable HISTORY: eval lung sheppard/pneumothorax CT water seal COMPARISON: Chest 02/16/2023. FINDINGS: A right pleural catheter is unchanged in position. The right pneumothorax appears to have r esolved in the interval. Right chest wall subcutaneous emphysema again noted. A right lower lobe mass remains unchanged. The left lung is clear. IMPRESSION: Right pleural catheter is unchanged in position. The right-sided pneumothorax has essentially resolve d in the interval. ACT 112: Negative or not required by law. Electronically signed by: Oseas Brooks M.D. 02/17/2023 8:48 AM
[2023-02-17] MEDS: DOCUSATE SODIUM/SENNA 50/8.6MG TAB PO SCH (10:19)
--- NOTE | 2023-02-17 10:31 | XRay Report ---
XR chest 1V portable HISTORY: Follow-up pneumothorax. COMPARISON: Chest 02/17/2023. FINDINGS: A right pleural catheter is unchanged in position. No definite right pneumothorax. A right lower lobe mass is again noted. Subcutaneous emphysema within the right lateral chest wall. The left lung is clear. The heart is normal in size. IMPRESSION: No definite right pneumothorax. The right pleural catheter is unchanged in position. ACT 112: Negative or not required by law. Electronically signed by: Oseas Brooks M.D. 02/17/2023 10:30 AM
[2023-02-17 11:06] LABS: Albumin Level 3.5 gm/dl (3.4-5.0); Bilirubin Direct 0.1 mg/dl (0-0.2); Bilirubin,Total 0.3 mg/dl (0.2-1.0); Total Protein 6.8 gm/dl (6.0-8.3)
--- NOTE | 2023-02-17 13:59 | Hospitalist Progress Note ---
Date of Service February 17, 2023 Assessment & Plan (1) Lung mass: (2) Pneumothorax: (3) Hypertension: (4) Anemia: (5) Anxiety: Plan: RLL Lung Mass s/p IR guided Biopsy Right-sided pneumothorax Patient was recently admitted from 02/09-02/10; she was found to have lung mass. Patient came to ED on 02/[address]-guided biopsy. Found to have pneumothorax postbiopsy; pigtail chest tube was placed. Patient was admitted for further management. Chest x-ray done in the morning does not show any definitive right pneumothorax. Discussed with pulmonology who recommended to further discuss with CT surgery given persistent pain and pneumothorax. Discussed with on-call cardiothoracic surgeon at [facility]. The images were transferred over for review. He recommended to continue waterseal for the next 24 to 36 hours and remove the chest tube. Other alternative he recommended going home with heimlich valve and following up with pulmonology as outpatient to remove it. He did not recommend transfer to tertiary care center at the moment. Discussed with pulmonology again; possible trial of removal of chest tube tomorrow morning. Chest x-ray in the a.m. Anemia -Hemoglobin of 10.3 Ferritin major recently is 226. 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 HTN - Chronic, stable - Cont lisionpril Anxiety - May Continue on wellbutrin, buspar DVT ppx: teds FEN/GI: HH diet Lines: Obtain 2 PIV CODE: FULL Dispo: From home, admitted due to pneumothorax; has chest tube. Possible discharge in next few days. Time spent evaluating patient, direct bedside care, chart review, placing orders, interpretation of diagnostic studies, discussion with consultants, patient, and family members, as well as other required patient management activities is 60 minutes Please note the above document was generated using voice recognition software. It may contain grammatical, syntax or spelling errors. Any formal questions or concerns about the content, text or information contained within the body of this dictation should be directly addressed to the provider for clarification Admission and Anticipated Discharge Date Admission Date: February 14, 2023 Subjective Patient seen and examined at bedside. She has significant amount of pain on her right chest around the chest tube insertion site. No complaint of shortness of breath. She is saturating well in room air. Review of Systems Review of Systems: All systems reviewed & are unremarkable except as noted in Subjective Physical Exam Physical Exam: Constitutional: WD/WN, vitals as above, NAD, sitting up in bed, pleasant, conversing easily Respiratory: Bilateral vesicular breath sound. Cardiovascular: RRR, no murmur, no edema Vessels: no JVD or carotid bruit Abdomen: normal bowel sounds, soft, nontender, no hepatosplenomegaly Musculoskeletal: no cyanosis or clubbing, extremities motor strength 5/5 Skin: no rashes, warm and dry normal turgor Neurologic: PERRL, EOMI, accommodation nl, no face palsy, no dysarthria CN's II- XI intact bilaterally and moves all extremities Psychiatric: A+Ox3, euthymic affect Results & Data Results & Data Vital Signs (Past 12 Hours) Vital Signs Temp Pulse Pulse Resp BP BP Pulse Ox 02/17/23 11:41 37.1 C 79 18 109/66 92 02/17/23 08:05 37.1 C 74 18 114/73 96 02/17/23 08:00 02/17/23 07:56 98 H 02/17/23 04:13 37.1 C 76 18 104/56 L 96 O2 Del Method 02/17/23 11:41 Room Air 02/17/23 08:05 Room Air 02/17/23 08:00 Room Air 02/17/23 07:56 02/17/23 04:13 Room Air
[2023-02-17] MEDS: KETOROLAC TROMETHAMINE 15 MG/ML VIAL IV PRN (20:12)
[2023-02-18] MEDS: HYDROmorphone INJ 0.5 MG/0.5 ML SYR IV PRN ×2 (02:03→07:41)
[2023-02-18] MEDS: KETOROLAC TROMETHAMINE 15 MG/ML VIAL IV PRN (02:16)
[2023-02-18] MEDS: hydrOXYzine HCl 25 MG TAB PO PRN (03:05)
[2023-02-18 06:47] LABS: Basophils # (auto) 0.02 K/uL (0.00-0.20); Basophils % (auto) 0.4 %; Eosinophils # (auto) 0.21 K/uL (0.00-0.50); Eosinophils % (auto) 4.2 %; Hematocrit (blood only) 34.1 % (37.0-47.0); Hemoglobin 10.4 g/dl (12.0-16.0); Immature Granulocytes # (auto) 0.01 K/uL (0.01-0.20); Immature Granulocytes % (auto) 0.2 %; Lymphocytes # (auto) 1.59 K/uL (1.20-3.40); Lymphocytes % (auto) 31.7 %; Mean Corpuscular Hemoglobin 25.9 pg (25.0-34.0); Mean Corpuscular Hgb Conc 30.5 g/dL (32.0-36.0); Mean Platelet Volume 8.9 fL (9.4-12.4); Monocytes # (auto) 0.51 K/uL (0.11-0.59); Monocytes % (auto) 10.2 %; Neutrophils # (auto) 2.68 K/uL (1.40-6.50); Neutrophils % (auto) 53.3 %; Platelet Count 353 K/uL (130-400); Red Blood Count 4.01 M/uL (4.20-5.40); White Blood Count 5.02 K/ul (4.8-10.8)
[2023-02-18 07:00] LABS: BUN Creatinine Ratio 20.3 (10-20); Calcium 9.3 mg/dl (8.6-10.3); Creatinine Clr Calc Pharmacy 40.6 ml/min; Est GFR (African American) 99.1 ml/min; Est GFR (Non-African American) 85.5 ml/min; Potassium 4.6 mmol/L (3.5-5.1)
--- NOTE | 2023-02-18 07:30 | Pulmonology Progress Note ---
Date of Service February 18, 2023 Assessment & Plan (1) Postprocedural pneumothorax: (2) Lung mass: (3) Subcutaneous emphysema: Plan: Secondary to chest tube insertion. Plan -- Iatrogenic pneumothorax S/p biopsy 02/14/[address] -- Right-sided pulmonary mass S/p biopsy Non smoker, she was exposed to significant secondhand tobacco as a child. Follow-up pathology Outpatient CT surgery follow-up Plan: Chest x-ray from today does not show any clear signs of pneumothorax Patient's chest tube has been clamped since yesterday afternoon. Plan would be to remove the chest tube today. Patient should not engage in any strenuous activity for at least 2-3 weeks. No flying in an airplane or scuba diving for at least 4-6 weeks If there is any worsening in chest pain or shortness of breath she should seek medical attention Case was discussed with Dr. Leal. No further recommendation from pulmonary perspective, will sign off Please call directly with any questions Please note the above document was generated using voice recognition software. It may contain grammatical, syntax or spelling errors.Any formal questions or concerns about the content, text or information contained within the body of this dictation should be directly addressed to the provider for clarification. Admission and Anticipated Discharge Date Admission Date: February 14, 2023 Subjective Patient seen and examined at bedside. No acute distress, no adverse events overnight Does not complain of any chest pain today The tube has been clamped since yesterday afternoon. Does complain of constipation No nausea vomiting Fair appetite She was in a pleasant mood today Patient's was in the room at the time of examination Review of Systems 2 Review of Systems: All systems reviewed & are unremarkable except as noted in Subjective Physical Exam 2 Physical Exam: Constitutional: No acute distress HEENT: EOMI, PERRLA, subcu crepitus appreciated on the right side posterior laterally Respiratory system: Good air entry bilaterally, no wheeze, no rhonchi, mild crackles bilateral lower lobes CVS: S1-S2 positive, no murmurs or gallops Abdomen: Soft, nondistended, positive bowel sounds x4, nontender, no rebound Extremities: +2 pulses bilaterally radialis/ dorsalis pedis, no cyanosis, no edema Neuro: Awake alert oriented x3 Psych: Normal mood and affect G/U: No Tamayo Skin: no rashes, warm and dry Lymphatic: no cervical or axillary lymphadenopathy Results & Data Results & Data Vital Signs (Past 12 Hours) Vital Signs Temp Pulse Pulse Resp BP Pulse Ox O2 Del Method 02/18/23 06:58 82 02/18/23 03:22 36.6 C 74 17 104/63 96 Room Air 02/17/23 23:58 85 02/17/23 22:41 36.4 C L 81 17 132/85 100 Room Air 02/17/23 20:47 Room Air Laboratory Results 02/18/23 06:10 02/18/23 06:10 PG Care Time/CCT Total # of Minutes Spent Total Time Spent with Patient: Total time spent is greater than 50% in coordination of care (as documented) at patient's floor/unit and/or counseling patient: Coding Level of Care Code 63880 SUB INP/OBS CARE 2/35MIN Diagnoses Postprocedural pneumothorax J95.811 Lung mass R91.8 Subcutaneous emphysema T79.7XXA
[2023-02-18] MEDS: busPIRone 7.5 MG TAB PO SCH (07:41)
[2023-02-18] MEDS: lisinopril 20 MG TAB PO SCH (07:41)
[2023-02-18] MEDS: FERROUS GLUCONATE 324 MG TAB PO SCH (07:42)
[2023-02-18] MEDS: DOCUSATE SODIUM/SENNA 50/8.6MG TAB PO SCH (07:42)
[2023-02-18] MEDS: CYANOCOBALAMIN (B-12) 500 MCG TABLET PO SCH (07:42)
[2023-02-18] MEDS: buPROPion XL 150 MG TABCR PO SCH (07:42)
[2023-02-18] MEDS: FOLIC ACID 1 MG TAB PO SCH (07:42)
[2023-02-18] MEDS: POLYETHYLENE (MIRALAX) 17 GM PACK PO SCH (08:41)
--- NOTE | 2023-02-18 09:26 | XRay Report ---
XR chest 1V portable CLINICAL HISTORY: f/u TECHNIQUE: Single frontal radiograph of the chest was obtained. Comparison: Comparison is made to chest radiograph 02/17/2023 FINDINGS: Pigtail catheter is again seen. The cardiomediastinal silhouette is normal. Right lower lung mass is again seen. No evidence of pneumothorax or pleural effusion. Subcutaneous emphysema is in the right c hest wall. IMPRESSION: No pneumothorax is seen. Chest tube is stable. Redemonstration of subcutaneous emphysema and right lo wer lung mass. ACT 112: Negative or not required by law. Electronically signed by: Eyal Garcia M.D. 02/18/2023 9:24 AM
--- NOTE | 2023-02-18 09:49 | Procedure Note ---
Procedure Note Date of Service February 18, 2023 Note Procedure: Pigtail chest tube removal Grain Combiner: Dr. Marzena Kincaid Indication: Resolved pneumothorax Consent: Verbal consent obtained from the patient Anesthesia: None Procedure: Consent was verified and timeout performed. Appropriate imaging studies were reviewed prior to the procedure. Patient was placed in a seated position. Dressing was removed. Single suture was cut. The pigtail catheter was unwound and gradually removed on exhalation of the patient. It was found to be intact. Site was dressed with Vaseline gauze followed by 4 x 4 and Medipore tape The patient tolerated the procedure without obvious complication Complications: None Blood loss: Less than none Coding CPT Codes Pulmonary/Thoracic - Pulmonary and Thoracic: 14935 Remove lung catheter ([id number]) [facility] [place] (Charges) Pulmonary/Thoracic Procedure 1: Pulmonary and Thoracic: 54800 Remove lung catheter
[2023-02-18] MEDS ORDERED: SOD PHOSPHATE/SOD BIPHOSPHATE ENEMA 132 ML BTL PR STA (11:10)
[2023-02-18] MEDS ORDERED: IBUPROFEN 600 MG TAB PO PRN (11:10)
--- NOTE | 2023-02-18 12:04 | Hospitalist Progress Note ---
Date of Service February 18, 2023 Assessment & Plan (1) Lung mass: (2) Pneumothorax: (3) Hypertension: (4) Anemia: (5) Anxiety: Plan: RLL Lung Mass s/p IR guided Biopsy Right-sided pneumothorax Patient was recently admitted from 02/09-02/10; she was found to have lung mass. Patient came to ED on 02/[address]-guided biopsy. Found to have pneumothorax postbiopsy; pigtail chest tube was placed. Patient was admitted for further management. Chest x-ray done in the morning does not show any definitive right pneumothorax. Chest tube removed On February 17, 2023 discussed with on-call cardiothoracic surgeon at [facility] as recommended by pulmonology here. The images were transferred over for review. He recommended to continue waterseal for the next 24 to 36 hours and remove the chest tube. Other alternative he recommended going home with heimlich valve and following up with pulmonology as outpatient to remove it. He did not recommend transfer to tertiary care center at the moment. On bowel regimen for constipation. Enema ordered for today. Anemia -Hemoglobin of 10.3 Ferritin major recently is 226. 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 She has appointment with PCP in next few days. HTN - Chronic, stable - Cont lisionpril Anxiety - May Continue on wellbutrin, buspar DVT ppx: teds FEN/GI: HH diet Lines: Obtain 2 PIV CODE: FULL Dispo: From home, admitted due to pneumothorax; chest tube removed today. Possible discharge in the a.m. if she continues to remain medically stable. Please note the above document was generated using voice recognition software. It may contain grammatical, syntax or spelling errors. Any formal questions or concerns about the content, text or information contained within the body of this dictation should be directly addressed to the provider for clarification Admission and Anticipated Discharge Date Admission Date: February 14, 2023 Subjective Patient seen at bedside. Chest tube is removed today. She has pain at the site of the chest tube insertion; no shortness of breath or cough. She continues to have constipation. Review of Systems Review of Systems: All systems reviewed & are unremarkable except as noted in Subjective Physical Exam Physical Exam: Constitutional: WD/WN, vitals as above, NAD, sitting up in bed, pleasant, conversing easily Respiratory: Bilateral vesicular breath sound. Cardiovascular: RRR, no murmur, no edema Vessels: no JVD or carotid bruit Abdomen: normal bowel sounds, soft, nontender, no hepatosplenomegaly Musculoskeletal: no cyanosis or clubbing, extremities motor strength 5/5 Skin: no rashes, warm and dry normal turgor Neurologic: PERRL, EOMI, accommodation nl, no face palsy, no dysarthria CN's II- XI intact bilaterally and moves all extremities Psychiatric: A+Ox3, euthymic affect Results & Data Results & Data Vital Signs (Past 12 Hours) Vital Signs Temp Pulse Pulse Resp BP BP Pulse Ox 02/18/23 08:02 36.5 C 70 17 105/68 96 02/18/23 06:58 82 02/18/23 03:22 36.6 C 74 17 104/63 96 O2 Del Method 02/18/23 08:02 Room Air 02/18/23 06:58 02/18/23 03:22 Room Air
[2023-02-18] MEDS ORDERED: IBUPROFEN 600MG HOME PACK PO ONE (15:47)
--- NOTE | 2023-02-18 16:04 | Discharge Summary ---
Date of Service February 18, 2023 Admission HPI Per Admitting Provider This is a 52 yo F with PMHx of anxiety, mood disorder, hypertension, morbid obesity s/p significant weight loss since starting Wegovy for morbid obestity many months ago, intermittent constipation. She was recently admitted for completely unrelated reasons including hx of UTI and abdominal discomfort caused by constipation. A CT of the abdomen pelviso was concerning for a lung mass in the RLL noted, which was not present there on previous scan about 2 years ago. [place] Manager was consulted and recommended lung mass biopsy, for which she presented today for the procedure to our medical facility. The patient underwent the procedure and subsequently suffered a pneumothorax. IR has called medicine to admit the patient for further management along with pulmonology. Pt is sitting with her at bedside, she is intermittently tearful and tries to play off significant amount of pain. She is previously a very healthy person, without significant medical history. Only surgical procedure she has had is a hysterectomy in 2018, ovaries remain. She denies any other complaints. Patient has had recent bowel movement, 2 days ago status post her most recent hospital stay here for issues associated with constipation. She denies any nausea. Pt also notes that she has noticed R sided chest pain with wearing things like underwire bra. Pt is s/p chest tube insertion by pulm, VSS are stable. Will obtain CXR s/p chest tube insertion, serial CXR, pain management, incentive spirometry. Principal Diagnosis Right-sided pneumothorax Discharge Exam Constitutional: WD/WN, vitals as above, NAD, sitting up in bed, pleasant, conversing easily Respiratory: Bilateral vesicular breath sound. Cardiovascular: RRR, no murmur, no edema Vessels: no JVD or carotid bruit Abdomen: normal bowel sounds, soft, nontender, no hepatosplenomegaly Musculoskeletal: no cyanosis or clubbing, extremities motor strength 5/5 Skin: no rashes, warm and dry normal turgor Neurologic: PERRL, EOMI, accommodation nl, no face palsy, no dysarthria CN's II- XI intact bilaterally and moves all extremities Psychiatric: A+Ox3, euthymic affect Discharge Data Allergies Allergy/AdvReac Type Severity Reaction Status Date / Time melatonin AdvReac Intermediate Fatigued Verified 02/09/23 03:22 Consultations 02/14/23 10:57 Consult Pulmonology Routine Procedures Performed Operation Date: 02/14/23 08:[address] Scan Lung Biopsy - Reg Davies MD Ordered Studies 02/14/23 IR thoracentesis w/tube CT Routine 02/14/23 08:00 IR biopsy lung RT CT Routine Hospital Course (1) Lung mass: (2) Pneumothorax: (3) Hypertension: (4) Anemia: (5) Anxiety: RLL Lung Mass s/p IR guided Biopsy Right-sided pneumothorax Patient was recently admitted from 02/09-02/10; she was found to have lung mass. Patient came to ED on 02/[address]-guided biopsy. Found to have pneumothorax postbiopsy; pigtail chest tube was placed. Patient was admitted for further management. Chest tube removed on February 18, 2023 Patient was discharged home with instruction to follow-up with her primary care doctor. 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 Anemia -Hemoglobin of 10.3 Ferritin major recently is 226. 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 She has appointment with PCP in next few days. Continue vitamin B12 supplement Please note the above document was generated using voice recognition software. It may contain grammatical, syntax or spelling errors. Any formal questions or concerns about the content, text or information contained within the body of this dictation should be directly addressed to the provider for clarification Total Time Total Time Spent Total Time Spent (In Minutes): 35 Total Time Includes: Examination of the Patient, Discharge Planning, Medication Reconciliation, Communication With Other Providers and Other Discharge Plan Discharge Items Patient Disposition: Home - Self-Care Reason For Visit: PNEUMOTHORAX Discharge Diagnosis: RLL Lung Mass s/p IR guided Biopsy Right-sided pneumothorax Activity: Resume your previous activity Non-emergency contact: Primary Care Provider Call non-emergency contact if: you have any medication questions Follow-up/Referrals: Jonny Pandya MD [Primary Care Provider] - (Date & Time 02/21/2023 10:40 AM Provider Mary Reynoso CRNP Department Family Practice [facility] ) Diet: Regular Addtl Attending Provider Instructions: You were admitted to the hospital due to right-sided pneumothorax. Please follow the instructions below; 1) You should not engage in any strenuous activity for at least 2-3 weeks. 2) No flying in an airplane or scuba diving for at least 4-6 weeks If there is any worsening in chest pain or shortness of breath, please seek medical attention as soon as possible. Please follow-up with your PCP as scheduled. Please follow-up with pulmonology Pending Studies at Discharge: No Stand-Alone Forms: My [facility], Work/School Release, Smoking Cessation Medications and DC Order Prescriptions: New ibuprofen 600 mg tablet 600 mg PO Q8H PRN (Reason: pain) Qty: 15 0RF Continued docusate sodium [Stool Softener] 100 mg Capsule 100 mg PO DAILY ibuprofen 600 mg tablet 600 mg PO TID PRN (Reason: Pain) cyclobenzaprine 5 mg tablet 5 mg PO TID PRN (Reason: MUSCLE SPASMS) Fiber Gummies 2 gram Tablet,Chewable 2 g PO DAILY Wegovy 2.4 mg/0.75 mL pen injector 2.4 mg SUBCUT WK Rx Instructions: MONDAYS ferrous gluconate 324 mg (38 mg iron) Tablet 324 mg PO QAM Qty: 30 0RF buspirone 7.5 mg Tablet 7.5 mg PO BID Qty: 60 0RF hydroxyzine HCl 25 mg Tablet 25 mg PO Q8H PRN (Reason: anxiety) Qty: 60 0RF cyanocobalamin (vitamin B-12) 500 mcg Tablet 500 mcg PO QAM Qty: 30 0RF folic acid 1 mg Tablet 1 mg PO QAM Qty: 30 0RF lisinopril 40 mg tablet 20 mg PO DAILY Qty: 15 0RF bupropion HCl 150 mg tablet extended release 24 hr 150 mg PO DAILY Discharge Orders: Discharge Order (Routine); Ordered 02/18/23 Ordered By: Bernardo Martínez/Other Patient Handouts: Preventing Deep Vein Thrombosis Admission Data Admit Date/Time: 02/14/23 10:55 Attending Provider: Bernardo Leal Admit Provider: Susana Sepulveda Primary Care Provider: Jonny Pandya Other Providers: Reg Davies; Bernardo Leal; Susana Sepulveda Other Interventions: Discharge Summary Assessment (RN) Last Done: 02/18/23 16:00
== END 2023-02-18 16:42 | disposition home or self-care (01) | DRG 201 ==
LOC: 2S 10:55 → SUATTDRO 10:55

== ENCOUNTER 2023-04-17 18:25 | Observation (INO) ==
--- NOTE | 2023-04-17 19:07 | ED Triage Note ---
Date of Service April 17, 2023 Provider in Triage Author: Princess Horne History of Present Illness This patient was briefly evaluated while in triage. An abbreviated physical exam was performed. This patient is a 53-year-old Female who presents to the ED for evaluation of fever, right sided chest/back pain. Had bi-lobectomy 2 weeks ago. States has a seroma on the back. Saw surgeon in [place] and told they don't recommend drainage unless infected. States she noticed increase in size of fluid today. States she feels there is some rattling in chest with sharp pain radiating around the right side of the chest similar in nature to when she was in the hospital. States temperature was 99F. Was around friend recently who tested positive for Covid-19. Physical Exam VITALS: Vitals are noted on the nurse's note and reviewed by myself. GENERAL: This is a 53 year old female, in no acute distress, nondiaphoretic, well-developed well-nourished. SKIN: No obvious rashes, edema, erythema HEAD: Normocephalic atraumatic. EYES: Conjunctivae without injection, sclerae without icterus. NECK: No JVD. LUNGS: No retractions or accessory muscle use. MUSCULOSKELETAL: Normal gait. NEURO: Patient was alert and oriented to person place and time. No focal neurological deficits. Initial orders for labs and / or imaging were placed and patient was placed in the waiting area until a bed is available. Please see further documentation for the full ED course.
[2023-04-17 20:29] LABS: Appearance Urine Clear (Clear); Bilirubin Urine Negative (Negative); Blood Urine Negative (Negative); Color Urine Yellow; Glucose Urine UA Negative (Negative); Ketones Urine Negative (Negative); Leukocyte Esterase Urine Negative (Negative); Nitrite Urine Negative (Negative); Protein Urine Negative (Negative); Specific Gravity Urine 1.014 (1.000-1.030); Urobilinogen Urine Negative (Negative); pH Urine 5.5 (4.5-7.5)
[2023-04-17] MEDS: SODIUM CHLORIDE 0.9% 1,000 ML IV STA (20:34)
[2023-04-17 20:38] LABS: Basophils # (auto) 0.05 K/uL (0.00-0.20); Basophils % (auto) 0.5 %; Eosinophils # (auto) 0.49 K/uL (0.00-0.50); Eosinophils % (auto) 4.5 %; Hematocrit (blood only) 36.6 % (37.0-47.0); Hemoglobin 11.4 g/dl (12.0-16.0); Immature Granulocytes # (auto) 0.08 K/uL (0.01-0.20); Immature Granulocytes % (auto) 0.7 %; Lymphocytes # (auto) 2.33 K/uL (1.20-3.40); Lymphocytes % (auto) 21.3 %; Mean Corpuscular Hemoglobin 26.6 pg (25.0-34.0); Mean Corpuscular Hgb Conc 31.1 g/dL (32.0-36.0); Mean Corpuscular Volume 85.5 fL (80.0-100.0); Mean Platelet Volume 9.1 fL (9.4-12.4); Monocytes # (auto) 0.72 K/uL (0.11-0.59); Monocytes % (auto) 6.6 %; Neutrophils # (auto) 7.25 K/uL (1.40-6.50); Neutrophils % (auto) 66.4 %; Platelet Count 416 K/uL (130-400); RDW Coefficient of Variation 16.6 % (11.5-14.5); RDW Standard Deviation 50.4 fL (36.4-46.3); Red Blood Count 4.28 M/uL (4.20-5.40); White Blood Count 10.92 K/ul (4.8-10.8)
[2023-04-17 20:51] LABS: Alanine Aminotransferase 13 U/L (7-52); Albumin Globulin Ratio 1.1 (0.9-2); Albumin Level 3.9 gm/dl (3.4-5.0); Alkaline Phosphatase 110 U/L (34-104); Anion Gap 7 (3-11); Aspartate Aminotransferase 15 U/L (13-39); BUN Creatinine Ratio 20.6 (10-20); Bilirubin,Total 0.2 mg/dl (0.2-1.0); Blood Urea Nitrogen 13 mg/dl (6-23); Calcium 9.2 mg/dl (8.6-10.3); Carbon Dioxide 28 mmol/L (21-32); Chloride 104 mmol/L (98-107); Creatinine Clr Calc Pharmacy 110.8 ml/min; Est GFR (African American) 117.9 ml/min; Est GFR (Non-African American) 101.7 ml/min; Globulin 3.5 gm/dl (2.5-4.0); Glucose 95 mg/dl (70-99(Fasting)); Lipase 15 U/L (11-82); Potassium 3.8 mmol/L (3.5-5.1); Sodium 139 mmol/L (136-145); Total Protein 7.4 gm/dl (6.0-8.3)
[2023-04-17 20:58] LABS: Troponin I High Sensitivity < 2.3 pg/ml (0-14)
[2023-04-17 21:22] LABS: Adenovirus PCR Not Detected (NotDetected); Bordetella parapertussis PCR Not Detected (NotDetected); Bordetella pertussis PCR Not Detected (NotDetected); Chlamydia pneumoniae PCR Not Detected (NotDetected); Coronavirus 229E PCR Not Detected (NotDetected); Coronavirus CoV-2 (COVID19)PCR Not Detected (NotDetected); Coronavirus HKU1 PCR Not Detected (NotDetected); Coronavirus NL63 PCR Not Detected (NotDetected); Coronavirus OC43PCR Not Detected (NotDetected); Human Metapneumovirus PCR Not Detected (NotDetected); Influenza A PCR Not Detected (NotDetected); Influenza B PCR Not Detected (NotDetected); Mycoplasma pneumoniae PCR Not Detected (NotDetected); Parainfluenza Virus 1 PCR Not Detected (NotDetected); Parainfluenza Virus 2 PCR Not Detected (NotDetected); Parainfluenza Virus 3 PCR Not Detected (NotDetected); Parainfluenza Virus 4 PCR Not Detected (NotDetected); Respiratory Syncytial VirusPCR Not Detected (NotDetected); Rhinovirus/Enterovirus PCR Not Detected (NotDetected)
--- NOTE | 2023-04-17 21:22 | Emergency Department Note ---
Impression & Plan Right-sided chest pain, Flu-like symptoms, Pneumonia, History of lung surgery ED Provider Note NAME: NANCY DONG AGE: 53 SEX: F : 1970 ARRIVES VIA: Walk-In INFORMANT: [Patient] ED PROVIDER(S): [Jn Mukherjee MD] CHIEF COMPLAINT: Fever, chest pain HISTORY OF PRESENT ILLNESS: The patient is a 53-year-old female who had surgery on April 03. She had the right middle and lower lung removed. 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 The patient has had some pain in the surgical area since the procedure. She did develop a seroma. The patient was placed on gabapentin a few days ago for the pain along the right chest wall. The patient states that today, she had a cough and felt achy. She felt like she might have the flu. She had increasing pain on the right side and developed some pleuritic pain. She thinks she hears a rattling in her chest at times when she breathes. The patient spoke with the on-call [facility] triage nurse, she was referred to the ER. The patient has not had urinary complaints. She has not had rash. No known sick contacts. PMHx/PSHx/Social Hx: See Below PHYSICAL EXAM: GENERAL: Patient is in no acute distress. HEENT: No acute trauma, normocephalic atraumatic, mucous membranes moist, no nasal congestion. NECK: No stridor, no adenopathy, no meningismus, trachea is midline. LUNGS: Diminished breath sounds on the right with some occasional crackles, the left lung is clear. Chest: The patient does have what appears to be a seroma along the surgical site on the right lateral posterior flank. There is no warmth or erythema. HEART: Without murmurs gallops or rubs, regular rate and rhythm. ABDOMEN: Soft, nontender, no peritonitis. EXTREMITIES: No cyanosis, full range of motion of all the joints without pain or difficulty. NEUROLOGIC: Oriented x 3, no acute motor or sensory deficits, no focal weakness. SKIN: No jaundice, no diaphoresis. DIFFERENTIAL DIAGNOSIS: PE, pneumonia, bronchitis, viral illness, cellulitis, abscess, among others. EMERGENCY DEPARTMENT PROCEDURES: MEDICAL DECISION MAKING: There is a mild leukocytosis, this could be consistent with infection. The patient is slightly anemic with a hemoglobin of 11.4. Platelet count is slightly elevated at 416. No renal failure or significant electrolyte abnormality. No concerning liver enzyme elevation. ECG shows a normal sinus rhythm, no ischemia or dysrhythmia. Cardiac enzyme testing x 1 is not consistent with acute cardiac injury. No evidence for pancreatitis. Urinalysis does not show infection. Respiratory bio fire was negative. Chest x-ray shows a right lung effusion. No pneumothorax. Chest CT does show a pneumonia on the right. Abdominal and pelvis CT did not show any acute surgical process. On exam, the patient was not toxic, hypoxic or febrile. The patient was given a 500 cc IV saline bolus. She was given a liter of IV saline as a bolus. She received IV morphine for pain, IV Zofran for nausea. She was given IV Dilaudid for pain. She received IV ceftriaxone as antibiotic therapy. The patient presents with right-sided pleuritic chest pain. She recently underwent a right lung resection. She appears to have pneumonia by workup. The pneumonia does explain her discomfort. I did speak with the patient's thoracic surgeon at [facility] in [place]. The patient does not require transfer to their facility. Hospitalization and IV antibiotic therapy was suggested. I spoke with the on-call hospitalist, I spoke with the patient. Case management has been involved. Admission is warranted. Prior/Outside records/notes reviewed: None. ECG per my interpretation: Indication was chest pain. The ECG shows a normal sinus rhythm with a rate of 77. There is no ST elevation, no PVCs. The QTc was 466. Continuous Cardiac Monitoring per my interpretation: An order was placed for continuous cardiac monitoring. The monitor shows a rate of 92 with normal sinus rhythm. Imaging/x-ray results per my interpretation: Chest x-ray does show a right lung effusion. I see no pneumothorax or obvious pneumonia. Chronic Medical/Social conditions affecting care: Care/Management discussed with: [facility] thoracic surgery-. Case management, the on-call hospitalist. Level of care consideration(s): After review of the information above and other included data: --I believe the patient requires escalation of care to admission DISPOSITION: Admission Past Med/Surg History Medical History Subcutaneous emphysema Postprocedural pneumothorax Depression Anxiety Hypertension Surgical History (Updated 04/18/23 @ 01:28 by nJ Mukherjee MD) S/P laparoscopic hysterectomy Family History Other Diabetes Heart disease Hypertension Social History Smoking Status: Never smoker Second Hand Exposure: No; Do You Dip or Chew Tobacco: No; Hx Alcohol Use: Yes Alcohol type: wine and hard liquor Alcohol Intake Frequency: 2-4 x/Month Hx Substance Use: Yes Prescribed Medications: Marijuana Last Used Substance: Days (ago) Preferred Language: Filipino Communication Ability: Effective Three Dimensional Map Modeler Required: No Beliefs That Will Affect Care: None Current Living Situation: Spouse and Family Feels Safe at Home: Yes Assistive Devices: None Allergies Allergies Allergy/AdvReac Type Severity Reaction Status Date / Time melatonin AdvReac Intermediate Fatigued Verified 04/17/23 22:47 Home Meds Home Medications Medication Instructions Recorded Confirmed bupropion HCl 150 mg 24 hr tablet, 150 mg PO DAILY 02/19/21 04/17/23 extended release docusate sodium 100 mg capsule 100 mg PO DAILY 02/08/23 04/17/23 (Stool Softener) acetaminophen 500 mg tablet 1,000 mg PO Q6H PRN Pain 04/17/23 04/17/23 (Tylenol Extra Strength) gabapentin 300 mg capsule 300 mg PO TID 04/17/23 04/17/23 ibuprofen 600 mg tablet 600 mg PO Q6H PRN pain 04/17/23 04/17/23 lorazepam 0.5 mg tablet 0.5 mg PO Q8H PRN ANXIETY/INSOMNIA 04/17/23 04/17/23 multivitamin 1 tab PO DAILY 04/17/23 04/17/23 oxycodone 5 mg tablet 5 mg PO Q4H PRN Pain 04/17/23 04/17/23 polyethylene glycol 3350 17 17 g PO DAILY 04/17/23 04/17/23 gram/dose oral powder (Miralax) valacyclovir 1 gram tablet 2,000 mg PO Q12H PRN Cold Sores 04/17/23 04/17/23 (Valtrex) Previous Rx's Medication Instructions Recorded buspirone 7.5 mg tablet 7.5 mg PO BID #60 tabs 02/10/23 cyanocobalamin (vitamin B-12) 500 500 mcg PO QAM #30 tabs 02/10/23 mcg tablet ferrous gluconate 324 mg (38 mg 324 mg PO QAM #30 tabs 02/10/23 iron) tablet folic acid 1 mg tablet 1 mg PO QAM #30 tabs 02/10/23 hydroxyzine HCl 25 mg tablet 25 mg PO Q8H PRN anxiety #60 tabs 02/10/23 lisinopril 40 mg tablet 20 mg (1/2 x 40 mg) PO DAILY #15 02/10/23 tabs Results & Data (ED) Vital Signs Vital Signs - 24 hr 04/17/23 19:05 04/17/23 20:49 04/17/23 21:00 Temperature 36.5 C Temperature Source Temporal Artery Scan Pulse Rate 89 Pulse Rate [Apical] 92 H Respiratory Rate 18 18 Respiratory Effort / Characteristics Non-Labored Spontaneous Non-Labored Spontaneous Respiratory Depth Normal Normal Respiratory Pattern Regular Blood Pressure 137/95 Blood Pressure [Right Arm] 159/103 H Blood Pressure Mean 109 Blood Pressure Mean [Right Arm] 121 Blood Pressure Position [Right Arm] Semi-fowlers Pulse Oximetry 100 97 Oxygen Delivery Method Room Air Room Air Sepsis Recent Fever Within 48 Hours Yes Sepsis New/Unexplained Change in Mental Status No Sepsis Action Taken by Nursing No Action Required 04/18/23 00:39 Temperature Temperature Source Pulse Rate 94 H Pulse Rate [Apical] Respiratory Rate Respiratory Effort / Characteristics Respiratory Depth Respiratory Pattern Blood Pressure Blood Pressure [Right Arm] Blood Pressure Mean Blood Pressure Mean [Right Arm] Blood Pressure Position [Right Arm] Pulse Oximetry Oxygen Delivery Method Sepsis Recent Fever Within 48 Hours Sepsis New/Unexplained Change in Mental Status Sepsis Action Taken by Retirement Medications Current Medication List: was personally reviewed by me Laboratory Data Attestation: I reviewed the patient's lab results. 04/17/23 20:09 04/17/23 20:09 Lab Results 04/17/23 04/17/23 Range/Units 20:09 20:10 WBC 10.92 H (4.8-10.8) K/ul RBC 4.28 (4.20-5.40) M/uL Hgb 11.4 L (12.0-16.0) g/dl Hct 36.6 L (37.0-47.0) % MCV 85.5 (80.0-100.0) fL MCH 26.6 (25.0-34.0) pg MCHC 31.1 L (32.0-36.0) g/dL RDW Std Deviation 50.4 H (36.4-46.3) fL RDW Coeff of Diamond 16.6 H (11.5-14.5) % Plt Count 416 H (130-400) K/uL MPV 9.1 L (9.4-12.4) fL Immature Gran % (Auto) 0.7 % Neut % (Auto) 66.4 % Lymph % (Auto) 21.3 % [place] % (Auto) 6.6 % Eos % (Auto) 4.5 % Baso % (Auto) 0.5 % Neut # (Auto) 7.25 H (1.40-6.50) K/uL Lymph # (Auto) 2.33 (1.20-3.40) K/uL [place] # (Auto) 0.72 H (0.11-0.59) K/uL Eos # (Auto) 0.49 (0.00-0.50) K/uL Baso # (Auto) 0.05 (0.00-0.20) K/uL Immature Gran # (Auto) 0.08 (0.01-0.20) K/uL Sodium 139 (136-145) mmol/L Potassium 3.8 (3.5-5.1) mmol/L Chloride 104 (98-107) mmol/L Carbon Dioxide 28 (21-32) mmol/L Anion Gap 7 (3-11) BUN 13 (6-23) mg/dl Creatinine 0.63 (0.6-1.2) mg/dl Est Cr Clr Drug Dosing 110.8 ml/min Est GFR ( Amer) 117.9 ml/min Est GFR (Non-Af Amer) 101.7 ml/min BUN/Creatinine Ratio 20.6 H (10-20) Glucose 95 (70-99(Fasting)) mg/dl Lactate 0.9 (0.4-2.0) mmol/L Calcium 9.2 (8.6-10.3) mg/dl Magnesium 2.1 (1.7-2.4) mg/dl Total Bilirubin 0.2 (0.2-1.0) mg/dl AST 15 (13-39) U/L ALT 13 (7-52) U/L Alkaline Phosphatase 110 H (34-104) U/L Troponin I High Sens < 2.3 (0-14) pg/ml Total Protein 7.4 (6.0-8.3) gm/dl Albumin 3.9 (3.4-5.0) gm/dl Globulin 3.5 (2.5-4.0) gm/dl Albumin/Globulin Ratio 1.1 (0.9-2) Lipase 15 (11-82) U/L Procalcitonin 0.03 (0-0.5) ng/ml Urine Color Yellow Urine Appearance Clear (Clear) Urine pH 5.5 (4.5-7.5) Ur Specific [place] 1.014 (1.000-1.030) Urine Protein Negative (Negative) Urine Glucose (UA) Negative (Negative) Urine Ketones Negative (Negative) Urine Blood Negative (Negative) Urine Nitrite Negative (Negative) Urine Bilirubin Negative (Negative) Urine Urobilinogen Negative (Negative) Ur Leukocyte Esterase Negative (Negative) Adenovirus (PCR) Not Detected (NotDetected) B. pertussis DNA (PCR) Not Detected (NotDetected) B.parapertussis DNA PCR Not Detected (NotDetected) C. pneumoniae DNA (PCR) Not Detected (NotDetected) Coronavirus OC43 (PCR) Not Detected (NotDetected) Coronavirus HKU1 (PCR) Not Detected (NotDetected) Coronavirus 229E (PCR) Not Detected (NotDetected) SARS-CoV-2 (PCR) Not Detected (NotDetected) Coronavirus NL63 (PCR) Not Detected (NotDetected) Human Metapneumovir PCR Not Detected (NotDetected) Influenza Type A (PCR) Not Detected (NotDetected) Influenza Type B (PCR) Not Detected (NotDetected) M. pneumoniae (PCR) Not Detected (NotDetected) Parainfluenza 1 (PCR) Not Detected (NotDetected) Parainfluenza 2 (PCR) Not Detected (NotDetected) Parainfluenza 3 (PCR) Not Detected (NotDetected) Parainfluenza 4 (PCR) Not Detected (NotDetected) RSV (PCR) Not Detected (NotDetected) Entero/Rhino (PCR) Not Detected (NotDetected) Administered Medications Potassium Chloride/Sodium Chloride (Normal Saline W/20 Meq Kcl) 20 meq in 1,000 mls @ 50 mls/hr IV .Q20H ONE; Protocol Stop: 04/18/23 19:34 Last Admin: 04/17/23 23:51 Dose: 50 mls/hr Documented By: HAYLEE Lidocaine (Lidocaine 5% 1 Patch) 1 patch TD HS ANA Stop: 05/18/23 20:59 Last Admin: 04/18/23 00:29 Dose: 1 patch Documented By: REE Oxycodone HCl (Oxycodone Hcl Ir 5 Mg Tab (Immediate Release)) 5 - 10 mg PO QID PRN PRN Reason: Pain Stop: 05/01/23 23:33 Last Admin: 04/18/23 00:32 Dose: 10 mg Documented By: REE Discontinued Medications Hydromorphone HCl (Hydromorphone Inj 0.5 Mg/0.5 Ml Syr) 0.5 mg IV NOW STA Stop: 04/17/23 22:54 Last Admin: 04/17/23 22:56 Dose: 0.5 mg Documented By: LOPEZ Sodium Chloride (Nss) 1,000 mls @ 999 mls/hr IV .Q1H1M STA Stop: 04/17/23 20:07 Last Infusion: 04/17/23 22:08 Dose: Infused Documented By: Admin: 04/17/23 20:34 Dose: 999 mls/hr Documented By: HENNA Sodium Chloride (Nss) 500 mls @ 999 mls/hr IV .Q31M ONE Stop: 04/17/23 21:38 Last Infusion: 04/17/23 22:48 Dose: Infused Documented By: Admin: 04/17/23 21:42 Dose: 999 mls/hr Documented By: LOPEZ Ceftriaxone Sodium (Rocephin) 2,000 mg in 50 mls @ 100 mls/hr IV NOW STA Stop: 04/17/23 22:56 Last Infusion: 04/18/23 00:05 Dose: Infused Documented By: Admin: 04/17/23 22:38 Dose: 100 mls/hr Documented By: LOPEZ Piperacillin Sod/Tazobactam Sod (Zosyn) 4.5 gm in 100 mls @ 200 mls/hr IV NOW ONE Stop: 04/17/23 23:42 Last Infusion: 04/18/23 00:33 Dose: Infused Documented By: Admin: 04/17/23 23:52 Dose: 200 mls/hr Documented By: HAYLEE Ioversol (Optiray 320 125ml) 115 ml IV ONCE ONE Stop: 04/17/23 21:27 Last Admin: 04/17/23 21:29 Dose: 115 ml Documented By: OLGA Lidocaine (Lidocaine 5% 1 Patch) 1 patch TD NOW STA Stop: 04/17/23 23:15 Last Admin: 04/17/23 23:54 Dose: 1 patch Documented By: HAYLEE Morphine Sulfate (Morphine Sulfate 4 Mg/Ml 1 Ml Carp\Vial) 4 mg IV NOW STA Stop: 04/17/23 21:09 Last Admin: 04/17/23 21:36 Dose: 4 mg Documented By: LOPEZ Ondansetron HCl (Ondansetron Inj 2 Mg/Ml 2 Ml Vial) 4 mg IV NOW STA Stop: 04/17/23 21:09 Last Admin: 04/17/23 21:36 Dose: 4 mg Documented By: LOPEZ Imaging Data Radiologist's Impression: Abdomen/Pelvis CT 04/17/23 21:07 Exam(s): CT ABDOMEN + PELVIS With Contrast IV Amt: 115 cc opti 320 EXAM: CT Abdomen and Pelvis With Intravenous Contrast CLINICAL HISTORY: Reason for exam: ruq pain. TECHNIQUE: Axial computed tomography images of the abdomen and pelvis with intravenous contrast. CTDI is 65.12 mGy and DLP is 2180.78 mGy-cm. Automated exposure control was utilized for the study. A dose lowering technique was utilized adhering to the principles of ALARA. CONTRAST: Patient received 115 cc opti 320 of IV contrast COMPARISON: No relevant prior studies available. FINDINGS: Lung bases: See below. Pleural space: Moderate RIGHT pleural effusion. Mild patchy consolidation of the RIGHT lung base, correlate for mild pneumonia. Partial RIGHT lobectomy. ABDOMEN: Liver: Unremarkable. No mass. Gallbladder and bile ducts: Unremarkable. No calcified stones. No ductal dilation. Pancreas: Unremarkable. No mass. No ductal dilation. Spleen: Unremarkable. No splenomegaly. Adrenals: Unremarkable. No mass. Kidneys and ureters: Unremarkable. No solid mass. No hydronephrosis. Stomach and bowel: Unremarkable. No obstruction. No mucosal thickening. PELVIS: Appendix: No findings to suggest acute appendicitis. Bladder: Unremarkable. No mass. Reproductive: Unremarkable as visualized. ABDOMEN and PELVIS: Intraperitoneal space: Unremarkable. No free air. No significant fluid collection. Bones/joints: No acute fracture. No dislocation. Soft tissues: Unremarkable. Vasculature: Unremarkable. No abdominal aortic aneurysm. Lymph nodes: Unremarkable. No enlarged lymph nodes. IMPRESSION: Moderate RIGHT pleural effusion. Mild patchy consolidation of the RIGHT lung base, correlate for mild pneumonia. Partial RIGHT lobectomy. Electronically signed by: Rashid Velasco MD 04/17/23 22:05 PM Chest CTA 04/17/23 21:07 Exam(s): CTA CHEST IV Amt: 115 cc opti 320 EXAM: CT Angiography Chest With Intravenous Contrast CLINICAL HISTORY: Reason for exam: PE. TECHNIQUE: Axial computed tomographic angiography images of the chest with intravenous contrast. CTDI is 6512 mGy and DLP is 2180.78 mGy-cm. Automated exposure control was utilized for the study. A dose lowering technique was utilized adhering to the principles of ALARA. MIP reconstructed images were created and reviewed. COMPARISON: No relevant prior studies available. FINDINGS: Pulmonary arteries: Unremarkable. No acute pulmonary embolism. Aorta: No acute findings. No thoracic aortic aneurysm. Lungs: Partial lobectomy. Patchy consolidation in the RIGHT upper and lower lobes, consistent with multilobar pneumonia. Moderate RIGHT pleural effusion. Pleural space: See above. Heart: Unremarkable. No cardiomegaly. No significant pericardial effusion. No evidence of RV dysfunction. Bones/joints: No acute fracture. No dislocation. Soft tissues: Unremarkable. Lymph nodes: Unremarkable. No enlarged lymph nodes. IMPRESSION: 1. No acute pulmonary embolism. 2. Partial lobectomy. Patchy consolidation in the RIGHT upper and lower lobes, consistent with multilobar pneumonia. Moderate RIGHT pleural effusion. Electronically signed by: Rashid Velasco MD 04/17/23 22:02 PM Discharge Plan Visit Data Chief Complaint: Fever Stated Complaint: HAD PROCEDURE LAST WEEK LAST WEEK, FEVER, SOB, HIEN ED Provider: Jn Mukherjee Discharge Problem: Right-sided chest pain, Flu-like symptoms, Pneumonia, History of lung surgery Patient Disposition: Admitted As Inpatient Condition: Fair Forms Stand Alone Forms: [facility] [employer] Prescriptions Prescriptions: No Action docusate sodium [Stool Softener] 100 mg Capsule 100 mg PO DAILY ferrous gluconate 324 mg (38 mg iron) Tablet 324 mg PO QAM Qty: 30 0RF buspirone 7.5 mg Tablet 7.5 mg PO BID Qty: 60 0RF hydroxyzine HCl 25 mg Tablet 25 mg PO Q8H PRN (Reason: anxiety) Qty: 60 0RF cyanocobalamin (vitamin B-12) 500 mcg Tablet 500 mcg PO QAM Qty: 30 0RF folic acid 1 mg Tablet 1 mg PO QAM Qty: 30 0RF lisinopril 40 mg tablet 20 mg PO DAILY Qty: 15 0RF bupropion HCl 150 mg tablet extended release 24 hr 150 mg PO DAILY multivitamin Tablet 1 tab PO DAILY valacyclovir [Valtrex] 1 gram Tablet 2,000 mg PO Q12H PRN (Reason: Cold Sores) acetaminophen [Tylenol Extra Strength] 500 mg Tablet 1,000 mg PO Q6H MDD 4 GRAMS APAP/24 HOURS PRN (Reason: Pain) lorazepam 0.5 mg tablet 0.5 mg PO Q8H PRN (Reason: ANXIETY/INSOMNIA) gabapentin 300 mg capsule 300 mg PO TID polyethylene glycol 3350 [Miralax] 17 gram/dose Powder 17 g PO DAILY oxycodone 5 mg tablet 5 mg PO Q4H PRN (Reason: Pain) ibuprofen 600 mg tablet 600 mg PO Q6H MDD 3,000 MG/24 HOURS PRN (Reason: pain) Referrals Referrals: Jonny Pandya MD [Primary Care Provider] - Discharge Problem: Pneumonia Qualifiers: Pneumonia type: due to unspecified organism Laterality: right Lung location: u nspecified part of lung Qualified Code(s): J18.9 - Pneumonia, unspecified organism
[2023-04-17] MEDS: OPTIRAY 320 125ml IV ONE (21:29)
[2023-04-17] MEDS: ONDANSETRON INJ 2 MG/ML 2 ML VIAL IV STA (21:36)
[2023-04-17] MEDS: MoRPHine SULFATE 4 MG/ML 1 ML CARP\\VIAL IV STA (21:36)
[2023-04-17] MEDS: SODIUM CHLORIDE 0.9% 500 ML IV ONE (21:42)
--- NOTE | 2023-04-17 22:03 | CT Scan Report ---
Exam(s): CTA CHEST IV Amt: 115 cc opti 320 EXAM: CT Angiography Chest With Intravenous Contrast CLINICAL HISTORY: Reason for exam: PE. TECHNIQUE: Axial computed tomographic angiography images of the chest with intravenous contrast. CTDI is 6512 mGy and DLP is 2180.78 mGy-cm. Automated exposure control was utilized for the study. A dose lowering technique was utilized adhering to the principles of ALARA. MIP reconstructed images were created and reviewed. COMPARISON: No relevant prior studies available. FINDINGS: Pulmonary arteries: Unremarkable. No acute pulmonary embolism. Aorta: No acute findings. No thoracic aortic aneurysm. Lungs: Partial lobectomy. Patchy consolidation in the RIGHT upper and lower lobes, consistent with multilobar pneumonia. Moderate RIGHT pleural effusion. Pleural space: See above. Heart: Unremarkable. No cardiomegaly. No significant pericardial effusion. No evidence of RV dysfunction. Bones/joints: No acute fracture. No dislocation. Soft tissues: Unremarkable. Lymph nodes: Unremarkable. No enlarged lymph nodes. IMPRESSION: 1. No acute pulmonary embolism. 2. Partial lobectomy. Patchy consolidation in the RIGHT upper and lower lobes, consistent with multilobar pneumonia. Moderate RIGHT pleural effusion. Electronically signed by: Rashid Velasco MD 04/17/23 22:02 PM
--- NOTE | 2023-04-17 22:06 | CT Scan Report ---
Exam(s): CT ABDOMEN + PELVIS With Contrast IV Amt: 115 cc opti 320 EXAM: CT Abdomen and Pelvis With Intravenous Contrast CLINICAL HISTORY: Reason for exam: ruq pain. TECHNIQUE: Axial computed tomography images of the abdomen and pelvis with intravenous contrast. CTDI is 65.12 mGy and DLP is 2180.78 mGy-cm. Automated exposure control was utilized for the study. A dose lowering technique was utilized adhering to the principles of ALARA. CONTRAST: Patient received 115 cc opti 320 of IV contrast COMPARISON: No relevant prior studies available. FINDINGS: Lung bases: See below. Pleural space: Moderate RIGHT pleural effusion. Mild patchy consolidation of the RIGHT lung base, correlate for mild pneumonia. Partial RIGHT lobectomy. ABDOMEN: Liver: Unremarkable. No mass. Gallbladder and bile ducts: Unremarkable. No calcified stones. No ductal dilation. Pancreas: Unremarkable. No mass. No ductal dilation. Spleen: Unremarkable. No splenomegaly. Adrenals: Unremarkable. No mass. Kidneys and ureters: Unremarkable. No solid mass. No hydronephrosis. Stomach and bowel: Unremarkable. No obstruction. No mucosal thickening. PELVIS: Appendix: No findings to suggest acute appendicitis. Bladder: Unremarkable. No mass. Reproductive: Unremarkable as visualized. ABDOMEN and PELVIS: Intraperitoneal space: Unremarkable. No free air. No significant fluid collection. Bones/joints: No acute fracture. No dislocation. Soft tissues: Unremarkable. Vasculature: Unremarkable. No abdominal aortic aneurysm. Lymph nodes: Unremarkable. No enlarged lymph nodes. IMPRESSION: Moderate RIGHT pleural effusion. Mild patchy consolidation of the RIGHT lung base, correlate for mild pneumonia. Partial RIGHT lobectomy. Electronically signed by: Rashid Velasco MD 04/17/23 22:05 PM
[2023-04-17] MEDS: cefTRIAXone SODIUM 2,000 MG/50 ML BAG IV STA (22:38)
[2023-04-17] MEDS: HYDROmorphone INJ 0.5 MG/0.5 ML SYR IV STA (22:56)
[2023-04-17 23:42] LABS: Magnesium 2.1 mg/dl (1.7-2.4)
[2023-04-17] MEDS ORDERED: PROMETHAZINE HCL 12.5 MG in SODIUM CHLORIDE 0.9% 50 ML IV PRN (23:48)
[2023-04-17] MEDS ORDERED: KETOROLAC TROMETHAMINE 15 MG/ML VIAL IV PRN (23:48)
[2023-04-17] MEDS: NSS + 20MEQ KCL 20 MEQ/1,000 ML BAG IV ONE (23:51)
[2023-04-17] MEDS: PIPERACILLIN/TAZOBACTAM 4.5 GM/100 ML BAG IV ONE (23:52)
[2023-04-17] MEDS: LIDOCAINE 5% 1 PATCH TD STA (23:54)
[2023-04-18] MEDS: LIDOCAINE 5% 1 PATCH TD SCH (00:29)
[2023-04-18] MEDS: oxyCODONE HCL IR 5 MG TAB (IMMEDIATE RELEASE) PO PRN ×2 (00:32→13:47)
--- NOTE | 2023-04-18 00:50 | History & Physical Report ---
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 OBS [facility] Outpatient follow-up with patient's CT surgeon (ER provider already in touch with Dr. Hernandes who does [place] [facility] [place] DVT prophylaxis. Lovenox subcu Full code Text document was generated using [employer] voice recognition software. It may contain grammatical or spelling errors. Kindly contact undersigned for clarification of any documentation item in question. History of Present Illness Chief Complaint: Shortness of breath, worsening right-sided chest pain Primary Care Provider: Jonny Pandya MD History obtained from patient and records. Medical history significant for right lung mass (myofibroblastoma) status post recent surgery, hypertension, chronic anemia (baseline hemoglobin of 10), anxiety/mood disorder Last [facility] confinement January, post lung mass biopsy pneumothorax status post chest tube insertion. [place] [facility] [place] 03 to 2023 under Thoracic Surgery service for right lung tumor status post elective robotic right VATS, lung bilobectomy lymphadenectomy. Pathology showing inflammatory myofibroblastic tumor with benign lymph nodes. No postop complications as per documentation. Patient told by surgeon she may or may not develop postop fluid collection from procedure as per patient. Tolerable pain on discharge. Gabapentin later on added to patient's regimen for pain. 2 days ago, patient developed worsening cough symptoms. Unable to expectorate. Worsening pleuritic right-sided chest pain with shortness of breath. Fever chills at home. Denies aspiration. IV ceftriaxone administered at the ER. 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 Allergies Allergy/AdvReac Type Severity Reaction Status Date / Time melatonin AdvReac Intermediate Fatigued Verified 04/17/23 22:47 Home Medications Medication Instructions Recorded Confirmed Type bupropion HCl 150 mg 24 hr tablet, 150 mg PO DAILY 02/19/21 04/17/23 History extended release docusate sodium 100 mg capsule 100 mg PO DAILY 02/08/23 04/17/23 History (Stool Softener) buspirone 7.5 mg tablet 7.5 mg PO BID #60 tabs 02/10/23 04/17/23 Rx cyanocobalamin (vitamin B-12) 500 500 mcg PO QAM #30 tabs 02/10/23 04/17/23 Rx mcg tablet ferrous gluconate 324 mg (38 mg 324 mg PO QAM #30 tabs 02/10/23 04/17/23 Rx iron) tablet folic acid 1 mg tablet 1 mg PO QAM #30 tabs 02/10/23 04/17/23 Rx hydroxyzine HCl 25 mg tablet 25 mg PO Q8H PRN anxiety #60 tabs 02/10/23 04/17/23 Rx lisinopril 40 mg tablet 20 mg (1/2 x 40 mg) PO DAILY #15 02/10/23 04/17/23 Rx tabs acetaminophen 500 mg tablet 1,000 mg PO Q6H PRN Pain 04/17/23 04/17/23 History (Tylenol Extra Strength) gabapentin 300 mg capsule 300 mg PO TID 04/17/23 04/17/23 History ibuprofen 600 mg tablet 600 mg PO Q6H PRN pain 04/17/23 04/17/23 History lorazepam 0.5 mg tablet 0.5 mg PO Q8H PRN ANXIETY/INSOMNIA 04/17/23 04/17/23 History multivitamin 1 tab PO DAILY 04/17/23 04/17/23 History oxycodone 5 mg tablet 5 mg PO Q4H PRN Pain 04/17/23 04/17/23 History polyethylene glycol 3350 17 17 g PO DAILY 04/17/23 04/17/23 History gram/dose oral powder (Miralax) valacyclovir 1 gram tablet 2,000 mg PO Q12H PRN Cold Sores 04/17/23 04/17/23 History (Valtrex) Past Med/Surg History Medical History Subcutaneous emphysema Postprocedural pneumothorax Depression Anxiety Hypertension Surgical History (Updated 04/18/23 @ 01:28 by Jn Mukherjee MD) S/P laparoscopic hysterectomy Family History Other Diabetes Heart disease Hypertension Social History Smoking Status: Never smoker Second Hand Exposure: No; Do You Dip or Chew Tobacco: No; Hx Alcohol Use: Yes Alcohol type: wine and hard liquor Alcohol Intake Frequency: 2-4 x/Month Hx Substance Use: Yes Prescribed Medications: Marijuana Last Used Substance: Days (ago) Preferred Language: [place] Communication Ability: Effective Newscast Director Required: No Beliefs That Will Affect Care: None Current Living Situation: Spouse and Family Feels Safe at Home: Yes Assistive Devices: None Review of Systems Review of Systems: As per HPI, all other systems reviewed and negative Physical Exam Physical Exam: GENERAL: Slightly uncomfortable, slightly anxious, pleasant, no respiratory distress SKIN: Pallor, warm HEENT: Pale palpebral conjunctivae, no ptosis, dry buccal mucosa NECK : Supple, no tenderness CHEST : Well coaptated incision right chest wall, decreased breath sounds, right chest wall tenderness HEART : RRR, no obvious murmurs ABDOMEN: Some distention, hypogastric tenderness EXTREMITIES : No LE swelling/tenderness, no other conspicuous deformities noted NEUROLOGIC : Coherent, no facial asymmetry, no other gross focality Results & Data Results & Data Vital Signs (Past 12 Hours) Vital Signs Temp Pulse Pulse Resp BP BP Pulse Ox 04/18/23 00:39 94 H 04/17/23 21:00 159/103 H 04/17/23 20:49 92 H 18 97 04/17/23 19:05 36.5 C 89 18 137/95 100 O2 Del Method 04/18/23 00:39 04/17/23 21:00 04/17/23 20:49 Room Air 04/17/23 19:05 Room Air Laboratory Results Laboratory Results WBC 10.92 K/ul (4.8-10.8) H 04/17/23 20:09 RBC 4.28 M/uL (4.20-5.40) 04/17/23 20:09 Hgb 11.4 g/dl (12.0-16.0) L 04/17/23 20:09 Hct 36.6 % (37.0-47.0) L 04/17/23 20:09 MCV 85.5 fL (80.0-100.0) 04/17/23 20:09 MCH 26.6 pg (25.0-34.0) 04/17/23 20:09 MCHC 31.1 g/dL (32.0-36.0) L 04/17/23 20:09 RDW Std Deviation 50.4 fL (36.4-46.3) H 04/17/23 20:09 RDW Coeff of Diamodn 16.6 % (11.5-14.5) H 04/17/23 20:09 Plt Count 416 K/uL (130-400) H 04/17/23 20:09 MPV 9.1 fL (9.4-12.4) L 04/17/23 20:09 Immature Gran % (Auto) 0.7 % 04/17/23 20:09 Neut % (Auto) 66.4 % 04/17/23 20:09 Lymph % (Auto) 21.3 % 04/17/23 20:09 [place] % (Auto) 6.6 % 04/17/23 20:09 Eos % (Auto) 4.5 % 04/17/23 20:09 Baso % (Auto) 0.5 % 04/17/23 20:09 Neut # (Auto) 7.25 K/uL (1.40-6.50) H 04/17/23 20:09 Lymph # (Auto) 2.33 K/uL (1.20-3.40) 04/17/23 20:09 [place] # (Auto) 0.72 K/uL (0.11-0.59) H 04/17/23 20:09 Eos # (Auto) 0.49 K/uL (0.00-0.50) 04/17/23 20:09 Baso # (Auto) 0.05 K/uL (0.00-0.20) 04/17/23 20:09 Immature Gran # (Auto) 0.08 K/uL (0.01-0.20) 04/17/23 20:09 Sodium 139 mmol/L (136-145) 04/17/23 20:09 Potassium 3.8 mmol/L (3.5-5.1) 04/17/23 20:09 Chloride 104 mmol/L (98-107) 04/17/23 20:09 Carbon Dioxide 28 mmol/L (21-32) 04/17/23 20:09 Anion Gap 7 (3-11) 04/17/23 20:09 BUN 13 mg/dl (6-23) 04/17/23 20:09 Creatinine 0.63 mg/dl (0.6-1.2) 04/17/23 20:09 Est Cr Clr Drug Dosing 110.8 ml/min 04/17/23 20:09 Est GFR ( Amer) 117.9 ml/min 04/17/23 20:09 Est GFR (Non-Af Amer) 101.7 ml/min 04/17/23 20:09 BUN/Creatinine Ratio 20.6 (10-20) H 04/17/23 20:09 Glucose 95 mg/dl (70-99(Fasting)) 04/17/23 20:09 Lactate 0.9 mmol/L (0.4-2.0) 04/17/23 20:09 Calcium 9.2 mg/dl (8.6-10.3) 04/17/23 20:09 Magnesium 2.1 mg/dl (1.7-2.4) 04/17/23 20:09 Total Bilirubin 0.2 mg/dl (0.2-1.0) 04/17/23 20:09 AST 15 U/L (13-39) 04/17/23 20:09 ALT 13 U/L (7-52) 04/17/23 20:09 Alkaline Phosphatase 110 U/L (34-104) H 04/17/23 20:09 Troponin I High Sens < 2.3 pg/ml (0-14) 04/17/23 20:09 Total Protein 7.4 gm/dl (6.0-8.3) 04/17/23 20:09 Albumin 3.9 gm/dl (3.4-5.0) 04/17/23 20:09 Globulin 3.5 gm/dl (2.5-4.0) 04/17/23 20:09 Albumin/Globulin Ratio 1.1 (0.9-2) 04/17/23 20:09 Lipase 15 U/L (11-82) 04/17/23 20:09 Procalcitonin 0.03 ng/ml (0-0.5) 04/17/23 20:09 Urine Color Yellow 04/17/23 20:10 Urine Appearance Clear (Clear) 04/17/23 20:10 Urine pH 5.5 (4.5-7.5) 04/17/23 20:10 Ur Specific [place] 1.014 (1.000-1.030) 04/17/23 20:10 Urine Protein Negative (Negative) 04/17/23 20:10 Urine Glucose (UA) Negative (Negative) 04/17/23 20:10 Urine Ketones Negative (Negative) 04/17/23 20:10 Urine Blood Negative (Negative) 04/17/23 20:10 Urine Nitrite Negative (Negative) 04/17/23 20:10 Urine Bilirubin Negative (Negative) 04/17/23 20:10 Urine Urobilinogen Negative (Negative) 04/17/23 20:10 Ur Leukocyte Esterase Negative (Negative) 04/17/23 20:10 Adenovirus (PCR) Not Detected (NotDetected) 04/17/23 20:10 B. pertussis DNA (PCR) Not Detected (NotDetected) 04/17/23 20:10 B.parapertussis DNA PCR Not Detected (NotDetected) 04/17/23 20:10 C. pneumoniae DNA (PCR) Not Detected (NotDetected) 04/17/23 20:10 Coronavirus OC43 (PCR) Not Detected (NotDetected) 04/17/23 20:10 Coronavirus HKU1 (PCR) Not Detected (NotDetected) 04/17/23 20:10 Coronavirus 229E (PCR) Not Detected (NotDetected) 04/17/23 20:10 SARS-CoV-2 (PCR) Not Detected (NotDetected) 04/17/23 20:10 Coronavirus NL63 (PCR) Not Detected (NotDetected) 04/17/23 20:10 Human Metapneumovir PCR Not Detected (NotDetected) 04/17/23 20:10 Influenza Type A (PCR) Not Detected (NotDetected) 04/17/23 20:10 Influenza Type B (PCR) Not Detected (NotDetected) 04/17/23 20:10 M. pneumoniae (PCR) Not Detected (NotDetected) 04/17/23 20:10 Parainfluenza 1 (PCR) Not Detected (NotDetected) 04/17/23 20:10 Parainfluenza 2 (PCR) Not Detected (NotDetected) 04/17/23 20:10 Parainfluenza 3 (PCR) Not Detected (NotDetected) 04/17/23 20:10 Parainfluenza 4 (PCR) Not Detected (NotDetected) 04/17/23 20:10 RSV (PCR) Not Detected (NotDetected) 04/17/23 20:10 Entero/Rhino (PCR) Not Detected (NotDetected) 04/17/23 20:10 Impressions Abdomen/Pelvis CT 04/17/23 21:07 Exam(s): CT ABDOMEN + PELVIS With Contrast IV Amt: 115 cc opti 320 EXAM: CT Abdomen and Pelvis With Intravenous Contrast CLINICAL HISTORY: Reason for exam: ruq pain. TECHNIQUE: Axial computed tomography images of the abdomen and pelvis with intravenous contrast. CTDI is 65.12 mGy and DLP is 2180.78 mGy-cm. Automated exposure control was utilized for the study. A dose lowering technique was utilized adhering to the principles of ALARA. CONTRAST: Patient received 115 cc opti 320 of IV contrast COMPARISON: No relevant prior studies available. FINDINGS: Lung bases: See below. Pleural space: Moderate RIGHT pleural effusion. Mild patchy consolidation of the RIGHT lung base, correlate for mild pneumonia. Partial RIGHT lobectomy. ABDOMEN: Liver: Unremarkable. No mass. Gallbladder and bile ducts: Unremarkable. No calcified stones. No ductal dilation. Pancreas: Unremarkable. No mass. No ductal dilation. Spleen: Unremarkable. No splenomegaly. Adrenals: Unremarkable. No mass. Kidneys and ureters: Unremarkable. No solid mass. No hydronephrosis. Stomach and bowel: Unremarkable. No obstruction. No mucosal thickening. PELVIS: Appendix: No findings to suggest acute appendicitis. Bladder: Unremarkable. No mass. Reproductive: Unremarkable as visualized. ABDOMEN and PELVIS: Intraperitoneal space: Unremarkable. No free air. No significant fluid collection. Bones/joints: No acute fracture. No dislocation. Soft tissues: Unremarkable. Vasculature: Unremarkable. No abdominal aortic aneurysm. Lymph nodes: Unremarkable. No enlarged lymph nodes. IMPRESSION: Moderate RIGHT pleural effusion. Mild patchy consolidation of the RIGHT lung base, correlate for mild pneumonia. Partial RIGHT lobectomy. Electronically signed by: Rashid Velasco MD 04/17/23 22:05 PM Chest CTA 04/17/23 21:07 Exam(s): CTA CHEST IV Amt: 115 cc opti 320 EXAM: CT Angiography Chest With Intravenous Contrast CLINICAL HISTORY: Reason for exam: PE. TECHNIQUE: Axial computed tomographic angiography images of the chest with intravenous contrast. CTDI is 6512 mGy and DLP is 2180.78 mGy-cm. Automated exposure control was utilized for the study. A dose lowering technique was utilized adhering to the principles of ALARA. MIP reconstructed images were created and reviewed. COMPARISON: No relevant prior studies available. FINDINGS: Pulmonary arteries: Unremarkable. No acute pulmonary embolism. Aorta: No acute findings. No thoracic aortic aneurysm. Lungs: Partial lobectomy. Patchy consolidation in the RIGHT upper and lower lobes, consistent with multilobar pneumonia. Moderate RIGHT pleural effusion. Pleural space: See above. Heart: Unremarkable. No cardiomegaly. No significant pericardial effusion. No evidence of RV dysfunction. Bones/joints: No acute fracture. No dislocation. Soft tissues: Unremarkable. Lymph nodes: Unremarkable. No enlarged lymph nodes. IMPRESSION: 1. No acute pulmonary embolism. 2. Partial lobectomy. Patchy consolidation in the RIGHT upper and lower lobes, consistent with multilobar pneumonia. Moderate RIGHT pleural effusion. Electronically signed by: Rashid Velasco MD 04/17/23 22:02 PM Diagnostic Findings EKG as per my interpretation :Rate 80, NSR, normal axis, T wave abnormalities septal leads
[2023-04-18 05:05] LABS: BUN Creatinine Ratio 17.9 (10-20); Calcium 8.1 mg/dl (8.6-10.3); Creatinine Clr Calc Pharmacy 83.1 ml/min; Est GFR (African American) 91.3 ml/min; Est GFR (Non-African American) 78.8 ml/min; Potassium 3.7 mmol/L (3.5-5.1)
[2023-04-18] MEDS: IBUPROFEN 600 MG TAB PO PRN (05:06)
[2023-04-18 05:19] LABS: Basophils # (auto) 0.04 K/uL (0.00-0.20); Basophils % (auto) 0.4 %; Eosinophils # (auto) 0.49 K/uL (0.00-0.50); Eosinophils % (auto) 5.5 %; Hematocrit (blood only) 32.1 % (37.0-47.0); Hemoglobin 9.7 g/dl (12.0-16.0); Immature Granulocytes # (auto) 0.04 K/uL (0.01-0.20); Immature Granulocytes % (auto) 0.4 %; Lymphocytes # (auto) 2.02 K/uL (1.20-3.40); Lymphocytes % (auto) 22.5 %; Mean Corpuscular Hemoglobin 26.5 pg (25.0-34.0); Mean Corpuscular Hgb Conc 30.2 g/dL (32.0-36.0); Mean Corpuscular Volume 87.7 fL (80.0-100.0); Mean Platelet Volume 9.4 fL (9.4-12.4); Monocytes # (auto) 0.83 K/uL (0.11-0.59); Monocytes % (auto) 9.3 %; Neutrophils # (auto) 5.54 K/uL (1.40-6.50); Neutrophils % (auto) 61.9 %; Platelet Count 334 K/uL (130-400); RDW Coefficient of Variation 16.8 % (11.5-14.5); RDW Standard Deviation 53.2 fL (36.4-46.3); Red Blood Count 3.66 M/uL (4.20-5.40); White Blood Count 8.96 K/ul (4.8-10.8)
[2023-04-18] MEDS: PIPERACILLIN/TAZOBACTAM 4.5 GM in DEXTROSE 5% MINI-B 100 ML IV SCH (06:19)
--- NOTE | 2023-04-18 07:17 | XRay Report ---
XR chest 1V portable HISTORY: 53 years-old Female Fever, right chest pain acute right-sided chest pain with fever COMPARISON: CTA chest of same day TECHNIQUE: AP view the chest FINDINGS: Cardiac silhouette is mildly enlarged. No pneumothorax or overt pulmonary edema. The left lung is jose ar. Postoperative changes of the right hemithorax with moderate size right pleural effusion. Patchy r ight lung airspace opacities. Bones appear grossly intact. IMPRESSION: 1. Patchy right lung airspace opacities are likely infectious or inflammatory. 2. Postoperative changes of the right lung with moderate-sized right pleural effusion. ACT 112: Negative or not required by law. The above report was generated using voice recognition software. It may contain grammatical, syntax o r spelling errors. Electronically signed by: Sanjay Little M.D. 04/18/2023 7:14 AM
[2023-04-18] MEDS: buPROPion XL 150 MG TABCR PO SCH (08:05)
[2023-04-18] MEDS: MULTIVITAMIN TAB PO SCH (08:05)
[2023-04-18] MEDS: GABAPENTIN 300 MG CAP PO SCH (08:05)
[2023-04-18] MEDS: busPIRone 7.5 MG TAB PO SCH (08:06)
[2023-04-18] MEDS: DOCUSATE SODIUM 100 MG CAP PO SCH (08:06)
[2023-04-18] MEDS: FERROUS GLUCONATE 324 MG TAB PO SCH (08:07)
[2023-04-18] MEDS: FOLIC ACID 1 MG TAB PO SCH (08:07)
[2023-04-18] MEDS: CYANOCOBALAMIN (B-12) 500 MCG TABLET PO SCH (08:07)
[2023-04-18] MEDS: ENOXAPARIN INJ 40 MG/0.4 ML SYR SQ SCH (08:08)
[2023-04-18] MEDS: lisinopril 20 MG TAB PO SCH (08:08)
[2023-04-18] MEDS: POLYETHYLENE (MIRALAX) 17 GM PACK PO SCH (08:12)
--- NOTE | 2023-04-18 09:02 | Pulmonary Consultation ---
Date of Consultation April 18, 2023 Assessment & Plan (1) History of lung surgery: (2) Right-sided chest pain: (3) Myofibroblastic neoplasm: (4) Pleural effusion: Plan CT chest 04/17/2023 personally reviewed: Moderate right-sided pleural effusion Right upper lobe Patchy groundglass opacity, fluid collection appreciated right posterior lateral aspect Right lower lobectomy manjula in place No significant mediastinal lymphadenopathy --Multilobar pneumonia Continue with antibiotics Respiratory bio fire is negative for everything 1 04/18/2023 Procalcitonin 0.03 -- Right sided pleural effusion likely post OR -- Myofibroblastoma S/p right middle and right lower lobectomy 04/03/[address] Parikh --Subcutaneous fluid collection on the right side It does go at the level of liver and lower. It could be fluid collection through the chest tube track which she had not too long ago, is difficult to say if there is a connection between the pleural fluid and this fluid collection It did increase in size when patient was taking breaths so there is a probability that it is. Plan: Continue broad-spectrum antibiotics. Atypical coverage with doxycycline added for 5 days Follow sputum culture. Will do thoracentesis on the right side, I do think this is most likely postop pleural fluid collection rather than infectious etiology. I personally discussed the case with the CT surgeon as well, they are in agreement with thoracentesis. Please note the above document was generated using voice recognition software. It may contain grammatical, syntax or spelling errors.Any formal questions or concerns about the content, text or information contained within the body of this dictation should be directly addressed to the provider for clarification. History of Present Illness Attending Physician: Bernardo Leal MD History of Present Illness 53-year-old female admitted to the hospital with complaints of shortness of breath Past medical history: Anxiety/mood disorder, anemia, myofibroblastoma, hypertension Pulmonary consulted for Patient was admitted in January 2023 for lung mass biopsy with pneumothorax and chest tube insertion She was not done well April 03 to for the right lung tumor, biopsy showed myofibroblastic tumor with benign lymph nodes At the time of examination patient's son was in the room. Patient was not in any respiratory distress. She was saturating 99% on room air. Heart rate was in the low 80s She did complain of some tenderness on the right side of the chest which is postsurgical. She stated that she is feeling better since coming to the hospital. Complains of occasional cough with clear phlegm. Denies any headache, no nausea, no vomiting No dysuria, no diarrhea Had any aspiration like episodes in the recent past. Allergies Allergy/AdvReac Type Severity Reaction Status Date / Time melatonin AdvReac Intermediate Fatigued Verified 04/17/23 22:47 Home Medications Medication Instructions Recorded Confirmed Type bupropion HCl 150 mg 24 hr tablet, 150 mg PO DAILY 02/19/21 04/17/23 History extended release docusate sodium 100 mg capsule 100 mg PO DAILY 02/08/23 04/17/23 History (Stool Softener) buspirone 7.5 mg tablet 7.5 mg PO BID #60 tabs 02/10/23 04/17/23 Rx cyanocobalamin (vitamin B-12) 500 500 mcg PO QAM #30 tabs 02/10/23 04/17/23 Rx mcg tablet ferrous gluconate 324 mg (38 mg 324 mg PO QAM #30 tabs 02/10/23 04/17/23 Rx iron) tablet folic acid 1 mg tablet 1 mg PO QAM #30 tabs 02/10/23 04/17/23 Rx hydroxyzine HCl 25 mg tablet 25 mg PO Q8H PRN anxiety #60 tabs 02/10/23 04/17/23 Rx lisinopril 40 mg tablet 20 mg (1/2 x 40 mg) PO DAILY #15 02/10/23 04/17/23 Rx tabs acetaminophen 500 mg tablet 1,000 mg PO Q6H PRN Pain 04/17/23 04/17/23 History (Tylenol Extra Strength) gabapentin 300 mg capsule 300 mg PO TID 04/17/23 04/17/23 History ibuprofen 600 mg tablet 600 mg PO Q6H PRN pain 04/17/23 04/17/23 History lorazepam 0.5 mg tablet 0.5 mg PO Q8H PRN ANXIETY/INSOMNIA 04/17/23 04/17/23 History multivitamin 1 tab PO DAILY 04/17/23 04/17/23 History oxycodone 5 mg tablet 5 mg PO Q4H PRN Pain 04/17/23 04/17/23 History polyethylene glycol 3350 17 17 g PO DAILY 04/17/23 04/17/23 History gram/dose oral powder (Miralax) valacyclovir 1 gram tablet 2,000 mg PO Q12H PRN Cold Sores 04/17/23 04/17/23 History (Valtrex) Patient History Medical History Subcutaneous emphysema Postprocedural pneumothorax Depression Anxiety Hypertension Surgical History (Updated 04/18/23 @ 01:28 by Jn Mukherjee MD) S/P laparoscopic hysterectomy Family History Other Diabetes Heart disease Hypertension Social History Smoking Status: Never smoker Second Hand Exposure: No; Do You Dip or Chew Tobacco: No; Hx Alcohol Use: No Hx Substance Use: No Preferred Language: Bulgarian Communication Ability: Effective Compounding And Finishing Supervisor Required: No Beliefs That Will Affect Care: None Current Living Situation: Family Feels Safe at Home: Yes Assistive Devices: None Review of Systems 2 Review of Systems: All systems reviewed & are unremarkable except as noted in HPI & below Physical Exam 2 Physical Exam: Constitutional: No acute distress HEENT: EOMI, PERRLA Respiratory system: Decreased air entry on the right side, no wheeze, no rhonchi, mild crackles bilaterally CVS: S1-S2 positive, no murmurs or gallops Abdomen: Soft, nontender, nondistended, positive bowel sounds x4 Extremities: +2 pulses bilaterally radialis/ dorsalis pedis, no cyanosis, no edema Neuro: Awake alert oriented x3 Psych: Normal mood and affect G/U: No [place]o Musculoskeletal: Patient had soft, compressible, nontender right posterior lateral swelling. Did have some tenderness around the site of the incision, no redness Skin: no rashes, warm and dry Lymphatic: no cervical or axillary lymphadenopathy Results & Data Results & Data Vital Signs (Past 12 Hours) Vital Signs Temp Pulse Pulse Resp BP Pulse Ox O2 Del Method 04/18/23 07:40 79 04/18/23 05:48 Room Air 04/18/23 05:48 36.8 C 75 13 122/74 95 Room Air 04/18/23 03:00 37.0 C 86 20 118/95 96 Room Air 02/22/24 01:30 87 20 138/73 96 Room Air 04/18/23 00:39 94 H 04/17/23 23:30 91 H 14 138/77 95 Room Air 04/17/23 21:00 159/103 H Laboratory Results 04/18/23 04:19 04/18/23 04:19 PG Care Time/CCT Total # of Minutes Spent Total Time Spent with Patient: Total time spent is greater than 50% in coordination of care (as documented) at patient's floor/unit and/or counseling patient: Coding Level of Care Code 26055 INT INP/OBS CARE 375MIN Diagnoses History of lung surgery Z98.890 Right-sided chest pain R07.9 Myofibroblastic neoplasm C49.9 Pleural effusion J90
[2023-04-18] MEDS: LORazepam 1 MG TAB PO PRN (10:07)
[2023-04-18] MEDS: HYDROmorphone INJ 0.5 MG/0.5 ML SYR IV PRN (12:25)
--- NOTE | 2023-04-18 12:52 | Electrocardiogram Report ---
Test Reason : Blood Pressure : / mmHG Vent. Rate : 077 BPM Atrial Rate : 077 BPM P-R Int : 162 ms QRS Dur : 084 ms QT Int : 412 ms P-R-T Axes : 027 029 050 degrees QTc Int : 466 ms Normal sinus rhythm Nonspecific ST abnormality When compared with ECG of 08-FEB-2023 22:21, No significant change was found Confirmed by Du Barriga ([id number]) on 04/18/2023 12:51:43 PM Referred By: REFERRED SELF Confirmed By:Sen Barriga
--- NOTE | 2023-04-18 14:20 | Communication Note ---
Date of Service: April 18, 2023 Patient seen and examined at bedside. Vitals reviewed; she is afebrile, normotensive and saturating well in room air. CTA chest reviewed with the patient and family at bedside. Plan is to continue Zosyn for antibiotic coverage. IR guided thoracentesis tomorrow as per pulmonology. Discussed with radiology; CTA chest sent to [facility]; Dr. Hernandes updated regarding the plan. He appreciated the update and agreed to the plan; recommend that this is important to rule out infection. Pain medication optimized Lovenox currently discontinued; will need to be restarted after procedure tomorrow. On physical exam; Constitutional: Pleasant female; alert oriented x 3. Respiratory: Decreased breath sound on right lower lung base. Cardiovascular: RRR, no murmur, no edema Vessels: no JVD or carotid bruit Neurologic: Grossly intact Psychiatric: A+Ox3, euthymic affect Full progress note to follow tomorrow.
--- OUTSIDE RECORDS SUMMARY | 2023-04-18 16:30 | External Medical Summary | Summary of Care ---
Author Name Unknown Organization [facility] Address [address] [place] [address] Phone [phone] Care Team Providers Care Medicaid Billing Specialist Name Role Phone Jonny Pandya MD Primary Care Provider [phone] Reason for Visit * Reason Onset Date Comments Advice 04/09/2023 Encounter Details Date Type Department Care Team (Late st Contact Info) Description 04/09/2023 Telephone [facility] Thoracic Surgery [address] [place] [address] Mayra Johnson PA-C [address] [place] [address] Advice Allergies No known active allergiesdocumented as of this encounter (statuses as of 04/09/2023) Medications Medication Sig Dispensed Refills Start Date End Date Status valACYclovir HCl 1 GM Oral Tablet (Valtrex)Indications: Cold sore take 2 tablets by mouth every 12 hours for 1 DAY FOR COLD SORES 12 Tablet 5 05/25/2022 Active Ibuprofen 600 MG Oral Tablet (Motrin)Indications:A cute bilateral thoracic back pain Take 1 Tablet by mouth in the morning and 1 Tablet at noon and 1 Tablet before bedtime. with food for pain. 30 Tablet 1 01/30/2023 Active busPIRone HCl 7.5 MG Oral Tablet (Buspar) Take 1 Tablet by mouth in the morning and 1 Tablet in the evening. 0 02/10/2023 Active Cyanocobalamin 500 MCG Oral Tablet Take 1 Tablet by mouth in the morning. 0 02/11/2023 Active Wegovy 2.4 MG/0.75ML Subcutaneous Solution Auto-injector (Semaglutide-Weight Management) Inject 2.4 mg (1 pen) under the skin once a week. 3 mL 5 02/19/2023 Active Multivitamins Oral Capsule daily. 0 02/08/2023 Active Docusate Sodium 100 MG Oral Capsule (Colace) 1 Capsule. 0 02/08/2023 Active Inulin 2 GM Oral Tablet Chewable daily. 0 02/08/2023 Active Folic Acid 1 MG Oral Tablet Take 1 Tablet by mouth in the morning. 90 Tablet 0 03/07/2023 Active Ferrous Gluconate 324 (38 Fe) MG Oral Tablet Take 1 Tablet by mouth daily with breakfast. 90 Tablet 0 03/07/2023 Active buPROPion HCl ER (XL) 150 MG Oral Tablet Extended Release 24 Hour (Wellbutrin XL) Take 1 Tablet by mouth in the morning. In the morning.. 90 Tablet 3 03/12/2023 Active LORazepam 0.5 MG Oral Tablet (Ativan)Indications:A cute anxiety Take 1 Tablet by mouth every 8 hours as needed for Anxiety or Insomnia. 30 Tablet 0 03/29/2023 Active Polyethylene Glycol 3350 17 GM/SCOOP Oral Powder (MiraLax) Take 17 g by mouth in the morning. 0 Active oxyCODONE HCl 5 MG Oral Tablet (Oxy IR) Take 1 Tablet by mouth every 4 hours as needed for Pain, Moderate or Pain, Mild (ongoing therapy). 30 Tablet 0 04/05/2023 Active Acetaminophen 500 MG Oral Tablet (Tylenol Extra Strength) Take 2 Tablets by mouth every 6 hours as needed for Pain, Moderate. 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 Obesity, Class I, BMI 30.0-34.9 (see actual BMI) 02/21/2023 Right lower lobe lung mass 02/21/2023 Depression with anxiety 02/28/2021 HTN, goal below 130/80 12/22/2019 documented as of this encounter (statuses as of 04/09/2023) Resolved Problems Problem Noted Date Diagnosed Date Resolved Date Morbid obesity due to excess calories 02/28/2021 02/21/2023 Class 3 severe obesity due t o [...] as of this encounter (statuses as of 04/09/2023) Immunizations Name Administration Dates Next Due Seasonal [...] e alcohol) rare PHQ-2 Answer Date Recorded PHQ Adult Total Score 8 02/21/2023 Hunger Vital Sign Answer Date Recorded Within the past 12 months, y ou worried that your food would run out before you got the money to buy more. Never true 03/13/19 24 Within the past 12 months, t he food you bought just didn't last and you didn't have money to get more. Never true 03/13/2023 Sex and Gender Information Value Date Recorded Sex Assigned at Female 12/22/2019 12:34 PM EDT Gender Identity Female 12/22/2019 12:34 PM EDT Sexual Orientation Straight 12/22/2019 12 :34 PM EDT Job Start Date Occupation Industry Not on file Not on file Not on file documented as of this encounter Functional Status Functional Status Response Date of Assess ment Are you deaf or do you have serious difficulty h earing? No 04/03/2023 Are you blind or do you have serious difficulty seeing, even when wearing glasses? No 04/03/2023 Do you have serious difficul ty walking or climbing stairs? (5 years old or older) No 04/03/2023 Do you have difficulty dress ing or bathing? (5 years old or older) No 04/03/2023 Because of a physical, menta l, or emotional condition, do you have difficulty doing errands alone such as visiting a doctor s office or shopping? (15 years old or older) No 04/03/19 24 Cognitive Status Response Date of Assessm ent Because of a physical, menta l, or emotional condition, do you have serious difficulty concentrating, remembering, or making decisions? (5 years old or older) No 04/03/2023 documented as of this encounter Miscellaneous Notes * Telephone Encounter - Mayra Johnson PA-C - 04/09/2023 3:17 PM EST I received a TT from Najma Jimenez, Nurse Coordinator at 1:59PM regarding concerns that patient had when she spoke with her this afternoon. Reports pain and ongoing prior chest tube incision site drainage. I called patient and she was distraught and speaking quickly, however was not short of breath. She told me that last night before bed, she had to change the dressing that was placed earlier that morning as it was saturated with a serosanguinous discharge. Drainage was only coming from the previous posterior chest tube site. She then went for a walk around her home and dressing was again saturatedafter 45 minutes. The dressing consisted of a small 4x4 guaze. Her placed an ABD pad over the incision and it remained dry until this morning when it needed to be changed. Drainage this morning was clear. She has only had to change the dressing once so far since this morning. I advised her t his is normal. She also was concerned about her pain, which she feels is inhibiting her from walking. No fevers, chills, shortness of breath, or erythema around the incisions. She unknowingly was taking 10mg of oxycodone since she had gotten home yesterday but then realized she was only to take 5mg. Since lowering the dose last night, she has had significant pain. She was panicking last night due to the pain but was afraid to take her Ativan. This has limited her mobility and therefore she is afraid that she is going to decline if she cannot walk. She is also taking 1000mg of Tylenol every 4-6 hours. She expresses that she is very anxious. Googling bi-lobectomy and not finding adequate information to help her understand her recovery which upsets her. I provided reassurance and answered questions she had regarding her surgery and recovery process. At this time, I advised her to increase the oxycodone to 10mg and alternate this with 1000mg of Tylenol for the next day or two. (Oxycodone 10mg TID and Tylenol 1000mg TID) She reports that the 10mg of oxycodone usually will provide 6-8 hours of relief for her. Then she can resume the 5mg as the pain begins to taper off. I explained that she should still try to be as active as possible. She should start to feel relief soon. I advised her that it is ok for her to take her Ativan if needed. She thanked me for the follow up phone call. I advised her to call if symptoms change or she has questions. I spent a total of 24 min on the telephone with patient. JURGEN Jimenez PA-C Thoracic Surgery 04/09/2023 documented in this encounter Plan of Treatment Upcoming Encounters Date Type Department Care Team (Late st Contact Info) Description 04/12/2023 3:20 PM EST Office Visit [facility] [address] [facility] [place] [address] Jonny Pandya MD [address] [facility] [place] [address] 04/22/2023 11:30 AM EST Office Visit [facility] [address] [place] [address] Mayra Johnson PA-C [address] [place] [address] Scheduled Procedures Name Priority Associated Diagnoses Date/Ti me COLONOSCOPY FLEXIBLE PROXIMA L DIAGNOSTIC Recall Family history of uterine cancer Screening for malignant neoplasm of colon Health Maintenance Due Date Last Done Comments Hepatitis B (1 of 3 - 3-dose series) 1969 COVID-19 Vaccine (#1) 1969 HIV Screening 1984 Hepatitis C Screening 1987 Zoster Vaccines (1 of 2) 2019 Mammogram 05/11/2021 05/11/2020, 10/10/2016 Influenza Vaccine (FLU shot) (#1) 2022 12/22/2019 COLONOSCOPY-EVERY 5 YRS AGES 18-100 03/12/2023 03/12/2018, 03/12/2018 Depression Screening 02/22/2024 02/21/2023 GFR 04/06/2024 04/06/2023, 02/0 10/2023, 04/04/2023, Additional history exists Albumin/Creatinine Ratio 05/30/2025 05/30/2022 Diabetes Screening 04/06/2026 04/06/2023, 0 04/05/2023, 04/04/2023, Additional history exists Lipid Panel 05/31/2027 05/30/2022 [...] Not on filedocumented as of this encounter Advance Directives Latest Code Status on File Code Status Date Activated Date Inactivated Comments Full Code 04/03/2023 5:04 PM 04/08/2023 3:00 PM This o rder reflects the patients wishes and were consensually agreed upon. Question Answer Comments Discussion of Advance Directives occurred with: Patient Care Teams Medicaid Billing Specialist Relationship Specialty Start Date End Date Jonny Pandya MD [address] [place] [address] PCP - General Family Medicine 01/06/20 documented as of this encounter
--- OUTSIDE RECORDS SUMMARY | 2023-04-18 16:30 | External Medical Summary | Summary of Care ---
Author Name Unknown Organization [facility] Address [address] [place] [address] Phone [phone] Care Team Providers Care Cableway Operator Name Role Phone Jonny Pandya MD Primary Care Provider [phone] Reason for Visit * Reason Onset Date Comments Other 04/15/2023 Not feeling well from surgery Encounter Details Date Type Department Care Team (Late st Contact Info) Description 04/15/2023 Telephone Thoracic Surg [facility] [address], [place] [id number] Vu Parikh MD [address] [place], [place] [id number] Other (Not feeling well from surgery ) Allergies No known active allergiesdocumented as of this encounter (statuses as of 04/15/2023) Medications Medication Sig Dispensed Refills Start Date End Date Status valACYclovir HCl 1 GM Oral Tablet (Valtrex)Indicatio ns:Cold sore take 2 tablets by mouth every 12 hours for 1 DAY FOR COLD SORES 12 Tablet 5 05/25/2022 Active Ibuprofen 600 MG Oral Tablet (Motrin)Indication s:Acute bilateral thoracic back pain Take 1 Tablet [...] Auto-injector (Semaglutide-Weigh t Management) Inject 2.4 mg (1 pen) under the skin once a week. 3 mL 5 02/19/2023 Active Multivitamins Oral Capsule daily. 0 02/08/2023 Active Docusate Sodium 100 MG Oral Capsule (Colace) 1 Capsule. 0 02/08/2023 Active Folic Acid 1 MG [...] 03/12/2023 Active LORazepam 0.5 MG Oral Tablet (Ativan)Indication s:Acute anxiety Take 1 Tablet by mouth every 8 hours as needed for Anxiety or Insomnia. 30 Tablet 0 03/29/2023 Active Polyethylene Glycol 3350 17 GM/SCOOP Oral Powder (MiraLax) Take 17 g by mouth in the morning. 0 Active Acetaminophen 500 MG Oral Tablet (Tylenol Extra Strength) Take 2 Tablets by mouth every 6 hours as needed for Pain, Moderate. 0 Active oxyCODONE HCl 5 MG Oral Tablet (Oxy IR) Take 1 Tablet by mouth every 4 hours as needed for Pain, Severe. 15 Tablet 0 04/13/2023 Active Gabapentin 300 MG Oral Capsule (Neurontin) Take 1 Capsule by mouth in the morning and 1 Capsule at noon and 1 Capsule before bedtime. 90 Capsule 0 04/15/2023 Active oxyCODONE HCl 5 MG Oral Tablet (Oxy IR) Take 1 Tablet by mouth every 4 hours as needed for Pain, Moderate or Pain, Mild (ongoing therapy). 30 Tablet 0 04/15/2023 Active oxyCODONE HCl 5 MG Oral Tablet (Oxy IR) Take 1 Tablet by mouth every 4 hours as needed for Pain, Moderate or Pain, Mild (ongoing therapy). 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 (5 years old or older) No 04/03/2023 documented as of this encounter Miscellaneous Notes * Telephone Encounter - Mayra Johnson PA-C - 04/15/2023 8:50 AM EST I returned patient's call this morning. She states that the seroma on the right chest wall that shewas seen for on 04/11 is still there. Has been keeping cold on it but is not going down. Is a softball in size and it is uncomfortable. She says that when she breathes it looks like it fluctuates withsize. The incisions look great, no drainage, fevers or redness. She states that she wasn't prepared for the surgery and had expected to be back to herself in 1-2 weeks and is struggling with it mentally. She only has a few oxycodone left and she had gotten 15 over the weekend on 04/13 prescribed by Cardiac surgery. Trying to take 5mg with Tylenol and ibuprofen not working well. She feels like she is trying to do too many things and the pain is getting worse. States that she has burning sensation on the right lateral side describing it as a sensation of an iron touching her skin. Prescribed gabapentin for nerve pain and discussed usage. I also refilled her oxycodone as she is out now. Was prescribed 15 pills on 04/13 but has been taking 10mg consistently. I advised her to limit the oxycodone to 5mg during the day and may take 10mg in the night before bed. Will call patient on to check in. Patient understands and agrees with plan. JURGEN Jimenez PA-C Thoracic Surgery * Telephone Encounter - Kaitlyn Baker OSA - 04/15/2023 8:26 AM EST Person calling: [place] Relationship to patient: self Number to return call: [phone] Reason for call (please describe): other Steffen, Patient called this AM. Not feeling well from surgery. Has been in a lot of pain. She has pain in the stomach radiating to the back, maybe fluid in the stomach??. She also has a terrible burning sensation with her skin. She can't take anymore. The patient has been limiting her pain pills to get herthrough the weekend. She needs to someone to speak with because she does not know if what she is going through is typical of the healing process for the surgery that she had. Patient can be rached atthe number listed above. [place] Texted Amadou at 8:25am on 04/15/23 Thank you, JONATHON Dow 04/15/2023, 8:33 AM documented in this encounter Plan of Treatment Upcoming Encounters Date Type Department Care Team (Late st Contact Info) Description 04/17/2023 3:20 PM EST Office Visit [facility] [address] [place] [address] Jonny Pandya MD [address] [place] [address] 04/22/2023 11:30 AM EST Office Visit Thoracic Surg [facility] [address] [place] [address] Mayra Johnson PA-C [address] [place] [address] Scheduled Procedures Name Priority Associated Diagnoses Date/Ti me COLONOSCOPY FLEXIBLE PROXIMA L DIAGNOSTIC Recall Family history of uterine cancer Screening for malignant neoplasm of colon Health Maintenance Due Date Last Done Comments HIV Screening 1984 Hepatitis C Screening 1987 Hepatitis B (1 of 3 - 19+ 3-dose series) 1988 Zoster Vaccines (1 of 2) 2019 Mammogram 05/11/2021 05/11/2020, 10/10/2016 COVID-19 Vaccine (2022- season) 2022 Influenza Vaccine (FLU shot) (#1) 2022 12/22/2019 [...] Advance Directives occurred with: Patient Care Teams Cableway Operator Relationship Specialty Start Date End Date Jonny Pandya MD [address] [place] [address] PCP - General Family Medicine 01/06/20 documented as of this encounter
--- OUTSIDE RECORDS SUMMARY | 2023-04-18 16:30 | External Medical Summary | Summary of Care ---
Author Name Unknown Organization [facility] Address [address] [place] [address] Phone [phone] Care Team Providers Care Career Specialist Name Role Phone Jonny Pandya MD Primary Care Provider [phone] Reason for Visit * Reason Onset Date Comments Medical Records Request 04/15/2023 Encounter Details Date Type Department Care Team (Late st Contact Info) Description 04/15/2023 Telephone Family Practice [facility] [address] [facility] [place] [address] Jonny Pandya MD [address] [place] [address] Medical Records Request Allergies No known active allergiesdocumented as of [...] (ongoing therapy). 30 Tablet 0 04/15/2023 Active documented as of this encounter (statuses [...] encounter Miscellaneous Notes * Telephone Encounter - Myriam Milligan OSA - 04/15/2023 9:37 AM EST [facility] is requesting the medical records of Sybil for the purpose of continuation of treatment. Forwarded to [facility]. documented in this encounter Plan of Treatment Upcoming Encounters Date Type Department Care Team (Late st Contact Info) Description 04/17/2023 3:20 PM EST Office Visit Family Practice [facility] [address] [facility] [place] [address] Jonny Pandya MD [address] [place] [address] 04/22/2023 11:30 AM EST Office Visit [facility] [address] [place], [place] [id number] Mayra Johnson PA-C [address] [place] [address] Scheduled Procedures Name Priority Associated Diagnoses Date/Ti me COLONOSCOPY FLEXIBLE PROXIMA L DIAGNOSTIC Recall Family history of uterine cancer Screening for malignant neoplasm of colon Health Maintenance Due Date Last Done Comments HIV Screening 1984 Hepatitis C Screening 1987 Hepatitis B (1 of 3 - 19+ 3-dose series) 1988 Zoster Vaccines (1 of 2) 2019 Mammogram 05/11/2021 05/11/2020, 10/10/2016 COVID-19 Vaccine (1 - 2022-24 season) 2022 Influenza Vaccine (FLU shot) (#1) 2022 12/22/2019 COLONOSCOPY-EVERY 5 YRS AGES 18-100 03/12/2023 03/12/2018, 03/12/2018 Depression Screening 02/22/2024 02/21/2023 GFR 04/06/2024 04/06/2023, 02/10/2023, 04/04/2023, Additional history exists Albumin/Creatinine Ratio 05/30/2025 [...] Advance Directives occurred with: Patient Care Teams Career Specialist Relationship Specialty Start Date End Date Jonny Pandya MD [address] [place] [address] PCP - General Family Medicine 01/06/20 documented as of this encounter
--- OUTSIDE RECORDS SUMMARY | 2023-04-18 16:30 | External Medical Summary | Summary of Care ---
Author Name Unknown Organization [facility] Address [address] [place] [address] Phone [phone] Care Team Providers Care Statistical Assistant Name Role Phone Jonny Pandya MD Primary Care Provider [phone] Reason for Visit * Reason Onset Date Comments Advice 04/09/2023 Encounter Details Date Type Department Care Team (Late st Contact Info) Description 04/09/2023 Telephone Thoracic Surg [facility] [address], [place] [id number] Vu Parikh MD [address] [place] [address] Advice Allergies No known active allergiesdocumented as of this encounter (statuses as of 04/10/2023) Medications Medication Sig Dispensed Refills Start Date End Date Status valACYclovir HCl 1 GM Oral Tablet (Valtrex)Indications:C old sore take 2 tablets by mouth every 12 hours for 1 DAY FOR COLD SORES 12 Tablet 5 05/25/2022 Active Ibuprofen 600 MG Oral Tablet (Motrin)Indications:Ac [...] Oral Capsule (Colace) 1 Capsule. 0 02/08/2023 Act duke Inulin 2 GM Oral Tablet Chewable daily. [...] 03/12/2023 Active LORazepam 0.5 MG Oral Tablet (Ativan)Indications:Ac lul anxiety Take 1 Tablet by mouth every 8 hours as needed for Anxiety or Insomnia. 30 Tablet 0 03/29/2023 Active Polyethylene Glycol 3350 17 GM/SCOOP Oral Powder (MiraLax) Take 17 g by mouth in the morning. 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 Obesity, Class I, BMI 30.0-34.9 (see actual BMI) 02/21/2023 Right lower lobe lung mass 02/21/2023 Depression with anxiety 02/28/2021 HTN, goal below 130/80 12/22/2019 documented as of this encounter (statuses as of 04/10/2023) Resolved Problems Problem Noted Date Diagnosed Date Resolved Date Morbid obesity due to excess calories 02/28/2021 02/21/2023 Class 3 severe obesity due t o excess calories without serious comorbidity with body mass index (BMI) of 40.0 to 44.9 in adult 01/06/202005/2021 H/O abnormal cervical Papanicolaou smear 09/19/2016 01/06/2020 Overview: Conization 2015, pap summer 2016 neg per pt Adjustment disorder with mix ed anxiety and depressed mood 09/19/2016 02/28/2021 Encounter for screening mamm ogram for breast cancer 09/19/2016 01/06/2020 Overview: 10/11-neg,50-75% FG documented as of this encounter (statuses as of 04/10/2023) Immunizations Name Administration Dates Next Due Seasonal [...] money to buy more. Never true 03/13/19 Within the past 12 months, t he [...] shopping? (15 years old or older) No 02/07/20 24 Cognitive Status Response Date of Assessm ent Because of a physical, menta l, or emotional condition, do you have serious difficulty concentrating, remembering, or making decisions? (5 years old or older) No 04/03/2023 documented as of this encounter Miscellaneous Notes * Telephone Encounter - Ely Murphy RN - 04/10/2023 4:24 PM EST Spoke with Sybil today. She stated that she did speak with Megan yesterday and went over the drainage. He has been taking oxycodone 10mg every 4 hours. She will need a refill, plan is to decrease to 5mg tomorrow. We talked about also using ibuprofen between the tylenol, she is taking 1000mg every 6 hours. She will need a refill, I will have megan send a refill to her pharmacy once she is out of the OR. She also stated that when they took the tape off her skin from being swollen had water blisters on it and is all excoriated. She said there is gauze still stuck to her skin. We talked about getting in shower and letting the water run over her incisions, will be able to get the gauze loose to remove. I told her not to put anything on it, she could use non-adhesive dressing if she wanted if still oozing. She could also if just sitting let it open to air to dry and heal. She will send a picture of her incision, it is swollen. I called her to make her aware that refill has been sent for her to. I offered for her to be seen tomorrow in clinic to assess the swollen area. She was agreeable to 11am clinic visit with Kaitlyn Nicole PA-C. Ely Murphy RN MSN [facility] Thoracic Surgery Nurse Navigator [facility] * Telephone Encounter - Diana Walton, JONATHON - 04/09/2023 8:26 AM EST Person calling: Patient Relationship to patient: self Number to return call: [phone] Reason for call: Pt is calling requesting to speak with nurse or doctor for advice. Pt states that she recently had sx with Dr. Parikh 04/03/2023 and states that she has noticed the incision site there is a lot of drainage and that her bandages and pads are soaked and would like to know if it is normal. Pharmacy: n/a Provider Name: Dr. Parikh documented in this encounter Plan of Treatment Upcoming Encounters Date Type Department Care Team (Late st Contact Info) Description 04/11/2023 11:00 AM EST Office Visit Thoracic Surg [facility] [address] [place] [address] Kaitlyn Nicole PA-C [address] [place], [place] [id number] 04/12/2023 3:20 PM EST Office Visit Family Practice [facility] [address] [place] [address] Jonny Pandya MD [address] [place] [address] 04/22/2023 11:30 AM EST Office Visit Thoracic [facility] [address] [place] [address] Megan Johnson PA-C [address] [place] [address] Scheduled Procedures Name Priority Associated Diagnoses Date/Ti [...] Advance Directives occurred with: Patient Care Teams Statistical Assistant Relationship Specialty Start Date End Date Jonny Pandya MD [address] [facility] [place] [address] PCP - General Family Medicine 01/06/20 documented as of this encounter
--- OUTSIDE RECORDS SUMMARY | 2023-04-18 16:30 | External Medical Summary | Summary of Care ---
Author Name Unknown Organization [facility] Address [address] [place] [address] Phone [phone] Care Team Providers Care Cob Sawyer Name Role Phone Jonny Pandya MD Primary Care Provider [phone] [phone] Encounter Details Date Type Department Care Team (Late st Contact Info) Description 04/10/2023 Orders Only Thoracic Surg [facility] [address], [place] [phone] Mayra Johnson PA-C [address] [place], [place] [phone] Allergies No known active allergiesdocumented as of [...] Mild (ongoing therapy). 30 Tablet 0 04/10/2023 Active oxyCODONE HCl 5 MG Oral Tablet (Oxy IR) Take 1 Tablet by mouth every 4 hours as needed for Pain, Moderate or Pain, Mild (ongoing therapy). 30 Tablet 0 04/05/2023 04/10/2023 Discontinued (Refill) documented as of this encounter [...] No 04/03/2023 documented as of this encounter Plan of Treatment Upcoming Encounters Date Type Department Care Team (Late st Contact Info) Description 04/12/2023 3:20 PM EST Office Visit Family Practice [facility] [address] [place] [address] Jonny Pand[facility] MD [facility] [place] [address] 04/22/2023 11:30 AM EST Office Visit [facility] [address] [place] [address] Mayra Johnson PA-C [address] [place] [address] Scheduled Procedures Name Priority Associated Diagnoses Date/Ti [...] Advance Directives occurred with: Patient Care Teams Cob Sawyer Relationship Specialty Start Date End Date Jonny Pandya MD [address] [place] [address] PCP - General Family Medicine 01/06/20 documented as of this encounter
--- OUTSIDE RECORDS SUMMARY | 2023-04-18 16:30 | External Medical Summary | Summary of Care ---
Author Name Unknown Organization [facility] Address [address] [place] [address] Phone [phone] Care Team Providers Care Automobiles Salesperson Name Role Phone Jonny Pandya MD Primary Care Provider [phone] [phone] Encounter Details Date Type Department Care Team (Late st Contact Info) Description 04/09/2023 Telephone [facility] [address] [place] [address] Jason Snyder PA-C [address] [place] [address] Allergies No known active allergiesdocumented as of [...] encounter Miscellaneous Notes * Telephone Encounter - Jason Snyder PA-C - 04/09/2023 6:54 PM EST Patient called this evening stating that she sent some pictures to [facility] and states that she continues to have fullness at her incision site. I reviewed the photos with her and reassurance was provided that I did not think this looked infected and to continue to watch for erythema, warmth, purulent drainage and fevers. She states that she does feel better on the 10mg of oxycodone and I reinforced her current plan of alternating 10mg oxycodone with tylenol as previously discussed. All other questions and concerns were addressed at this time. Fer Snyder PA-C Cardiothoracic Surgery [facility] [address] [facility] [address] documented in this encounter Plan of Treatment Upcoming Encounters Date Type Department Care Team (Late st Contact Info) Description 04/12/2023 3:20 PM EST Office Visit [facility] [address] [facility] [place] [address] Jonny Pandya MD [address] [place] [address] 04/22/2023 11:30 AM EST Office Visit Thoracic Surg [facility] [address] [place] [address] Mayra Johnson PA-C [address] [place] [address] Scheduled Procedures Name Priority Associated Diagnoses Date/Ti [...] Advance Directives occurred with: Patient Care Teams Automobiles Salesperson Relationship Specialty Start Date End Date Jonny Pandya MD [address] [place] [address] PCP - General Family Medicine 01/06/20 documented as of this encounter
--- OUTSIDE RECORDS SUMMARY | 2023-04-18 16:30 | External Medical Summary | Summary of Care ---
Author Name Unknown Organization [facility] Address [address] [place] [address] Phone [phone] Care Team Providers Care Academic Specialist Name Role Phone Jonny Pandya MD Primary Care Provider [phone] Reason for Visit * Reason Onset Date Comments Medication Refill 04/13/2023 Encounter Details Date Type Department Care Team (Late st Contact Info) Description 04/13/2023 Refill Thoracic Surg [facility] [address] [place] [address] Mayra Johnson PA-C [address] [place] [address] Allergies No known active allergiesdocumented as of this encounter (statuses as of 04/16/2023) Medications Medication Sig Dispensed Refills Start Date End Date Status valACYclovir HCl 1 GM Oral Tablet (Valtrex)Indications:C old sore take 2 tablets by mouth every 12 hours for 1 DAY FOR COLD SORES 12 Tablet 5 05/25/2022 Active Ibuprofen 600 MG Oral Tablet (Motrin)Indications:Ac [place] bilateral thoracic back pain Take 1 Tablet [...] (Colace) 1 Capsule. 0 02/08/2023 Act duke Folic Acid 1 MG Oral Tablet Take [...] Active LORazepam 0.5 MG Oral Tablet (Ativan)Indications:Ac [place] anxiety Take 1 Tablet by mouth every [...] Pain, Severe. 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 Obesity, Class I, BMI 30.0-34.9 (see actual BMI) 02/21/2023 Depression with anxiety 02/28/2021 HTN, goal below 130/80 12/22/2019 documented as of this encounter (statuses as of 04/16/2023) Resolved Problems Problem Noted Date Diagnosed Date [...] as of this encounter (statuses as of 04/16/2023) Immunizations Name Administration Dates Next Due Seasonal [...] 3:20 PM EST Office Visit Family Practice [facility] [address] [place] [address] Jonny Pandya MD [address] [place] [address] 04/22/2023 11:30 AM EST Office Visit Thoracic Surg [facility] [address] [place] [address] Mayra Johnson PA-C [address] [place] [address] Scheduled Procedures Name Priority Associated Diagnoses Date/Ti me COLONOSCOPY FLEXIBLE PROXIMA L DIAGNOSTIC Recall Family history of uterine cancer Screening for malignant neoplasm of colon Health Maintenance Due Date Last Done Comments HIV Screening 1984 Hepatitis C Screening 1987 Hepatitis B (1 of 3 - 19+ 3-dose series) 1988 Zoster Vaccines (1 of 2) 2019 Mammogram 05/11/2021 05/11/2020, 10/10/2016 COVID-19 Vaccine ( - 2022-24 season) 2022 Influenza Vaccine (FLU [...] Advance Directives occurred with: Patient Care Teams Academic Specialist Relationship Specialty Start Date End Date Jonny Pandya MD [address] [place] [address] PCP - General Family Medicine 01/06/20 documented as of this encounter
--- OUTSIDE RECORDS SUMMARY | 2023-04-18 16:30 | External Medical Summary | Summary of Care ---
Author Name Unknown Organization [facility] Address [address] [place] [address] Phone [phone] Care Team Providers Care Assembler Unit Name Role Phone Jonny Pandya MD Primary Care Provider [phone] [phone] Reason for Visit * Reason Onset Date Comments Medication Refill 04/13/2023 Encounter Details Date Type Department Care Team (Late st Contact Info) Description 04/13/2023 Telephone [facility] Card[facility] [address] [place] [address] Yessy Cedeno PA-C [address] [place] [address] Medication Refill Allergies No known active allergiesdocumented as of this encounter (statuses as of 04/13/2023) Medications Medication Sig Dispensed Refills Start Date [...] as of this encounter (statuses as of 04/13/2023) Active Problems Problem Noted Date Diagnosed Date 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 Parikh at her appointment earlier this week. She has about 8 tabs left and knows this will not last her through the weekend. I informed her that I will provide one small refill to get her through the weekend and then she should call the office on Saturday with any further pain or issues. She verbalizes understanding and is in agreement. PDMP reviewed and confirms that she got 30 tabs of Oxycodone on Monday 04/10, so I will give 15 additional tabs today. Yessy Cedeno PA-C 04/13/2023 11:40 AM documented in this encounter Plan of Treatment Upcoming Encounters Date Type Department Care Team (Late st Contact Info) Description 04/17/2023 3:20 PM EST Office Visit Family [facility] [address] [place] [address] Jonny Pandya MD [address] [place] [address] 04/22/2023 11:30 AM EST Office Visit Thoracic Surg [address] [place] [address] Mayra Johnson PA-C [address] [place] [address] Scheduled Procedures Name Priority Associated Diagnoses Date/Ti [...] 04/03/2023 5:04 PM 04/08/2023 3:00 PM This order reflects the patients wishes and were consensually agreed upon. Question Answer Comments Discussion of Advance Directives occurred with: Patient Care Teams Assembler Unit Relationship Specialty Start Date End Date Jonny Pandya MD [address] [place] [address] PCP - General Family Medicine 01/06/20 documented as of this encounter
--- OUTSIDE RECORDS SUMMARY | 2023-04-18 16:31 | External Medical Summary ---
Author Name Unknown Address Unknown Organization [id number]:[facility] [address] [facility] [address] Laboratory Report Ordering Provider Test Date Status KATINA HURD 04/03/2023 18:47:35 Final SCREENING Observation Date Value Abnormality Reference (Units ) Status SARS Coronavirus 2 04/03/2023 18:47:35 Negative N egative Final 2018 Novel Coronavirus not d etected.

This express test was developed and its performance characteristics determined by [employer]. It has not been cleared or approved by the U.S. Food and Drug Administration (FDA). FDA does not require this test to go thru premarket FDA review. This test is used for clinical purposes. It should not be regarded as investigational or for research. This laboratory is certified under the Clinical Laboratory Improvement Amendments (CLIA) as qualified to perform high complexity clinical laboratory testing.

This test is a nucleic acid amplification test (NAAT), a reverse transcriptase polymerase chain reaction (RT-PCR) test, or a Centers for Disease Control-acceptable equivalent. The test is performed in a high complexity Clinical Laboratory Improvement Amendments-(CLIA) certified laboratory. The test is acceptable for SARS-CoV-2 diagnosis, surveillance, and travel within the [place] and to most countries. Please check with local testing authorities about requirements before travel.

The validation of bronchial specimens, tracheal aspirates, and sputum for this assay was developed and performance characteristics determined by [employer]. The validation of alternate specimen types has not been cleared or approved by the U.S. Food and Drug Administration (FDA). It has been determined that such clearance is not necessary. Performing Location [facility] [address] [facility] [address]
--- OUTSIDE RECORDS SUMMARY | 2023-04-18 16:31 | External Medical Summary ---
Author Name Unknown Address Unknown Organization [id number]:[facility] [place] [address] [facility] [address] Laboratory Report Ordering Provider Test Date Status COLIN LEIGH 04/03/2023 14:11:14 Final Observation Date Value Abnormality Reference (Units) Status Body temperature 04/03/2023 14:11:14 37.0 (C) Final pH of Arterial blood 04/03/2023 14:11:14 7.255 Below low normal 7.350-7.450 (units) Final Carbon dioxide [Partial pressure] in Arterial blood 04/03/2023 14:11:14 57.7 Above upper panic limits 35.0-45.0 (mmHg) Final Oxygen [Partial pressure] in Arterial blood 04/03/2023 14:11:14 123.0 Above high normal 75.0-100.0 (mmHg) Final Base excess, Arterial 04/03/2023 14:11:14 -2.6 Below low normal -2.0-2.0 (mmol/L) Final Hemoglobin [Mass/volume] in Blood by Oximetry 04/03/2023 14:11:14 11.1 Below low normal 12.0-15.3 (g/dL) Final Oxyhemoglobin, Arterial (FO2HB) 04/03/2023 14:11:14 95.9 94.0-99.0 (% total Hgb) Final Carboxyhemoglobin 04/03/2023 14:11:14 1.2 <=1.5 (% total Hgb) Final Smokers: 0-9.0 % Methemoglobin 04/03/2023 14:11:14 0.8 <= 1.5 (% total Hgb) Final Deoxyhemoglobin/Hemoglobin .total in Arterial blood 04/03/2023 14:11:14 2.1 0.0 -5.0 (% total Hgb) Final Oxygen content in Arterial blood 04/03/2023 14:11:14 15.1 15.0-24.0 (%vol) Jeanette l Oxygen/Total gas setting [Volume Fraction] Ventilator 04/03/2023 14:11:14 Not Provided (%) Final O2 FLOW, ARTERIAL - [facility] 04/03/2023 14:11:14 Not Provided (L/min) Final Bicarbonate, Venous, POC (i-STAT) 04/03/2023 14:11:14 24.7 23.0-31.0 (mmol/L) Fi nal Performing Location [facility] [place] [address] [facility] [address]
--- OUTSIDE RECORDS SUMMARY | 2023-04-18 16:31 | External Medical Summary | Summary of Care ---
Author Name Unknown Organization [facility] Address [address] [place] [address] Phone [phone] Care Team Providers Care Irrigator Sprinkling System Name Role Phone Jonny Pandya MD Primary Care Provider [phone] [phone] Reason for Visit * Reason Onset Date Comments Advice 04/08/2023 Encounter Details Date Type Department Care Team (Late st Contact Info) Description 04/08/2023 Telephone Cardiothoracic Surg [facility] [address] [place] [address] Kristy Moffett PA-C [address] [place] [address] Advice Allergies No known active allergiesdocumented as of this encounter (statuses as of 04/08/2023) Medications Medication Sig Dispensed Refills Start Date [...] (ongoing therapy). 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 It is an "orange color". She feels a little lightheaded but no SOB. I advised her to continue dressing changes as needed and to call back inthe morning and update the team as far as drainage is concerned. Kristy Moffett PA-C documented in this encounter Plan of Treatment Upcoming Encounters Date Type Department Care Team (Late st Contact Info) Description 04/17/2023 11:00 AM EST Office Visit Family Practice [facility] [address] [facility] [place] [address] Jonny Pandya MD [address] [facility] [place] [address] 04/22/2023 11:30 AM EST Office Visit [facility] [address] [place] [address] Mayra Johnson PA-C [address] [place] [address] Scheduled Procedures Name Priority Associated Diagnoses Date/Ti [...] Advance Directives occurred with: Patient Care Teams Irrigator Sprinkling System Relationship Specialty Start Date End Date Jonny Pandya MD [address] [place] [address] PCP - General Family Medicine 01/06/20 documented as of this encounter
--- OUTSIDE RECORDS SUMMARY | 2023-04-18 16:31 | External Medical Summary ---
Author Name Unknown Address Unknown Organization [id number]:[facility] - [address] [place] [address] Laboratory Report Ordering Provider Test Date Status SHAKA JAEGER 04/05/2023 06:36:00 Final Observation Date Value Abnormality Reference (Units ) Status Magnesium 04/05/2023 06:36:00 2.3 1.5-2.6 (m g/dL) Final Performing Location [facility] - [address] [place] [address]
--- OUTSIDE RECORDS SUMMARY | 2023-04-18 16:31 | External Medical Summary ---
Author Name Unknown Address Unknown Organization [id number]:[facility] [place] - [address] [place] [address] Laboratory Report Ordering Provider Test Date Status SHAKA JAEGER 04/05/2023 06:36:00 Final Observation Date Value Abnormality Reference (Units ) Status BUN 04/05/2023 06:36:00 12 6-20 (mg/dL) Final Creatinine 04/05/2023 06:36:00 0.8 0.5-1.0 (mg/dL) Final Glomerular filtration rate/1.73 sq M.predicted [Volume Rate/Area] in Serum, Plasma or Blood by Creatinine-based formula (CKD-EPI) 04/05/2023 06:36:00 88 >=60 (mL/min) Final eGFR is calculated based on the CKD-EPI 2020 equation SODIUM 04/05/2023 06:36:00 137 135-146 (m mol/L) Final Potassium 04/05/2023 06:36:00 3.8 3.5-5.1 (m mol/L) Final Cl 04/05/2023 06:36:00 100 98-107 (mm ol/L) Final CO2 04/05/2023 06:36:00 29 22-32 (mmo l/L) Final Anion gap 04/05/2023 06:36:00 8 7-15 (mmol /L) Final Glucose 04/05/2023 06:36:00 79 70-120 (mg /dL) Final Calcium 04/05/2023 06:36:00 8.5 8.4-10.2 ( mg/dL) Final Albumin 04/05/2023 06:36:00 3.3 Below low normal 3.8 -5.0 (g/dL) Final Phosphate 04/05/2023 06:36:00 2.9 2.5-4.8 (m g/dL) Final Performing Location LABOR[facility]ORY [facility] - [address] [place] [address]
--- OUTSIDE RECORDS SUMMARY | 2023-04-18 16:31 | External Medical Summary ---
Author Name Unknown Address Unknown Organization [id number]:[facility] [place] [address] [place] [address] Laboratory Report Ordering Provider Test Date Status DEE DEE LLANES 04/05/2023 06:36:00 Final Observation Date Value Abnormality Reference (Units ) Status MYCODE SPECIMEN-SST 04/05/2023 06:36:00 Freezing of extracted DNA, whole blood and/or serum. Final Performing Location [facility]ORY [facility] - [address] [place] [address]
--- OUTSIDE RECORDS SUMMARY | 2023-04-18 16:31 | External Medical Summary ---
Author Name Unknown Address Unknown Organization K01[place] [place] [address] [place] [id number] Laboratory Report Ordering Provider Test Date Status SHAKA JAEGER 04/04/2023 06:35:00 Final Observation Date Value Abnormality Reference (Units ) Status BUN 04/04/2023 06:35:00 12 6-20 (mg/dL) Final Creatinine 04/04/2023 06:35:00 0.7 0.5-1.0 (mg/dL) Final Glomerular filtration rate/1.73 sq M.predicted [Volume Rate/Area] in Serum, Plasma or Blood by Creatinine-based formula (CKD-EPI) 04/04/2023 06:35:00 >90 >=60 (mL/min) Final eGFR is calculated based on the CKD-EPI 2020 equation SODIUM 04/04/2023 06:35:00 137 135-146 (m mol/L) Final Potassium 04/04/2023 06:35:00 4.3 3.5-5.1 (m mol/L) Final Cl 04/04/2023 06:35:00 101 98-107 (mm ol/L) Final CO2 04/04/2023 06:35:00 27 22-32 (mmo l/L) Final Anion gap 04/04/2023 06:35:00 9 7-15 (mmol /L) Final Glucose 04/04/2023 06:35:00 101 70-120 (mg /dL) Final Calcium 04/04/2023 06:35:00 9.0 8.4-10.2 ( mg/dL) Final Albumin 04/04/2023 06:35:00 3.5 Below low normal 3.8 -5.0 (g/dL) Final Phosphate 04/04/2023 06:35:00 3.7 2.5-4.8 (m g/dL) Final Performing Location [facility] [place] [address] [place] [id number]
--- OUTSIDE RECORDS SUMMARY | 2023-04-18 16:31 | External Medical Summary ---
Author Name Unknown Address Unknown Organization [id number]:[facility] [place] [address] [place] [id number] Laboratory Report Ordering Provider Test Date Status SHAKA JAEGER 04/06/2023 05:30:00 Final Observation Date Value Abnormality Reference (Units ) Status BUN 04/06/2023 05:30:00 11 6-20 (mg/dL) Final Creatinine 04/06/2023 05:30:00 0.7 0.5-1.0 (mg/dL) Final Glomerular filtration rate/1.73 sq M.predicted [Volume Rate/Area] in Serum, Plasma or Blood by Creatinine-based formula (CKD-EPI) 04/06/2023 05:30:00 >90 >=60 (mL/min) Final eGFR is calculated based on the CKD-EPI 2020 equation SODIUM 04/06/2023 05:30:00 138 135-146 (m mol/L) Final Potassium 04/06/2023 05:30:00 4.3 3.5-5.1 (m mol/L) Final Cl 04/06/2023 05:30:00 102 98-107 (mm ol/L) Final CO2 04/06/2023 05:30:00 29 22-32 (mmo l/L) Final Anion gap 04/06/2023 05:30:00 7 7-15 (mmol /L) Final Glucose 04/06/2023 05:30:00 90 70-120 (mg /dL) Final Calcium 04/06/2023 05:30:00 8.7 8.4-10.2 ( mg/dL) Final Albumin 04/06/2023 05:30:00 3.4 Below low normal 3.8 -5.0 (g/dL) Final Phosphate 04/06/2023 05:30:00 3.7 2.5-4.8 (m g/dL) Final Performing Location [facility] - [address] [place] [address]
--- OUTSIDE RECORDS SUMMARY | 2023-04-18 16:31 | External Medical Summary ---
Author Name Unknown Address Unknown Organization : Laboratory Report Ordering Provider Test Date Status ABDIAS WILDER 04/03/2023 09:53:12 Final Observation Date Value Abnormality Reference (Units ) Status Glucose Point of Care 04/03/2023 09:53:12 84 70-120 (mg/dL) Final Performing Location
--- OUTSIDE RECORDS SUMMARY | 2023-04-18 16:31 | External Medical Summary | Summary of Care ---
Author Name Unknown Organization [facility] Address [address] [place] [address] Phone [phone] Care Team Providers Care Cloth Opener Hand Name Role Phone Jed Pandya MD Primary Care Provider [phone] Reason for Visit * Auth/Cert Specialty Diagnoses / Procedures Referred By Contac t Referred To Contact Diagnoses Right lower lobe lung mass Right lower lobe lung mass [R91.8] Procedures THORACOSCOPY W/ LOBECTOMY LYMPHADENECTOMY VIA THORACOSCOPY ROBOTIC THORACOSCOPY WITH LOBECTOMY ROBOTIC THORACOSCOPY WITH LYMPHADENECTOMY Referral ID Status Reason Start Date Expiration Date Visits Re quested Visits Authorized [id number] Encounter Details Date Type Department Care Team (Latest Contact Info) Description 04/03/2023 8:51 AM EST - 04/08/2023 10:55 AM [facility] Hospital Encounter [facility], [facility] 8th Floor [address], [place] [id number] Vu Parikh MD [address], [place] [id number] Discharge Disposition: Home - Self Care Allergies No known active allergiesdocumented as of this encounter (statuses as of 04/08/2023) Medications Medication Sig Dispensed Refills Start Date End Date Status valACYclovir HCl 1 GM Oral Tablet (Valtrex)Indicati ons:Cold sore take 2 tablets by mouth every 12 hours for 1 DAY FOR COLD SORES 12 Tablet 5 05/25/2022 Active Ibuprofen 600 MG Oral Tablet (Motrin)Indicatio ns:Acute bilateral thoracic back pain Take 1 Tablet [...] Active Wegovy 2.4 MG/0.75ML Subcutaneous [facility] Inject 2.4 mg (1 pen) under the [...] 03/12/2023 Active LORazepam 0.5 MG Oral Tablet (Ativan)Indicatio ns:Acute anxiety Take 1 Tablet by mouth every [...] (ongoing therapy). 30 Tablet 0 04/05/2023 Active Sulfamethoxazole- Trimethoprim 800-160 MG Oral Tablet (Bactrim DS)Indications:Ur inary tract infection without hematuria, site unspecified Take 1 Tablet by mouth in the morning and 1 Tablet before bedtime. Do all this for 7 days. Until gone. 14 Tablet 0 01/30/2023 Discontinued Cyclobenzaprine HCl 5 MG Oral Tablet (Flexeril)Indicat ions:Acute bilateral thoracic back pain Take 1 Tablet by mouth 3 times a day as needed for Muscle spasms. 30 Tablet 0 01/30/2023 4 Discontinued(Med ication List Clean Up) hydrOXYzine HCl 25 MG Oral Tablet Take 1 Tablet by mouth 3 times a day as needed for Anxiety. 0 02/10/2023 4 Discontinued(Med ication List Clean Up) documented as of this encounter (statuses as [...] Sign Reading Time Taken Comments Blood Pressure 120/74 04/08/2023 6:57 AM EST Pulse 70 04/08/2023 6:57 AM EST Temperature 36.9 C (98.4 F) 04/08/2023 6:57 AM ES T Respiratory Rate 18 04/08/2023 6:57 AM EST Oxygen Saturation 99% 04/08/2023 6:57 AM EST Inhaled Oxygen Concentration - - Weight 60.1 kg (132 lb 8 oz) 04/08/2023 6:20 AM EST Height 165.1 cm (5' 5") 04/03/2023 9:44 PM EST Body Mass Index 22.05 04/03/2023 9:44 PM EST documented in this encounter Functional Status Functional Status Response [...] No 04/03/2023 documented as of this encounter Discharge Summaries * Mayra Johnson PA-C - 04/05/2023 4:52 PM EST [address] [place] [address] Admission Date: 04/03/2023 Discharge Date: 04/08/2023 DISCHARGE DIAGNOSES: Active Hospital Problems Diagnosis *Principal Diagnosis - Right lower lobe lung mass Obesity, Class I, BMI 30.0-34.9 (see actual BMI) Depression with anxiety HTN, goal below 130/80 Resolved Hospital Problems No resolved problems to display. Other Significant Diagnoses: none CONDITION ON DISCHARGE: stable Cognition: normal DISPOSITION ON DISCHARGE: home FOLLOW-UP: Future Appointments Appt Date/Time Provider Department 04/17/2023 11:00 AM Jed Pandya MD [facility] 04/22/2023 11:30 AM Mayra Johnson PA-C Thoracic Surg [facility] Inpatient test results pending: pathology MEDICATIONS ON DISCHARGE: MEDICATION UPDATES AT DISCHARGE START taking these medications INSTRUCTIONS oxyCODONE 5 MG immediate release tablet Commonly known as: Oxy IR Take 1 Tablet by mouth every 4 hours as needed for Pain, Moderate or Pain, Mild (ongoing therapy). CONTINUE taking these medications INSTRUCTIONS buPROPion XL 150 MG Tb24 Commonly known as: Wellbutrin XL Take 1 Tablet by mouth in the morning. In the morning.. busPIRone 7.5 MG Tabs Commonly known as: Buspar Take 1 Tablet by mouth in the morning and 1 Tablet in the evening. Cyanocobalamin 500 MCG Tablet Take 1 Tablet by mouth in the morning. Docusate Sodium 100 MG Capsule Commonly known as: Colace 1 Capsule. Ferrous Gluconate 324 (38 Fe) MG Tablet Take 1 Tablet by mouth daily with breakfast. folic acid 1 MG Tablet Take 1 Tablet by mouth in the morning. Ibuprofen 600 MG Tablet Commonly known as: Motrin Take 1 Tablet by mouth in the morning and 1 Tablet at noon and 1 Tablet before bedtime. with food for pain. Inulin 2 g Chew daily. LORAzepam 0.5 MG Tablet Commonly known as: Ativan Take 1 Tablet by mouth every 8 hours as needed for Anxiety or Insomnia. MiraLax powder Generic drug: Polyethylene Glycol 3350 Take 17 g by mouth in the morning. Multivitamins Capsule daily. valACYclovir 1000 MG Tablet Commonly known as: Valtrex take 2 tablets by mouth every 12 hours for 1 DAY FOR COLD SORES Wegovy 2.4 MG/0.75ML Soaj Generic drug: Semaglutide-Weight Management Inject 2.4 mg (1 pen) under the skin once a week. STOP taking these medications sulfamethoxazole-trimethoprim DS 800-160 MG per tablet Commonly known as: Bactrim DS ALLERGIES: Patient has no known allergies. INSTRUCTIONS: Activity: As tolerated Diet: normal diet Code Status: Full Code Indwelling devices: none ADMISSION HISTORY & PHYSICAL EXAM (focused): THORACIC SURGERY CLINIC @ [facility] 03/11/2023 HPI: Sybil Workman is a 52 year old female presenting for evaluation of a right-sided intrathoracic mass, presumably located between the middle and lower lobes of the lung. Referring Provider: Jed Pandya MD Patient location: HOME. I was in a hospital or clinic location. After connecting through [employer],patient was verified with two unique identifiers. 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 Methods to assure confidentiality were taken. Patient acknowledged consent and understanding of pr ivacy and security of the Telemedicine visit. The patient agreed to participate. HPI Summary: Sybil presented last month to [facility] with significant abdominal pain. -- turned out to be constipation -- pain has resolved completely Incidentally, a CXR picked up a right lung mass. -- led to CT Chest imaging -- led to pulmonary involvement (Dr. Davies) -- led to outpatient bronchoscopy -- led to iatrogenic PTX, chest tube, and admission -- path was non-diagnostic Just had a PET/CT (see data below). Tells me she has noticed intermittent deep right-sided chest discomfort. Standing all day on Thanksgiving, for example, seemed to exacerbate this symptom. She still notices it today, albeit intermittently and not a severe pain. She denies any dyspnea. She otherwise remains at her baseline state of good health. She has been onWegovy for weight loss management over the past several months. She has also noticed increased fatigue. She was recently diagnosed with iron deficiency anemia and this is being medically managed. Her , Rob, is with her for today's video meeting. ASSESSMENT: 1. 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 No significant directly-related symptoms, although she intermittently does sense deep right-sided chest discomfort. She is being actively managed for iron- deficiency anemia. 3. Reasonably well preserved performance status. 4. Well preserved pulmonary function. 5. Image findings, differential diagnosis, and management options reviewed with Sybil and her , Rob. I have also discussed this case specifically and in detail with Dr. Davies. The exact etiology of the mass remains unknown, but the risk of malignancy remains high. Given the lack of any jenna or distant disease, it appears reasonable to proceed directly to diagnostic and therapeutic (curative intent) surgical resection. 6. Surgery would entail initial robotic thoracoscopy for exploration to determine the location of the mass and what would be involved in resection (direct resection, lobectomy, bilobectomy). If necessary, we would convert to thoracotomy. We reviewed the goals, conduct, risks, benefits, and alternatives to this surgery in detail. The primary risks during surgery are hypoxia, bleeding (including major and life threatening), and injury to surrounding structures. The primary post-operative risks include, but are not limited to, hypoxia, bleeding, air leaks, infection (wounds, lung, pleural space,urine, blood, etc), atrial fibrillation, VT, CVA, DVT, PE, chylothorax, need for additional procedures/surgery, human error, , and other imponderables. She is willing and anxious to proceed. PLAN: 1. Surgery soon as follows: -- robotic right VATS (thoracoscopy) -- possible thoracotomy -- resection of chest mass -- possible lobectomy -- middle lobectomy -- lower lobectomy -- middle-lower bilobectomy HOSPITAL COURSE (focused): On 04/03/2023, the patient was taken to the OR and underwent a Robotic right VATS (thoracoscopy) -- middle and lower bilobectomy and lymphadenectomy . There were no operative complications. Hemodynamics remained stable. All prior to admission medications were restarted as appropriate. The patient's chest tubes were removed on POD#4. The remainder of the patient's post op course was unremarkable and met all criteria for discharge. The patient was discharged on POD #5. Operations & Procedures: Robotic right VATS (thoracoscopy) -- middle and lower bilobectomy and lymphadenectomy Complications: none applicable SIGNIFICANT RESULTS: Vital Signs (last recorded): Most Recent Systolic BP: 120 mmHg (04/08/23656) Most Recent Diastolic BP: 74 mmHg (04/08/23656) Pulse: 70 (04/08/23656) Resp: 18 (04/08/23656) Most Recent Temperature: 36.89 C (04/08/23656) Weight: 60.1 kg (132 lb 8 oz) (04/08/23619) SpO2: 99 % (04/08/23656) O2 flow rate: 0 L/MIN (04/08/235) Labs: CHEMISTRY: BUN, Creatinine, GFR Estimated, Sodium, Potassium, Chloride, Carbon Dioxide, Glucose, Calcium (see below for most recent value): Lab Results Component Value Date/Time BUN 11 04/06/2023 05:30 AM BUN 16 03/05/2018 11:10 AM CREAT 0.7 04/06/2023 05:30 AM CREAT 0.7 03/05/2018 11:10 AM GFRESTIMATED >60.0 03/05/2018 11:10 AM NA 138 04/06/2023 05:30 AM NA 141 03/05/2018 11:10 AM POTASSIUM 4.3 04/06/2023 05:30 AM POTASSIUM 4.0 03/05/2018 11:10 AM CL 102 04/06/2023 05:30 AM CL 103 03/05/2018 11:10 AM CO2 29 04/06/2023 05:30 AM CO2 28 03/05/2018 11:10 AM CA 8.7 04/06/2023 05:30 AM CA 9.3 03/05/2018 11:10 AM HEMOGLOBIN: Hgb (see below for last three most recent values): Lab Results Component Value Date/Time HGB 10.7 (L) 04/04/2023 06:35 AM HGB 12.6 03/26/2023 01:02 PM HGB 14.7 03/05/2018 11:10 AM HGB 13.8 12/03/2016 12:21 PM HGB 13.4 09/10/2016 12:00 AM Imaging (focused): CXR 04/07/2023 - Lungs fully expanded on postoperative imaging bilaterally CONSULTS ORDERED: None REFERRING PHYSICIAN: Ref: JED PANDYA[[id number]] [address] [place] [address] (office) [phone] (fax) PRIMARY CARE PROVIDER: PCP: Jed Pandya MD [address] / [place] [address] (office) [phone] (fax) Note: To contact a physician responsible for this patients hospital care, please call navabi [phone]. documented in this encounter Discharge Instructions * Discharge Instr - AVS* Mayra Johnson PA-C - 04/05/2023 8:30 AM EST Discharge Date: 04/08/2023 You may call the department of Thoracic Surgery at [phone] during business hours for any questions or test results. For after-hours emergencies call [phone] and have the doctor or physicianassistant labor relations worker paged. The information below provides you with the instructions and the list of medications you need to betaking following discharge from the hospital. If you have any questions, please ask before leaving.Please carry this letter with you when you see your doctor in the clinic. If you have questions, you can reach us at the numbers above. Brief summary of your inpatient care: You were admitted to Thoracic Surgery for a surgical procedure. Your doctors during this hospitalization included: ZenaidasRenata Parikh Your primary diagnosis at discharge was: Right lung mass Inpatient test results pending: pathology Operations & Procedures: Robotic right VATS (thoracoscopy) -- middle and lower bilobectomy and lymphadenectomy Complications: none Advance Directive Documented: Advance Directive Does the Patient have an Advance Directive? No Diet: Resume your normal (pre-admission) diet. Driving: Do not drive until you are off narcotics for one full week and can walk normally and firmly apply the brake without pain. Date you may return to work or school: To be determined at your follow-up office visit. See your primary care physician (Jed Pandya MD) for a follow up appointment within 1-2 week(s). Follow up: Thoracic Surgery Clinic in 2 weeks. An appointment will be scheduled for you. Special Instructions: ACTIVITY: You are encouraged to be as active as possible. You may climb stairs as tolerated withoutrestriction. RESTRICTIONS: You may lift objects as long as it doesn't cause excessive pain. WOUND CARE/SURGICAL SITE CARE: A small amount of drainage is normal. You may shower daily. Avoid pool, hot tub or bath for at least 7 days. Clean all wounds daily. Apply gauze area, as needed, to anyopen or draining wounds until sealed and dry. documented in this encounter H&P Notes * Kaitlyn Nicole PA-C - 04/03/2023 10:09 AM EST HISTORY & PHYSICAL INTERVAL NOTE - Thoracic Surgery Service [facility] [place] [address] History and Physical Update: Name: Sybil Workman Location[place] [facility] [place] Date: 04/03/2023 Time: 10:10 AM DATE OF HISTORY AND PHYSICAL: 03/11/2023 BP: 108 mmHg/75 mmHg (04/03/23946) Pulse: 70 (04/03/23946) Temp: 37 C (04/03/23946) Temp Summary: Temp Min: 37 C (98.6 F) Max: 37 C (98.6 F) SpO2: 98 % (04/03/23946) O2 flow rate: Supplemental O2 Delivery: Room Air, None (04/03/23 1001) Heart Exam: regular rate and rhythm Lung Exam: clear to auscultation bilaterally Other Pertinent Physical Exam: NA I have reviewed the H&P previously performed and examined the patient today. There are no new findings noted. Did you CONFIRM beta-blockade? n/a - this patient does not take beta-blockade Did you CONFIRM anticoagulation? n/a - this patient does not take anticoagulation Did you CONFIRM EKG? yes - EKG done within prior 6 months and reviewed Bronchoscopy Risk Assessment: Is this patient suspected of having pulmonary Mycobacterium tuberculosis or microorganism spread via airborne dissemination? No Operative plan reviewed with patient. All questions answered to apparent satisfaction. Associated attestation - Vu Parikh MD - 04/03/2023 11:00 AM EST I have reviewed the advanced practitioner's documentation on the date of service referenced in note, and I agree with, and take responsibility for the plan of care. No new symptoms or medical problems since we last met. She can definitely sense deep right-sided chest pressure with certain physical movements, but nothing severe and she otherwise would have thought it was just a muscle sprain (we had discussed this previously). She has good recall of the goals and conduct for today's surgery and asked several thoughtful questions. The plan is robotic exploration and then to determine how best to resect the mass (with lung, without lung, with robot, via thoracotomy, etc). The mass is very close and even adjacent to a portion of the pulmonary artery, which I showed her on CT imaging, and therefore even a pneumonectomy remains a remote (but undesirable) possibility. She is more than willing to proceed even if pneumonectomy were necessary. The surgery is both diagnostic and therapeutic. I specifically discussed the potential for ANY possible complication, including serious morbidity and/or mortality as a direct result of the operation. The more common or typical complications of theproposed procedure were discussed, as well as the potential for human error on the part of the healthcare team. All of the patient's questions were answered to apparent satisfaction. The patient willingly provided informed consent. Source Note - Vu Parikh MD - 03/11/2023 8:33 AM EST THORACIC SURGERY CLINIC @ [facility] 03/11/2023 HPI: Sybil Workman is a 52 year old female presenting for evaluation of a right-sided intrathoracic mass, presumably located between the middle and lower lobes of the lung. Referring Provider: Jed Pandya MD Patient location: HOME. I was in a hospital or clinic location. After connecting through [employer],patient was verified with two unique identifiers. 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 Methods to assure confidentiality were taken. Patient acknowledged consent and understanding of pr ivacy and security of the Telemedicine visit. The patient agreed to participate. HPI Summary: Sybil presented last month to [facility] with significant abdominal pain. -- turned out to be constipation -- pain has resolved completely Incidentally, a CXR picked up a right lung mass. -- led to CT Chest imaging -- led to pulmonary involvement (Dr. Davies) -- led to outpatient bronchoscopy -- led to iatrogenic PTX, chest tube, and admission -- path was non-diagnostic Just had a PET/CT (see data below). Tells me she has noticed intermittent deep right-sided chest discomfort. Standing all day on Thanksgiving, for example, seemed to exacerbate this symptom. She still notices it today, albeit intermittently and not a severe pain. She denies any dyspnea. She otherwise remains at her baseline state of good health. She has been onWegovy for weight loss management over the past several months. She has also noticed increased fatigue. She was recently diagnosed with iron deficiency anemia and this is being medically managed. Her , Rob, is with her for today's video meeting. Allergies: Review of patient's allergies indicates: No Known Allergies Current Outpatient Medications Medication Sig Dispense Refill [...] Tablet TAKE 1 TABLET IN THE MORNING (Patient taking differently: Take 0.5 Tablets by mouth in the morning.) 90 Tablet 2 Cyclobenzaprine HCl 5 MG Oral Tablet (Flexeril) Take 1 Tablet by mouth 3 times a day as needed for Muscle spasms. 30 Tablet 0 Ibuprofen 600 MG Oral Tablet (Motrin) Take 1 Tablet by mouth in the morning and 1 Tablet at noon and 1 Tablet before bedtime. with food for pain. 30 Tablet 1 busPIRone HCl 7.5 MG Oral Tablet (Buspar) Take 1 Tablet by mouth in the morning and 1 Tablet in theevening. hydrOXYzine HCl 25 MG Oral Tablet Take 1 Tablet by mouth 3 times a day as needed for Anxiety. Cyanocobalamin 500 MCG Oral Tablet Take 1 Tablet by mouth in the morning. Wegovy 1.7 MG/0.75ML Subcutaneous Solution Auto-injector (Semaglutide-Weight Management) Inject 1.7mg (1 pen) under the skin once a week. (Patient not taking: Reported on 02/21/2023) 9 mL 0 Wegovy 2.4 MG/0.75ML Subcutaneous Solution Auto-injector (Semaglutide-Weight Management) Inject 2.4mg (1 pen) under the skin once a week. 3 mL 5 Multivitamins Oral Capsule daily. Docusate Sodium 100 MG Oral Capsule (Colace) 1 Capsule. Inulin 2 GM Oral Tablet Chewable daily. Folic Acid 1 MG Oral Tablet Take 1 Tablet by mouth in the morning. 90 Tablet 0 Ferrous Gluconate 324 (38 Fe) MG Oral Tablet Take 1 Tablet by mouth daily with breakfast. 90 Tablet0 No current facility-administered medications for this visit. 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 in [facility] Morbid obesity due to excess calories (HCC) 02/28/2021 Obesity, Class I, BMI 30.0-34.9 (see actual BMI) 02/21/2023 Right lower lobe lung mass 02/21/2023 Past Surgical History: Procedure Laterality Date COLONOSCOPY, DIAGNOSTIC (RECTUM) 03/12/2018 diverticulosis, repeat 5 yrs/COLONOSCOPY FLEXIBLE PROXIMAL DIAGNOSTIC performed by Latoya Murray MD at ENDOS[facility] CONIZATION OF CERVIX 04/26/2015 LAP;W/HYSTERECTOMY 03/01/2017 LUMBAR / SACRAL EPIDURAL, SINGLE LEVEL 11/04/2017 INJECTION TRANSFORAMINAL EPIDURAL LUMBAR OR SACRAL performed by Vivek Rico Merino, DO at OR [facility] LUMBAR / SACRAL EPIDURAL, SINGLE LEVEL 12/19/2017 INJECTION TRANSFORAMINAL EPIDURAL LUMBAR OR SACRAL performed by [facility] Cousins, DO at OR [facility] LUMBAR / SACRAL EPIDURAL, SINGLE LEVEL 06/05/2018 INJECTION TRANSFORAMINAL EPIDURAL LUMBAR OR SACRAL performed by [facility] Wilber, DO at OR [facility] SACROILIAC JOINT INJECT W/GUIDANCE Left 02/09/2019 INJECTION SACROILIAC JOINT performed by [facility] Wilber, DO at OR [facility] TVT [facility] 2010 prolene mesh -- [place] Social History Socioeconomic History Marital status: Spouse name: Not on file Number of children: Not on file Years of education: Not on file Highest education level: Not on file Occupational History Not on file Tobacco Use Smoking status: Never Smokeless tobacco: Never Vaping Use Vaping Use: Never used Substance and Sexual Activity Alcohol use: Yes Comment: rare Drug use: Yes Types: Marijuana Comment: medical marijuana Sexual activity: Yes Partners: Male Other Topics Concern Not on file Social History Narrative Not on file Social Determinants of Health Financial Resource Strain: Not on file Food Insecurity: No Food Insecurity (03/06/2022) Hunger Vital Sign Worried About Running Out of Food in the Last Year: Never true Ran Out of Food in the Last Year: Never true Transportation Needs: Not on file Physical Activity: Not on file Stress: Not on file Social Connections: Not on file Intimate Partner Violence: Not on file Housing Stability: Not on file Family History Problem Relation Age of Onset Cancer Mother 23 ov ca?--mother was on ?PETTY Hypertension Mother Blood Disorder Father from infection =dog bite,h/osplenectomy No Known Problems Sister No Known Problems Brother Cancer Aunt (Unspecified) maternal --?ov ca-m took ?PETTY REVIEW OF SYSTEMS: Any pertinent positives are noted in the HPI; all others are negative. PHYSICAL EXAM: There were no vitals filed for this visit. There is no height or weight on file to calculate BMI. ECOG Performance Status: 0 = Fully active, able to carry on all pre-disease performance without restriction Exam deferred -- telephonic and/or telemedicine encounter. 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 No significant directly-related symptoms, although she intermittently does sense deep right-sided chest discomfort. She is being actively managed for iron- deficiency anemia. 3. Reasonably well preserved performance status. 4. Well preserved pulmonary function. 5. Image findings, differential diagnosis, and management options reviewed with Sybil and her , Rob. I have also discussed this case specifically and in detail with Dr. Davies. The exact etiology of the mass remains unknown, but the risk of malignancy remains high. Given the lack of any jenna or distant disease, it appears reasonable to proceed directly to diagnostic and therapeutic (curative intent) surgical resection. 6. Surgery would entail initial robotic thoracoscopy for exploration to determine the location of the mass and what would be involved in resection (direct resection, lobectomy, bilobectomy). If necessary, we would convert to thoracotomy. We reviewed the goals, conduct, risks, benefits, and alternatives to this surgery in detail. The primary risks during surgery are hypoxia, bleeding (including major and life threatening), and injury to surrounding structures. The primary post-operative risks include, but are not limited to, hypoxia, bleeding, air leaks, infection (wounds, lung, pleural space,urine, blood, etc), atrial fibrillation, VT, CVA, DVT, PE, chylothorax, need for additional procedures/surgery, human error, , and other imponderables. She is willing and anxious to proceed. PLAN: 1. Surgery soon as follows: -- robotic right VATS (thoracoscopy) -- possible thoracotomy -- resection of chest mass -- possible lobectomy -- middle lobectomy -- lower lobectomy -- middle-lower bilobectomy 2. The rationale, risks, benefits, and alternatives to the proposed surgical procedure were discussed thoroughly with the patient and her . I specifically discussed the potential for ANY possible complication, including serious morbidity and/or mortality as a direct result of the operation. The more common or typical complications of the proposed procedure were discussed, as well as the potential for human error on the part of the healthcare team. All of the patient's questions, and those of her , were answered to apparent satisfaction. The patient willingly provided informed consent. Vu Parikh MD FACS System Chief, Thoracic Surgery [facility] [place] [address] [place] [address] documented in this encounter Nursing Notes * Fabiola Avila RN - 04/03/2023 10:17 PM EST Dual Licensed Skin Assessment completed by TAYO Miguel, and Fabiola Snyder RN. The patient is/has a N/A Skin Breakdown (includes non blanchable erythema): Yes - Surgical/Procedural changes only. * Jair Vanessa NA - 04/03/2023 9:33 PM EST Post Anesthesia Care Unit Transport Note [facility] [address] [facility] [address] Dept. Sybil Workman Transported from PeriOp to : [facility] Time: 2126 Care of patient transferred to: Fabiola CR Transported via: Bed Belongings with Patient: YES Pulse : 78 Temp : 36.4 BP : 105/60 Respirations : 18 Pulse Ox : 97 O2 : 2L SCDS: On but not activated/no machine * Fabiola Avila RN - 04/03/2023 9:30 PM EST Patient arrived from PACU in stable condition to Room 865. Oriented to room and surroundings. Vitalsigns stable. A&O, Lung sounds diminished on right side. Chest tube in place, draining serous drainage. Dressing clean, dry, intact. Incisions x3 closed with dermabond, no drainage. at bedside. Encouraged to ring for assistance. Call dumont within reach. * Kaitlyn Fragoso RN - 04/03/2023 8:33 PM EST PERIOP TO IP HANDOFF COMMUNICATION NOTE [address] [address] Name: Sybil Workman AGE: [id number] year old Location: [facility]/DE Date: 04/03/2023 Attention to: Fabiola Avila Report from: Kaitlyn Fragoso RN Patient arriving via: Bed Time of call: 8:35 PM Phone Ext: [phone] Reason for SBAR (Situation, Background, Assessment, Recommendation) handoff: OR Sending to: [id number] Emotional/Personal Events & Special Needs: none Prescriptions in chart: No Code Status: Full Code Safety Concerns: no safety concerns identified Allergies: Patient has no known allergies. 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 [facility] Morbid obesity due to excess calories (HCC) 02/28/2021 Obesity, Class I, BMI 30.0-34.9 (see actual BMI) 02/21/2023 Right lower lobe lung mass 02/21/2023 PSH: Past Surgical History: Procedure Laterality Date COLONOSCOPY, DIAGNOSTIC (RECTUM) 03/12/2018 diverticulosis, repeat 5 yrs/COLONOSCOPY FLEXIBLE PROXIMAL DIAGNOSTIC performed by Latoya Murray MD at ENDOSCOPY [facility] CONIZATION OF CERVIX 04/26/2015 LAP;W/HYSTERECTOMY 03/01/2017 LUMBAR / SACRAL EPIDURAL, SINGLE LEVEL 11/04/2017 INJECTION TRANSFORAMINAL EPIDURAL LUMBAR OR SACRAL performed by Vivek Merino, DO at OR [facility] LUMBAR / SACRAL EPIDURAL, SINGLE LEVEL 12/19/2017 INJECTION TRANSFORAMINAL EPIDURAL LUMBAR OR SACRAL performed by [place] Rico Merino, DO at OR [facility] LUMBAR / SACRAL EPIDURAL, SINGLE LEVEL 06/05/2018 INJECTION TRANSFORAMINAL EPIDURAL LUMBAR OR SACRAL performed by [place] Rico Merino, at OR [facility] SACROILIAC JOINT INJECT W/GUIDANCE Left 02/09/2019 INJECTION SACROILIAC JOINT performed by [place] Rico Merino, DO at OR [facility] TVT [facility] 2010 prolene mesh -- KRAIG Joseph Isolation: Isolation: Robotic right VATS (thoracoscopy) -- middle and lower bilobectomy and lymphadenectomy Procedure: Type of Anesthesia: General endotracheal anesthesia Block: local anesthesia in addition IV intake: 1800 mL EBL: OR: 175 mL PACU: 0 mL Urine output: OR 490 mL PACU 0 mL IUBC (Tamayo): none Incision location: R lateral flank Dressing location: R chest tube otherwise topical surgical adhesive Time of last skin assessment: 1914 Pressure injuries or areas of concern: none Lines: Peripheral Line Right Metacarpal 20 Gauge (Active) Number of days: 1848 Peripheral Line Anterior;Left Hand (Active) Status Capped/Locked;Flushes easily 04/03/23 1742 Tubing Changed N/A 04/03/23 174 Phlebitis Scale 0 04/03/23 174 Infiltration Scale 0 04/03/231741 Site Description (Other) Without redness, swelling or drainage 04/03/231741 Site Intervention Flushed 04/03/23 174 Dressing Assessment Dressing clean, dry, and intact 04/03/231741 Dressing Intervention None required 04/03/231741 Number of days: 0 Peripheral Line Right Foot (Active) Status Capped/Locked;Flushes easily 04/03/23 174 Tubing Changed N/A 04/03/23 1742 Phlebitis Scale 0 04/03/23 1742 Infiltration Scale 0 04/03/23 174 Site Description (Other) Without redness, swelling or drainage 04/03/23 174 Site Intervention Flushed 04/03/23 174 Dressing Assessment Dressing clean, dry, and intact 04/03/23 174 Dressing Intervention None required 04/03/23 174 Number of days: 0 Peripheral Line Lower;Right Arm (Active) Status Fluids infusing 04/03/23 174 Tubing Changed N/A 04/03/23 174 Phlebitis Scale 0 04/03/23 174 Infiltration Scale 0 04/03/23 174 Site Description (Other) Without redness, swelling or drainage 04/03/23 174 Site Intervention Flushed 04/03/23 174 Dressing Assessment Dressing clean, dry, and intact 04/03/23 174 Dressing Intervention None required 04/03/23 174 Number of days: 0 Arterial Line Left Radial (Active) Tubing Changed N/A 04/03/23 174 Site Description Without redness, swelling or drainage 04/03/23 174 Site Intervention None required 04/03/23 174 Dressing Assessment Dressing clean, dry, and intact 04/03/23 174 Dressing Intervention None required 04/03/23 174 Number of days: 0 Chest Tube Right Back (Active) Number of days: 0 Chest Tube Lateral;Right Pleural (Active) Status Bubbling;No air leak 04/03/23 172 Site Description Without redness, swelling or drainage 04/03/23 172 Dressing Assessment Dressing clean, dry, and intact 04/03/23 172 Description of Output Sanguineous 04/03/231719 Dressing Intervention Applied 04/03/23 172 Number of days: 0 Chest Tube Right;Lateral Pleural (Active) Status No air leak;Bubbling 04/03/23 172 Site Description Without redness, swelling or drainage 04/03/23 172 Dressing Assessment Dressing clean, dry, and intact 04/03/231719 Description of Output Sanguineous 04/03/231719 Dressing Intervention Applied 04/03/231719 Number of days: 0 Vital Signs: BP: 111/66 (04/03/232014) Temp: 36.4 C (97.5 F) (04/03/232014) Pulse: 77 (04/03/232014) Resp: 12 (04/03/232014) SpO2: 99 % (04/03/232014) O2 flow rate: 2 L/MIN (04/03/232014) Time of last pain medication: 2041 Med: Oxycodone Time of last antibiotic: 1646 Med: Ancef Time of last antiemetic: 1525 Med: Zofran INSTRUMENTATION ENGINEERING TECHNICIAN: no Drips: no Neurological: Speech: Clear (04/03/232014) Level of Consciousness: Alert (04/03/232014) RUE Motor Strength: 5-Active movement with full resistance (04/03/232014) RLE Motor Strength: 5-Active movement with full resistance (04/03/232014) LUE Motor Strength: 5-Active movement with full resistance (04/03/232014) LLE Motor Strength: 5-Active movement with full resistance (04/03/232014) Coma Score: 15 (04/03/232014) Respiratory: Respiratory WNL: X - Exceptions to WNL as documented below (04/03/232014) Depth/Rhythm: Regular (04/03/231741) Dyspnea Occurance: None (04/03/232014) Effort: Unlabored (04/03/232014) Oxygen therapy/ Mechanical vent O2 flow rate: 2 L/MIN (04/03/232014) Supplemental O2 Delivery: Nasal Cannula (04/03/232014) Cardiac: Cardiovascular WNL: WNL - within normal limits (04/03/232014) Rhythm: NSR (04/03/232014) Extremities: +Sensation;Right;Left;Upper;Lower;Brazos;Warm (04/03/232014) Pulses Right: Dorsalis Pedis +;Palpable;Radial + (04/03/232014) Pulses Left: Dorsalis Pedis +;Palpable;Radial + (04/03/232014) Capillary Refill: 3 sec (04/03/232014) GI: GI WNL: WNL - within normal limits (04/03/232014) Abdomen: Soft;Non-distended;Non-tender (04/03/231741) Bowel Sounds: Hypoactive;All Quadrants (04/03/231741) : WNL: X - Exceptions to WNL as documented below (No urine to assess at this time) (04/03/232014) Due to Void: 2342 Integumentary:Integumentary WNL: X - Exceptions to WNL as documented below (see skin integrity) (04/03/232014) Skin Description: Dry;Warm (04/03/231741) Skin Color: Brazos (04/03/231741) Skin Lesion: (see below) (04/03/231741) Family updated on transfer: yes Additional Assessment Information: Chest tube with air leak * Kenyatta Proctor RN - 04/03/2023 10:12 AM EST Dual Licensed Skin Assessment completed by myself and Denise Sifuentes. The patient is/has a N/A Skin Breakdown (includes non blanchable erythema): No * Kristina Orozco NA - 04/03/2023 9:09 AM EST Patient does not meet criteria for testing. Pt. Had a Hysterectomy. * Heidy Rey RN - 04/01/2023 1:41 PM EST PREOP PATIENT INFORMATION AND EDUCATION: MEDICATION INSTRUCTIONS: The day of surgery/procedure, you may TAKE the following medications with a sip of water up to 3 hours prior to your arrival time: Lorazepam if needed Bupropion Buspirone Cyclobenzaprine if needed AVOID/ DO NOT TAKE any medications the morning of surgery/procedure that are not listed above. STOP taking the following medications the noted number of days prior to surgery/procedure unless otherwise specified by your surgeon: You are prescribed wegovy, a medication classified as a GLP-1 Agonist. This medication may be associated with delayed gastric emptying (delayed emptying of your stomach content into your intestine). Due to the delay in emptying your stomach you may experience symptoms such as abdominal discomfort/bloating, nausea and/or vomiting. These symptoms can increase your risks of potential complications associated with anesthesia. You will have the opportunity to discuss your symptoms the day of surgerywhen you will meet your anesthesia team and a plan of care is made. Please follow these recommendations based on whether you are experiencing symptoms or not to reducethe risk of potential complications associated with anesthesia: -You are taking a WEEKLY-dosed GLP-1 agonist HOLD your dose a minimum of 3 days prior to your procedure AND follow a CLEAR LIQUID diet for 24 hours before your procedure. INSTRUCTIONS FOR CLEAR LIQUID DIET 24 HOURS BEFORE YOUR PROCEDURE: -The day before your procedure you may eat breakfast, it is recommended to eat your breakfast before 9:00 AM -The day before your procedure after eating breakfast, you MUST follow a clear liquid diet. A clearliquid diet includes water, soda, clear juices (without pulp), black coffee or tea (without milk/cream), jello (without anything added to it) and broth (without anything added to it). -The day of your procedure you may have clear liquids until 3 hours prior to your procedure's arrival time. Please follow surgeon's instructions regarding use of Aspirin, Coumadin, Plavix, Eliquis, and any other blood thinner including NSAIDs (non-steroidal anti- inflammatory drugs, eg, Advil, Ibuprofen, Motrin, Aleve, Naproxen); if you have any questions regarding your anticoagulation therapy please contact your surgeon's clinic. Please verify any proposed stoppage of your anticoagulation therapy with the agent's prescribing provider. 10 days prior to surgery/procedure Stop all Herbal supplements, Green Tea, Turmeric, Melatonin, CBD, THC, etc. Stop all Vitamins (including Vitamin E) 24 hours prior to surgery/procedure DO NOT consume any alcohol. DO NOT use medical marijuana. DO NOT smoke or use tobacco products of any kind after midnight prior to surgery. *Using any of these products may increase your risks of procedural complications. IF IT IS LESS THAN RECOMMENDED STOPPAGE TIME PLEASE STOP AT TIME OF NOTIFICATION. THE DAY BEFORE YOUR SURGERY: -Drink plenty of fluid the day before your surgery. Contact your surgeon's office if you develop any of the following within 2 weeks of surgery: A cold Infection Fever Shingles Chicken pox or exposure to chicken pox Open areas such as scrapes, cuts, metzger or other skin conditions Rashes GENERAL INSTRUCTIONS FOR PREPARING FOR SURGERY: BATHING INSTRUCTIONS: Bathe the evening prior to and the morning of surgery/procedure. Cleanse your body using ONLY anti-bacterial soap (eg, Dial, Safeguard) or any specific soap/cleansers and instructions provided by your surgeon (eg, Chlorhexidine). -You should brush your teeth the morning of surgery. Do NOT apply any lotions, powders, sprays, creams, oils, make-up, or deodorants after bathing. No hairspray, or nail croatian on fingers or toes. Day of surgery/procedure do not use tampons. If you wear contacts wear your eyeglasses if available otherwise bring your contact supplies with you to remove them prior to your surgery/procedure. If you wear glasses or dentures, please bring cases in which you can store them during your surgery. Please remove all piercings and jewelry and leave them at home. Wear comfortable and loose clothing. -Please leave all valuables at home. -If you use a CPAP and are staying overnight, please bring your mask and tubing with you to the hospital. -If you use an assistive mobility device (walker, cane, etc), please label it with your name and bring to hospital. -An escort subway train driver is required if you are being discharged the same day of the surgery. You should have a responsible adult over the age of 18 [address] you home. This person should be present with youin the hospital at the time of discharge and for the first 24 hours after the surgery to support your needs. If you are taking a taxi home, you must have your responsible democrat accompany you in the taxi ride home at the time of discharge. OR times subject to change. Please check voicemail messages the day/evening before your surgery forany updates. PRE-OP: You will be taken to the pre-op area where your vital signs (blood pressure, pulse and temperature)will be taken. Any preparations that need to be done will be done there. When it is time for your surgery, you will be taken to the operating room. PARENTS OF PEDIATRIC PATIENTS WILL BE ALLOWED TO STAY WITH THEIR CHILDREN UNTIL THEY ARE ESCORTED TO THE OPERATING ROOM OUTPATIENT SURGERY PATIENTS: After your surgery you will be taken to the Same Day Surgery Unit when you are awake and will go home from there. You will get instructions about your home care before you leave. Arrange to have someone drive you home from the hospital. You may not drive for 24 hours after anesthesia. You must havean adult stay with you at home for 24 hours after your operation. This is very important. If you are not able to comply with these guidelines, your Short Stay surgery cannot be done. ADMISSION PATIENTS: After your stay in the recovery area, you will be taken to your room. Your family may visit you in your room based on current visitation policy. If a next day discharge is expected, it is important to make arrangements for a subway train driver to take you home. Please be aware our visitation policies are subject to change Professionals, attendants, caregivers or family members are allowable visitors for patients with intellectual, developmental or cognitive disabilities, communication barriers or behavioral concerns. Because patients' and families' needs vary, they will be taken into account when applying visitation restrictions. [facility]: Contact # [phone] Directions to Surgical Suite in from the Riri Entrance The [facility]. Enter through Main Lobby Entrance and the Waiting Room is directly in front of you. Proceed to check in and give them your name. Directions to Surgical Suite from the East Entrance Enter the East entrance and follow the hallway to the J elevator. Take the J elevator up to Level 1. [facility] The [facility]ing Room will be on your Right. Proceed to check in and give them your Name. Directions to Surgical Suite from the Parking Garage Enter the [facility] lobby and proceed down the herndon to the left. At the end of the herndon, turn right. Continue down the long hallway to the main [facility]. The Surgical Waiting Room will be on your Right. Proceed to check in and give them your Name. NO ANESTHESIA EVAL REQUESTED PER CASE DOCUMENTATION. Patient identified by: name/birthdate Person taught: Patient [place] case procedure confirmed with surgical consent Laterality confirmed as Right Surgery date at time of Pre-Surgery Center Encounter: 04/03/23 What procedure is patient having? Robotic right thoracoscopy w/lobectomy & jenna dissection In an emergency, is patient willing to accept blood products or blood transfusion? yes Do you need to place a blood bank order? No Anesthesia consent pool notified? N/A Anesthesia evaluation requested per case documentation? No Preop Evaluation Requested? No PATIENT EDUCATION SCREENING Person taught: Patient Motivation Level: Asks Questions Language Barrier: No Physical Barrier: N/A METHOD: Lecture-telephone interview Patient Preferred Learning Methods: Lecture-Telephone interview Health History interview completed, questions answered, and the following patient instructions provided via telephone interview: Preoperative bathing instructions General preoperative instructions Medication instructions NPO instructions OUTCOME: State / Describe / Explain Heidy Rey, MSN, RN [facility] 04/01/2023 documented in this encounter OR Notes * OR Surgeon - Vu Parikh MD - 04/03/2023 4:56 PM EST [place] [id number] OPERATIVE REPORT Name: Sybil Workman Date: 04/03/2023 Time: 5:50 PM Date of Surgery: 04/03/2023 Pre Operative Diagnosis: Right lung mass Post Operative Diagnosis: Right lung mass Procedures: Robotic right VATS (thoracoscopy) -- middle and lower bilobectomy and lymphadenectomy Surgeon: Vu Parikh MD FACS Assistants: Prema Ramachandran MD (R2) and Mayra Johnson PA-C Anesthesia: General endotracheal anesthesia (double lumen tube) and local anesthesia (20 ml 1.3% liposomal bupivacaine mixed with 30 ml of 0.25% bupivacaine) infiltrated in the intercostal spaces. Findings: 1. Airways patent bilaterally with small quantity of secretions. 2. Pleural surfaces negative for metastatic disease. 3. Presence of large tumor between middle and lower lobes. -- fused to parenchyma of both lobes -- not adherent to the pulmonary artery in fissure -- middle and lower bilobectomy required for oncologic margins 4. Enlarged mediastinal nodes. -- benign subcarinal lymph node by frozen section -- multiple other nodes harvested as well 5. Bronchial margin negative for malignancy. 6. Frozen section on tumor is non-diagnostic. 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 INDICATIONS AND PERTINENT HISTORY: Sybil Workman ( is a 53 year old female with a large FDG-avid lung mass seeminglyin the space between the middle and lower lobes of the lung. Outside biopsy was non-diagnostic but suggestive of inflammatory myofibroblastic tumor. She presents for definitive diagnostic and curative intent pulmonary resection. The rationale, risks, benefits, and alternatives to the proposed surgical procedure were discussed thoroughly with the patient and her . I specifically discussed the potential for ANY possiblecomplication, including serious morbidity and/or mortality as a direct result of the operation. Themore common or typical complications of the proposed procedure were discussed, as well as the realistic potential for human error on the part of the healthcare team. All of the patient's questions were answered to apparent satisfaction. The patient willingly provided both verbal and written informed consent. PROCEDURE IN DETAIL: The patient was seen and examined as appropriate in the preoperative holding area and the planned site of surgery marked. Upon arrival in the operating room a "Time Out" was performed by the collective operating room team to properly verify the patient's identity, the planned operative procedure, and the planned operative site(s). The patient's radiographs were displayed in the room throughout the procedure for confirmation and guidance as necessary. Appropriate antibiotic prophylaxis was administered within one hour prior to the surgery. Venous thromboprophylaxis was accomplished using bilateral venous compression devices. General anesthesia wasadministered by the anesthesia staff along with a double lumen endotracheal tube to accomplish single lung ventilation for the procedure. The flexible bronchoscope was inserted easily through the endotracheal tube and into the trachea. All airways were inspected to the level of segmental bronchi. No major endoluminal abnormalities werenoted, including edema, erythema, lesions, or masses. The bronchoscope was removed at the conclusion of the examination. ROBOTIC THORACOSCOPY: The patient was carefully placed in a lateral decubitus position with the right side of the chest facing the ceiling. Care was taken by the entire operating room team to comfortably pad all of the pressure points, including the head, neck, axilla, torso, and extremities using soft blankets, pillows, and foam pads as necessary. The table was flexed and the chest was prepped and draped in the usualsterile surgical fashion. An 8-mm incision was made in the 8th intercostal space along the mid-axillary line. The pleura was bluntly but carefully penetrated to create a pneumothorax and thereby push the underlying lung parenchyma and diaphragm muscle away from the incision. An 8-mm robotic port was placed and its position within the pleural space verified using the robotic camera. Insufflation was accomplished to a pressure of 8 mmHg without hemodynamic compromise. Local anesthesia was injected as a nerve block posteriorly in spaces 7 through 11 to cover all incisions. Three additional robotic ports were placed along the 8th intercostal space. An assist port was placed just above the diaphragm and along the anterol ateral chest wall. The da Jeannie Xi robot was docked and robotic instruments inserted into the pleural space under direct vision. Robotic inspection revealed no signs of metastatic pleural disease. The large mass was readily apparent in the anterior major fissure between the middle and lower lobes. The mass was adherent to both lobes and at least partially covered by lung parenchyma. It did not appear possible, or martin, to try the mass from one or both lobes. We committed, therefore, to middle and lowerbilobectomy to ensure clear oncologic margins. Both fissures appeared open but incomplete. The inferior pulmonary ligament was divided and the posterior mediastinum entered to harvest lymph nodes from levels 7, 9R, and 11R. No nodes were seen in level 8R. One of the subcarinal lymph nodes was enlarged and pale lou, so we sent it for frozen section. Pathology called back stating the nodeis benign. Mediastinal jenna harvest continued in the paratracheal space, yielding level 2R and 4R lymph nodes. Working within the major fissure, the ongoing lower lobe pulmonary artery was located using carefulbipolar dissection. The mass was present and loosely adherent to the pulmonary artery where all 3 lobes came together. Careful bipolar cautery allowed us to separate the mass off the pulmonary arteryin this location. The vascular anatomy was somewhat anomalous here, with two large visible upper lobe veins, and two large ongoing pulmonary artery branches feeding the middle and lower lobes. We completed the posterior fissure using a blue load on the robotic stapler. The minor fissure was completed similarly using a combination of bipolar cautery and another blue load on the stapler. The middle and lower lobe veins were cleared of surrounding tissue. No hilar nodes were present around these veins. The veins were divided individually using white loads on the stapler. The pulmonaryartery supplying the middle and lower lobes was carefully encircled proximal to their bifurcation. The artery was divided with a single white load on the stapler. The bronchus intermedius was cleared of surrounding connective tissue and the robotic stapler applied with a green load. Anesthesia partially inflated the upper lobe to prove airway patency and the stapler was fired to complete the bilobectomy. The lobe was placed within an endo-bag and removed via the assist port, which was enlarged as necessary. Given the large size of the tumor, and the presence of two en bloc lobes, we utilized a rib flat polisher briefly to allow safe intact specimen removal. Frozen section upon the bronchial margin was negative for malignancy. Frozen section on the mass was non-diagnostic, deferring the diagnosis to permanent analysis. The pathologist did, however, note spindle cells mixed with significant inflammation. The pleural space was irrigated with a large volume of sterile water, and hemostasis appeared excellent. All of the robot instruments were removed and a single 28-Tanzanian chest tube was placed throughthe most anterior port. The tube was secured to the chest wall with a #1 Ethibond simple suture, and connected to water seal drainage with low continuous 20-cm H2O suction. The robotic camera was utilized to visualize pulmonary re-inflation by anesthesia staff and then the robot was carefully undocked completely. All remaining incisions were closed in layers using absorbable sutures. The sponge, needle and instrument count was reported to me as being correct by the perioperative staff prior to completion of skin closure. The skin was washed and dried and the incisions were covered with a thin layer of skin adhesive. Gauze dressings were applied around the chest tube and the patient was carefully returned to a normal supine position. The patient was awakened from anesthesia, extubated in the operating room, and transported to the recovery room breathing spontaneously in a stable condition, having suffered no apparent untoward event. There were no known complications during the surgery. Is this patient a [facility] patient? Yes Bronchoscopy performed prior to resection: yes - performed today in OR Patient's Clinical Stage: III Invasive mediastinal staging completed prior to surgery: no Number of mediastinal lymph node station that were sampled/dissected: 3 or more Patient has a lesion greater than 2 cm: yes Type of pulmonary resection: bi-lobectomy ATTESTATION: I was present for the entire procedure and performed all critical portions. Was there a qualified resident that took part in the case? Yes - Resident was qualified to assist. documented in this encounter Miscellaneous Notes * Progress Notes - Post-Op Global - Prema Ramachandran MD - 04/08/2023 6:55 AM EST PROGRESS NOTE - Thoracic Surgery [facility] [place] [address] Name: Sybil Workman [place] [facility] [place] [facility] Date: 04/08/2023 Time: 6:55 AM DIAGNOSIS: Right Lung Mass OPERATION: 04/03 Robotic Right Middle-Lower Bilobectomy SUBJECTIVE: NAEON. Chest tubes removed yesterday, posterior bandage soiled & being removed by nursing this AM. Pain stable, controlled. No CP or SOB. Vomited once in afternoon, ~200cc, after chest tube removal. Thinks it was a fluke, denies n/v since & tolerating diet. Having bowel function. Ambulating well. Feels good about possible discharge today & wants to go home. VITAL SIGNS: Reviewed. ORA. PHYSICAL EXAM: Incisions/Wounds: normal post-op appearance Lungs: normal respiratory effort. Prior CT sites w/ soiling to posterior one, being changed. Incisions c/d/I w/ dermabond. Heart: normal rate and rhythm Abdomen: normal Extremities: no edema Neuro: awake and alert and grossly intact CXR: none today LABS: none today -- 04/03 surgical pathology = pending IMPRESSION and PLAN: Right Lung Mass Principal Problem: Right lower lobe lung mass (POA: Yes) Active Problems: HTN, goal below 130/80 (POA: Yes) Depression with anxiety (POA: Yes) Obesity, Class I, BMI 30.0-34.9 (see actual BMI) (POA: Yes) POA = Present On Admission Pain Management: usual post-op regimen + ketorolac The patient's pain is well controlled: yes Chest Tube Management: removed 04/07 with 1x episode emesis afterward, otherwise tolerated well -- wound care instructions reviewed - bandage being changed to posterior site per RN this AM 2/2 soiling -- No repeat AM CXR needed before discharge. Physical Recovery: -- continue OOB physical activity as tolerated -- continue pulmonary hygiene exercises as tolerated Home today tentatively. Final plan to be d/w Attending Surgeon, Dr. Parikh. Prema Ramachandran MD [facility] General Surgery PGY-2 Associated attestation - Vu Parikh MD - 04/08/2023 1:14 PM EST I saw and evaluated the patient today. I have reviewed the trainee note and agree. No major problems since we removed the chest tubes yesterday morning. She did have a single episodeof emesis soon thereafter and attributes this to her nerves and the pain. She has felt quite well since that time. Ongoing recovery instructions reviewed. Awaiting surgical pathology. See us back in about 2 weeks. Okay for home discharge. All questions answered to apparent satisfaction. * Progress Notes - Post-Op Global - Vu Parikh MD - 04/07/2023 9:04 AM EST PROGRESS NOTE - Thoracic Surgery [facility] [place] [address] Name: Sybil Workman [place]: [facility] [place] [facility] Date: 04/07/2023 Time: 10:21 AM DIAGNOSIS: Right Lung Mass OPERATION: 04/03 Robotic Right Middle-Lower Bilobectomy SUBJECTIVE: No major new clinical events overnight. Her and her nurse, Katiuska, are with her in the room this morning. She walked 3 times yesterday. She feels tired and a little in pain after each walk, but her upper anterior chest wall is less painful today. No other new problems. VITAL SIGNS: Reviewed. TUBES/LINES: Chest Tube 24 Hour Fluid Output: 300 ml Chest Tube Total Fluid Level: 1400 ml Chest Tube Suction: H2O seal only Tidal Motions: moderate Air Leak: none PHYSICAL EXAM: Incisions/Wounds: normal post-op appearance Lungs: normal respiratory effort Heart: normal rate and rhythm Abdomen: normal Extremities: no edema Neuro: awake and alert and grossly intact CXR: normal post-op appearance and stable small residual right pleural air space s/p bi-lobectomy LABS: reviewed -- 04/03 surgical pathology = pending IMPRESSION and PLAN: Right Lung Mass Principal Problem: Right lower lobe lung mass (POA: Yes) Active Problems: HTN, goal below 130/80 (POA: Yes) Depression with anxiety (POA: Yes) Obesity, Class I, BMI 30.0-34.9 (see actual BMI) (POA: Yes) POA = Present On Admission Pain Management: usual post-op regimen + ketorolac The patient's pain is well controlled: yes Chest Tube Management: remove today -- wound care instructions reviewed -- observe here today in case of PTX -- she has a residual pleural space, but no true PTX Physical Recovery: -- continue OOB physical activity as tolerated -- continue pulmonary hygiene exercises as tolerated Home tomorrow if no new problems overnight. Updates reviewed again with Sybil and her , as well as with her nurse, Katiuska. All questions answered to apparent satisfaction. * Progress Notes - Post-Op Global - Vu Parikh MD - 04/06/2023 7:42 AM EST PROGRESS NOTE - Thoracic Surgery [facility] [place] [address] Name: Sybil Workman Location: [facility] [place] [facility] Date: 04/06/2023 Time: 8:54 AM DIAGNOSIS: Right Lung Mass OPERATION: 04/03 Robotic Right Middle-Lower Bilobectomy SUBJECTIVE: No major new clinical events overnight. Has been walking more, and this morning is already OOB to the bedside chair, wearing some of her own clothes, and generally feeling better. Her cough is a bit more productive now (and it remains painful). Her baseline pain is significantly improved, albeit still present. She is using fewer doses of narcotics (especially IV). She does pretty wellwith the flutter device, and is still struggling to get the incentive spirometer effort up to (or beyond) goal. VITAL SIGNS: Reviewed. TUBES/LINES: Chest Tube 24 Hour Fluid Output: 170 ml Chest Tube Total Fluid Level: 1100 ml Chest Tube Suction: H2O seal only Tidal Motions: moderate Air Leak: intermittent, expiratory, and size: 1 PHYSICAL EXAM: Incisions/Wounds: normal post-op appearance Lungs: normal respiratory effort Heart: normal rate and rhythm Abdomen: normal Extremities: no edema Neuro: awake and alert and grossly intact CXR: normal post-op appearance and stable small residual right pleural air space s/p bi-lobectomy LABS: reviewed -- 04/03 surgical pathology = pending IMPRESSION and PLAN: Right Lung Mass Principal Problem: Right lower lobe lung mass (POA: Yes) Active Problems: HTN, goal below 130/80 (POA: Yes) Depression with anxiety (POA: Yes) Obesity, Class I, BMI 30.0-34.9 (see actual BMI) (POA: Yes) POA = Present On Admission Pain Management: usual post-op regimen + ketorolac The patient's pain is well controlled: yes Chest Tube Management: keep today, water seal -- her leak is only occasionally seen -- I saw it when she first was speaking to me, then it ended -- I did not see it with forced expiration (coughing) -- she and I agree to keep the tubes in place again today Physical Recovery: -- continue OOB physical activity as tolerated -- continue pulmonary hygiene exercises as tolerated Updates reviewed again with Sybil. All questions answered to apparent satisfaction. * Care Plan - Beba Lomax RN - 04/05/2023 10:16 PM EST Clinical Goal(s): Pt will have adequate pain control this shift (04/05/23 0700) Possible barriers to meeting goal(s)/advancing plan of care: recent procedure Stability of the patient: Moderately stable - low risk of patient condition declining or worsening Summary regarding today's goal(s): Met: pt had adequate pain control this shift Recommendations: continue frequent pain reassessments * Communication - Kaitlyn Nicole PA-C - 04/05/2023 5:15 PM EST Thoracic Surgery Saw patient this afternoon. Patient had left chest tube to water seal since this morning after a walk. No air leak observed. Remains on room air. Will leave to water seal. AM CXR ordered and will consider chest tube removal tomorrow. Kaitlyn Nicole PA-C * Progress Notes - Post-Op Global - Kaitlyn Nicole PA-C - 04/05/2023 11:44 AM EST PROGRESS NOTE - Thoracic Surgery [facility] [place] [address] Name: Sybil Workman Location: [facility] [place] [facility] Date: 04/05/2023 Time: 11:44 AM DIAGNOSIS: Right Lung Mass OPERATION: 04/03 Robotic Right Middle-Lower Bilobectomy SUBJECTIVE: Resting in bed this morning. present at bedside. She continues to complain of significant post operative pain. States that the Toradol has helped. She was able to walk around her room last night. VITAL SIGNS: Reviewed. TUBES/LINES: Chest Tube 24 Hour Fluid Output: 505 ml Chest Tube Total Fluid Level: 930 ml Chest Tube Suction: minus 20 cm H2O Tidal Motions: minimal Air Leak: intermittent, expiratory, and size: 1 PHYSICAL EXAM: Incisions/Wounds: normal post-op appearance Lungs: normal respiratory effort Heart: normal rate and rhythm Abdomen: normal Extremities: no edema Neuro: awake and alert CXR: normal post-op appearance and tiny right apical space - stable from previous imaging, chest tubes in place LABS: reviewed IMPRESSION and PLAN: Right Lung Mass Principal Problem: Right lower lobe lung mass (POA: Yes) Active Problems: HTN, goal below 130/80 (POA: Yes) Depression with anxiety (POA: Yes) Obesity, Class I, BMI 30.0-34.9 (see actual BMI) (POA: Yes) POA = Present On Admission Pain Management: usual post-op regimen The patient's pain is well controlled: yes Chest Tube Management: water seal -- small intermittent air leak on exam today -- chest tube to water seal Continue respiratory therapy Encouraged OOB and ambulation in halls today ADDENDUM: Patient noted shortness of breath and thought she was feeling crepitus in his chest. (She experienced this after her biopsy that required chest tube placement). She was put back to suction. CXR did not demonstrate increase in subcutaneous emphysema and her right lung was well expanded. There was no crepitus on exam. Air leak continues to be nearly absent. Will continue chest tube to - 20 cm suction today. AM CXR ordered. Associated attestation - Vu Parikh MD - 04/05/2023 3:04 PM EST I have reviewed the advanced practitioner's documentation on the date of service referenced in note, and I agree with, and take responsibility for the plan of care. No major new changes overnight, although her pain remains the primary issue. She was able to walk around in her room last night, and she walked to use the bathroom today. Intermittent and infrequent grade 1 expiratory air leak with the tube on -20 cm H2O suction. She began feeling uncomfortable walking to and from the bathroom without chest tube suction so we resumed -20 suction and updated CXR shows no PTX. There is a small quantity of lateral subcutaneous emphysema which appears unchanged ever since the first post-op CXR. She has no obvious palpable subcutaneous emphysema except immediatelysurrounding the chest tube site. Updates reviewed with Jocelyn and her . Encouraged her to ambulate out in the halls today,and she is looking forward to doing so. Okay to remove suction from the tube for ambulation, trips to the bathroom and transportation. All questions answered to apparent satisfaction. * Care Plan - Beba Lomax RN - 04/04/2023 9:42 PM EST Clinical Goal(s): Patient will have adequate pain control (04/04/23699) Possible barriers to meeting goal(s)/advancing plan of care: recent procedure Stability of the patient: Moderately stable - low risk of patient condition declining or worsening Summary regarding today's goal(s): Not Met: pt's pain remained uncontrolled Recommendations: continue frequent pain assessments * Ancillary Progress Note - Princess Cates MSW - 04/04/2023 9:17 AM EST CARE MANAGEMENT - ADULT INITIAL SCREENING [facility] [place] [address] Name: Sybil Workman Location: [facility] [place] [facility] Date: 04/04/2023 Time: 9:18 AM Discussed patient with the interdisciplinary care team. This Design Painter performed a chart review to complete admission screen and assessed needs for transition planning. The manager urgent care role and services were explained and emotional support was provided. Chief Complaint: No chief complaint on file. Prior Living Arrangements What was your living situation prior to admission/observation?: With Spouse (04/03/232143) Do you have serious difficulty walking or climbing stairs? (5 years old or older): No (04/03/232143) History of falling: No (04/04/23731) Prior Level of Functioning Describe the patient's ability prior to admission/observation to perform ADLs: Performs independently (04/03/232143) Describe the patient's mobility status prior to admission: Patient ambulates independently (04/03/232143) Patient uses assistive device: No (04/03/232143) Caregiver Information Patient Contacts Name Relation Home Work Mobile Rob Paulino Spouse [phone] Risk Stratification/Psychosocial/Care Gaps Risk Stratification Psycho Social / Medical Concerns Identified: Adjustment to illness/injury (04/04/23915) Readmission Risk Score: 8.35 (04/04/23 0801) AM-PAC Score With Stairs : 18 (04/04/23 0007) Prior to Admission Services Services Prior to Admission BELL PERSON Services (Services received within the last 30 days with exception, Psych within last two years): N/A (04/04/23915) Outpatient Design Painter: No care team leader/research psychologist to display Patient/Family Expectations: Anticipate Pt to return home w/ spouse at time of DC. For further screening information, please refer to the Care Management flow document. * Progress Notes - Post-Op Global - Prema Ramachandran MD - 04/04/2023 7:57 AM EST PROGRESS NOTE - Thoracic Surgery [facility] [place] [address] Name: Sybil Workman Location: [facility] [place] [facility] Date: 04/04/2023 Time: 7:57 AM DIAGNOSIS: Right Lung Mass OPERATION: 04/03 Robotic Right Middle-Lower Bilobectomy SUBJECTIVE: NAEON. POD 1 s/p Robotic R VATS w/ RML & RLL bilobectomies, recovering well. Had significant uncontrolled pain in R neck & chest last night because her R hand IV was not functioning, got changed to L arm IV this AM & received one dose of dilaudid breakthrough with improvement. Did get x2 doses PO [id number] prns. Still catching up with some uncontrolled pain mostly in neck. Numb at R lower chest. Denies SOB or CP otherwise. Denies n/v. Not passing gas or having bowel movements yet. Needs to ambulate. Wants to see picture of mass. Has some anxiety. VITAL SIGNS: Reviewed. Weaned to room air overnight & satting well. TUBES/LINES: Chest Tube 24 Hour Fluid Output: 425 ml Chest Tube Total Fluid Level: 425 ml Chest Tube Suction: minus 20 cm H2O Tidal Motions: large Air Leak: expiratory and size: 1 PHYSICAL EXAM: Incisions/Wounds: normal post-op appearance Lungs: normal respiratory effort Heart: normal rate and rhythm Abdomen: normal Extremities: no edema Neuro: awake and alert CXR: normal post-op appearance LABS: reviewed IMPRESSION and PLAN: Right Lung Mass Principal Problem: Right lower lobe lung mass (POA: Yes) Active Problems: HTN, goal below 130/80 (POA: Yes) Depression with anxiety (POA: Yes) Obesity, Class I, BMI 30.0-34.9 (see actual BMI) (POA: Yes) POA = Present On Admission Pain Management: usual post-op regimen The patient's pain is well controlled: yes Chest Tube Management: keep on 20 cm suction Constipation: Resume BELL PERSON Miralax Final plan to be d/w Attending Surgeon, Dr. Parikh. Prema Ramachandran MD [facility] General Surgery PGY-2 Associated attestation - Vu Parikh MD - 04/04/2023 6:10 PM EST I saw and evaluated the patient today. I have reviewed the trainee note and agree. No major problems since yesterday's surgery. Rob is in the room with her. Had pain overnight -- turned out her right arm IV was blown. -- doses of hydromorphone were therefore ineffective -- now has new functioning IV -- pain is better controlled now, but still present -- primarily pain is when coughing -- she has not walked yet due to the pain -- using bedside commode for now There is about 700 ml of fluid in the chest tube collection chamber this evening. There is an intermittent forced expiratory grade 1 air leak with the tube on -20 cm H2O suction. Detailed updates reviewed on the operative findings. PLANS: Add ketorolac around the clock to increase pain control. Monitor renal function while on ketorolac. Repeat CXR tomorrow. Increase physical activity tomorrow as tolerated. All questions answered to apparent satisfaction. * Respiratory Progress Note - Eyal Alvarez RRT - 04/03/2023 10:26 PM EST PATIENT DRIVEN PROTOCOL - Respiratory Care Services [address] [address] Name: Sybil Workman Location: [facility] [place] [facility] Date: 04/03/2023 Time: 10:26 PM Patient Driven Protocol Summary: Initial evaluation performed. This Treatment Plan and medications will be reviewed by the Primary Care Team for any contraindications. Respiratory Care Treatment Plan Pulmonary Volume Expansion Therapy: Incentive Spirometry PRN to prevent or treat alveolar consolidation and atelectasis. . Secretion Management Treatment: Flutter TherapyPRN to enhance mobilization of secretions and prevent or treat alveolar consolidation and atelectasis. . The patient will be re-evaluated: No re-evaluation needed. Indications for treatment met. The Triage Level is: (Assessment Score = 0 - 5) Level 5. Triage Level Definitions: Level 1 Severe Respiratory/Airway Compromise Level 2 Moderate Respiratory/Airway Compromise or high risk for pulmonary complications Level 3 Mild Respiratory/Airway Compromise or moderate risk for pulmonary complications Level 4 Episodic Respiratory/Airway Compromise or low risk for pulmonary complications Level 5 No Respiratory/Airway Compromise Triage 1 Triage 2 Triage 3 Triage 4 Triage 5 greater than 20 16 - 20 11 - 15 6 - 10 0 - 5 Medical Record Assessment Clinical Findings Pulmonary Status: 0 - No History Surgical Status: 1 - General Surgery Chest X-Ray: 0 - Clear Assessment Score: 1 Patient Assessment Clinical Findings Respiratory Pattern: 0 - RR 12 - 20; Patient only gets breathless with strenuous exercise. Breath Sounds: 0 - Clear to auscultation Cough Effectiveness: 0 - Strong non-productive Sputum Production: 0 - No sputum production Level of Activity: 1 - Ambulatory with assist O2 needed to keep SpO2 greater than or equal to 92%: 1 - Oxygen 1-3 LPM or FiO2 less than 35% Assessment Score: 2 Total Assessment Score: 3 Breath Sounds: Inspiratory and expiratory clear and diminished bilaterally.. Cough and Sputum: An effective cough produced no sputum... CXR: .EXAM XR CHEST 1 VIEW- 04/03/2023 6:06 pm HISTORY immediate film postop right middle and lower lobe lobectomy COMPARISON None TECHNIQUE A single portable presumably upright AP view of the chest was obtained at 1802 hours. FINDINGS Catheters: None Tubes: There are 2 chest tubes in the right hemithorax. Foreign bodies: No radiopaque foreign bodies are identified. The chest wall and cardiomediastinal structures are unremarkable. There is a right pneumothorax. There is no pleural effusion. The lungs are clear. There is elevation of the right hemidiaphragm. IMPRESSION IMPRESSION Right-sided pneumothorax. Vital Signs: Resp: 16 (04/03/232126) Pulse: 78 (04/03/232126) Temp: 36.4 C (97.5 F) (04/03/232126) BP: 105/60 (04/03/232126) SpO2: 98 % (04/03/232126) PFT: Predicted IC: 2.35 L. Inspiratory capacity: 1.0L. Primary Service: Thoracic Surgery. Admitting Diagnosis: Right lower lobe lung mass [R91.8] Prescriptions/Home Medications/Durable Medical Equipment: Prior to Admission medications Medication Sig Last Dose Discont. Polyethylene Glycol 3350 17 GM/SCOOP Oral Powder (MiraLax) Take 17 g by mouth in the morning. 04/02/2023 LORazepam 0.5 MG Oral Tablet (Ativan) Take 1 Tablet by mouth every 8 hours as needed for Anxiety orInsomnia. 04/03/2023 buPROPion HCl ER (XL) 150 MG Oral Tablet Extended Release 24 Hour (Wellbutrin XL) Take 1 Tablet by mouth in the morning. In the morning.. 04/02/2023 Ferrous Gluconate 324 (38 Fe) MG Oral Tablet Take 1 Tablet by mouth daily with breakfast. 03/24/2023 Folic Acid 1 MG Oral Tablet Take 1 Tablet by mouth in the morning. 03/24/2023 Docusate Sodium 100 MG Oral Capsule (Colace) 1 Capsule. 03/24/2023 Inulin 2 GM Oral Tablet Chewable daily. 03/24/2023 Multivitamins Oral Capsule daily. 03/24/2023 busPIRone HCl 7.5 MG Oral Tablet (Buspar) Take 1 Tablet by mouth in the morning and 1 Tablet in theevening. 04/02/2023 Cyanocobalamin 500 MCG Oral Tablet Take 1 Tablet by mouth in the morning. 03/24/2023 Ibuprofen 600 MG Oral Tablet (Motrin) Take 1 Tablet by mouth in the morning and 1 Tablet at noon and 1 Tablet before bedtime. with food for pain. 03/24/2023 Wegovy 2.4 MG/0.75ML Subcutaneous Solution Auto-injector (Semaglutide-Weight Management) Inject 2.4mg (1 pen) under the skin once a week. 03/13/2023 Sulfamethoxazole-Trimethoprim 800-160 MG Oral Tablet (Bactrim DS) Take 1 Tablet by mouth in the morning and 1 Tablet before bedtime. Do all this for 7 days. Until gone. valACYclovir HCl 1 GM Oral Tablet (Valtrex) take 2 tablets by mouth every 12 hours for 1 DAY FOR COLD SORES Over 30 Days . * Progress Notes - Post-Op [facility] - Vu Parikh MD - 04/03/2023 6:21 PM EST Post-op CXR personally reviewed. -- normal post-op appearance -- chest tube(s) in good position Operative findings reviewed immediately post-op with patient's . Updates also reviewed just now with Sybil, although she is not yet fully awake. Expiratory grade 1 air leak present with chest tube on -20 cm H2O suction. -- 70 ml in collection chamber [facility] Documentation Statement: Was the post-op CXR performed and reviewed within 4 hours of leaving the operating room? Yes documented in this encounter Plan of Treatment Upcoming Encounters Date Type Department Care Team (Late st Contact Info) Description 04/17/2023 11:00 AM EST Office Visit [facility] [address] [address] Jed Pandya MD [address] [id number] 04/22/2023 11:30 AM EST Office Visit Thoracic Surg [facility] [address] [place] [address] Mayra Johnson PA-C [address], [place] [id number] Pending Results Name Type Priority Associated Diagnoses Date /Time SURGICAL PATHOLOGY Pathology Routine Right lower lobe lung mass 04/03/2023 1:42 PM EST Scheduled Orders Name Type Priority Associated Diagnoses Orde r Schedule SURGICAL PATHOLOGY Pathology Routine Right lower lobe lung mass Release Upon Ordering for 1 Occurrences starting 04/03/2023, 1 completed Scheduled Procedures Name Priority Associated Diagnoses Date/Ti [...] Procedure Name Priority Date/Time Associated Diagnosis Comments XR ABDOMEN 1 VIEW Routine 04/07/2023 12: 49 PM EST XR CHEST 1 VIEW Routine 04/07/2023 7:42 AM EST XR CHEST 1 VIEW Routine 04/06/2023 7:15 AM EST RENAL FUNCTION PANEL Routine 04/06/2023 5:30 AM EST MAGNESIUM Routine 04/06/2023 5:30 AM EST XR CHEST 1 VIEW STAT 04/05/2023 9:49 AM EST XR CHEST 1 VIEW Routine 04/05/2023 7:21 AM EST MYCODE SST1 Routine 04/05/2023 6:36 AM EST MYCODE INITIAL ADULT-PINK Routine 04/05/2023 6:36 AM EST MYCODE INITIAL ADULT-2SST Routine 04/05/2023 6:36 AM EST MYCODE INITIAL ADULT Routine 04/05/2023 6:36 AM EST RENAL FUNCTION PANEL Routine 04/05/2023 6:36 AM EST MAGNESIUM Routine 04/05/2023 6:36 AM EST XR CHEST 1 VIEW Routine 04/04/2023 7:04 AM EST RENAL FUNCTION PANEL Routine 04/04/2023 6:35 AM EST CBC Routine 04/04/2023 6:35 AM EST MAGNESIUM Routine 04/04/2023 6:35 AM EST SARS-COV-2 (COVID-19), NAAT STAT 04/03/2023 6:47 PM EST XR CHEST 1 VIEW STAT 04/03/2023 6:06 PM EST BLOOD GAS, ARTERIAL STAT 04/03/2023 2 :11 PM EST HC COMPATIBILITY ELECTRONIC CROSSMATCH Routine 04/03/2023 10:55 AM EST Lymphadenectomy via Thoracoscopy 04/03/2023 10:50 AM EST Right lower lobe lung mass Lung Bilobectomy via Thoracoscopy 04/03/2023 10:50 AM EST Right lower lobe lung mass GLUCOSE METER, POINT OF CARE ISAAC 04/03/2023 9:53 AM EST documented in this encounter Results * XR ABDOMEN 1 VIEW (04/07/2023 12:49 PM EST) Anatomical Region Laterality Modality Abdomen, Pelvis Computed Radiogr aphy 04/07/2023 2:49 PM EST Impressions 04/07/2023 3:08 PM EST IMPRESSION Nonobstructive bowel gas pattern. I have personally reviewed this examination and agree with the resident/fellow physician's interpretation. Narrative 04/07/2023 3:08 PM EST EXAM XR ABDOMEN 1 VIEW - 04/07/2023 12:49 pm HISTORY N/V COMPARISON Outside PET-CT dated 03/06/2023. TECHNIQUE Supine AP view of the abdomen. FINDINGS LINES, DEVICES, SURGICAL MATERIAL: None. ABDOMEN: Nonobstructive bowel gas pattern. No supine evidence of pneumoperitoneum. BONES/OTHER: Mild degenerative changes of the spine and hips. Right chest wall subcutaneous emphysema is again noted. Procedure Note Umberto Garcia, - 04/07/2023 EXAM XR ABDOMEN 1 VIEW - 04/07/2023 12:49 pm HISTORY N/V COMPARISON Outside PET-CT dated 03/06/2023. TECHNIQUE Supine AP view of the abdomen. FINDINGS LINES, DEVICES, SURGICAL MATERIAL: None. ABDOMEN: Nonobstructive bowel gas pattern. No supine evidence ofpneumoperitoneum. BONES/OTHER: Mild degenerative changes of the spine and hips. Right chestwall subcutaneous emphysema is again noted. IMPRESSION IMPRESSION Nonobstructive bowel gas pattern. I have personally reviewed this examination and agree with the resident/fellow physician's interpretation. Kaitlyn Hicks PA-C RADIOLOGY ([facility]) * XR CHEST 1 VIEW (04/07/2023 7:42 AM EST) Anatomical Region Laterality Modality Chest Computed Radiogr aphy 04/07/2023 1:59 PM EST Impressions 04/07/2023 2:57 PM EST IMPRESSION 1. Similar small right-sided pneumothorax in the right apex and medial right lung base. 2. Similar mild atelectatic changes in the right mid and lower lung. I have personally reviewed this examination and agree with the resident/fellow physician's interpretation. Narrative 04/07/2023 2:57 PM EST EXAM XR CHEST 1 VIEW- 04/07/2023 7:42 am HISTORY routine post-op RML/RLL bilobectomy COMPARISON Chest x-ray 04/06/2023 TECHNIQUE A single portable upright AP view of the chest was obtained at 0737 hours. FINDINGS Catheters: None Tubes: There are 2 right-sided chest tubes, unchanged in position. Foreign bodies: No radiopaque foreign bodies are identified. Status post right middle and lower bilobectomy. The chest wall and cardiomediastinal structures are stable in appearance. Again noted is subcutaneous emphysema in the right chest wall. There is no discernible pleural effusion. There is a similar small right pneumothorax. Mild atelectatic changes are noted in the right mid and lower lung. Procedure Note Go, Chad Gay MD - 04/07/2023 EXAM XR CHEST 1 VIEW- 04/07/2023 7:42 am HISTORY routine post-op RML/RLL bilobectomy COMPARISON Chest x-ray 04/06/2023 TECHNIQUE A single portable upright AP view of the chest was obtained at 0737hours. FINDINGS Catheters: None Tubes: There are 2 right-sided chest tubes, unchanged in position. Foreign bodies: No radiopaque foreign bodies are identified. Status post right middle and lower bilobectomy. The chest wall andcardiomediastinal structures are stable in appearance. Again noted issubcutaneous emphysema in the right chest wall. There is no discerniblepleural effusion. There is a similar small right pneumothorax. Mildatelectatic changes are noted in the right mid and lower lung. IMPRESSION IMPRESSION 1. Similar small right-sided pneumothorax in the right apex and medialright lung base. 2. Similar mild atelectatic changes in the right mid and lower lung. I have personally reviewed this examination and agree with the resident/fellow physician's interpretation. Vu Parikh MD RADIOLOGY ([facility]) * XR CHEST 1 VIEW (04/06/2023 7:15 AM EST) Anatomical Region Laterality Modality Chest Computed Radiogr aphy 04/06/2023 11:4 4 AM EST Impressions 04/06/2023 11:41 AM EST IMPRESSION 1. There is a right-sided pneumothorax. These are in the right apex and medial right base. 2. Linear opacities in the right mid and lower lung, which may represent atelectasis. Narrative 04/06/2023 11:41 AM EST EXAM XR CHEST 1 VIEW- 04/06/2023 7:15 am HISTORY s/p right middle and lower lobectomy, evaluate for PTX COMPARISON Portable chest from 04/05/2023 TECHNIQUE A single portable presumably upright AP view of the chest was obtained at 0711 hours. FINDINGS Catheters: None Tubes: There are 2 right-sided chest tubes. Foreign bodies: No radiopaque foreign bodies are identified. The chest wall and cardiomediastinal structures are stable in appearance. There is subcutaneous emphysema in the right chest wall. There is no pleural effusion. There is a small right pneumothorax. There are coarse linear densities in the right mid and lower lung, which may represent atelectasis. Procedure Note Go, Chad Gay MD - 04/06/2023 EXAM XR CHEST 1 VIEW- 04/06/2023 7:15 am HISTORY s/p right middle and lower lobectomy, evaluate for PTX COMPARISON Portable chest from 04/05/2023 TECHNIQUE A single portable presumably upright AP view of the chest was obtained [id number] hours. FINDINGS Catheters: None Tubes: There are 2 right-sided chest tubes. Foreign bodies: No radiopaque foreign bodies are identified. The chest wall and cardiomediastinal structures are stable in appearance.There is subcutaneous emphysema in the right chest wall. There is nopleural effusion. There is a small right pneumothorax. There are coarselinear densities in the right mid and lower lung, which may representatelectasis. IMPRESSION IMPRESSION 1. There is a right-sided pneumothorax. These are in the right apex andmedial right base. 2. Linear opacities in the right mid and lower lung, which may representatelectasis. Kaitlyn Nicole PA-C RADIOLOGY ([facility]) * (ABNORMAL) RENAL FUNCTION PANEL (04/06/2023 5:30 AM EST) BUN 11 6 - 20 mg/dL 04/06/2023 6:14 AM EST [facility]AT[facility] Creatinine 0.7 0.5 - 1.0 mg/dL 04/06/2023 6:14 AM EST [facility] Estimated Glomerular Filtration Rate >90 >=60 mL/min 04/06/2023 6:14 AM EST [facility] Comment:eGFR is calculated b ased on the CKD-EPI 2020 equation Sodium 138 135 - 146 mmol/L 04/06/2023 6:14 AM EST [facility] Potassium 4.3 3.5 - 5.1 mmol/L 04/06/2023 6:14 AM EST [facility] Chloride 102 98 - 107 mmol/L 04/06/2023 6:14 AM EST [facility] CO2 29 22 - 32 mmol/L 04/06/2023 6:14 AM EST [facility] Anion Gap 7 7 - 15 mmol/L 04/06/2023 6:14 AM EST [facility] Glucose 90 70 - 120 mg/dL 04/06/2023 6:14 AM EST [facility] Calcium 8.7 8.4 - 10.2 mg/dL 04/06/2023 6:14 AM EST [facility] Albumin 3.4(L) 3.8 - 5.0 g/dL 04/06/2023 6:14 AM EST [facility] Phosphorus 3.7 2.5 - 4.8 mg/dL 04/06/2023 6:14 AM EST [facility] Blood Venous blood specimen / Unknown Venipuncture / Unknown 04/06/2023 5:30 AM EST 04/06/2023 5:38 AM EST Kaitlyn Nicole PA-C LAB BLOOD ORDER [facility] LABORATORY [facility] [address] [place] [address] * MAGNESIUM (04/06/2023 5:30 AM EST) Magnesium 2.4 1.5 - 2.6 mg/dL 04/06/2023 6:14 AM EST LABORATORY [facility] Blood Venous blood specimen / Unknown Venipuncture / Unknown 04/06/2023 5:30 AM EST 04/06/2023 5:38 AM EST Kaitlyn CORNELL-C LAB BLOOD ORDER [facility] Performing Organization Address [facility] Co de Phone Number LABORATORY [facility] [address] [place] [address] * XR CHEST 1 VIEW (04/05/2023 9:49 AM EST) Anatomical Region Laterality Modality Chest Computed Radiogr aphy 04/05/2023 1:23 PM EST Impressions 04/05/2023 1:20 PM EST IMPRESSION Status post right lobectomy with chest tubes in the right chest, no discernible pneumothorax Right subcutaneous emphysema Right paratracheal soft tissue density likely great vessels extending into the right chest post lobectomy and volume loss. Narrative 04/05/2023 1:20 PM EST EXAM XR CHEST 1 VIEW- 04/05/2023 9:49 am HISTORY shortness of breath with tube on water seal COMPARISON Chest x-ray 04/05/2023 TECHNIQUE Portable upright AP view of the chest was obtained. FINDINGS Catheters: None Tubes: Right upper lobe and right lower lobe chest tubes. Foreign bodies: None seen Cardiac silhouette is prominent. There is elongated aorta. There is elevation the right diaphragm. There is right paratracheal soft tissue density which is stable from prior examinations. There is no discernible pneumothorax on this examination. Right subcutaneous emphysema is present. Left lung is unremarkable. Procedure Note Edel Hernandez MD - 04/05/2023 EXAM XR CHEST 1 VIEW- 04/05/2023 9:49 am HISTORY shortness of breath with tube on water seal COMPARISON Chest x-ray 04/05/2023 TECHNIQUE Portable upright AP view of the chest was obtained. FINDINGS Catheters: None Tubes: Right upper lobe and right lower lobe chest tubes. Foreign bodies: None seen Cardiac silhouette is prominent. There is elongated aorta. There iselevation the right diaphragm. There is right paratracheal soft tissuedensity which is stable from prior examinations. There is no discerniblepneumothorax on this examination. Right subcutaneous emphysema ispresent. Left lung is unremarkable. IMPRESSION IMPRESSION Status post right lobectomy with chest tubes in the right chest, nodiscernible pneumothorax Right subcutaneous emphysema Right paratracheal soft tissue density likely great vessels extending intothe right chest post lobectomy and volume loss. Kaitlyn Nicole PA-C RADIOLOGY ([facility]) * XR CHEST 1 VIEW (04/05/2023 7:21 AM EST) Anatomical Region Laterality Modality Chest Computed Radiogr aphy 04/05/2023 9:24 AM EST Impressions 04/05/2023 9:22 AM EST IMPRESSION Decreased small right pneumothorax. Narrative 04/05/2023 9:22 AM EST EXAM XR CHEST 1 VIEW-04/05/2023 7:21 am HISTORY routine POD #2 s/p RML/RLL bilobectomy COMPARISON Chest radiograph 04/04/2023 TECHNIQUE Frontal radiograph of the chest was obtained. FINDINGS LINES/DEVICES: 2 right-sided chest tubes are unchanged. LUNGS/PLEURA: Small right pneumothorax is decreased. Postsurgical changes in the right lung. Left lung is clear. There is unchanged right chest wall emphysema. CARDIOVASCULAR/MEDIASTINUM: The cardiomediastinal silhouette is within normal limits. OTHER: The upper abdomen is unremarkable. Procedure Note Jordon Still MD - 04/05/2023 EXAM XR CHEST 1 VIEW-04/05/2023 7:21 am HISTORY routine POD #2 s/p RML/RLL bilobectomy COMPARISON Chest radiograph 04/04/2023 TECHNIQUE Frontal radiograph of the chest was obtained. FINDINGS LINES/DEVICES: 2 right-sided chest tubes are unchanged. LUNGS/PLEURA: Small right pneumothorax is decreased. Postsurgical changesin the right lung. Left lung is clear. There is unchanged right chestwall emphysema. CARDIOVASCULAR/MEDIASTINUM: The cardiomediastinal silhouette is withinnormal limits. OTHER: The upper abdomen is unremarkable. IMPRESSION IMPRESSION Decreased small right pneumothorax. Vu Parikh MD RADIOLOGY ([facility]) * MYCODE SST2 (04/05/2023 6:36 AM EST) MyCode Specimen Freezing of extracted DNA, whole blood and/or serum. 04/08/2023 9:01 AM EST LABORATORY [facility] Blood Venous blood specimen / Unknown Venipuncture / Unknown 04/05/2023 6:36 AM EST 04/05/2023 6:45 AM EST Fanny Denise Ludmila [facility] BLOOD ORDER[facility]L ES Performing Organization Address City/[facility]/ZIP Co de Phone Number LABORATORY [address] [address] * MYCODE SST1 (04/05/2023 6:36 AM EST) MyCode Specimen Freezing of extracted DNA, whole blood and/or serum. 04/08/2023 9:01 AM EST LABORATORY [facility] Blood Venous blood specimen / Unknown Venipuncture / Unknown 04/05/2023 6:36 AM EST 04/05/2023 6:45 AM EST Fanny Denise Ludmila [facility] BLOOD ORDER[facility]L ES LABORATORY [address] [address] * MYCODE INITIAL ADULT-PINK (04/05/2023 6:36 AM EST) MyCode Specimen Freezing of extracted DNA, whole blood and/or serum. 04/08/2023 9:01 AM EST LABORATORY [facility] Blood Venous blood specimen / Unknown Venipuncture / Unknown 04/05/2023 6:36 AM EST 04/05/2023 6:44 AM EST Fanny DODD LAB BLOOD ORDERABL ES [facility] [address] [place] [address] * (ABNORMAL) RENAL FUNCTION PANEL (04/05/2023 6:36 AM EST) BUN 12 6 - 20 mg/dL 04/05/2023 7:15 AM EST [facility] Creatinine 0.8 0.5 - 1.0 mg/dL 04/05/2023 7:15 AM EST [facility] Estimated Glomerular Filtration Rate 88 >=60 mL/min 04/05/2023 7:15 AM EST [facility] Comment:eGFR is calculated b ased on the CKD-EPI 2020 equation Sodium 137 135 - 146 mmol/L 04/05/2023 7:15 AM EST [facility] Potassium 3.8 3.5 - 5.1 mmol/L 04/05/2023 7:15 AM EST [facility] Chloride 100 98 - 107 mmol/L 04/05/2023 7:15 AM EST [facility] CO2 29 22 - 32 mmol/L 04/05/2023 7:15 AM EST [facility] Anion Gap 8 7 - 15 mmol/L 04/05/2023 7:15 AM EST [facility] Glucose 79 70 - 120 mg/dL 04/05/2023 7:15 AM EST [facility] Calcium 8.5 8.4 - 10.2 mg/dL 04/05/2023 7:15 AM EST [facility] Albumin 3.3(L) 3.8 - 5.0 g/dL 04/05/2023 7:15 AM EST [facility] Phosphorus 2.9 2.5 - 4.8 mg/dL 04/05/2023 7:15 AM EST [facility] Blood Venous blood specimen / Unknown Venipuncture / Unknown 04/05/2023 6:36 AM EST 04/05/2023 6:45 AM EST Kaitlyn Nicole PA-C LAB BLOOD ORDER [facility] LAB[facility]AT[facility] [address] [place] [address] * MAGNESIUM (04/05/2023 6:36 AM EST) Magnesium 2.3 1.5 - 2.6 mg/dL 04/05/2023 7:15 AM EST LABORATORY [facility] Blood Venous blood specimen / Unknown Venipuncture / Unknown 04/05/2023 6:36 AM EST 04/05/2023 6:45 AM EST Kaitlyn Nicole PA-C LAB BLOOD ORDER [facility] LABORATORY [facility] [address] [place] [address] * XR CHEST 1 VIEW (04/04/2023 7:04 AM EST) Anatomical Region Laterality Modality Chest Computed Radiogr aphy 04/04/2023 10:2 0 AM EST Impressions 04/04/2023 10:42 AM EST IMPRESSION Similar moderate right pneumothorax with new subcutaneous emphysema in the right chest wall. I have personally reviewed this examination and agree with the resident/fellow physician's interpretation. Narrative 04/04/2023 10:42 AM EST EXAM XR CHEST 1 VIEW-04/04/2023 7:04 am HISTORY POD #1 right middle and lower lobe lobectomy COMPARISON Chest x-ray 04/03/2023. TECHNIQUE Single portable frontal view of the chest. FINDINGS Lines/Tubes: 2 right chest tubes. Lungs/Pleura: Similar right-sided pneumothorax. No consolidative opacities. No discernible pleural effusion. Heart/Mediastinum: Size and contours are within normal limits. Bones/Soft Tissues: New left chest wall subcutaneous emphysema. Upper Abdomen: Visualized portions are unremarkable. Procedure Note Yon Taylor DO - 04/04/2023 EXAM XR CHEST 1 VIEW-04/04/2023 7:04 am HISTORY POD #1 right middle and lower lobe lobectomy COMPARISON Chest x-ray 04/03/2023. TECHNIQUE Single portable frontal view of the chest. FINDINGS Lines/Tubes: 2 right chest tubes. Lungs/Pleura: Similar right-sided pneumothorax. No consolidativeopacities. No discernible pleural effusion. Heart/Mediastinum: Size and contours are within normal limits. Bones/Soft Tissues: New left chest wall subcutaneous emphysema. Upper Abdomen: Visualized portions are unremarkable. IMPRESSION IMPRESSION Similar moderate right pneumothorax with new subcutaneous emphysema in theright chest wall. I have personally reviewed this examination and agree with the resident/fellow physician's interpretation. Kaitlyn Nicole PA-C RADIOLOGY ([facility]) * (ABNORMAL) RENAL FUNCTION PANEL (04/04/2023 6:35 AM EST) BUN 12 6 - 20 mg/dL 04/04/2023 7:18 AM EST [facility] Creatinine 0.7 0.5 - 1.0 mg/dL 04/04/2023 7:18 AM EST [facility] Estimated Glomerular Filtration Rate >90 >=60 mL/min 04/04/2023 7:18 AM EST [facility] Comment:eGFR is calculated b ased on the CKD-EPI 2020 equation Sodium 137 135 - 146 mmol/L 04/04/2023 7:18 AM EST [facility] Potassium 4.3 3.5 - 5.1 mmol/L 04/04/2023 7:18 AM EST [facility] Chloride 101 98 - 107 mmol/L 04/04/2023 7:18 AM EST [facility] CO2 27 22 - 32 mmol/L 04/04/2023 7:18 AM EST [facility] Anion Gap 9 7 - 15 mmol/L 04/04/2023 7:18 AM EST [facility] Glucose 101 70 - 120 mg/dL 04/04/2023 7:18 AM EST [facility] Calcium 9.0 8.4 - 10.2 mg/dL 04/04/2023 7:18 AM EST [facility] Albumin 3.5(L) 3.8 - 5.0 g/dL 04/04/2023 7:18 AM EST [facility] Phosphorus 3.7 2.5 - 4.8 mg/dL 04/04/2023 7:18 AM EST [facility] Blood Venous blood specimen / Unknown Venipuncture / Unknown 04/04/2023 6:35 AM EST 04/04/2023 6:48 AM EST Kaitlyn Nicole PA-C LAB BLOOD ORDER [facility] LAB[facility]AT[facility] [address] [place] [address] * MAGNESIUM (04/04/2023 6:35 AM EST) Pathologist [facility] Magnesium 2.6 1.5 - 2.6 mg/dL 04/04/2023 7:18 AM EST [facility] Blood Venous blood specimen / Unknown Venipuncture / Unknown 04/04/2023 6:35 AM EST 04/04/2023 6:48 AM EST Kaitlyn Nicole PA-C LAB BLOOD ORDER [facility] Performing Organization Address [facility]/ZIP Co de Phone Number LABORATORY [facility] [address] [place] [address] * (ABNORMAL) CBC (04/04/2023 6:35 AM EST) Pathologist [facility] WBC 9.49 4.00 - 10.80 K/uL 04/04/2023 6:58 AM EST [facility] RBC 4.02 3.85 - 5.15 M/uL 04/04/2023 6:58 AM EST [facility] HGB 10.7(L) 12.0 - 15.3 g/dL 04/04/2023 6:58 AM EST [facility] HCT 35.7(L) 36.0 - 45.2 % 04/04/2023 6:58 AM EST [facility] MCV 88.8 81.5 - 97.5 fL 04/04/2023 6:58 AM EST [facility] MCH 26.6 27.0 - 34.0 pg 04/04/2023 6:58 AM EST [facility] MCHC 30.0 32.0 - 36.0 g/dL 04/04/2023 6:58 AM EST [facility] RDW 14.5 11.5 - 15.5 % 04/04/2023 6:58 AM EST [facility] PLT 378 140 - 400 K/uL 04/04/2023 6:58 AM EST [facility] MPV 8.7 6.6 - 11.1 fL 04/04/2023 6:58 AM EST [facility] nRBCs 0 <=0 /100 WBCs 04/04/2023 6:58 AM EST LABORATORY [facility] Blood Venous blood specimen / Unknown Venipuncture / Unknown 04/04/2023 6:35 AM EST 04/04/2023 6:48 AM EST Kaitlyn Nicole PA-C LAB BLOOD ORDER [facility] LABORATORY [facility] [address] [place] [address] * SARS-COV-2 (COVID-19), NAAT (04/03/2023 6:47 PM EST) SARS-CoV-2 (COVID-19) Result Negative Negative 04/03/2023 8:32 PM EST LABORATORY [facility] Comment: 2019 Novel Coronavirus not detected. This express test was developed and its performance characteristics determined by [employer]. It has not been cleared or approved [...] (RT-PCR) test, or a Centers for Disease Control- acceptable equivalent. The test is performed in a high complexity Clinical Laboratory Improvement Amendments-(CLIA) certified laboratory. The test is acceptable for SARS-CoV-2 diagnosis, surveillance, and travel within the [place] and to most countries. Please check with local testing authorities about requirements before travel. The validation of bronchial specimens, tracheal aspirates, and sputum for this assay was developed and performance characteristics determined by [employer]. The validation of alternate specimen types has not been cleared or approved by the U.S. Food and Drug Administration (FDA). It has been determined that such clearance is not necessary. Upper Respiratory Mid-turbinate nasal swab / Unknown Non-blood Collection / Unknown 04/03/2023 6:47 PM EST 04/03/2023 7:04 PM EST Mayra Johnson PA-C LAB MICRO - GENERAL ORDERABLES LABORATORY [facility] [address] [place] [address] * XR CHEST 1 VIEW (04/03/2023 6:06 PM EST) Anatomical Region Laterality Modality Chest Computed Radiogr aphy 04/03/2023 8:44 PM EST Impressions 04/03/2023 8:42 PM EST IMPRESSION Right-sided pneumothorax. Narrative 04/03/2023 8:42 PM EST EXAM XR CHEST 1 VIEW- 04/03/2023 6:06 pm HISTORY immediate film postop right middle and lower lobe lobectomy COMPARISON None TECHNIQUE A single portable presumably upright AP view of the chest was obtained at 1802 hours. FINDINGS Catheters: None Tubes: There are 2 chest tubes in the right hemithorax. Foreign bodies: No radiopaque foreign bodies are identified. The chest wall and cardiomediastinal structures are unremarkable. There is a right pneumothorax. There is no pleural effusion. The lungs are clear. There is elevation of the right hemidiaphragm. Procedure Note Go, Chad Gay MD - 04/03/2023 EXAM XR CHEST 1 VIEW- 04/03/2023 6:06 pm HISTORY immediate film postop right middle and lower lobe lobectomy COMPARISON None TECHNIQUE A single portable presumably upright AP view of the chest was obtained [id number]. FINDINGS Catheters: None Tubes: There are 2 chest tubes in the right hemithorax. Foreign bodies: No radiopaque foreign bodies are identified. The chest wall and cardiomediastinal structures are unremarkable. Thereis a right pneumothorax. There is no pleural effusion. The lungs areclear. There is elevation of the right hemidiaphragm. IMPRESSION IMPRESSION Right-sided pneumothorax. Kaitlyn Nicole PA-C RADIOLOGY (RAD GENERAL) * (ABNORMAL) BLOOD GAS, ARTERIAL (04/03/2023 2:11 PM EST) Temperature 37.0 C 04/03/2023 2:19 PM EST [facility] pH, Arterial 7.255(L) 7.350 - 7.450 units 04/03/2023 2:19 PM EST [facility] pCO2, Arterial 57.7(HH) 35.0 - 45.0 mmHg 04/03/2023 2:19 PM EST [facility] pO2, Arterial 123.0(H) 75.0 - 100.0 mmHg 04/03/2023 2:19 PM EST [facility] Base Excess, Arterial -2.6(L) -2.0 - 2.0 mmol/L 04/03/2023 2:19 PM EST [facility] Hemoglobin, Whole Blood 11.1(L) 12.0 - 15.3 g/dL 04/03/2023 2:19 PM EST [facility] Oxyhemoglobin, Arterial 95.9 94.0 - 99.0 % total Hgb 04/03/2023 2:19 PM EST [facility] Carboxyhemoglob in, Whole Blood 1.2 <=1.5 % total Hgb 04/03/2023 2:19 PM EST [facility] Comment:Smokers: 0-9.0 % Methemoglobin, Whole Blood 0.8 <=1.5 % total Hgb 04/03/2023 2:19 PM EST [facility] Reduced Hemoglobin, Arterial 2.1 0.0 - 5.0 % total Hgb 04/03/2023 2:19 PM EST [facility] O2 Content, Arterial 15.1 15.0 - 24.0 %vol 04/03/2023 2:19 PM EST [facility] FiO2 Not Provided % 04/03/2023 2:19 PM EST [facility] O2 Flow, Arterial Not Provided L/min 04/03/2023 2:19 PM EST [facility] Bicarbonate, Whole Blood 24.7 23.0 - 31.0 mmol/L 04/03/2023 2:19 PM EST [facility] Blood Arterial blood specimen / Unknown 04/03/2023 2:11 PM EST 04/03/2023 2:15 PM EST Ghislaine Holland MD LAB BLOOD ORDERABLES [facility] [address] [place] [address] * PREPARE PACKED RED BLOOD CELLS (04/03/2023 10:55 AM EST) Unit Product Code Z6078U01 [facility] BLOOD BANK Unit Number [id number] LABO RATORY [facility] BLOOD B[facility] Unit ABO O [facility] BLO[facility] Unit Rh POS [facility] BLOOD B[facility] Unit Crossmatch Compatible [facility] BLOOD B[facility] Unit Status RE LABORATO RY [facility] BLOOD BANK Unit Blood Type OPOS [facility] BLOOD B[facility] Unit Expiration [id number] [facility] BLOOD BANK Unit Barcode 5100 LABORAT ORY C BLOOD BANK Unit Product Code [id number] [facility] Unit Number [id number] LABO RATORY [facility] BLOOD BANK Unit ABO O LAB[facility] BLOOD BANK Unit Rh POS [facility] BLOOD B[facility] Unit Crossmatch Compatible [facility] BLOOD B[facility] Unit Status RE LABORATO RY [facility] BLOOD BANK Unit Blood Type OPOS [facility] BLOOD BANK Unit Expiration [id number] [facility] BLOOD BANK Unit Barcode 5100 LABORAT ORY C BLOOD BANK Unit Product Code R8671Q65 [facility] BLOOD [facility] Unit Number [id number] LABO RAT[facility] BLOOD BANK Unit ABO O [facility] BLOOD BANK Unit Rh POS [facility] BLOOD BANK Unit Crossmatch Compatible [facility] BLOOD BANK Unit Status RE LABORATO RY [facility] BLOOD BANK Unit Blood Type OPOS [facility] BLOOD BANK Unit Expiration [id number] [facility] BLOOD BANK Unit Barcode 5100 LABORAT ORY C BLOOD BANK Unit Product Code [id number] [facility] BLOOD B[facility] Unit Number [id number] LABO RATORY [facility] BLOOD BANK Unit ABO O [facility] BLOOD BANK Unit Rh POS [facility] BLOOD BANK Unit Crossmatch Compatible [facility] BLOOD BANK Unit Status RE LABORATO RY [facility] BLOOD BANK Unit Blood Type OPOS [facility] BLOOD BANK Unit Expiration [id number] [facility] BLOOD BANK Unit Barcode 5100 LABORAT ORY C BLOOD BANK 04/03/2023 10:5 5 AM EST Anders Angulo MD BLD BANK PRODUCT ORD ERABLES LAB[facility]ATORY [facility] BLOOD B[facility] [address] [place] [address] * GLUCOSE METER, POINT OF CARE (04/03/2023 9:53 AM EST) Glucose Meter 84 70 - 120 mg/dL 04/03/2023 9:55 AM EST [facility] Blood Whole blood specimen / Unknown 04/03/2023 9:53 AM EST 04/03/2023 9:55 AM EST Vu Parikh MD LAB POINT OF CARE T EST DOCKED DEVICE UNSOLICITED RESULTS [facility] [address] [place] [address] documented in this encounter Visit Diagnoses Diagnosis Right lower lobe lung mass- Primary Swelling, mass, or lump in chest Right lower lobe lung mass Swelling, mass, or lump in chest HTN, goal below 130/80 Unspecified essential hypertension Depression with anxiety Dysthymic disorder Obesity, Class I, BMI 30.0-34.9 (see actual BMI) Obesity, unspecified documented in this encounter Administered Medications Inactive Administered Medications - up to 3 most recent administrations Medication Order MAR Action Action Date Dose Rate Site Acetaminophen (Tylenol) tab 975 mg 975 mg, Oral, PREOP, First dose on Sat04/03/23 at 1000, Last dose on Sat04/03/23 at 1000, For 1 dose, Maximum of 4 grams (4000 mg) per day. Avoid in patients with severe hepatic impairment or severe active liver disease. Administer 60 minutes prior to OR., Pre-Op Given 04/03/2023 10:06 AM EST 975 mg Acetaminophen (Tylenol) tab 975 mg 975 mg, Oral, Q8H, First dose on Sat04/03/23 at 2200, Last dose on Sat04/08/23 at 1400, For 5 days, Maximum 4 g acetaminophen/day. Avoid in patients with severe hepatic impairment or severe active liver disease. Use for 5 days., Post-op Given 04/08/2023 6:37 AM EST 975 mg Given 04/07/2023 10:22 PM EST 975 mg Given 04/07/2023 2:36 PM EST 975 mg buPROPion (Wellbutrin) tab 75 mg 75 mg, Oral, BID (.AM/PM), First dose on Sat04/04/23 at 0900, Until Discontinued, [Therapeutic Interchange from Wellbutrin XL] Given 04/08/2023 7:55 AM EST 75 mg Given 04/07/2023 8:46 PM EST 75 mg Given 04/07/2023 8:48 AM EST 75 mg busPIRone (Buspar) tab 7.5 mg 7.5 mg, Oral, BID (0700,1900), First dose on Sat04/04/23 at 1900, Until Discontinued Given 04/08/2023 6:37 AM EST 7.5 m g Given 04/07/2023 7:39 PM EST 7.5 mg Given 04/07/2023 6:46 AM EST 7.5 mg calcium CARBonate (Tums E-X) tab CHEW 750 mg 750 mg, Oral, ONCE, On Sat04/07/23 at 0330, For 1 dose Given 04/07/2023 3:00 AM EST 750 mg cloNIDine (Duraclon) inj 100 mcg 100 mcg, IV Push, ONCE, On Sat04/03/23 at 2030, For 1 dose, PACU Given 04/03/2023 7:54 PM EST 100 mcg cyclobenzaprine (Flexeril) 5 mg tab 5 mg, Oral, ONCE, On Sat04/03/23 at 2245, For 1 dose Given 04/03/2023 11:26 PM EST 5 mg diazePAM (Valium) inj 5 mg 5 mg, IV Push, ONCE, On Sat04/03/23 at 1930, For 1 dose, PACU Given 04/03/2023 7:02 PM EST 5 mg diazePAM (Valium) inj 5 mg 5 mg, IV Push, ONCE, On Sat04/03/23 at 2030, For 1 dose, PACU Given 04/03/2023 7:57 PM EST 5 mg Docusate Sodium (Colace) cap 100 mg 100 mg, Oral, Daily(AM), First dose on Sat04/04/23 at 0930, Until Discontinued, For oral administration ONLY, if route of administration is other than oral and alternative product must be ordered. Given 04/07/2023 8:48 AM EST 100 mg Given 04/06/2023 8:05 AM EST 100 mg Given 04/05/2023 8:00 AM EST 100 mg Docusate Sodium (Colace) cap 100 mg 100 mg, Oral, BID (.AM/PM), First dose (after last modification) on [place] 04/07/23 at 2100, Until Discontinued, For oral administration ONLY, if route of administration is other than oral and alternative product must be ordered. Given 04/08/2023 7:55 AM EST 100 mg Given 04/07/2023 8:46 PM EST 100 mg Enoxaparin (Lovenox) inj 40 mg 40 mg, Subcutaneous, Daily(AM), First dose on Sri 04/04/23 at 0900, Until Discontinued, If patient is on warfarin, inform provider if daily INR value is 2 or greater!, Post-op Given 04/08/2023 7:55 AM EST 40 mg Abdomen Right Lower Given 04/07/2023 8:49 AM EST 40 mg Ab domen Right Lower Given 04/06/2023 8:05 AM EST 40 mg Ab domen Right Lower FLEET ADULT enema 1 Enema 1 Enema, Rectal, ONCE, On 04/06/23 at 2130, For 1 dose Given 04/06/2023 9:41 PM EST 1 Enema hydrogen peroxide 1.5% (Doonw-Y-Redx) oral rinse 15 mL 15 mL, Swish & Spit, ONCE, On 04/03/23 at 1000, For 1 dose, Rinse mouth for approximately 1 minute, then expectorate. Avoid swallowing., Pre-Op Given 04/03/2023 10:06 AM EST 15 mL HYDROmorphone (Dilaudid) inj 0.2 mg 0.2 mg, IV Push, Q15 MIN PRN Pain, Severe, Starting on Sat04/03/23 at 1545, Until Sat04/03/23 at 2125, Administer only postop in PACU. Hold for respiratory rate less than 12. Administer up to a total of 0.6 mg., PACU Given 04/03/2023 6:49 PM EST 0.2 mg Given 04/03/2023 6:32 PM EST 0.2 mg Given 04/03/2023 6:09 PM EST 0.2 mg HYDROmorphone (Dilaudid) inj 0.2 mg 0.2 mg, IV Push, Q5 MIN PRN postop pain, Starting on Sat04/03/23 at 1947, Until Sat04/03/23 at 2046, For 1 hour, Only in PACU., PACU Given 04/03/2023 8:03 PM EST 0.2 mg HYDROmorphone (Dilaudid) inj 0.5 mg 0.5 mg, IV Push, Q2H PRN Pain, Breakthrough, Starting on Sat04/03/23 at 1704, Until Sri 04/04/23 at 1605, Do not use with INSTRUMENTATION ENGINEERING TECHNICIAN (unless directed by provider). May use if patient unable to take oral oxycodone., Post-op Given 04/04/2023 1:49 PM EST 0.5 mg Given 04/04/2023 11:35 AM EST 0.5 mg Given 04/04/2023 9:43 AM EST 0.5 mg HYDROmorphone (Dilaudid) inj 0.5 mg 0.5 mg, IV Push, Q2H PRN Pain, Severe, Starting on Sat04/04/23 at 1605, Until Sat04/08/23 at 1455, Do not use with INSTRUMENTATION ENGINEERING TECHNICIAN (unless directed by provider). May use if patient unable to take oral oxycodone., Post-op Given 04/07/2023 8:45 PM EST 0.5 mg Given 04/07/2023 1:16 PM EST 0.5 mg Given 04/07/2023 9:11 AM EST 0.5 mg isolyte-S pH 7.4 infusion Intravenous, at 25 mL/hr, All Patients EXCEPT Dialysis patients Plasma-LYTE 148, isolyte-S, and isolyte-S pH 7.4 are considered equivalent - including for MAR barcode scanning., CONTINUOUS, Starting on Sat04/03/23 at 1000, Until Sat04/04/23 at 1805, Pre-Op New Bag 04/03/2023 10:06 AM EST 25 mL/h r 25 mL/hr ketorolac (Toradol) 30 MG/ML inj 30 mg 30 mg, IV Push, Q8H, First dose on Sri 04/04/23 at 2200, Last dose on Sat04/07/23 at 1400, For 3 days Given 04/07/2023 2:36 PM EST 30 mg Given 04/07/2023 5:49 AM EST 30 mg Given 04/06/2023 10:20 PM EST 30 mg Lactulose (Constulose) oral soln 20 g 20 g, Oral, ONCE, On 04/06/23 at 1700, For 1 dose Given 04/06/2023 4:50 PM EST 20 g Lactulose (Constulose) oral soln 30 g 30 g, Oral, ONCE, On 04/07/23 at 1145, For 1 dose Given 04/07/2023 1:00 PM EST 30 g naloxone (Narcan) 0.4 MG/ML inj 0.08 mg 0.08 mg, IV Push, PRN Other, If patient is over sedated or Respiratory Rate less than 8, Starting on Sat04/03/23 at 1704, Until Sat04/08/23 at 1455, Call provider if patient is over sedated or Respiratory Rate is less than 8, Post-op ondansetron (Zofran) inj 4 mg 4 mg, IV Push, ONCE, On Sat04/03/23 at 1200, For 1 dose, Pre-Op Given 04/03/2023 11:26 AM EST 4 mg ondansetron (Zofran) inj 4 mg 4 mg, IV Push, Q6H PRN Other, May use for nausea or vomiting if patient unable to take oral ondansetron, Starting on Sat04/03/23 at 1704, Until Sat04/08/23 at 1455, Post-op Given 04/07/2023 11:10 AM EST 4 mg ondansetron ODT (Zofran) tab 4 mg 4 mg, On Tongue, Q6H PRN Nausea, Vomiting, Starting on Sat04/03/23 at 1704, Until Sat04/08/23 at 1455, Post-op oxyCODONE (Oxy IR) tab 10 mg 10 mg, Oral, Q4H PRN Pain, Severe, Starting on Sat04/03/23 at 1704, Until Sat04/08/23 at 1455, Hold for somnolence or respiratory rate less than 10, Post-op Given 04/08/2023 10:35 AM EST 10 mg Given 04/08/2023 6:36 AM EST 10 mg Given 04/08/2023 2:25 AM EST 10 mg oxyCODONE (Oxy IR) tab 10 mg 10 mg, Oral, ONCE, On Sri 04/04/23 at 0030, For 1 dose Given 04/04/2023 12:04 AM EST 10 mg oxyCODONE (Oxy IR) tab 5 mg 5 mg, Oral, Q4H PRN Pain, Moderate, Starting on Sat04/03/23 at 1704, Until 04/08/23 at 1455, Hold for somnolence or respiratory rate less than 10, Post-op oxygen GAS Inhalation, OXYGEN, First dose on Sat04/03/23 at 1745, Until Discontinued, Device/Managed by: Low Flow Device, Goal SPO2 (%): 91-95, Starting Device: Nasal Cannula, Initial Flow Rate (LPM): 2, Lowest Support: Nasal Cannula: Flow 0-6 LPM. Titrate up/down by 1 LPM., Titration Interval: Q2 minutes and as needed., Notify Provider: For sudden DECREASE in resting SPO2 to less than 85% and when escalating delivery device., Wean patient off Oxygen when the oxygen saturation is greater than or equal to 93% Oxygen On 04/04/2023 12:00 AM EST Oxygen On 04/03/2023 7:15 PM EST 2 L/min(Oxygen) oxygen GAS Inhalation, OXYGEN, First dose on Sat04/03/23 at 1630, Until Discontinued, Device/Managed by: Low Flow Device, Goal SPO2 (%): 91-95, Starting Device: Nasal Cannula, Initial Flow Rate (LPM): 2, Lowest Support: Nasal Cannula: Flow 0-6 LPM. Titrate up/down by 1 LPM., Higher Support: Non-Rebreather (NRB) Mask: Minimum of 10 LPM. Titrate to maintain bag inflation., Titration Interval: Q2 minutes and as needed., Notify Provider: Other, Notify Provider [other]: If SpO2 less than 88% or NOT maintaining SpO2 greater than 92% notify physician immediately., Until awake OR SpO2 greater than 95% for 15 minutes, then Titrate O2 flow rate down to maintain SpO2 greater than 92% If SpO2 is less than 88% place patient on NRB mask at 10 LPM Oxygen On 04/03/2023 7:15 PM EST 2 L/min(Oxygen) Polyethylene Glycol 3350 (Miralax) oral powder 17 g 17 g (1 Packet), Oral, Daily(AM), First dose on Sri 04/04/23 at 1100, Until Discontinued, Mix in 8 oz of water, juice, soda, coffee, or tea. Given 04/07/2023 8:48 AM EST 17 g Given 04/06/2023 8:05 AM EST 17 g Given 04/05/2023 8:00 AM EST 17 g Scopolamine (Transderm Scop) patch 1 mg 1 mg (1 Patch), Transdermal, ONCE, On Sat04/03/23 at 1200, For 1 dose, Do NOT cut the patch. All Scopolamine patches deliver 1 mg over 72 hours. Remove any Scopolamine patches the patient may currently be wearing prior to applying the new patch. , Pre-Op Patch Applied 04/03/2023 11:28 AM EST 1 mg Other-Specify SMOG enema 300 mL, Rectal, PRN constipation, Starting on 04/06/23 at 1624, Until 04/07/23 at 1555, For 1 dose Given 04/07/2023 3:55 PM EST 300 mL sodium chloride 0.9 % flush peripheral stephanie 3 mL 3 mL, IV Push, QSHIFT, First dose on Sat04/03/23 at 1745, Until Discontinued, Do not flush if lock, PICC, or central line not in place; IV infusing or unable to flush., Post-op Given 04/08/2023 8:00 AM EST 3 mL Given 04/08/2023 12:00 AM EST 3 mL Given 04/07/2023 4:00 PM EST 3 mL traMADol ER (Ultram ER) tab 200 mg 200 mg, Oral, PREOP, First dose on Sat04/03/23 at 1000, Last dose on Sat04/03/23 at 1000, For 1 dose, Administer 60 minutes prior to OR, Pre-Op Given 04/03/2023 10:06 AM EST 200 mg documented in this encounter Active and Recently Administered Medications Times are shown in EST. Scheduled Medication Order 04/06/2023 04/07/2023 04/08/2023 Acetaminophen (Tylenol) tab 975 mg 975 mg, Oral, Q8H, First dose on Sat04/03/23 at 2200, Last dose on Sat04/08/23 at 1400, For 5 days, Maximum 4 g acetaminophen/day. Avoid in patients with severe hepatic impairment or severe active liver disease. Use for 5 days., Post-op 0542 (Given - Provider: Beba Lomax, TAYO)1417 (Given - Provider: Katiuska Lam RN)2220 (Given - Provider: Silvina Osorio RN) 0549 (Given - Provider: Silvina Osorio RN)1436 (Given - Provider: Katiuska Lam RN)2222 (Given - Provider: Silvina Osorio RN) 0637 (Given - Provider: Silvina Osorio RN) buPROPion (Wellbutrin) tab 75 mg 75 mg, Oral, BID (.AM/PM), First dose on Sri 04/04/23 at 0900, Until Discontinued, [Therapeutic Interchange from Wellbutrin XL] 0805 (Given - Provider: Katiuska Lam RN)2119 (Given - Provider: Silvina Osorio RN) 0848 (Given - Provider: Katiuska Lam RN)204 (Given - Provider: Silvina Osorio RN) 0755 (Given - Provider: Marisol Holloway RN) busPIRone (Buspar) tab 7.5 mg 7.5 mg, Oral, BID (0700,1900), First dose on Sri 04/04/23 at 1900, Until Discontinued 0542 (Given - Provider: Bbea Lmoax, TAYO)194 (Given - Provider: Silvina Osorio RN) 0646 (Given - Provider: Silvina Osorio RN)193 (Given - Provider: Silvina Osorio RN) 0637 (Given - Provider: Silvina Osorio RN) calcium CARBonate (Tums E-X) tab CHEW 750 mg (COMPLETED) 750 mg, Oral, ONCE, On 04/07/23 at 0330, For 1 dose 0300 (Given - Provider: Silvina Osorio RN) Docusate Sodium (Colace) cap 100 mg (CANCELED) 100 mg, Oral, Daily(AM), First dose on Sri 04/04/23 at 0930, Until Discontinued, For oral administration ONLY, if route of administration is other than oral and alternative product must be ordered. 0805 (Given - Provider: Katiuska Lam RN) 0848 (Given - Provider: Katiuska Lam RN) Docusate Sodium (Colace) cap 100 mg 100 mg, Oral, BID (.AM/PM), First dose (after last modification) on 04/07/23 at 2100, Until Discontinued, For oral administration ONLY, if route of administration is other than oral and alternative product must be ordered. 2045 (Given - Provider: Silvina Osorio RN) 0755 (Given - Provider: Marisol Holloway, TAYO) Enoxaparin (Lovenox) inj 40 mg 40 mg, Subcutaneous, Daily(AM), First dose on Sri 04/04/23 at 0900, Until Discontinued, If patient is on warfarin, inform provider if daily INR value is 2 or greater!, Post-op 08 (Given - Provider: Katiuska Lam RN) 0849 (Given - Provider: Katiuska Lam RN) 0755 (Given - Provider: Marisol Holloway, TAYO) FLEET ADULT enema 1 Enema (COMPLETED) 1 Enema, Rectal, ONCE, On 04/06/23 at 2130, For 1 dose 2140 (Given - Provider: Silvina Osorio RN) ketorolac (Toradol) 30 MG/ML inj 30 mg (COMPLETED) 30 mg, IV Push, Q8H, First dose on Sri 04/04/23 at 2200, Last dose on 04/07/23 at 1400, For 3 days 0542 (Given - Provider: Beba Lomax RN)1418 (Given - Provider: Katiuska Lam RN)2220 (Given - Provider: Silvina Osorio RN) 0549 (Given - Provider: Silvina Osorio RN)1436 (Given - Provider: Katiuska Lam RN) Lactulose (Constulose) oral soln 20 g (COMPLETED) 20 g, Oral, ONCE, On 04/06/23 at 1700, For 1 dose 1650 (Given - Provider: Katiuska Lam RN) Lactulose (Constulose) oral soln 30 g (COMPLETED) 30 g, Oral, ONCE, On 04/07/23 at 1145, For 1 dose 1300 (Given - Provider: Katiuska Lam RN - Comment: Patient N/V, would like to wait before taking dose.) Polyethylene Glycol 3350 (Miralax) oral powder 17 g 17 g (1 Packet), Oral, Daily(AM), First dose on Sri 04/04/23 at 1100, Until Discontinued, Mix in 8 oz of water, juice, soda, coffee, or tea. 0805 (Given - Provider: Katiuska Lam RN) 0848 (Given - Provider: Katiuska Lam RN) 0900 (Not Given - Provider: Marisol Holloway RN - Reason: Refused-Notify Provider) sodium chloride 0.9 % flush peripheral stephanie 3 mL 3 mL, IV Push, QSHIFT, First dose on Sat04/03/23 at 1745, Until Discontinued, Do not flush if lock, PICC, or central line not in place; IV infusing or unable to flush., Post-op 0000 (Given - Provider: Beba Lomax RN)0800 (Given - Provider: Katiuska Lam RN)1600 (Given - Provider: Katiuska Lam RN) 0000 (Given - Provider: Silvina Osorio, TAYO)0800 (Given - Provider: Katiuska Lam RN)1600 (Given - Provider: Katiuska Lam RN) 0000 (Given - Provider: Silvina Osorio RN)0800 (Given - Provider: Marisol Holloway, TAYO) PRN Medication Order 04/06/2023 04/07/2023 04/08/2023 HYDROmorphone (Dilaudid) inj 0.5 mg 0.5 mg, IV Push, Q2H PRN Pain, Severe, Starting on Sri 04/04/23 at 1605, Until 04/08/23 at 1455, Do not use with INSTRUMENTATION ENGINEERING TECHNICIAN (unless directed by provider). May use if patient unable to take oral oxycodone., Post-op 0204 (Given - Provider: Beba Lomax RN)0927 (Given - Provider: Katiuska Lam RN)1144 (Given - Provider: Katiuska L Steigerwalt, RN)1651 (Given - Provider: Katiuska Lam RN) 0227 (Given - Provider: Silvina Osorio RN)0911 (Given - Provider: Frantz Haddad RN)1316 (Given - Provider: Katiuska Lam RN)204 (Given - Provider: Silvina Osorio RN) naloxone (Narcan) 0.4 MG/ML inj 0.08 mg 0.08 mg, IV Push, PRN Other, If patient is over sedated or Respiratory Rate less than 8, Starting on Sat04/03/23 at 1704, Until Sat04/08/23 at 1455, Call provider if patient is over sedated or Respiratory Rate is less than 8, Post-op ondansetron (Zofran) inj 4 mg(Linked Group 1) 4 mg, IV Push, Q6H PRN Other, May use for nausea or vomiting if patient unable to take oral ondansetron, Starting on Sat04/03/23 at 1704, Until Sat04/08/23 at 1455, Post-op 1110 (Given - Provider: Katiuska Lam RN) ondansetron ODT (Zofran) tab 4 mg(Linked Group 1) 4 mg, On Tongue, Q6H PRN Nausea, Vomiting, Starting on Sat04/03/23 at 1704, Until Sat04/08/23 at 1455, Post-op 1110 (See Alternative - Provider: Katiuska Lam RN) oxyCODONE (Oxy IR) tab 10 mg 10 mg, Oral, Q4H PRN Pain, Severe, Starting on Sat04/03/23 at 1704, Until Sat04/08/23 at 1455, Hold for somnolence or respiratory rate less than 10, Post-op 0052 (Given - Provider: Beba Lomax, TAYO)0644 (Given - Provider: Beba Lomax RN)1034 (Given - Provider: Katiuska Lam RN)1527 (Given - Provider: Katiuska Lam RN)1958 (Given - Provider: Silvina Osorio RN) 0042 (Given - Provider: Silvina Osorio RN)0649 (Given - Provider: Silvina Osorio RN)1049 (Given - Provider: Katiuska Lam RN)1632 (Given - Provider: Katiuska Lam RN)2225 (Given - Provider: Silvina Osorio RN) 0225 (Given - Provider: Silvina Osorio RN)0636 (Given - Provider: Silvina Osorio RN)1035 (Given - Provider: Marisol Holloway RN) oxyCODONE (Oxy IR) tab 5 mg 5 mg, Oral, Q4H PRN Pain, Moderate, Starting on Sat04/03/23 at 1704, Until 04/08/23 at 1455, Hold for somnolence or respiratory rate less than 10, Post-op SMOG enema (COMPLETED) 300 mL, Rectal, PRN constipation, Starting on 04/06/23 at 1624, Until Discontinued, For 1 dose 1555 (Given - Provider: Katiuska Lam RN) Linked Groups Order Group 1: ondansetron ODT (Zofran) tab 4 mgJump to med 4 mg, On Tongue, Q6H PRN Nausea, Vomiting, Starting on Sat04/03/23 at 1704, Until 04/08/23 at 1455, Post-op Or ondansetron (Zofran) inj 4 mgJump to med 4 mg, IV Push, Q6H PRN Other, May use for nausea or vomiting if patient unable to take oral ondansetron, Starting on Sat04/03/23 at 1704, Until 04/08/23 at 1455, Post-op documented in this encounter Advance Directives Latest Code Status on File Code Status Date Activated Date Inactivated Comments Full Code 04/03/2023 5:04 PM 04/08/2023 3:00 PM This o rder reflects the patients wishes and were consensually agreed upon. Question Answer Comments Discussion of Advance Directives occurred with: Patient Care Teams Cloth Opener Hand Relationship Specialty Start Date End Date Jed Pandya MD [address] [id number] PCP - General Family Medicine 01/06/20 documented as of this encounter
--- OUTSIDE RECORDS SUMMARY | 2023-04-18 16:31 | External Medical Summary | Summary of Care ---
Author Name Unknown Organization [facility] Address [address] [place] [address] Phone [phone] Care Team Providers Care Extension Work Instructor Name Role Phone Jonny Pandya MD Primary Care Provider [phone] Reason for Visit * Reason Onset Date Comments Hospital Follow-Up 04/09/2023 AD Returning call 04/09/23 Encounter Details Date Type Department Care Team (Late st Contact Info) Description 04/09/2023 Telephone Family Practice [facility] [address] [facility] [place] [address] Jonny Pandya MD [address] [place] [facility] [place] [address] Hospital Follow-Up (AD Returning call ... Allergies No known active allergiesdocumented as of [...] encounter Miscellaneous Notes * Telephone Encounter - Ariana Gutierrez OSA - 04/09/2023 1:05 PM EST Reason for patient's call: Needing to speak to a nurse - did not know they tried to call as she hasher cell phone on her & never rang. Caller was not transferred to the nurse line. * Telephone Encounter - Najma Jimenez RN - 04/09/2023 12:45 PM EST Transitions of Care Note Reason for Referral:Recent Admission Phone visit for follow up: AD [place] [facility] Date: 04/03/2023 Discharged to: Home, Date: 04/08/2023 Diagnosis driving hospitalization: Right lower lobe mass Attempted to call patient for AD call. Message stating that the phone number was not accepting calls at this time. Will attempt to call back at another time. Najma Jimenez RN documented in this encounter Plan of Treatment Upcoming Encounters Date Type Department Care Team (Late st Contact Info) Description 04/12/2023 3:20 PM EST Office Visit [facility] [address] [place] [address] Jonny Pandya MD [address] [place] [address] 04/22/2023 11:30 AM EST Office Visit Thoracic Surg [facility] [address] [place] [address] Mayra Johnson PA-C [address] [place] [address] Scheduled Procedures Name Priority Associated Diagnoses Date/Ti [...] Advance Directives occurred with: Patient Care Teams Extension Work Instructor Relationship Specialty Start Date End Date Jonny Pandya MD [address] [place] [address] PCP - General Family Medicine 01/06/20 documented as of this encounter
--- OUTSIDE RECORDS SUMMARY | 2023-04-18 16:31 | External Medical Summary ---
Author Name Unknown Address Unknown Organization K01:[facility] - [address] [place] [address] Laboratory Report Ordering Provider Test Date Status DEE DEE LLANES 04/05/2023 06:36:00 Final Observation Date Value Abnormality Reference (Units ) Status MYCODE SPECIMEN-LAV 04/05/2023 06:36:00 Freezing of extracted DNA, whole blood and/or serum. Final Performing Location [facility] - [address] [place] [address]
--- OUTSIDE RECORDS SUMMARY | 2023-04-18 16:31 | External Medical Summary | Summary of Care ---
Author Name Unknown Organization [facility] Address [address] [place] [address] Phone [phone] Care Team Providers Care Supervisor Core Drilling Name Role Phone Jed Gabriel MD Primary Care Provider [phone] Reason for Visit * Reason Onset Date Comments Medication Refill 03/29/2023 Encounter Details Date Type Department Care Team (Late st Contact Info) Description 03/29/2023 Refill Family Practice [facility] [address] [place] [address] Jed Gabriel MD [address] [place] [address] Acute anxiety Allergies No known active allergiesdocumented as of this encounter (statuses as of 03/29/2023) Medications Medication Sig Dispensed Refills Start Date End Date Status valACYclovir HCl 1 GM Oral Tablet (Valtrex)Indication s:Cold sore take 2 tablets by mouth every 12 hours for 1 DAY FOR COLD SORES 12 Tablet 5 05/25/2022 Active Cyclobenzaprine HCl 5 MG Oral Tablet (Flexeril)Indicatio ns:Acute bilateral thoracic back pain Take 1 Tablet by mouth 3 times a day as needed for Muscle spasms. 30 Tablet 0 01/30/2023 Active Ibuprofen 600 MG Oral Tablet (Motrin)Indications :Acute bilateral thoracic back pain Take 1 Tablet by mouth in the morning and 1 Tablet at noon and 1 Tablet before bedtime. with food for pain. 30 Tablet 1 01/30/2023 Active busPIRone HCl 7.5 MG Oral Tablet (Buspar) Take 1 Tablet by mouth in the morning and 1 Tablet in the evening. 0 02/10/2023 Active hydrOXYzine HCl 25 MG Oral Tablet Take 1 Tablet by mouth 3 times a day as needed for Anxiety. 0 02/10/2023 Active Cyanocobalamin 500 MCG Oral [...] 03/12/2023 Active LORazepam 0.5 MG Oral Tablet (Ativan)Indications :Acute anxiety Take 1 Tablet by mouth every 8 hours as needed for Anxiety or Insomnia. 30 Tablet 0 03/29/2023 Active LORazepam 0.5 MG Oral Tablet (Ativan)Indications :Acute anxiety Take 1 Tablet by mouth every 8 hours as needed for Anxiety or Insomnia. 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 Obesity, Class I, BMI 30.0-34.9 (see actual BMI) 02/21/2023 Depression with anxiety 02/28/2021 HTN, goal below 130/80 12/22/2019 documented as of this encounter (statuses as of 03/29/2023) Resolved Problems Problem Noted Date Diagnosed Date Resolved Date Right lower lobe lung mass 02/21/2023 0 03/15/2023 Morbid obesity due to excess calories 02/28/2021 [...] as of this encounter (statuses as of 03/29/2023) Immunizations Name Administration Dates Next Due Seasonal [...] encounter Miscellaneous Notes * Telephone Encounter - Jed Gabriel MD - 03/29/2023 4:56 PM ESTSigned Prescriptions: Disp Refills LORazepam 0.5 MG Oral Tablet (Ativan) 30 Tab*0 Sig: Take 1 Tablet by mouth every 8 hours as needed for Anxiety or Insomnia. Authorizing Provider: JED GABRIEL * Telephone Encounter - Flores iVncent [facility] - 03/29/2023 3:39 PM ESTPending Prescriptions: Disp Refills LORazepam 0.5 MG Oral Tablet (Ativan) 30 Tab*0 Sig: Take 1 Tablet by mouth every 8 hours as needed for Anxiety or Insomnia. * Telephone Encounter - Flores Vincent [facility] - 03/29/2023 3:38 PM EST I have reviewed the patients controlled substance dispensing history in the Prescription Drug Monitoring Program in compliance with the [facility] regulations before prescribing a controlled substance. PDMP checked on 03/29/2023. Pending Prescriptions: Disp Refills LORazepam 0.5 MG Oral Tablet (Ativan) 30 Tab*0 Sig: Take 1 Tablet by mouth every 8 hours as needed for Anxiety or Insomnia. Last Visit: 02/21/2023 (in office), 03/15/2023 (telemedicine) Next Visit: Visit date not found Date medication was last filled: 03/15/23 Date medication is due for refill: 03/24/23 Pharmacy: [id number] [place] Is this request for a controlled substance? Yes and Urine Drug Screen Not completed Toxicology results: No results found for this or any previous visit. Please approve if appropriate. Thanks, Flores Vincent, PharmD Clinical Pharmacist [facility] ([facility]) [phone] 03/29/2023 3:39 PM documented in this encounter Plan of Treatment Upcoming Encounters Date Type Department Care Team (Latest Contact Info) Description 04/03/2023 10:14 AM EST Hospital Encounter [place] [facility]PER[facility] [address] [place] [address] Vu Parikh MD [address] [place] [address] 04/03/2023 10:14 AM EST - 04/03/2023 3:38 PM EST Surgery OR [facility]OM [facility] [address] [place] [address] Vu Parikh MD [address] [place], [place] [id number] ROBOTIC THORACOSCOPY WITH LOBECTOMY Scheduled Procedures Name Priority Associated Diagnoses Date/Ti me ROBOTIC THORACOSCOPY WITH LOBECTOMY Right lower lobe lung mass 04/03/2023 10:14 AM EST ROBOTIC THORACOSCOPY WITH LYMPHADENECTOMY Right lower lobe lung mass 04/03/2023 10:14 AM EST COLONOSCOPY FLEXIBLE PROXIMA L DIAGNOSTIC Recall Family [...] 03/12/2018, 03/12/2018 Depression Screening 02/22/2024 02/21/2023 GFR 03/26/2024 03/26/2023, 04/0 06/2022, 03/05/2018, Additional history exists Albumin/Creatinine Ratio 05/30/2025 05/30/2022 Diabetes Screening 03/26/2026 03/26/2023, 0 05/30/2022, 03/05/2018, Additional history exists Lipid Panel 05/31/2027 05/30/2022 [...] as of this encounter Visit Diagnoses Diagnosis Acute anxiety Anxiety state, unspecified Right lower lobe lung mass Swelling, mass, or lump in chest documented in this encounter Care Teams Supervisor Core Drilling Relationship Specialty Start Date End Date Jed Gabriel MD [address] [place] [address] PCP - General Family Medicine 01/06/20 documented as of this encounter
--- OUTSIDE RECORDS SUMMARY | 2023-04-18 16:31 | External Medical Summary ---
Author Name Unknown Address Unknown Organization [facility] - [address] [place] [address] Laboratory Report Ordering Provider Test Date Status SHAKA JAEGER 04/06/2023 05:30:00 Final Observation Date Value Abnormality Reference (Units ) Status Magnesium 04/06/2023 05:30:00 2.4 1.5-2.6 (m g/dL) Final Performing Location [facility] - [address] [place] [address]
--- OUTSIDE RECORDS SUMMARY | 2023-04-18 16:31 | External Medical Summary ---
Author Name Unknown Address Unknown Organization K01:[facility] [place] [address] [place] [address] Laboratory Report Ordering Provider Test Date Status SHAKA JAEGER 04/04/2023 06:35:00 Final Observation Date Value Abnormality Reference (Units ) Status WBC, Total 04/04/2023 06:35:00 9.49 4.00-10.80 (K/uL) Final RBC 04/04/2023 06:35:00 4.02 3.85-5.15 (M/uL) Final Hemoglobin 04/04/2023 06:35:00 10.7 Below low normal 12.0-15.3 (g/dL) Final HCT 04/04/2023 06:35:00 35.7 Below low normal 36.0-45.2 (%) Final MCV 04/04/2023 06:35:00 88.8 81.5-97.5 (fL) Final MCH 04/04/2023 06:35:00 26.6 27.0-34.0 (pg) Final MCHC 04/04/2023 06:35:00 30.0 32.0-36.0 (g/dL) Final RDW 04/04/2023 06:35:00 14.5 11.5-15.5 (%) Final Platelets 04/04/2023 06:35:00 378 140-400 (K/uL) Final MPV 04/04/2023 06:35:00 8.7 6.6-11.1 (fL) Final Nucleated erythrocytes/100 leukocytes [Ratio] in Blood by Automated count 04/04/2023 06:35:00 0 <=0 (/100 WBCs) Final Performing Location [facility] [place] [address] [place] [address]
--- OUTSIDE RECORDS SUMMARY | 2023-04-18 16:31 | External Medical Summary | Summary of Care ---
Author Name Unknown Organization [facility] Address [address] [place] [address] Phone [phone] Care Team Providers Care Spray I Painter Name Role Phone Jonny Pandya MD Primary Care Provider [phone] Reason for Visit * Reason Onset Date Comments Advice 04/09/2023 Encounter Details Date Type Department Care Team ([facility] st Contact Info) Description 04/09/[address] [address] Najma Jimenez, carrier associate Allergies No known active allergiesdocumented as of [...] of 40.0 to 44.9 in adult 01/06/2020 01/ 05/2021 H/O abnormal cervical Papanicolaou smear 09/19/2016 01/06/2020 [...] as of this encounter Miscellaneous Notes * Pt Handout (on AVS) - Najma Jimenez RN - 04/09/2023 2:47 PM EST [id number] Discharge Instructions for Lobectomy of the Lung You had a surgical procedure called an open lung or pulmonary lobectomy. This is the removal of a section (lobe) of one of your lungs. The right lung has three lobes and the left lung has two lobes. An open procedure includes making a large cut (incision) into the chest. It may affect the: Chest wall Muscles Ribs Membranes covering the lungs (pleura) Airways (bronchi) Lobes of the lungs There are different reasons for having this surgery. The most common reason is lung cancer. It's possible to live without having all the lobes of your lungs. But your remaining lungs, your heart, andyour whole body must adjust to this change. Incision care Make sure you and your caregiver follow all instructions from your healthcare provider about caring for your surgical site. Ask your provider for instructions about showering and bathing. You may have a home health nurse help you change your dressing or bandage and help with your other needs. They will change the dressing and report any problems as instructed by your healthcare provider. Activity You will notice that you get tired more easily. This is normal because your lungs and your hearthave to work harder. Rest when you are tired. Prioritize your activities. Do the most important things when you feel the best. You may have been instructed to do exercises to increase the strength and movement in your arms and shoulders. These exercises are important with any surgery of the chest. Do the exercises as instructed. You may also have home physical and occupational therapy. The therapists help you with daily activities, movement, and exercise. These activities will help build your strength and endurance. Do these as instructed. Don't lift anything that's heavy. Ask your provider for a specific weight limit. Don't sit with your legs down or crossed for long periods of time. When lying down, use a few pillows to support your knees and lower legs. Other home care Continue to take medicines as instructed to help lessen the pain. Make sure you know when you are supposed to take these medicines. Use a pill organizer box to help. While you are healing and taking pain medicines, don't drive. Keep in mind that pain medicines often cause constipation. o Use laxatives, stool softeners, or enemas as directed by your healthcare provider. o Drink water during the day, unless instructed to limit fluids. o Eat high-fiber foods, such as whole grains, fruits, and vegetables. o Call your provider if your constipation becomes uncomfortable and treatments don't work. Use your incentive spirometer as instructed. Return to your diet as you feel able. Eat a healthy, well-balanced diet. Having a healthy diet helps you heal. Make sure you have lean meats, low- or no-fat dairy products, whole grains, and fruits and vegetables. Don't smoke and stay away from people who do. Don't let people smoke in your home, in your car, or around you. If you do smoke, talk with your healthcare provider about ways to quit. Follow-up care Follow up with your healthcare provider, or as advised. Call your healthcare provider if you have any concerns before your appointment. When to call your healthcare provider Call your healthcare provider right away if any of these occur: Fever of 100.4F (38C) or higher, or as directed by your healthcare provider Increased coughing or coughing up brown or bloody mucus More redness, swelling, or pain near your incision, or drainage from your incision Bleeding from your incision Nausea or vomiting Increased pain Shortness of breath Swelling in one or both legs Feeling like your heart is beating too fast (palpitations) Symptoms get worse or you have new symptoms Call 911 Call 911 if any of these occur: Skin or lips turn blue, purple, or lou Feeling of doom Loss of consciousness or difficulty waking up Can't speak or talk Trouble breathing Sudden chest pain or chest tightness with shortness of breath Feeling dizzy or faint Severe bleeding Last Reviewed Date: 08/25/202119993734-0937 [employer]. All rights reserved. This information is not intended as a substitute for professional medical care. Always follow your healthcare professional's instructions. * Pt Handout (on AVS) - Najma Jimenez RN - 04/09/2023 2:46 PM EST Images from the original note were not included. [id number] Understanding Lung Surgery Surgery is often done to get a closer look at the inside of the lungs, take out tissue for testing,and to help treat lung problems. If a mass or tumor is found in the lung, surgery can be used to find its cause. If needed, the mass may also be removed. Surgery can be done for other conditions, too, such as a collapsed lung or fluid around the lung. Wedge resection removes a small part of a lobe. Segment resection removes a larger part of a lobe. Lobectomy removes an entire lobe. Pneumonectomy removes the entire lung. A lung mass or tumor If a tumor has been found in the lung, a tissue sample (biopsy) can be removed. This piece of abnormal tissue is tested in a lab to find out if the growth is not cancer (benign) or is cancer (malignant). The tissue near the tumor can also be examined to see if the tumor has spread. If the tumor needs to be removed, its size, location, and spread determine how much of the nearby lung also needs brice removed. Removing part or all of a lung is called a lung resection. A collapsed lung (pneumothorax) If part of the lung wall breaks or ruptures, air may leak into the pleural cavity. This is the space between the lungs and the chest wall. If air collects here, the lung may collapse. This is known as pneumothorax. There are several types of pneumothorax with different causes. Pneumothorax can be caused by diseases such as pneumonia or COPD (chronic obstructive pulmonary disease), trauma or injury to the chest, or activities with dramatic changes of air pressure. Tubes placed with surgery can drain air from the pleural cavity so the lung re-expands. During surgery, the wall of the lung can also be fixed so it's less likely to collapse again. Removing air allows a collapsed lung to expand. Fluid around the lungs Fluid may collect in the pleural cavity. This is the space between the lungs and the chest wall. One common cause of fluid around the lungs is a lung infection. This may be a complication of certain types of surgery or an illness, such as pneumonia. Hemothorax is when blood builds up in the space around the lung. This is usually from chest injury or trauma. During surgery, chest tubes can be place d in the pleural cavity to drain the fluid, allow the lungs to expand, and help the lungs heal. Lung volume reduction surgery Lung volume reduction surgery (LVRS) might be done for someone with emphysema or COPD that's not responding to other treatments. A part of each diseased lung is removed. This helps to open up the airways, so air can travel through them more freely. Since the size of the lungs is reduced, the muscleunder the lungs (the diaphragm) has more room to move. This helps get more air in and out with each breath. LVRS may make it easier to breathe, but it?s not a cure for COPD. Last Reviewed Date: 09/25/202219993187-6458 [employer]. All rights reserved. This information is not intended as a substitute for professional medical care. Always follow your healthcare professional's instructions. * Telephone Encounter - Najma Jimenez RN - 04/09/2023 2:40 PM EST Provider to address: Patient handout sent to patient for understanding of lung surgery. Reason for Call: No chief complaint on file. Contact: [facility] Contact Type: Advice Outcome: see above Face to face time spent with Patient (minutes): 0 Total Time including non face to face (minutes): 10 documented in this encounter Plan of Treatment Upcoming Encounters Date Type Department Care Team (Late st Contact Info) Description 04/12/2023 3:20 PM EST Office Visit [facility] [address] [address] Jonny Pandya MD [address] [address] 04/22/2023 11:30 AM EST Office Visit Thoracic Surg [facility] [place] [address] [place] [address] Mayra Johnson PA-C [address] [place] [address] Scheduled Procedures Name Priority Associated Diagnoses Date/Ti [...] Advance Directives occurred with: Patient Care Teams Spray I Painter Relationship Specialty Start Date End Date Jonny Pandya MD [address] [place] [address] PCP - General Family Medicine 01/06/20 documented as of this encounter
--- OUTSIDE RECORDS SUMMARY | 2023-04-18 16:31 | External Medical Summary ---
Author Name Unknown Address Unknown Organization K01:[facility] - [address] [place] [address] Laboratory Report Ordering Provider Test Date Status SHAKA JAEGER 04/04/2023 06:35:00 Final Observation Date Value Abnormality Reference (Units ) Status Magnesium 04/04/2023 06:35:00 2.6 1.5-2.6 (m g/dL) Final Performing Location [facility] - [address] [place] [address]
--- OUTSIDE RECORDS SUMMARY | 2023-04-18 16:31 | External Medical Summary ---
Author Name Unknown Address Unknown Organization K01:LAB[facility]ATORY [facility] [place] - [address] [place] [address] Laboratory Report Ordering Provider Test Date Status DEE DEE LLANES 04/05/2023 06:36:00 Final Observation Date Value Abnormality Reference (Units ) Status MYCODE SPECIMEN-SST 04/05/2023 06:36:00 Freezing of extracted DNA, whole blood and/or serum. Final Performing Location [facility] - [address] [place] [address]
--- OUTSIDE RECORDS SUMMARY | 2023-04-18 16:31 | External Medical Summary | Summary of Care ---
Author Name Unknown Organization [facility] Address [address] [place] [address] Phone [phone] Care Team Providers Care Flooring Salesperson Name Role Phone Jonny Pandya MD Primary Care Provider [phone] Reason for Visit * Reason Onset Date Comments Hospital Follow-Up 04/09/2023 AD Encounter Details Date Type Department Care Team ([facility] Contact Info) Description 04/09/[address] [address] Najma Jimenez, RN Hospital Follow-Up (AD) Allergies No known active allergiesdocumented as of [...] encounter Miscellaneous Notes * Telephone Encounter - Najma Jimenez RN - 04/09/2023 1:17 PM EST Transitions of Care Note Reason for Referral:Recent Admission Phone visit for follow up: AD Admitted to: [facility], Date: 04/03/2023 Discharged to: Home, Date: 04/08/2023 Diagnosis driving hospitalization: Right lower lobe mass Source/Contact: Patient SUBJECTIVE Consent: Verbal consent for review of hospital discharge: Yes REVIEW OF SYSTEMS Patient/Other Reports: Current patient/caregiver problems or concerns: patient states that she is having some clear fluid with some blood in it from her incision from the upper chest tube site. Patient states that last night when she was up walking around the fluid saturated her gauze bandage and was running down her side. She states that today she is having increased pain and has not been as active. This has led to less drainage from the site. Patient is also having pain that she rates 7/10 after taking Tylenol and oxycodone. She states thatwhile in the hospital she was taking 10mg of oxycodone as well as some IV Dilaudid. She does not feel that the pain is controlled on the current dose of oxycodone and Tylenol (taking 1000mg every 4 hours). She would like to increase the oxycodone to 10mg. Patient is concerned because she is not able to move around as much as she thinks that she should. Patient is also having trouble using her incentive spirometer due to the pain. Patient is able to eat but has had some nausea with increased pain. CV: Denies problems Pulmonary: SOB- patient is sob with exertion, able to speak in full sentences but sounds anxious Pain with taking a deep breath, increased pressure Chills/Sweats/Fever:Denies chills/sweats Denies fever Appetite:patient states that she is able to eat but has had some nausea with the increased pain Current diet: regular Bowel: denies problems Bladder: denies problems Wound (If applicable): Site-incisions from chest tubes and large surgical incision, Drainage-serosanguinous, Odor-denies, and Color-pink around the incisions Pain:Location- right side of chest Intensity- 7/10 (Scale 0-10) Current pain management effective: No Sleep:Denies problems FUNCTIONAL STATUS: ADL'S: Needs Assistance With:Bathing and Dressing IADL'S: Needs Assistance With:Routine Housework Cognitive and Mental Health: denies problems, alert and oriented x 3, and able to communicate, understand instructions, process information. MEDICATION RECONCILIATION Medications: Discharge med list reviewed with patient or caregiver Reviewed and updated all prescription and OTC medications in Epic New medication(s) filled since hospitalization- oxycodone Reports all medications taken as prescribed. Denies side effects ASSESSMENT Medication Risk Assessment: Taking sedatives/hypnotics/narcotic analgesics and increased fall risk Did patient fail outpatient treatment? No Discharge instructions available for review? Yes PLAN Symptom Monitoring Interventions:Member/caregiver education - signs and symptoms to contact PrimaryCare (DO NOT DELETE-Three [place] symptoms patient is to report to PCP) 1. Fever/chills 2. Increased SOB 3. Uncontrolled pain Detective SergeantProduce Sorter of Care interventions/Action Plan: Facility provider contacted to discuss ongoing treatment management and discharge plan , Medicationreconciliation, and 5 - 7 day follow-up with PCP in place - Date: 04/12/2023 Educated on role of AD completed with patient/caregiver. Educated patient/caregiver on patient right to have input on AD plan of care. Verification of Home Health/DME if indicated: NO N/A Identified Care Gaps: Yes Care Gaps closed this call: Appointment made or confirmed, Medication adherence, Medication monitoring, Medication optimization, Plan of care optimization, and Post discharge appointment Re-evaluation of Plan of Care and progress towards goals achievement: Rice text sent to Mayra Johnson PA-C in thoracic surgery department to inform her of patient's concerns Patient education this visit: Verbal, see above Plan to follow-up as previously scheduled, instructed to call Primary Care Provider with change in symptoms or as needed before next follow-up, discharge needs met, verbalizes understanding and agrees with plan. Najma Jimenez RN documented in this encounter Plan of Treatment Upcoming Encounters Date Type Department Care Team (Late st Contact Info) Description 04/12/2023 3:20 PM EST Office Visit Family Practice [facility] [address] [place] [address] Jonny Pandya MD [address] [place] [address] 04/22/2023 11:30 AM EST Office Visit [facility] [address] [place], [place] [id number] Mayra Johnson PA-C [address] [place] [address] Scheduled Procedures Name Priority Associated Diagnoses Date/Ti [...] Advance Directives occurred with: Patient Care Teams Flooring Salesperson Relationship Specialty Start Date End Date Jonny Pandya MD [address] [place] [address] PCP - General Family Medicine 01/06/20 documented as of this encounter
--- OUTSIDE RECORDS SUMMARY | 2023-04-18 16:32 | External Medical Summary | Summary of Care ---
Author Name Unknown Organization [facility] Address [address] [place] [address] Phone [phone] Care Team Providers Care Transformer Molder Name Role Phone Jonny Pandya MD Primary Care Provider [phone] Encounter Details Date Type Department Care Team (Late st Contact Info) Description 03/28/2023 Telephone [facility] [place] [address] [place] [address] Maritza Marcum PsyD [address] [place] [address] Allergies No known active allergiesdocumented as of this encounter (statuses as of 03/28/2023) Medications Medication Sig Dispensed Refills Start Date [...] Active Ibuprofen 600 MG Oral Tablet (Motrin)Indications:Ac [place] bilateral thoracic back pain Take 1 Tablet [...] Active LORazepam 0.5 MG Oral Tablet (Ativan)Indications:Ac [place] anxiety Take 1 Tablet by mouth every 8 hours as needed for Anxiety or Insomnia. 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 She was since then told to enjoy her holiday. She required a biopsy, as well as multiple procedures that she reported as traumatic. Was told that she was + but states that it didn't hit her that that meant it was + and it was cancer until 2 days later. She states she called Ely and will not forget the conversation with her telling her it was cancer, noting that she was so kind. Patient stated that she "Went from it's fluid to cancer" She states that she is a strong person, organized, and that although this is "no big deal", as the surgery has been closer, she's in shock, feeling anxiety, and getting 2-3 hours sleep per night. Shehas been experiencing guilt, that people have it worse, and that they have found hers early. Reviewed typical response to cancer diagnosis, prognosis as well as what acute stress may present in patients. Dicussed how this can be helped my limiting stressors and by increasing relaxation. Patient reports that shock and lack of control is the worst, and has not dwelt on worst case scenario. Discussed typicality of that - that she will likely have some anxiety until time of formal diagnosis and that a plan is finalized and that is okay! Patient expressed some relief. Patient reported that it is a struggle to act normal at work - discussed taking a few days Organizing at home- discussed that it may be more helpful to do this (helpful vs. Unhelpful behaviors/coping) - discussed how patient has been tired and how being the person she's not and trying to put on a face may be contributing to this - feels as though after this convo she has permission to talk to her boss and that it will go well,he will be accommodating - Will engage in [employer] youtube channel she enjoyed - TIPP relaxation techniques practiced andsent to pt documented in this encounter Plan of Treatment Upcoming Encounters Date Type Department Care Team (Latest Contact Info) Description 04/03/2023 10:14 AM EST Hospital Encounter OR C, OPERATING ROOM [facility] [address] [place] [address] Vu Parikh MD [address] [place] [address] 04/03/2023 10:14 AM EST - 04/03/2023 3:38 PM EST Surgery OR [facility], OPERATING ROOM [facility] [address] [place] [address] Vu Parikh MD [address] [place] [address] ROBOTIC THORACOSCOPY WITH LOBECTOMY Scheduled Procedures Name [...] of this encounter Visit Diagnoses Diagnosis Acute stress reaction- Primary Unspecified acute reaction to stress Right lower lobe lung mass Swelling, mass, or lump in chest documented in this encounter Care Teams Transformer Molder Relationship Specialty Start Date End Date Jonny Pandya MD [address] [place] [address] PCP - General Family Medicine 01/06/20 documented as of this encounter
--- OUTSIDE RECORDS SUMMARY | 2023-04-18 16:32 | External Medical Summary | Summary of Care ---
Author Name Unknown Organization [facility] Address [address] [place] [address] Phone [phone] Care Team Providers Care Management Supervisor Name Role Phone Jonny Pandya MD Primary Care Provider [phone] Encounter Details Date Type Department Care Team (Late st Contact Info) Description 02/14/2023 Result Scan Unspecified Department Jonny Pandya MD [address] [place] [address] <No scans attached> Allergies No known active allergiesdocumented as of this encounter (statuses as of 03/15/2023) Medications Medication Sig Dispensed Refills Start Date [...] mouth in the morning. 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 Obesity, Class I, BMI 30.0-34.9 (see actual BMI) 02/21/2023 Depression with anxiety 02/28/2021 HTN, goal below 130/80 12/22/2019 documented as of this encounter (statuses as of 03/15/2023) Resolved Problems Problem Noted Date Diagnosed Date [...] as of this encounter (statuses as of 03/15/2023) Immunizations Name Administration Dates Next Due Seasonal [...] Department Care Team (Latest Contact Info) Description 2023 10:00 AM [facility] Laboratory Laboratory, [facility] [address] [place] [id number] [facility] [address] [place] [address] 2023 10:30 AM EST Cardiac Studies Cardiac Studies [facility] [address] [place] [address] [place], [facility] [address] [place] [address] 04/03/2023 10:14 AM EST Hospital Encounter OR [facility], OPERATING ROOM [facility], [facility] [address] [place] [address] Vu Parikh MD [address] [place] [address] 04/03/2023 10:14 AM EST - 04/03/2023 3:38 PM EST Surgery OR [facility], [facility] [address] [place] [address] Vu Parikh MD [address] [place], [place] [id number] ROBOTIC THORACOSCOPY WITH LOBECTOMY Scheduled Procedures Name Priority Associated Diagnoses Date/Ti ks ROBOTIC THORACOSCOPY WITH LOBECTOMY Right lower lobe [...] 03/12/2018, 03/12/2018 GFR 05/31/2023 05/30/2022, 10/2018, 09/10/2016 Depression Screening 02/22/2024 02/21/2023 Albumin/Creatinine Ratio 05/30/2025 05/30/2022 Diabetes Screening 05/30/2025 [...] Procedure Name Priority Date/Time Associated Diagnosis Comments PATHOLOGY SCANNED RESULT 02/14/2023 documented in this encounter Results * PATHOLOGY SCANNED RESULT (02/14/2023) 02/14/2023 Jonny Pandya MD PATHOLOGY documented in this encounter Care Teams Management Supervisor Relationship Specialty Start Date End Date Jonny Pandya MD [address] [facility] [place] [address] PCP - General Family Medicine 01/06/20 documented as of this encounter
--- OUTSIDE RECORDS SUMMARY | 2023-04-18 16:32 | External Medical Summary ---
Author Name Unknown Address Unknown Organization [id number]:LABORATORY [facility] - [address] [place] [address] Laboratory Report Ordering Provider Test Date Status DELMIS VALDEZ 03/26/2023 13:02:43 Final Observation Date Value Abnormality Reference (Units ) Status WBC, Total 03/26/2023 13:02:43 6.24 4.00-10.8 0 (K/uL) Final RBC 03/26/2023 13:02:43 4.72 3.85-5.15 (M/uL) Final Hemoglobin 03/26/2023 13:02:43 12.6 12.0-15.3 (g/dL) Final Anemia reflex testing trigge rs on a HGB < 12.0 for Females and HGB < 13.0 for Males in accordance with the WHO Anemia Guidelines
Anemia reflex testing triggers on a HGB < 12.0 for Females and HGB < 13.0 for Males in accordance with the WHO Anemia Guidelines HCT 03/26/2023 13:02:43 41.5 36.0-45.2 (%) Final MCV 03/26/2023 13:02:43 87.9 81.5-97.5 (fL) Final MCH 03/26/2023 13:02:43 26.7 27.0-34.0 (pg) Final MCHC 03/26/2023 13:02:43 30.4 32.0-36.0 (g/dL) Final RDW 03/26/2023 13:02:43 14.8 11.5-15.5 (%) Final Platelets 03/26/2023 13:02:43 488 Above hi gh normal 140-400 (K/uL) Final MPV 03/26/2023 13:02:43 9.2 6.6-11.1 ( fL) Final Nucleated erythrocytes/100 leukocytes [Ratio] in Blood by Automated count 03/26/2023 13:02:43 0 <=0 (/100 WBCs) Final Performing Location LABORATORY [facility] - [address] [facility] [address]
--- OUTSIDE RECORDS SUMMARY | 2023-04-18 16:32 | External Medical Summary ---
Author Name Unknown Address Unknown Organization K01:LABORATORY [facility] B LOOD [facility]ANK - [address] [place] [address] Laboratory Report Ordering Provider Test Date Status ABDIAS WILDER 03/26/2023 13:06:50 Final Observation Date Value Abnormality Reference (Units ) Status ABO 03/26/2023 13:06:50 O Final RH 03/26/2023 13:06:50 Positive Final Performing Location LABORATORY [facility] B[facility]OD [facility] - [address] [place] [id number]
--- OUTSIDE RECORDS SUMMARY | 2023-04-18 16:32 | External Medical Summary | Summary of Care ---
Author Name Unknown Organization [facility] Address [address] [place] [address] Phone [phone] Care Team Providers Care Respite Coordinator Name Role Phone Jonny Pandya MD Primary Care Provider [phone] Reason for Visit * Reason Onset Date Comments Advice 03/28/2023 Encounter Details Date Type Department Care Team (Late st Contact Info) Description 03/28/2023 Telephone Thoracic Surg [facility] [place] [address] [place] [address] Ely Murphy, president of the [place] Allergies No known active allergiesdocumented as of [...] Active Ibuprofen 600 MG Oral Tablet (Motrin)Indications:Ac [place] bilateral thoracic back pain Take 1 Tablet [...] Active LORazepam 0.5 MG Oral Tablet (Ativan)Indications:Ac [place] anxiety Take 1 Tablet by mouth every [...] Telephone Encounter - Ely Murphy RN - 03/28/2023 1:48 PM EST Mrs Workman called. She wanted to know if feeling tired and worn out is part of this process. She stated that her anxiety is probably getting the best of her right now and is over thinking things. She is only sleeping for 2-3 hours at a time. 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 She keeps looking back just thinking of her past appts and thinking about family history, but they all smoked and she does not. I did tell her that her iron is down a little, she did stop taking her iron pills for the 10 days prior to surgery. I did tell her to take them, to try and bring her iron levels up. She stated that they stopped her bp meds, her last bp with 96 systolic. I explained a low bp can also make her feel tired. Not sleeping can add to anxiety as well I offered her a call from our psychologist that comes to our [facility], she was agreeable and verythankful for that offer. I instructed her to call me if she is still having trouble and just needs to talk as well. She is taking ativan right now to try and help her a little, she really does not want to increase that. She thanked me for just listening and talking through things with her. Ely Murphy RN MSN [facility] Thoracic Surgery Nurse Navigator [facility] documented in this encounter Plan of Treatment Upcoming Encounters Date Type Department Care Team (Latest Contact Info) Description 04/03/2023 10:14 AM EST Hospital Encounter OR [facility], OPERATING ROOM [facility], [facility] [address] [place] [address] Vu Parikh MD [address] [place] [address] 04/03/2023 10:14 AM EST - 04/03/2023 3:38 PM EST Surgery OR [facility], [facility] [address] [place] [address] Vu Parikh MD [address] [place] [address] ROBOTIC THORACOSCOPY WITH LOBECTOMY Scheduled Procedures Name Priority Associated Diagnoses Date/Ti hi ROBOTIC THORACOSCOPY WITH LOBECTOMY Right lower lobe [...] filedocumented as of this encounter Care Teams Respite Coordinator Relationship Specialty Start Date End Date Jonny Pandya MD [address] [place] [address] PCP - General Family Medicine 01/06/20 documented as of this encounter
--- OUTSIDE RECORDS SUMMARY | 2023-04-18 16:32 | External Medical Summary | Summary of Care ---
Author Name Unknown Organization [facility] Address [address] [place] [address] Phone [phone] Care Team Providers Care Sales Representative [employer] Name Role Phone Jonny Pandya MD Primary Care Provider [phone] Reason for Visit * Reason Comments Outpatient Testing Encounter Details Date Type Department Care Team (Late st Contact Info) Description 03/26/2023 1:00 PM EST Laboratory Laboratory, [facility] [address] [place] [address] [facility] [address] [place] [address] Iron deficiency anemia, unspecified iron deficiency anemia type; Right lower lobe lung mass Allergies No known active allergiesdocumented as of this encounter (statuses as of 03/26/2023) Medications Medication Sig Dispensed Refills Start Date [...] Active Ibuprofen 600 MG Oral Tablet (Motrin)Indications:Ac [place] bilateral thoracic back pain Take 1 Tablet [...] Active LORazepam 0.5 MG Oral Tablet (Ativan)Indications:Ac [place] anxiety Take 1 Tablet by mouth every 8 hours as needed for Anxiety or Insomnia. 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 Obesity, Class I, BMI 30.0-34.9 (see actual BMI) 02/21/2023 Depression with anxiety 02/28/2021 HTN, goal below 130/80 12/22/2019 documented as of this encounter (statuses as of 03/26/2023) Resolved Problems Problem Noted Date Diagnosed Date [...] as of this encounter (statuses as of 03/26/2023) Immunizations Name Administration Dates Next Due Seasonal [...] 04/03/2023 10:14 AM EST Hospital Encounter [facility], OPERATING ROOM [facility], [place] [facility] [address] [facility] [place] [address] Vu Parikh MD [address] [place] [address] 04/03/2023 10:14 AM EST - 04/03/2023 3:38 PM EST Surgery OR [facility], OPERATING ROOM [facility], [facility] [address] [place] [address] Vu Parikh MD [address] [place] [address] ROBOTIC THORACOSCOPY WITH LOBECTOMY Pending Results Name Type Priority Associated Diagnoses Date /Time CBC WITH WBC DIFFERENTIAL AND ANEMIA REFLEX WORKUP Lab Routine Iron deficiency anemia, unspecified iron deficiency anemia type 03/26/2023 1:02 PM EST IRON SCREEN, INCLUDING TIBC Lab Routine Iron deficiency anemia, unspecified iron deficiency anemia type 03/26/2023 1:02 PM EST BASIC METABOLIC PANEL Lab Routine Right lower lobe lung mass 03/26/2023 1:02 PM EST TYPE AND SCREEN Lab Routine Right lower lobe lung mass 03/26/2023 1:02 PM EST ANEMIA CBC Lab Routine Iron deficiency anemia, unspecified iron deficiency anemia type 03/26/2023 1:02 PM EST DIFFERENTIAL, AUTOMATED Lab Routine Iron deficiency anemia, unspecified iron deficiency anemia type 03/26/2023 1:02 PM EST ANEMIA REFLEX CHEMISTRY HOLD Lab Routine Iron deficiency anemia, unspecified iron deficiency anemia type 03/26/2023 1:02 PM EST ABO/RH Lab Routine Right lower lobe lung mass 03/26/2023 1:06 PM EST Scheduled Procedures Name Priority Associated [...] as of this encounter Visit Diagnoses Diagnosis Iron deficiency anemia, unspecified iron deficiency anemia type Right lower lobe lung mass Swelling, mass, or lump in chest Right lower lobe lung mass Swelling, mass, or lump in chest documented in this encounter Care Teams Sales Representative [employer] Relationship Specialty Start Date End Date Jonny Pandya MD [address] [place] [place] [address] PCP - General Family Medicine 01/06/20 documented as of this encounter
--- OUTSIDE RECORDS SUMMARY | 2023-04-18 16:32 | External Medical Summary | Summary of Care ---
Author Name Unknown Organization [facility] Address [address] [place] [address] Phone [phone] Care Team Providers Care Cisco Network Architect Name Role Phone Jonny Pandya MD Primary Care Provider [phone] Reason for Visit * Reason Onset Date Comments Advice 03/28/2023 Encounter Details Date Type Department Care Team (Late st Contact Info) Description 03/28/2023 Telephone Thoracic Surg [facility] [place] [address] [place] [address] Ely Murphy, medical csr Allergies No known active allergiesdocumented as of [...] Active Ibuprofen 600 MG Oral Tablet (Motrin)Indications:Ac te-moak bilateral thoracic back pain Take 1 Tablet [...] Active LORazepam 0.5 MG Oral Tablet (Ativan)Indications:Ac te-moak anxiety Take 1 Tablet by mouth every [...] from our psychologist that comes to our [facility] clinic, she was agreeable and verythankful for [...] things with her. Ely Murphy RN MSN [facility] Thoracic Surgery Nurse Navigator [facility] documented in this encounter Plan of Treatment Upcoming Encounters Date Type Department Care Team (Latest Contact Info) Description 04/03/2023 10:14 AM EST Hospital Encounter OR [facility] [place], OPERATING ROOM [facility] [place], [facility] ESTEVEZ [address] [place] [address] Vu Parikh MD [address] [place] [address] 04/03/2023 10:14 AM EST - 04/03/2023 3:38 PM EST Surgery OR [facility] [place], OPERATING RO[facility] [address] [place] [address] Vu Parikh MD [address] [place] [address] ROBOTIC THORACOSCOPY WITH LOBECTOMY Scheduled Procedures Name Priority Associated Diagnoses Date/Ti ar ROBOTIC THORACOSCOPY WITH LOBECTOMY Right lower lobe [...] filedocumented as of this encounter Care Teams Cisco Network Architect Relationship Specialty Start Date End Date Jonny Pandya MD [address] [place] [address] PCP - General Family Medicine 01/06/20 documented as of this encounter
--- OUTSIDE RECORDS SUMMARY | 2023-04-18 16:32 | External Medical Summary ---
Author Name Unknown Address Unknown Organization [id number]:LABORATORY [facility] - [address] [place] [address] Laboratory Report Ordering Provider Test Date Status ABDIAS WILDER 03/26/2023 13:02:43 Final Observation Date Value Abnormality Reference (Units ) Status ABO 03/26/2023 13:02:43 O Final RH 03/26/2023 13:02:43 Positive Final RED BLOOD CELL ANTIBODY SCREEN 03/26/2023 13:02:43 Negative Final SPECIMEN EXPIRATION DATE 03/26/2023 13:02:43 04/06/2023 23:59 Final Performing Location LABORATORY [facility] - [address] [place] [address]
--- OUTSIDE RECORDS SUMMARY | 2023-04-18 16:32 | External Medical Summary ---
Author Name Unknown Address Unknown Organization [id number]:LABORATORY [facility] - [address] [place] [address] Laboratory Report Ordering Provider Test Date Status JOSÉ MIGUELBENITES 03/26/2023 13:02:43 Final Observation Date Value Abnormality Reference (Units ) Status SYNC LEUKOCYTES IN BLOOD BY AUTOMATED COUNT 03/26/2023 13:02:43 6.24 4.00-10.80 (K/uL) Final Segs 03/26/2023 13:02:43 57.7 40.0-75.0 (%) Final Lymphs % 03/26/2023 13:02:43 31.9 18.0-42.0 (%) Final Monos 03/26/2023 13:02:43 7.7 1.0-11.0 (%) Final Eosinophils 03/26/2023 13:02:43 1.8 0.0-6.0 (%) Final Basos 03/26/2023 13:02:43 0.3 0.0-2.0 (%) Final Immature Granulocyte, Percent 03/26/2023 13:02:43 0.6 0.0-2.0 (%) Final Absolute Segs 03/26/2023 13:02:43 3.60 1.80-7.70 (K/uL) Final Lymphs, absolute 03/26/2023 13:02:43 1.99 1.00-4.80 (K/ul) Final Monos, Abs 03/26/2023 13:02:43 0.48 0.00-1.10 (K/uL) Final Eos, Abs 03/26/2023 13:02:43 0.11 0.00-0.70 (K/uL) Final Basos, Abs 03/26/2023 13:02:43 0.02 0.00-0.20 (K/uL) Final Immature Granulocytes, Number 03/26/2023 13:02:43 0.04 0.00-0.20 (K/uL) Final Performing Location LABORATORY [facility] - [address] [facility] [address]
--- OUTSIDE RECORDS SUMMARY | 2023-04-18 16:32 | External Medical Summary | Summary of Care ---
Author Name Unknown Organization [facility] Address [address] [place] [address] Phone [phone] Care Team Providers Care Pl Sql Developer Name Role Phone Jonny Pandya MD Primary Care Provider [phone] Encounter Details Date Type Department Care Team (Latest Contact Info) Description 03/15/2023 9:20 AM EST Telemedicine Family Practice [facility] [address] [facility] [place] [address] Jonny Pandya MD [address] [facility] [place] [place] [address] Acute anxiety*; Inflammatory myofibroblastic tumor Allergies No known active allergiesdocumented as of [...] or Insomnia. 30 Tablet 0 03/15/2023 Active Wegovy 1.7 MG/0.75ML Subcutaneous Solution Auto-injector (Semaglutide-Weight Management) Inject 1.7 mg (1 pen) under the skin once a week. 9 mL 0 02/11/2023 03/15/2023 Discontinued (Discharged) documented as of this encounter (statuses as [...] as of this encounter Progress Notes * Jonny Pandya MD - 03/15/2023 10:22 AM EST Patient location: HOME. I was in a hospital or clinic location. After connecting through [employer],patient was verified with two unique identifiers. Patient (or authorized legal event representative) was then informed that this was a Telemedicine visit and being conducted confidentially over secure lines. Methods to assure confidentiality were taken. Patient acknowledged consent and understanding of pr ivacy and security of the Telemedicine visit. The patient agreed to participate. SUBJECTIVE: Sybil Workman is a 52 year old female. No chief complaint on file. HPI: Sybil was diagnosed with an inflammatory tumor in her lung which has of course caused her a great deal of distress. It is affecting her sleep and she is very anxious and understandably so. We discussed the situation at length today. Patient Active Problem List Diagnosis Code HTN, goal below 130/80 I10 Depression with anxiety F41.8 Obesity, Class I, BMI 30.0-34.9 (see actual BMI) E66.9 Inflammatory myofibroblastic tumor D49.9 Current Outpatient Medications Medication Sig Dispense Refill LORazepam 0.5 MG Oral Tablet (Ativan) Take 1 Tablet by mouth every 8 hours as needed for Anxiety orInsomnia. 30 Tablet 0 valACYclovir HCl 1 GM Oral Tablet (Valtrex) take 2 tablets by mouth every 12 hours for 1 DAY FOR COLD SORES 12 Tablet 5 Cyclobenzaprine HCl 5 MG Oral Tablet (Flexeril) [...] Tablet by mouth in the morning. Wegovy 2.4 MG/0.75ML Subcutaneous Solution Auto-injector (Semaglutide-Weight [...] by mouth daily with breakfast. 90 Tablet0 buPROPion HCl ER (XL) 150 MG Oral Tablet Extended Release 24 Hour (Wellbutrin XL) Take 1 Tablet by mouth in the morning. In the morning.. 90 Tablet 3 No current facility-administered medications for this visit. Allergy: Review of patient's allergies indicates: No Known Allergies OBJECTIVE: LMP 01/28/2017 Gen:tearful but in no acute distress ASSESSMENT AND PLAN: (F41.9) Acute anxiety (primary encounter diagnosis) Plan: LORazepam 0.5 MG Oral Tablet (Ativan) (D49.9) Inflammatory myofibroblastic tumor Plan: surgery planned Follow up as needed. No other complaints were offered at this time. Jonny Pandya MD documented in this encounter Plan of Treatment Upcoming Encounters Date Type Department Care Team (Latest Contact Info) Description 2023 10:00 AM EST Laboratory Laboratory, [facility] [address] [place] [address] [facility] [address] [place] [address] 2023 10:30 AM EST Cardiac Studies Cardiac Studies [facility] [place] [address] [place] [address] [place] [place] [address] [place] [address] 04/03/2023 10:14 AM EST Hospital Encounter OR [facility], [facility] [address] [place] [facility] [place] [address] Vu Parikh MD [address] [facility] [address] 04/03/2023 10:14 AM EST - 04/03/2023 3:38 PM EST Surgery OR [facility], [facility] [address] [place] [address] Vu Parikh MD [address] [place] [address] ROBOTIC THORACOSCOPY WITH LOBECTOMY Scheduled Procedures Name [...] of this encounter Visit Diagnoses Diagnosis Acute anxiety- Primary Anxiety state, unspecified Inflammatory myofibroblastic tumor Right lower lobe lung mass Swelling, mass, or lump in chest documented in this encounter Care Teams Pl Sql Developer Relationship Specialty Start Date End Date Jonny Pandya MD [address] [place] [address] PCP - General Family Medicine 01/06/20 documented as of this encounter
--- OUTSIDE RECORDS SUMMARY | 2023-04-18 16:32 | External Medical Summary | Summary of Care ---
Author Name Unknown Organization [facility] Address [address] [place] [address] Phone [phone] Care Team Providers Care Api Product Manager Name Role Phone Jonny Pandya MD Primary Care Provider [phone] Encounter Details Date Type Department Care Team ([facility] st Contact Info) Description 03/20/2023 [facility], [address], [address] [place] [address] Medication, [facility], [address] [place] [address] Allergies No known active allergiesdocumented as of this encounter (statuses as of 03/20/2023) Medications Medication Sig Dispensed Refills Start Date [...] Active Ibuprofen 600 MG Oral Tablet (Motrin)Indications:Ac [place] bilateral thoracic back pain Take 1 Tablet [...] Active LORazepam 0.5 MG Oral Tablet (Ativan)Indications:Ac [place] anxiety Take 1 Tablet by mouth every 8 hours as needed for Anxiety or Insomnia. 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 Prescription Address: [address] [place] [address] SHYANN Carrera Tech [facility] 03/20/2023,1:55 PM documented in this encounter Plan of Treatment Upcoming Encounters Date Type Department Care Team (Latest Contact Info) Description 2023 10:00 AM EST Laboratory Laboratory, [facility] [id number] [facility] [address] [place] [address] 2023 10:30 AM EST Cardiac Studies Cardiac Studies, [facility] [place] [address] 04/03/2023 10:14 AM EST Hospital Encounter OR [facility] [place], OPERATING ROOM [facility] [place] [address] [place] [address] Vu Parikh MD [address] [place] [address] 04/03/2023 10:14 AM EST - 04/03/2023 3:38 PM EST Surgery OR [facility] [place], OPERATING ROOM [facility] [place] [address] [place] [address] Vu Parikh MD [address] [place] [address] ROBOTIC THORACOSCOPY WITH LOBECTOMY Scheduled Procedures Name Priority Associated Diagnoses Date/Ti ak ROBOTIC THORACOSCOPY WITH LOBECTOMY Right lower lobe [...] 18-100 03/12/2023 03/12/2018, 03/12/2018 GFR 05/31/2023 05/30/2022, 01/0 10/2018, 09/10/2016 Depression Screening 02/22/2024 02/21/2023 Albumin/Creatinine [...] filedocumented as of this encounter Care Teams Api Product Manager Relationship Specialty Start Date End Date Jonny Pandya MD [address] [facility] [place] [address] PCP - General Family Medicine 01/06/20 documented as of this encounter
--- OUTSIDE RECORDS SUMMARY | 2023-04-18 16:32 | External Medical Summary ---
Author Name Unknown Address Unknown Organization K01:LABORATORY [facility] - [address] [place] [address] Laboratory Report Ordering Provider Test Date Status DELMIS VALDEZ 03/26/2023 13:02:43 Final Observation Date Value Abnormality Reference (Units ) Status Iron 03/26/2023 13:02:43 24 Below low normal 33-151 (ug/dL) Final Iron-binding capacity 03/26/2023 13:02:43 250 250-425 (ug/dL) Final Transferrin Sat % 03/26/2023 13:02:43 10 Below low normal 15-55 (%) Final Performing Location LABORATORY [facility] - [address] [place] [address]
--- OUTSIDE RECORDS SUMMARY | 2023-04-18 16:32 | External Medical Summary ---
Author Name Unknown Address Unknown Organization K0G:LABORATORY [place] [facility] - [address] [place] [address] Laboratory Report Ordering Provider Test Date Status ABDIAS WILDER 03/26/2023 13:02:43 Final Observation Date Value Abnormality Reference (Units ) Status BUN 03/26/2023 13:02:43 11 6-20 (mg/dL) Final Creatinine 03/26/2023 13:02:43 0.7 0.5-1.0 (mg/dL) Final Glomerular filtration rate/1.73 sq M.predicted [Volume Rate/Area] in Serum, Plasma or Blood by Creatinine-based formula (CKD-EPI) 03/26/2023 13:02:43 >90 >=60 (mL/min) Final eGFR is calculated based on the CKD-EPI 2020 equation SODIUM 03/26/2023 13:02:43 138 135-146 (m mol/L) Final Potassium 03/26/2023 13:02:43 4.7 3.5-5.1 (m mol/L) Final Cl 03/26/2023 13:02:43 99 98-107 (mm ol/L) Final CO2 03/26/2023 13:02:43 26 22-32 (mmo l/L) Final Anion gap 03/26/2023 13:02:43 13 7-15 (mmol /L) Final Glucose 03/26/2023 13:02:43 96 70-120 (mg /dL) Final Calcium 03/26/2023 13:02:43 9.8 8.4-10.2 ( mg/dL) Final Performing Location LABORATORY [facility] 0 - [address] [place] [address]
--- OUTSIDE RECORDS SUMMARY | 2023-04-18 16:33 | External Medical Summary | Summary of Care ---
Author Name Unknown Organization [facility] Address [address] [place] [address] Phone [phone] Care Team Providers Care Airborne Operations Name Role Phone Jed Gabriel MD Primary Care Provider [phone] Reason for Visit * Reason Onset Date Comments Medication Refill 03/12/2023 Encounter Details Date Type Department Care Team (Late st Contact Info) Description 03/12/2023 Refill Family Practice [facility] [address] [facility] [place] [address] Mary Reynoso CRNP [address] [facility] [address] Allergies No known active allergiesdocumented as of this encounter (statuses as of 03/12/2023) Medications Medication Sig Dispensed Refills Start Date End Date Status valACYclovir HCl 1 GM Oral Tablet (Valtrex)Indicatio ns:Cold sore take 2 tablets by mouth every 12 hours for 1 DAY FOR COLD SORES 12 Tablet 5 05/25/2022 Active Cyclobenzaprine HCl 5 MG Oral Tablet (Flexeril)Indicati ons:Acute bilateral thoracic back pain Take 1 Tablet by mouth 3 times a day as needed for Muscle spasms. 30 Tablet 0 01/30/2023 Active Ibuprofen 600 MG Oral Tablet (Motrin)Indication [...] in the morning. 0 02/11/2023 Active Wegovy 1.7 MG/0.75ML Subcutaneous Solution Auto-injector (Semaglutide-Weigh t Management) Inject 1.7 mg (1 pen) under the skin once a week. 9 mL 0 02/11/2023 Active Additional Information Patient not taking.Reported on 02/21/2023 Wegovy 2.4 MG/0.75ML Subcutaneous Solution Auto-injector (Semaglutide-Weigh [...] the morning.. 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 In the morning.. Authorizing Provider: JED GABRIEL * Telephone Encounter - Marlene Recinos LPN - 03/12/2023 1:15 PM ESTPending Prescriptions: Disp Refills buPROPion HCl ER (XL) 150 MG Oral Tablet E*90 Tab*1 Sig: Take 1 Tablet by mouth. In the morning. * Telephone Encounter - Alexis Aranda OSA - 03/12/2023 1:02 PM EST Did you pend patient's preferred pharmacy and medication before forwarding?yes Pharmacy: [id number]- [place] Pending Prescriptions: Disp Refills buPROPion HCl ER (XL) 150 MG Oral Tablet *90 Tab*1 Sig: Take 1 Tablet by mouth. In the morning. Last Visit: 02/21/2023 (in office), 04/13/2021 (telemedicine) Next Visit: Visit date not found If no future appointments scheduled, and last appointment is greater than a year ago, please schedule patient for a follow-up appointment Last date the medication was ordered: 03/11/2023 Is this request for a controlled substance?No [...] Care Team (Latest Contact Info) Description 04/03/2023 8:00 AM EST Hospital Encounter OR [facility], OPERATING ROOM [facility] [address] [place] [address] Vu Parikh MD [address] [place] [address] 04/03/2023 8:00 AM EST - 04/03/2023 1:04 PM EST Surgery OR [facility], OPERATING ROOM [facility] [address] [place] [address] Vu Parikh MD [address] [place] [address] ROBOTIC THORACOSCOPY WITH LOBECTOMY Scheduled Procedures Name Priority Associated Diagnoses Date/Ti fl ROBOTIC THORACOSCOPY WITH LOBECTOMY Right lower lobe lung mass 04/03/2023 8:00 AM EST ROBOTIC THORACOSCOPY WITH LYMPHADENECTOMY Right lower lobe lung mass 04/03/2023 8:00 AM EST COLONOSCOPY FLEXIBLE PROXIMA L DIAGNOSTIC [...] filedocumented as of this encounter Care Teams Airborne Operations Relationship Specialty Start Date End Date Jed Gabriel MD [address] [place] [address] PCP - General Family Medicine 01/06/20 documented as of this encounter
--- OUTSIDE RECORDS SUMMARY | 2023-04-18 16:33 | External Medical Summary | Summary of Care ---
Author Name Unknown Organization [facility] Address [address] [place] [address] Phone [phone] Care Team Providers Care Vest Maker Name Role Phone Jonny Pandya MD Primary Care Provider [phone] Reason for Visit * Reason Comments NEW PATIENT Lung Nodule * Evaluate & Treat - Unlimited Visits (Within 3 days (urgent)) - Authorized Specialty Diagnoses / Procedures Referred By Contact Referred To Contact Thoracic and Cardiac Surgery / Cardiothoracic Surgery Diagnoses Lung mass Mary Reynoso CRNP [address] [place] [address] Referral ID Status Reason Start Date Expiration Date Visits Requested Visits Authorized [id number] Authorized Specialty Services Required 3 02/22/2024 [id number] Encounter Details Date Type Department Care Team (Late st Contact Info) Description 03/11/2023 8:30 AM [facility] Thoracic Surg [facility] [address] [place] [address] Vu Parikh MD [address] [place] [address] Right lower lobe lung mass* Allergies No known active allergiesdocumented as of this encounter (statuses as of 03/12/2023) Medications Medication Sig Dispensed Refills Start Date End Date Status valACYclovir HCl 1 GM Oral Tablet (Valtrex)Indicati ons:Cold sore take 2 tablets by mouth every 12 hours for 1 DAY FOR COLD SORES 12 Tablet 5 3 Active Cyclobenzaprine HCl 5 MG Oral Tablet (Flexeril)Indicat ions:Acute bilateral thoracic back pain Take 1 Tablet by mouth 3 times a day as needed for Muscle spasms. 30 Tablet 0 3 Active Ibuprofen 600 MG Oral Tablet (Motrin)Indicatio ns:Acute bilateral thoracic back pain Take 1 Tablet by mouth in the morning and 1 Tablet at noon and 1 Tablet before bedtime. with food for pain. 30 Tablet 1 3 Active busPIRone HCl 7.5 MG Oral Tablet (Buspar) Take 1 Tablet by mouth in the morning and 1 Tablet in the evening. 0 3 Active hydrOXYzine HCl 25 MG Oral Tablet Take 1 Tablet by mouth 3 times a day as needed for Anxiety. 0 3 Active Cyanocobalamin 500 MCG Oral Tablet Take 1 Tablet by mouth in the morning. 0 3 Active Wegovy 1.7 MG/0.75ML Subcutaneous Solution Auto-injector (Semaglutide-Weig ht Management) Inject 1.7 mg (1 pen) under the skin once a week. 9 mL 0 3 Active Additional Information Patient not taking.Reported on 02/21/2023 Wegovy 2.4 MG/0.75ML Subcutaneous Solution Auto-injector (Blue Nileglutide-Weig ht Management) Inject 2.4 mg (1 pen) under the skin once a week. 3 mL 5 3 Active Multivitamins Oral Capsule daily. 0 3 Active Docusate Sodium 100 MG Oral Capsule (Colace) 1 Capsule. 0 3 Active Inulin 2 GM Oral Tablet Chewable daily. 0 3 Active Folic Acid 1 MG Oral Tablet Take 1 Tablet by mouth in the morning. 90 Tablet 0 4 Active Ferrous Gluconate 324 (38 Fe) MG Oral Tablet Take 1 Tablet by mouth daily with breakfast. 90 Tablet 0 4 Active buPROPion HCl ER (XL) 150 MG Oral Tablet Extended Release 24 Hour (Wellbutrin XL) Take 1 Tablet by mouth in the morning. In the morning.. 90 Tablet 3 3 03/11/19 24 Discontinued Lisinopril 40 MG Oral TabletIndications :Essential hypertension with goal blood pressure less than 130/80 TAKE 1 TABLET IN THE MORNING 90 Tablet 2 3 03/11/19 24 Discontinued(Med ication List Clean Up) documented as [...] as of this encounter Progress Notes * Vu Parikh MD - 03/11/2023 9:27 AM EST See H&P. documented in this encounter H&P Notes * Vu Parikh MD - 03/11/2023 8:33 AM EST THORACIC SURGERY CLINIC @ [facility] 03/11/2023 HPI: Sybil Workman is a 52 year old female presenting for evaluation of a right-sided intrathoracic mass, presumably located between the middle and lower lobes of the lung. Referring Provider: Jonny Pandya MD Patient location: HOME. I was in a hospital or clinic location. After connecting through televideo,patient was verified with two unique identifiers. Patient (or authorized legal direct sales representative) was then informed that this was a Telemedicine visit and being conducted confidentially over secure lines. Methods to assure confidentiality were taken. Patient acknowledged consent and understanding of pr ivacy and security of the Telemedicine visit. The patient agreed to participate. HPI Summary: Sybil presented last month to [facility] with significant abdominal pain. -- turned [...] performed by Latoya Murray MD at ENDOSCOPY [facility] CONIZATION OF CERVIX 04/26/2015 LAP;W/HYSTERECTOMY 03/01/2017 LUMBAR / SACRAL EPIDURAL, SINGLE LEVEL 11/04/2017 INJECTION TRANSFORAMINAL EPIDURAL LUMBAR OR SACRAL performed by [facility] Wilber, DO at OR [facility] LUMBAR / SACRAL EPIDURAL, SINGLE LEVEL 12/19/2017 INJECTION TRANSFORAMINAL EPIDURAL LUMBAR OR SACRAL performed by [facility] Magues, DO at OR [facility] LUMBAR / SACRAL EPIDURAL, SINGLE LEVEL 06/05/2018 INJECTION TRANSFORAMINAL EPIDURAL LUMBAR OR SACRAL performed by [facility] Wilber, DO at OR [facility] SACROILIAC JOINT INJECT W/GUIDANCE Left 02/09/2019 INJECTION SACROILIAC JOINT performed by [facility] Magues, DO at OR [facility] TVT EDU 2010 prolene mesh -- [place] Joseph Social [...] lung, pleural space,urine, blood, etc), atrial fibrillation, CA, CVA, DVT, PE, chylothorax, need for additional [...] willingly provided informed consent. Vu Parikh MD [facility] System Chief, Thoracic Surgery [facility] [place] [address] [place] [id number] documented in this encounter Plan of Treatment Upcoming Encounters Date Type Department Care Team (Latest Contact Info) Description 2023 10:00 AM EST Laboratory [facility], [facility] [address] [place] [id number] [facility] [address] [facility] [address] 2023 10:30 AM EST Cardiac Studies Cardiac Studies [facility], [place] [address] [place] [facility] [place] [address] [place], E[place] [address] [place] [address] 04/03/2023 8:00 AM EST Hospital Encounter OR [facility], OPERATING ROOM [facility], [facility] [address] [place] [address] Vu Parikh MD [address] [place] [address] 04/03/2023 8:00 AM EST - 04/03/2023 1:04 PM EST Surgery OR [facility], OPERATING ROOM [facility], [facility] [address] [place] [address] Vu Parikh MD [address] [place] [address] ROBOTIC THORACOSCOPY WITH LOBECTOMY Scheduled Procedures Name Priority Associated Diagnoses Date/Ti me ROBOTIC THORACOSCOPY WITH LOBECTOMY Right lower lobe lung mass 04/03/2023 8:00 AM EST ROBOTIC THORACOSCOPY WITH LYMPHADENECTOMY Right lower lobe lung mass 04/03/2023 8:00 AM EST COLONOSCOPY FLEXIBLE PROXIMA L DIAGNOSTIC Recall Family history of uterine cancer Screening for malignant neoplasm of colon Scheduled Referrals Name Type Priority Associated Diagnoses Orde r Schedule THORACIC SURGERY REFERRAL OP Referral Within 3 days (urgent) Lung mass Ordered: 02/21/2023 Health Maintenance Due Date Last Done Comments [...] as of this encounter Visit Diagnoses Diagnosis Right lower lobe lung mass- Primary Swelling, mass, or lump in chest Right lower lobe lung mass Swelling, mass, or lump in chest documented in this encounter Care Teams Vest Maker Relationship Specialty Start Date End Date Jonny Pandya MD [address] [place] [address] PCP - General Family Medicine 01/06/20 documented as of this encounter
--- OUTSIDE RECORDS SUMMARY | 2023-04-18 16:33 | External Medical Summary | Summary of Care ---
Author Name Unknown Organization [facility] Address [address] [place] [address] Phone [phone] Care Team Providers Care Theatrical Performer Name Role Phone Jonny Pandya MD Primary Care Provider [phone] Reason for Visit * Reason Onset Date Comments Appointment 03/11/2023 Surgery date, pr e op information Encounter Details Date Type Department Care Team (Late st Contact Info) Description 03/11/2023 Telephone Thoracic Surg [facility] [place] [address] [place] [address] Ely Murphy, TAYO Appointment (Surgery date, pre op informat... Allergies No known active allergiesdocumented as of this encounter (statuses as of 03/11/2023) Medications Medication Sig Dispensed Refills Start Date [...] with breakfast. 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 Offered 04/03/23 for surgery and this was accepted. She will receive a call the day prior to surgery between 1pm-7pm with what time to be at [facility] the morning of surgery. Directions to surgery check in provided. Discussed antibacterial soap and instructed on use and where to purchase. No vitamins, minerals OTC supplements or NSAIDs 10 days prior to surgery, can use tylenol if needed. Medications discussed. She did tell me that her lisinopril was stopped due to low BP, I will remove from her med list Will have labs and EKG done at [facility]. Instructed to bring own toiletries, PJ bottoms or shorts, robe, slippers, any reading materials that would be needed. Provided my call back number and instructed to call with any questions or concerns pre or post op. All questions answered. She verbalized understanding and agreement to the above. Ely Murphy RN MSN [facility] Thoracic Surgery Nurse Navigator [facility] documented in this encounter Plan of Treatment Upcoming Encounters Date Type Department Care Team (Latest Contact Info) Description 04/03/2023 8:00 AM EST Hospital Encounter [facility], OPERATING ROOM [facility], [facility] [address] [place] [address] Vu Parikh MD [address] [place] [address] 04/03/2023 8:00 AM EST - 04/03/2023 1:04 PM EST Surgery OR [facility], OPERATING ROOM [facility], [facility] [address] [place] [address] Vu Parikh MD [address] [place] [address] ROBOTIC THORACOSCOPY WITH LOBECTOMY Scheduled Orders Name Type Priority Associated Diagnoses Orde r Schedule CBC Lab Routine Right lower lobe lung mass Expected: 03/18/2023, Expires: 03/11/2024 BASIC METABOLIC PANEL Lab Routine Right lower lobe lung mass Expected: 03/18/2023, Expires: 03/11/2024 TYPE AND SCREEN Lab Routine Right lower lobe lung mass Expected: 03/18/2023, Expires: 04/11/2024 ABO/RH Lab Routine Right lower lobe lung mass Expected: 03/18/2023, Expires: 04/11/2024 EKG EKG Routine Right lower lobe lung mass Expected: 03/18/2023 (Approximate), Expires: 04/11/2024 Scheduled Procedures Name Priority Associated Diagnoses Date/Ti [...] 18-100 03/12/2023 03/12/2018, 03/12/2018 GFR 05/31/2023 05/30/2022, 01/10/2018, 09/10/2016 Depression Screening 02/22/2024 02/21/2023 Albumin/Creatinine Ratio [...] chest documented in this encounter Care Teams Theatrical Performer Relationship Specialty Start Date End Date Jonny Pandya MD [address] [place] [address] PCP - General Family Medicine 01/06/20 documented as of this encounter
--- OUTSIDE RECORDS SUMMARY | 2023-04-18 16:33 | External Medical Summary | Summary of Care ---
Author Name Unknown Organization [facility] Address [address] [place] [address] Phone [phone] Care Team Providers Care Ruby On Rails Web Developer Name Role Phone Jonny Pandya MD Primary Care Provider [phone] Encounter Details Date Type Department Care Team (Latest Contact Info) Description 03/06/2023 3:20 PM EST - 03/06/2023 11:59 PM EST Hospital Encounter Radiology Film File [address] [place], [place] [id number] Arrived Discharge Disposition: Home - Self Care Allergies No known active allergiesdocumented as of this encounter (statuses as of 03/09/2023) Medications Medication Sig Dispensed Refills Start Date End Date Status buPROPion HCl ER (XL) 150 MG Oral Tablet Extended Release 24 Hour (Wellbutrin XL) Take 1 Tablet by mouth in the morning. In the morning.. 90 Tablet 3 03/07/2022 Active valACYclovir HCl 1 GM Oral Tablet (Valtrex)Indications :Cold sore take 2 tablets by mouth every 12 hours for 1 DAY FOR COLD SORES 12 Tablet 5 05/25/2022 Active Lisinopril 40 MG Oral TabletIndications:Es sential hypertension with goal blood pressure less than 130/80 TAKE 1 TABLET IN THE MORNING 90 Tablet 2 07/27/2022 Active Additional Information Patient taking differently: 20 mg Oral Daily(AM), Reported on 02/21/2023 Cyclobenzaprine HCl 5 MG Oral Tablet (Flexeril)Indication s:Acute bilateral thoracic back pain Take 1 Tablet by mouth 3 times a day as needed for Muscle spasms. 30 Tablet 0 01/30/2023 Active Ibuprofen 600 MG Oral Tablet (Motrin)Indications: Acute bilateral thoracic back pain Take 1 [...] 02/21/2023 Wegovy 2.4 MG/0.75ML Subcutaneous Solution Auto-injector (Semaglutide-Weight [...] with breakfast. 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 Obesity, Class I, BMI 30.0-34.9 (see actual BMI) 02/21/2023 Right lower lobe lung mass 02/21/2023 Depression with anxiety 02/28/2021 HTN, goal below 130/80 12/22/2019 documented as of this encounter (statuses as of 03/09/2023) Resolved Problems Problem Noted Date Diagnosed Date [...] ogram for breast cancer 09/19/2016 01/06/2020 Overview: /-neg,50-75% FG documented as of this encounter (statuses as of 03/09/2023) Immunizations Name Administration Dates Next Due Seasonal [...] st Contact Info) Description 03/11/2023 8:30 AM EST [facility] Thoracic Surg [facility] [place] [address] Vu Parikh MD [address] [place] [address] Scheduled Procedures Name Priority Associated Diagnoses Date/Ti [...] Date/Time Associated Diagnosis Comments RADIOLOGY EXAM - PET (IMAGES ONLY, NO REPORT) Routine 03/06/2023 3:20 PM EST documented in this encounter Results * RADIOLOGY EXAM - PET (IMAGES ONLY, NO REPORT) (03/06/2023 3:20 PM EST) 03/06/2023 3:18 PM EST Narrative Scheduling, Silent - 03/08/2023 2:58 PM EST This is an imaging study not interpreted or resulted by a [facility] or [facility] contracted radiologist. Jonny Pandya MD [facility] NUCLEAR MED documented in this encounter Care Teams Ruby On Rails Web Developer Relationship Specialty Start Date End Date Jonny Pandya MD [address] [facility] [place] [address] PCP - General Family Medicine 01/06/20 documented as of this encounter
--- OUTSIDE RECORDS SUMMARY | 2023-04-18 16:33 | External Medical Summary | Summary of Care ---
Author Name Unknown Organization [facility] Address [address] [place] [address] Phone [phone] Care Team Providers Care Pre Coder Name Role Phone Jonny Pandya MD Primary Care Provider [phone] Encounter Details Date Type Department Care Team (Late st Contact Info) Description 03/06/2023 Orders Only Family Practice [facility] [address] 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 Obesity, Class I, BMI 30.0-34.9 (see actual BMI) 02/21/2023 Right lower lobe lung mass 02/21/2023 Depression with anxiety 02/28/2021 HTN, goal below 130/80 12/22/2019 documented as of this encounter (statuses as of 03/08/2023) Resolved Problems Problem Noted Date Diagnosed Date [...] as of this encounter (statuses as of 03/08/2023) Immunizations Name Administration Dates Next Due Seasonal [...] Contact Info) Description 03/11/2023 8:30 AM EST Telemedicine Thoracic Surg [facility] [address] [place] [address] ConniektVu stack MD [address] [place] [address] Scheduled Procedures Name Priority Associated Diagnoses Date/Ti [...] or [facility] contracted radiologist. Jonny Pandya MD RAD NUCLEAR MED documented in this encounter Care Teams Pre Coder Relationship Specialty Start Date End Date Jonny Pandya MD [address] [place] [address] PCP - General Family Medicine 01/06/20 documented as of this encounter
--- OUTSIDE RECORDS SUMMARY | 2023-04-18 16:33 | External Medical Summary | Summary of Care ---
Author Name Unknown Organization [facility] Address [address] [place] [address] Phone [phone] Care Team Providers Care Settlement Worker Name Role Phone Jed Gabriel MD Primary Care Provider [phone] Reason for Visit * Reason Comments eRx-Medication Refill Encounter Details Date Type Department Care Team (Late st Contact Info) Description 03/11/2023 Refill Family Practice [facility] [address] [facility] [place] [address] Jed Gabriel MD [address] [facility] [place] [address] Allergies No known active allergiesdocumented as of [...] 01/30/2023 Active Ibuprofen 600 MG Oral Tablet (Motrin)Indicatio [...] 02/21/2023 Wegovy 2.4 MG/0.75ML Subcutaneous Solution Auto-injector (Semaglutide-Weig ht Management) Inject 2.4 mg (1 pen) [...] IN THE MORNING 90 Tablet 1 03/11/2023 Active buPROPion HCl ER (XL) 150 MG Oral Tablet Extended Release 24 Hour (Wellbutrin XL) Take 1 Tablet by mouth in the morning. In the morning.. 90 Tablet 3 03/07/2022 4 Discontinued documented as of this encounter (statuses [...] encounter Miscellaneous Notes * Telephone Encounter - Miguel Giraldo [facility] - 03/11/2023 7:52 PM EST Signed Prescriptions: Disp Refills buPROPion HCl ER (XL) 150 MG Oral Tablet E*90 Tab*1 Sig: TAKE 1 TABLET IN THE MORNINGAuthorizing Provider: JED GABRIEL User: MIGUEL GIRALDO E documented in this encounter Plan of Treatment Upcoming Encounters Date Type Department Care Team (Latest Contact Info) Description 04/03/2023 8:00 AM EST Hospital Encounter OR [facility], OPERATING ROOM [facility], [facility] [address] [place] [address] Vu Parikh MD [address] [place] [address] 04/03/2023 8:00 AM EST - 04/03/2023 1:04 PM EST Surgery OR [facility], OPERATING ROOM [facility], [facility] [address] [place] [address] Vu Parikh MD [address] [place] [address] ROBOTIC THORACOSCOPY WITH LOBECTOMY Scheduled Procedures Name Priority Associated Diagnoses Date/Ti ok ROBOTIC THORACOSCOPY WITH LOBECTOMY Right lower lobe [...] filedocumented as of this encounter Care Teams Settlement Worker Relationship Specialty Start Date End Date Jed Gabriel MD [address] [place] [address] PCP - General Family Medicine 01/06/20 documented as of this encounter
--- OUTSIDE RECORDS SUMMARY | 2023-04-18 16:33 | External Medical Summary | Summary of Care ---
Author Name Unknown Organization [facility] Address [address] [place] [address] Phone [phone] Care Team Providers Care Superintendent General Name Role Phone Jonny Pandya MD Primary Care Provider [phone] Encounter Details Date Type Department Care Team (Late st Contact Info) Description 03/12/2023 Orders Only PATIENT PORTAL DO NOT DELETE THIS DEPT USED BY [place] [id number] Allergies No known active allergiesdocumented as of this encounter (statuses as of 03/12/2023) Medications Medication Sig Dispensed Refills Start Date End Date Status valACYclovir HCl 1 GM Oral Tablet (Valtrex)Indications :Cold sore take 2 tablets by mouth every 12 hours for 1 DAY FOR COLD SORES 12 Tablet 5 05/25/2022 Active Cyclobenzaprine HCl 5 MG Oral Tablet (Flexeril)Indication [...] THE MORNING 90 Tablet 1 03/11/2023 Active documented as of this encounter (statuses [...] 04/03/2023 8:00 AM EST Hospital Encounter [facility] [address] [place] [address] Vu Parikh MD [address] [place] [address] 04/03/2023 8:00 AM EST - 04/03/2023 1:04 PM EST Surgery OR [facility], OPERATING ROOM [facility] [address] [place] [address] Vu Parikh MD [address] [place] [address] ROBOTIC THORACOSCOPY WITH LOBECTOMY Scheduled Procedures Name [...] filedocumented as of this encounter Care Teams Superintendent General Relationship Specialty Start Date End Date Jonny Pandya MD [address] [place] [address] PCP - General Family Medicine 01/06/20 documented as of this encounter
[2023-04-18] MEDS: DOXYCYCLINE HYCLATE 100 MG in DEXTROSE 5% MINI-B 100 ML IV SCH (18:00)
[2023-04-18] MEDS: ACETAMINOPHEN 325 MG TAB PO PRN (19:32)
--- OUTSIDE RECORDS SUMMARY | 2023-04-18 19:59 | External Medical Summary | Summary of Care ---
Author Name Unknown Organization [facility] Address [address] [place] [address] Phone [phone] Care Team Providers Care Instructional Technology Teacher Name Role Phone Jed Gabriel MD Primary Care Provider [phone] Reason for Visit * Reason Onset Date Comments Medication Refill 04/17/2023 Encounter Details Date Type Department Care Team (Late st Contact Info) Description 04/17/2023 Refill Family Practice [facility] [address] [place] [address] Jed Gabriel MD [address] [place] [address] Acute anxiety Allergies No known active allergiesdocumented as of this encounter (statuses as of 04/17/2023) Medications Medication Sig Dispensed Refills Start Date [...] the morning.. 90 Tablet 3 03/12/2023 Active Polyethylene Glycol 3350 17 GM/SCOOP Oral [...] (ongoing therapy). 30 Tablet 0 04/15/2023 Active LORazepam 0.5 MG Oral Tablet (Ativan)Indication s:Acute anxiety Take 1 Tablet by mouth every 8 hours as needed for Anxiety or Insomnia. 30 Tablet 0 04/17/2023 Active LORazepam 0.5 MG Oral Tablet (Ativan)Indication s:Acute anxiety Take 1 Tablet by mouth every 8 hours as needed for Anxiety or Insomnia. 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 Authorizing Provider: JED GABRIEL * Telephone Encounter - Unique Carlson [facility] - 04/17/2023 4:50 PM EST Pending Prescriptions: Disp Refills LORazepam 0.5 MG Oral Tablet (Ativan) 30 Tab*0 Sig: Take 1 Tablet by mouth every 8 hours as needed for Anxiety or Insomnia. * Telephone Encounter - Unique Carlson RPh - 04/17/2023 4:48 PM EST I have reviewed the patients controlled substance dispensing history in the Prescription Drug Monitoring Program in compliance with the [facility] regulations before prescribing a controlled substance. PDMP checked on 04/17/2023. Pending Prescriptions: Disp Refills LORazepam 0.5 MG Oral Tablet (Ativan) 30 Tab*0 Sig: Take 1 Tablet by mouth every 8 hours as needed for Anxiety or Insomnia. Last Visit: 02/21/2023 (in office), 03/15/2023 (telemedicine) Next Visit: 04/23/2023 Date medication was last filled: 03/29/23 Date medication is due for refill: 04/08/23 Pharmacy: [facility] [id number] [place] Is this request for a controlled substance? Yes and Urine Drug Screen Not completed Toxicology results: No results found for this or any previous visit. Please approve if appropriate. Thank you, Unique Carlson, PharmD, ERYN Clinical Pharmacist [facility] ([facility]) (formerly Telepharmacy) 04/17/23 4:50 PM [phone] documented in this encounter Plan of Treatment Upcoming Encounters Date Type Department Care Team (Late st Contact Info) Description 04/22/2023 11:30 AM EST Office Visit Thoracic Surg [facility] [address] [address] Mayra Johnson PA-C [address] [address] 04/23/2023 3:20 PM EST Office Visit Family [facility] [address] [place] [address] Jed Gabriel MD [address] [place] [address] Scheduled Procedures Name Priority Associated Diagnoses Date/Ti [...] Diagnoses Diagnosis Acute anxiety Anxiety state, unspecified documented in this encounter Advance Directives Latest Code Status on File Code Status Date Activated Date Inactivated Comments Full Code 04/03/2023 5:04 PM 04/08/2023 3:00 PM This o rder reflects the patients wishes and were consensually agreed upon. Question Answer Comments Discussion of Advance Directives occurred with: Patient Care Teams Instructional Technology Teacher Relationship Specialty Start Date End Date Jed Gabriel MD [address] [place] [address] PCP - General Family Medicine 01/06/20 documented as of this encounter
--- OUTSIDE RECORDS SUMMARY | 2023-04-19 04:54 | External Medical Summary | Summary of Care ---
Author Name Unknown Organization [facility] Address [address] [place] [address] Phone [phone] Care Team Providers Care Personnel Clerks Supervisor Name Role Phone Jonny Pandya MD Primary Care Provider [phone] Reason for Visit * Reason Comments Post-Op Lung Ca Encounter Details Date Type Department Care Team (Late st Contact Info) Description 04/11/2023 11:00 AM EST Office [facility] [address], [place] [id number] Kaitlyn Nicole PA-C [address] [place], [place] [id number] Inflammatory myofibroblastic tumor* Allergies No known active allergiesdocumented as of [...] as needed for Pain, Moderate. 0 Active Inulin 2 GM Oral Tablet Chewable daily. 0 02/08/2023 04/11/2023 Discontin ued (Medication List Clean Up) LORazepam 0.5 MG Oral Tablet (Ativan)Indication s:Acute anxiety Take 1 Tablet by mouth every 8 hours as needed for Anxiety or Insomnia. 30 Tablet 0 03/29/2023 04/17/2023 Discontinued (Refill) oxyCODONE HCl 5 MG Oral Tablet (Oxy IR) Take 1 Tablet by mouth every 4 hours as needed for Pain, Moderate or Pain, Mild (ongoing therapy). 30 Tablet 0 04/10/2023 04/15/2023 Discontinued (Refill) documented as of this encounter [...] Sign Reading Time Taken Comments Blood Pressure 132/70 04/11/2023 11:04 AM EST Pulse 76 04/11/2023 11:04 AM EST Temperature - - Respiratory Rate - - Oxygen Saturation 98% 04/11/2023 11: 04 AM EST Inhaled Oxygen Concentration - - Weight 82.4 kg (181 lb 9.6 oz) 04/11/2023 11:04 AM EST Previous weight entered incorrectly, PT states is was 171 Height 165.1 cm (5' 5") 04/11/2023 11:0 4 AM EST Body Mass Index 30.22 04/11/2023 11:04 AM EST documented in this encounter Functional Status [...] No 04/03/2023 documented as of this encounter Progress Notes * Vu Parikh MD - 04/11/2023 1:19 PM EST 04/11/2023 Early return visit following robotic middle-lower bilobectomy for what we now know is inflammatory myofibroblastic tumor (IMT). Has developed a likely right chest wall seroma by history and our physical examination today. No erythema or fevers. No drainage, including purulence. Pain remains an issue for her and she is managing this with oxycodone and acetaminophen. For now we will manage the seroma conservatively (risk of in fection if we intervene, but needs careful ongoing observation). Reviewed all of this with them today in detail. Reviewed pathology report, including the one positive hilar lymph node. Will be discussing soon in our multidisciplinary Lung Cancer Conference before making final recommendations. Will see us back in about 2 weeks, and encouraged them to call sooner with any questions or problems. All questions answered to apparent satisfaction. Vu Parikh MD FACS System Chief, Thoracic Surgery [facility] [place] [address] [place] [address] * Kaitlyn Nicole PA-C - 04/11/2023 9:48 AM EST THORACIC SURGERY POST-OP NOTE 04/11/2023 HPI: Sybil Workman is a 53 year old female presenting for post-operative evaluation. Surgery Date: 04/03/2023 Operation: Robotic right VATS (thoracoscopy) -- middle and lower bilobectomy and lymphadenectomy Diagnosis: Right lung mass Any problems since last encounter? Presents to clinic today for post op evaluation and to address new "swelling" near incision site. Swelling and pain at site started earlier this week and has progressively gotten worse since her chest tube site stopped draining serous fluid. No fever, chills. Continues to utilize oxycodone and tylenol for pain control. Chest tube(s) still present?: No Physical Exam: Filed Vitals: 04/11/23 1104 BP: 132/70 Pulse: 76 SpO2: 98% Weight: 82.4 kg (181 lb 9.6 oz) Height: 1.651 m (5' 5") Incision(s): All incisions closed with surgical glue in place, moderate size fluctuant area near small thoracotomy incision without overlying redness - likely seroma. Tender to palpation. No drainagenoted from incisions. Lungs: normal respiratory effort Extremities: no cyanosis and no edema ASSESSMENT / PLAN: 1. Development of seroma near inferior VATS incision. No current signs/systemic symptoms to indicate infection. Would currently recommend conservative management and avoid drainage procedure (as it would likely return) and would introduce risk of infection. Explained that this can subside without in tervention. No current indication for antibiotics. Wound care, activity level, and applicable restrictions discussed. 2. Chest tube: None present. 3. Smoking status: Never smoker. 4. 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 -- involving one of ten hilar lymph nodes. Surgical pathology discussed with patient and patient's spouse present at the time of her visit. Of note, patient has been on a new medication, Wegovy, for weight loss prior to surgery. 5. Follow-up and/or surveillance plan: -- will plan to discuss pathology results in upcoming Lung Cancer Clinic and then determine surveillance plan -- continue conservative management of seroma and continued pain control -- follow up 04/22 with Thoracic Surgery Kaitlyn Nicole PA-C Physician [employer], Thoracic Surgery Thoracic Surg [facility], [place] [address] documented in this encounter Plan of Treatment Upcoming Encounters Date Type Department Care Team (Late st Contact Info) Description 04/22/2023 11:30 AM EST Office Visit Thoracic [address] [address] Mayra Johnson PA-C [facility] [place] [place] [address] 04/23/2023 3:20 PM EST Office Visit Family Practice [facility] [address] [place] [address] Jonny Pandya MD [address] [place] [address] Scheduled Procedures Name Priority Associated Diagnoses Date/Ti [...] as of this encounter Visit Diagnoses Diagnosis Inflammatory myofibroblastic tumor- Primary documented in this encounter Advance Directives Latest Code Status on File Code Status Date Activated Date Inactivated Comments Full Code 04/03/2023 5:04 PM 04/08/2023 3:00 PM This o rder reflects the patients wishes and were consensually agreed upon. Question Answer Comments Discussion of Advance Directives occurred with: Patient Care Teams Personnel Clerks Supervisor Relationship Specialty Start Date End Date Jonny Pandya MD [address] [place] [address] PCP - General Family Medicine 01/06/20 documented as of this encounter
[2023-04-19 06:29] LABS: Basophils # (auto) 0.05 K/uL (0.00-0.20); Basophils % (auto) 0.9 %; Eosinophils # (auto) 0.52 K/uL (0.00-0.50); Hematocrit (blood only) 33.1 % (37.0-47.0); Hemoglobin 10.1 g/dl (12.0-16.0); Immature Granulocytes # (auto) 0.02 K/uL (0.01-0.20); Immature Granulocytes % (auto) 0.3 %; Lymphocytes # (auto) 1.42 K/uL (1.20-3.40); Lymphocytes % (auto) 24.6 %; Mean Corpuscular Hemoglobin 26.9 pg (25.0-34.0); Mean Corpuscular Hgb Conc 30.5 g/dL (32.0-36.0); Mean Platelet Volume 9.4 fL (9.4-12.4); Monocytes # (auto) 0.61 K/uL (0.11-0.59); Monocytes % (auto) 10.6 %; Neutrophils # (auto) 3.16 K/uL (1.40-6.50); Neutrophils % (auto) 54.6 %; Platelet Count 311 K/uL (130-400); RDW Coefficient of Variation 16.9 % (11.5-14.5); RDW Standard Deviation 53.6 fL (36.4-46.3); Red Blood Count 3.76 M/uL (4.20-5.40); White Blood Count 5.78 K/ul (4.8-10.8)
[2023-04-19 06:35] LABS: Prothrombin Time 10.6 Seconds (9.0-12.0)
[2023-04-19 06:37] LABS: Albumin Level 3.3 gm/dl (3.4-5.0); BUN Creatinine Ratio 20.3 (10-20); Bilirubin,Total 0.3 mg/dl (0.2-1.0); Calcium 8.4 mg/dl (8.6-10.3); Creatinine Clr Calc Pharmacy 118.3 ml/min; Est GFR (African American) 120.4 ml/min; Est GFR (Non-African American) 103.9 ml/min; Potassium 3.7 mmol/L (3.5-5.1); Total Protein 5.8 gm/dl (6.0-8.3)
[2023-04-19] MEDS: fentaNYL citrate PF 100 MCG/2 ML VIAL ONE (10:05)
--- NOTE | 2023-04-19 10:37 | XRay Report ---
XR chest 1V portable HISTORY: 53 years-old Female s/p chest tube placement PATIENT with pleural effusion COMPARISON: 04/17/2023 TECHNIQUE: AP view of the chest FINDINGS: Right basilar chest tube in place. Right apical pneumothorax is noted with pleural separation of 12 m m. Persistent right pleural effusion with patchy multifocal right lung airspace opacities. The megaly . Pulmonary vascular congestion. The left lung is generally clear. IMPRESSION: 1. Right-sided hydropneumothorax with pleural catheter in place. 2. Persistent multifocal airspace opacities of the right lung. ACT 112: Negative or not required by law. The above report was generated using voice recognition software. It may contain grammatical, syntax o r spelling errors. Electronically signed by: Sanjay Little M.D. 04/19/2023 10:36 AM
[2023-04-19 12:03] LABS: Total Protein Pleural Fluid 3.9 gm/dl
[2023-04-19 12:58] LABS: Appearance Pleural Fluid Hazy; Basophils, Fluid 1 %; Color Pleural Fluid Amber; Eosinophils, Fluid 3 %; Lymphocytes, Fluid 78 %; Mono,Macrophage,Mesothelial 2 %; Neutrophils, Fluid 16 %; RBC Pleural Fluid Auto 21000 /uL; Source Pleural Fluid Right Lung; WBC Pleural Fluid Auto 5203 /uL
--- NOTE | 2023-04-19 12:59 | Ultrasound Report ---
Ultrasound-guided right pleural pigtail catheter placement INDICATION: Status post right lung surgery; right pleural effusion PROCEDURE: Procedure and risks were explained. Informed consent was obtained. A final timeout was com pleted. The right lateral thorax was prepped and draped in sterile fashion. 1% buffered lidocaine was utilized for skin anesthesia. The patient received 75 mcg fentanyl IV during the procedure. Utilizing ultrasound guidance, a 5 Vincentian safety centesis catheter was advanced into the right pleura l effusion. Approximately 50 mL of cloudy kelsey fluid was removed and sent to lab for analysis. Due t o the nature of the fluid, it was decided to place a right pleural pigtail catheter. The 5 Vincentian saf ety centesis catheter was removed and a 10 Vincentian locking pigtail catheter was advanced into the righ t pleural effusion under ultrasound guidance and placed a 20 cm H2O wall suction. An additional 600 m L of cloudy kelsey fluid was drained into the Pleur-evac container. The catheter was sutured to the sk in with 2-0 silk and sterile dressing applied. The patient tolerated the procedure well. A chest x-ra y will be performed post procedure and vital signs will be monitored on the floor. IMPRESSION: Ultrasound-guided right pleural pigtail catheter placement as above. Performed, dictated, and signed by Vu Cha PA-C; to be co-signed by Dr. Oseas Brooks. Electronically signed by: Oseas Brooks M.D. 04/19/2023 1:14 PM
--- NOTE | 2023-04-19 14:05 | Communication Note ---
Date of Service: April 19, 2023 Pulmonary addendum: Patient was supposed to have thoracentesis done today. Nurses from the IR suite reached out to me stating that the fluid was cloudy. I personally looked at the picture of the fluid. Given that the patient has right-sided pneumonia, recent surgery, probability of it being parapneumonic/infectious is there, on top of that patient has large right-sided pleural effusion with seroma directly connecting with the effusion. Decision was made to put a chest tube in. This was relayed to the patient by the IR staff which the patient agreed to. Pleural fluid: LDH 192, protein 3.9, RBCs 21,000, pH 7.45 It is exudative as per lights criteria. Could be postop versus parapneumonic. Reassuring is the pH is only 7.45 Patient was seen by Dr. Tapia, patient related to her that she would want another decal decorator taking care of her and would like to have it transferred to a different facility Patient's wishes will be respected. Recommend surgery to take care of the chest tube moving forward Pulmonary will sign off Please note the above document was generated using voice recognition software. It may contain grammatical, syntax or spelling errors.Any formal questions or concerns about the content, text or information contained within the body of this dictation should be directly addressed to the provider for clarification. Coding Level of Care Code None
--- NOTE | 2023-04-19 15:03 | Discharge Summary ---
Discharge Summary Date of Service April 19, 2023 Notes For Next Care Provider Pt transferred to [facility] for further cardiothoracic evaluation and management s/p R Chest tube placement on 04/19/23 for moderate R pleural effusion in setting of recent elective robotic right VATS with R lung bilobectomy and lymphadenectomy on 04/03. Medication Changes From Visit Per pt she is no longer on lisinopril. Otherwise, see inpatient medication list below as well as med rec. Admission HPI Per Admitting Provider History obtained from patient and records. 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 Recent [facility] [place] April 03 to 2023 under Thoracic Surgery service for right lung tumor status post elective robotic right VATS, lung bilobectomy lymphadenectomy. Pathology showing inflammatory myofibroblastic tumor with benign lymph nodes. No postop complications as per documentation. Patient told by surgeon she may or may not develop postop fluid collection from procedure as per patient. Tolerable pain on discharge. Gabapentin later on added to patient's regimen for pain. 2 days ago, patient developed worsening cough symptoms. Unable to expectorate. Worsening pleuritic right-sided chest pain with shortness of breath. Fever chills at home. Denies aspiration. IV ceftriaxone administered at the ER. 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 Admission Exam Per Admitting Provider GENERAL: Slightly uncomfortable, slightly anxious, pleasant, no respiratory distress SKIN: Pallor, warm HEENT: Pale palpebral conjunctivae, no ptosis, dry buccal mucosa NECK : Supple, no tenderness CHEST : Well coaptated incision right chest wall, decreased breath sounds, right chest wall tenderness HEART : RRR, no obvious murmurs ABDOMEN: Some distention, hypogastric tenderness EXTREMITIES : No LE swelling/tenderness, no other conspicuous deformities noted NEUROLOGIC : Coherent, no facial asymmetry, no other gross focality Principal Dx & Hospital Course #1 = Principal Diagnosis (1) Shortness of breath at rest: (2) Pleural effusion: (3) Myofibroblastic neoplasm: (4) History of lung surgery: (5) Pneumonia: Plan Pt is a 53yoF with PMHx significant for right lung mass (myofibroblastoma) s/p elective robotic right VATS with R lung bilobectomy and lymphadenectomy on 04/03 , HTN, chronic anemia (baseline hemoglobin of 10), anxiety/mood disorder who presented with a worsening cough, right sided pleuritic chest pain, SOB and fevers/chills at home. Pleural Effusion, right Pneumonia, right Hx of R lung bilobectomy Pt presented with a worsening cough, right sided pleuritic chest pain, SOB and fevers/chills at home that started 2 days [employer] She is s/p elective robotic right VATS with R lung bilobectomy and lymphadenectomy on 04/03 at [facility] where she was hospitalized until Apr 08 after removal of right lung mass (myofibroblastoma). Was afebrile on admission, on room air, WBC >10K Chest XR noted patchy right opacities, post op changes and moderate R pleural effusion CTA chest noted no PE, partial lobectomy, R multilobar pneumonia and moderate R pleural effusion Pulmonology was consulted: -recommended broad spectrum antibiotics (pt was on Zosyn) -recommended addition of doxycycline for 5 days for atypical coverage -follow sputum culture -thoracentesis of the right side after pulmonology discussed it with her cardiothoracic surgeon Dr. Parikh at [facility] Pt was treated for pneumonia with IV Zosyn and received a day of IV doxycycline before transfer Pt was unable to expectorate so sputum culture was not collected She underwent thoracentesis with placement of a right sided chest tube by IR on 04/19/23 -pleural fluid studies pending -required pain control in composite with fentanyl 100mcg, IV Dilaudid 0.5mg and oxycodone 10mg before and after procedure and was concerned that her pain was not adequately controlled. -she also received Ativan 1mg around that time as well -pt also concerned about volume of chest tube output Per pt, she prefers to not follow with [facility] pulmonology at this time and requested transfer to [facility] for further care by her cardiothoracic team at [facility]. She was accepted for transfer by Dr Parikh and his team at [facility] on 04/19/23. Was stable on discharge with no increased oxygen requirement. HTN-slightly elevated likely secondary discomfort. Per pt no longer on lisinopril. BP on d/c was on the lower end, 101/64 Chronic anemia, hemoglobin at baseline of ~10. repeat h/h with chest tube output after procedure. Anxiety/mood disorder- patient mildly anxious on exam, tearful at times. Has been receiving prn Ativan Discharge Exam General: Alert, oriented. Tearful at time of exam Psych: Tearful mood and affect Neuro: difficulty with movements in the bed, notes pain HEENT: NC/AT. CV: RRR Resp: no increased effort of breathing Abdomen: Soft, nontender Extremities: No edema in lower extremities bilaterally. Updated Medication List Medication Instructions Recorded Confirmed Type bupropion HCl 150 mg 24 hr tablet, 150 mg PO DAILY 02/19/21 04/17/23 History extended release docusate sodium 100 mg capsule 100 mg PO DAILY 02/08/23 04/17/23 History (Stool Softener) buspirone 7.5 mg tablet 7.5 mg PO BID #60 tabs 02/10/23 04/17/23 Rx cyanocobalamin (vitamin B-12) 500 500 mcg PO QAM #30 tabs 02/10/23 04/17/23 Rx mcg tablet ferrous gluconate 324 mg (38 mg 324 mg PO QAM #30 tabs 02/10/23 04/17/23 Rx iron) tablet folic acid 1 mg tablet 1 mg PO QAM #30 tabs 02/10/23 04/17/23 Rx hydroxyzine HCl 25 mg tablet 25 mg PO Q8H PRN anxiety #60 tabs 02/10/23 04/17/23 Rx lisinopril 40 mg tablet 20 mg (1/2 x 40 mg) PO DAILY #15 02/10/23 04/17/23 Rx tabs acetaminophen 500 mg tablet 1,000 mg PO Q6H PRN Pain 04/17/23 04/17/23 History (Tylenol Extra Strength) gabapentin 300 mg capsule 300 mg PO TID 04/17/23 04/17/23 History ibuprofen 600 mg tablet 600 mg PO Q6H PRN pain 04/17/23 04/17/23 History lorazepam 0.5 mg tablet 0.5 mg PO Q8H PRN ANXIETY/INSOMNIA 04/17/23 04/17/23 History multivitamin 1 tab PO DAILY 04/17/23 04/17/23 History oxycodone 5 mg tablet 5 mg PO Q4H PRN Pain 04/17/23 04/17/23 History polyethylene glycol 3350 17 17 g PO DAILY 04/17/23 04/17/23 History gram/dose oral powder (Miralax) valacyclovir 1 gram tablet 2,000 mg PO Q12H PRN Cold Sores 04/17/23 04/17/23 History (Valtrex) doxycycline hyclate 100 mg capsule 100 mg PO BID #8 caps 04/19/23 Rx Additional Medication Comments Current Inpatient Medications Acetaminophen (Acetaminophen 325 Mg Tab) 650 mg PO QID PRN PRN Reason: pain/fever Stop: 05/18/23 00:52 Last Admin: 04/18/23 19:32 Dose: 650 mg Bupropion HCl (Bupropion Xl 150 Mg Tabcr) 150 mg PO DAILY [facility] Stop: 05/18/23 08:59 Last Admin: 04/19/23 12:39 Dose: 150 mg Buspirone HCl (Buspirone 7.5 Mg Tab) 7.5 mg PO BID [facility] Stop: 05/18/23 08:59 Last Admin: 04/19/23 12:39 Dose: 7.5 mg Cyanocobalamin (Cyanocobalamin (B-12) 500 Mcg Tablet) 500 mcg PO QAM [facility] Stop: 05/18/23 08:59 Last Admin: 04/19/23 12:40 Dose: 500 mcg Docusate Sodium (Docusate Sodium 100 Mg Cap) 100 mg PO DAILY ANA Stop: 05/18/23 08:59 Last Admin: 04/19/23 12:40 Dose: 100 mg Doxycycline Hyclate (Doxycycline Hyclate 100 Mg Cap) 100 mg PO BID [facility] Stop: 04/23/23 09:01 Ferrous Gluconate (Ferrous Gluconate 324 Mg Tab) 324 mg PO QAM [facility] Stop: 05/18/23 08:59 Last Admin: 04/19/23 12:39 Dose: 324 mg Folic Acid (Folic Acid 1 Mg Tab) 1 mg PO QAM [facility] Stop: 05/18/23 08:59 Last Admin: 04/19/23 12:39 Dose: 1 mg Gabapentin (Gabapentin 300 Mg Cap) 300 mg PO TID [facility] Stop: 05/18/23 08:59 Last Admin: 04/19/23 12:39 Dose: 300 mg Hydromorphone HCl (Hydromorphone Inj 0.5 Mg/0.5 Ml Syr) 0.5 mg IV Q4H PRN PRN Reason: Pain Stop: 05/02/23 11:36 Last Admin: 04/19/23 14:35 Dose: 0.5 mg Promethazine HCl 12.5 mg/ (Sodium Chloride) 50.5 mls @ 202 mls/hr IV Q6H PRN PRN Reason: Nausea And Vomiting Stop: 05/17/23 23:47 Piperacillin Sod/Tazobactam (Sod 4.5 gm/ Dextrose) 100 mls @ 25 mls/hr IV Q8H ANA; Protocol Stop: 04/25/23 05:59 Last Admin: 04/19/23 13:02 Dose: 25 mls/hr Lidocaine (Lidocaine 5% 1 Patch) 1 patch TD HS ANA Stop: 05/18/23 20:59 Last Admin: 04/18/23 00:29 Dose: 1 patch Lisinopril (Lisinopril 20 Mg Tab) 20 mg PO DAILY ANA Stop: 05/18/23 08:59 Last Admin: 04/19/23 12:39 Dose: Not Given Lorazepam (Lorazepam 1 Mg Tab) 1 mg PO Q4H PRN PRN Reason: Anxiety Stop: 05/17/23 23:33 Last Admin: 04/19/23 12:49 Dose: 1 mg Miscellaneous (Remove Lidoderm Patch) 1 each N/A DAILY@0900 [facility] Stop: 05/19/23 08:59 Last Admin: 04/19/23 11:28 Dose: Not Given Multivitamins (Multivitamin Tab) 1 tab PO DAILY ANA Stop: 05/18/23 08:59 Last Admin: 04/19/23 12:40 Dose: 1 tab Oxycodone HCl (Oxycodone Hcl Ir 5 Mg Tab (Immediate Release)) 5 - 10 mg PO Q4H PRN PRN Reason: Pain Stop: 05/01/23 23:33 Last Admin: 04/19/23 15:30 Dose: 10 mg Polyethylene Glycol (Polyethylene (Miralax) 17 Gm Pack) 17 gm PO DAILY ANA Stop: 05/18/23 08:59 Last Admin: 04/19/23 12:40 Dose: 17 gm Hospital Stay Data Consultations 04/17/23 23:08 ED Decision to Admit Stat 04/18/23 07:35 Consult Pulmonology Routine 04/19/23 14:06 Burn CD for patient Routine Diagnostic Imagining Performed 04/17/23 21:07 CT Abd and Pelvis [CT abd pelvis IV con only] Stat CT angio chest PE protocol Stat 04/19/23 09:10 IR thoracentesis w/tube US Routine Chest X-Ray 04/17/23 19:07 XR chest 1V portable HISTORY: 53 years-old Female Fever, right chest pain acute right-sided chest pain with fever COMPARISON: CTA chest of same day TECHNIQUE: AP view the chest FINDINGS: Cardiac silhouette is mildly enlarged. No pneumothorax or overt pulmonary edema. The left lung is clear. Postoperative changes of the right hemithorax with moderate size right pleural effusion. Patchy right lung airspace opacities. Bones appear grossly intact. IMPRESSION: 1. Patchy right lung airspace opacities are likely infectious or inflammatory. 2. Postoperative changes of the right lung with moderate-sized right pleural effusion. ACT 112: Negative or not required by law. The above report was generated using voice recognition software. It may contain grammatical, syntax or spelling errors. Electronically signed by: Sanjay Little M.D. 04/18/2023 7:14 AM Abdomen/Pelvis CT 04/17/23 21:07 Exam(s): CT ABDOMEN + PELVIS With Contrast IV Amt: 115 cc opti 320 EXAM: CT Abdomen and Pelvis With Intravenous Contrast CLINICAL HISTORY: Reason for exam: ruq pain. TECHNIQUE: Axial computed tomography images of the abdomen and pelvis with intravenous contrast. CTDI is 65.12 mGy and DLP is 2180.78 mGy-cm. Automated exposure control was utilized for the study. A dose lowering technique was utilized adhering to the principles of ALARA. CONTRAST: Patient received 115 cc opti 320 of IV contrast COMPARISON: No relevant prior studies available. FINDINGS: Lung bases: See below. Pleural space: Moderate RIGHT pleural effusion. Mild patchy consolidation of the RIGHT lung base, correlate for mild pneumonia. Partial RIGHT lobectomy. ABDOMEN: Liver: Unremarkable. No mass. Gallbladder and bile ducts: Unremarkable. No calcified stones. No ductal dilation. Pancreas: Unremarkable. No mass. No ductal dilation. Spleen: Unremarkable. No splenomegaly. Adrenals: Unremarkable. No mass. Kidneys and ureters: Unremarkable. No solid mass. No hydronephrosis. Stomach and bowel: Unremarkable. No obstruction. No mucosal thickening. PELVIS: Appendix: No findings to suggest acute appendicitis. Bladder: Unremarkable. No mass. Reproductive: Unremarkable as visualized. ABDOMEN and PELVIS: Intraperitoneal space: Unremarkable. No free air. No significant fluid collection. Bones/joints: No acute fracture. No dislocation. Soft tissues: Unremarkable. Vasculature: Unremarkable. No abdominal aortic aneurysm. Lymph nodes: Unremarkable. No enlarged lymph nodes. IMPRESSION: Moderate RIGHT pleural effusion. Mild patchy consolidation of the RIGHT lung base, correlate for mild pneumonia. Partial RIGHT lobectomy. Electronically signed by: Rashid Velasco MD 04/17/23 22:05 PM Chest CTA 04/17/23 21:07 Exam(s): CTA CHEST IV Amt: 115 cc opti 320 EXAM: CT Angiography Chest With Intravenous Contrast CLINICAL HISTORY: Reason for exam: PE. TECHNIQUE: Axial computed tomographic angiography images of the chest with intravenous contrast. CTDI is 6512 mGy and DLP is 2180.78 mGy-cm. Automated exposure control was utilized for the study. A dose lowering technique was utilized adhering to the principles of ALARA. MIP reconstructed images were created and reviewed. COMPARISON: No relevant prior studies available. FINDINGS: Pulmonary arteries: Unremarkable. No acute pulmonary embolism. Aorta: No acute findings. No thoracic aortic aneurysm. Lungs: Partial lobectomy. Patchy consolidation in the RIGHT upper and lower lobes, consistent with multilobar pneumonia. Moderate RIGHT pleural effusion. Pleural space: See above. Heart: Unremarkable. No cardiomegaly. No significant pericardial effusion. No evidence of RV dysfunction. Bones/joints: No acute fracture. No dislocation. Soft tissues: Unremarkable. Lymph nodes: Unremarkable. No enlarged lymph nodes. IMPRESSION: 1. No acute pulmonary embolism. 2. Partial lobectomy. Patchy consolidation in the RIGHT upper and lower lobes, consistent with multilobar pneumonia. Moderate RIGHT pleural effusion. Electronically signed by: Rashid Velasco MD 04/17/23 22:02 PM Thoracentesis/Paracentesis US 04/19/23 09:10 Ultrasound-guided right pleural pigtail catheter placement INDICATION: Status post right lung surgery; right pleural effusion PROCEDURE: Procedure and risks were explained. Informed consent was obtained. A final timeout was completed. The right lateral thorax was prepped and draped in sterile fashion. 1% buffered lidocaine was utilized for skin anesthesia. The patient received 75 mcg fentanyl IV during the procedure. Utilizing ultrasound guidance, a 5 Dutch safety centesis catheter was advanced into the right pleural effusion. Approximately 50 mL of cloudy kelsey fluid was removed and sent to lab for analysis. Due to the nature of the fluid, it was d ecided to place a right pleural pigtail catheter. The 5 Dutch safety centesis catheter was removed and a 10 Dutch locking pigtail catheter was advanced into the right pleural effusion under ultrasound guidance and placed a 20 cm H2O wall suction. An additional 600 mL of cloudy kelsey fluid was drained into the Pleur- evac container. The catheter was sutured to the skin with 2-0 silk and sterile dressing applied. The patient tolerated the procedure well. A chest x-ray will be performed post procedure and vital signs will be monitored on the floor. IMPRESSION: Ultrasound-guided right pleural pigtail catheter placement as above. Performed, dictated, and signed by Vu Cha PA-C; to be co-signed by Dr. Oseas Brooks. Electronically signed by: Oseas Brooks M.D. 04/19/2023 1:14 PM Chest X-Ray 04/19/23 10:14 XR chest 1V portable HISTORY: 53 years-old Female s/p chest tube placement PATIENT with pleural effusion COMPARISON: 04/17/2023 TECHNIQUE: AP view of the chest FINDINGS: Right basilar chest tube in place. Right apical pneumothorax is noted with pleural separation of 12 mm. Persistent right pleural effusion with patchy multifocal right lung airspace opacities. The megaly. Pulmonary vascular congestion. The left lung is generally clear. IMPRESSION: 1. Right-sided hydropneumothorax with pleural catheter in place. 2. Persistent multifocal airspace opacities of the right lung. ACT 112: Negative or not required by law. The above report was generated using voice recognition software. It may contain grammatical, syntax or spelling errors. Electronically signed by: Sanjay Little M.D. 04/19/2023 10:36 AM Discharge Instructions Given to Patient (Per Discharging Provider) Ms. Workman, You are being transferred to [facility] per your request for further evaluation and management by your cardiothoracic team and/or pulmonology. It was a pleasure taking care of you while you were here. Total Time Total Time Spent Total Time Spent (In Minutes): > 30 minutes
[2023-04-19 17:36] LABS: Hematocrit (blood only) 34.1 % (37.0-47.0); Hemoglobin 10.4 g/dl (12.0-16.0)
[2023-04-19] MEDS: DOXYCYCLINE HYCLATE 100 MG CAP PO SCH (19:54)
--- NOTE | 2023-04-19 20:23 | Communication Note ---
Date of Service: April 19, 2023 At about 8pm while pt awaiting transfer, chest tube currently set to suction pressure of -20, draining approximately 900mls of serosanguineous fluid. Hgb at about 5:30pm stable at 10.4, up from 10.1 in the AM.
[2023-04-20] MEDS: KETOROLAC TROMETHAMINE 15 MG/ML VIAL IV ONE (00:11)
[2023-04-20] MEDS: HYDROmorphone INJ 1 MG/ML SYRINGE IV PRN (03:02)
--- NOTE | 2023-04-20 08:18 | Hospitalist Progress Note ---
Date of Service April 19, 2023 Assessment & Plan (1) Shortness of breath at rest: (2) Pleural effusion: (3) Myofibroblastic neoplasm: (4) History of lung surgery: (5) Pneumonia: Plan Progress Note for date of service 04/19/2023 as transfer was delayed due to transport. Reportedly, EMS had concern that chest tube will need critical care transport/transport with RN despite pulmonology recommendations that pt can go with chest tube clamped or draining to gravity. Pt is a 53yoF with PMHx significant for right lung mass (myofibroblastoma) s/p elective robotic right VATS with R lung bilobectomy and lymphadenectomy on 04/03, HTN, chronic anemia (baseline hemoglobin of 10), anxiety/mood disorder who presented with a worsening cough, right sided pleuritic chest pain, SOB and fevers/chills at home. Pleural Effusion, right Pneumonia, right Hx of R lung bilobectomy Pt presented with a worsening cough, right sided pleuritic chest pain, SOB and fevers/chills at home that started 2 days [employer] She is s/p elective robotic right VATS with [place] lung [place]obectomy [place] [facility] until Apr 08 after removal of right lung mass (myofibroblastoma). Was afebrile on admission, on room air, WBC >10K Chest XR noted patchy right opacities, post op changes and moderate R pleural effusion CTA chest noted no PE, partial lobectomy, R multilobar pneumonia and moderate R pleural effusion Pulmonology was consulted: -recommended broad spectrum antibiotics -recommended addition of doxycycline for 5 days for atypical coverage -follow sputum culture -thoracentesis of the right side after pulmonology discussed it with her cardiothoracic surgeon Dr. Parikh [place] [facility] Pt was treated for pneumonia with IV Zosyn and doses of doxycycline before transfer Pt was unable to expectorate so sputum culture was not collected She underwent thoracentesis with placement of a right sided chest tube by IR on 04/19/23 -pleural fluid studies pending -required pain control in composite with fentanyl 100mcg, IV Dilaudid 0.5mg and oxycodone 10mg before and after procedure and was concerned that her pain was not adequately controlled. -she also received Ativan 1mg around that time as well -pt also concerned about volume of chest tube output, by the end of the day was ~900mls Per pt, she prefers to not follow with [facility] at this time and requested transfer to [facility] for further care by her cardiothoracic team at [facility]. She was accepted for transfer by Dr Parikh and his team at [facility] [place]. However, transport was delayed reportedly due to EMS concern that chest tube will need critical care transport/transport with RN despite pulmonology recommendations that pt can go with chest tube clamped or draining to gravity. Was stable on discharge with no increased oxygen requirement. HTN-slightly elevated likely secondary discomfort. Per pt no longer on lisinopril. BP on d/c was on the lower end but still within normal limits. Chronic anemia, hemoglobin at baseline of ~10. repeat h/h at 10.4 with chest tube output after procedure. Anxiety/mood disorder- patient mildly anxious on exam, tearful at times. Has been receiving prn Ativan Admission and Anticipated Discharge Date Admission Date: April 18, 2023 Subjective Pt had chest tube placed by IR. Was tearful and in pain. Declining further evaluation by pulmonology and requesting transfer [place] [facility] [place] be under the care of her surgeon. Transfer was set up but transport was delayed due to EMS concern that chest tube will need critical care transport/transport with RN despite pulmonology recommendations that pt can go with chest tube clamped or draining to gravity. Review of Systems Review of Systems: All systems reviewed & are unremarkable except as noted in Subjective Physical Exam Physical Exam: General: Alert, oriented. Tearful at time of exam Psych: Tearful mood and affect Neuro: difficulty with movements in the bed, notes pain HEENT: NC/AT. CV: RRR Resp: no increased effort of breathing Abdomen: Soft, nontender Extremities: No edema in lower extremities bilaterally. Results & Data Results & Data Vital Signs (Past 12 Hours) Vital Signs Temp Pulse Resp BP Pulse Ox O2 Del Method 04/20/23 07:54 36.5 C 74 16 111/72 98 Room Air (5) Pneumonia Laterality: right Lung location: unspecified part of lung Pneumonia type: due to unspecified organism Qualified Code(s): J18.9 - Pneumonia, unspecified organism
--- NOTE | 2023-04-20 08:19 | Discharge Summary ---
Discharge Summary Date of Service April 20, 2023 Notes For Next Care Provider Pt transferred to [facility] for further cardiothoracic evaluation and management s/p R Chest tube placement on 04/19/23 for moderate R pleural effusion in setting of recent elective right VATS with R lung bilobectomy and lymphadenectomy on 04/03. Medication Changes From Visit Per pt she is no longer on lisinopril. Otherwise, see inpatient medication list below as well as med rec. Admission HPI Per Admitting Provider History obtained from patient and records. 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 Recent [facility] confinement April 03 to 2023 under Thoracic Surgery service for right lung tumor status post elective robotic right VATS, lung bilobectomy lymphadenectomy. Pathology showing inflammatory myofibroblastic tumor with benign lymph nodes. No postop complications as per documentation. Patient told by surgeon she may or may not develop postop fluid collection from procedure as per patient. Tolerable pain on discharge. Gabapentin later on added to patient's regimen for pain. 2 days ago, patient developed worsening cough symptoms. Unable to expectorate. Worsening pleuritic right-sided chest pain with shortness of breath. Fever chills at home. Denies aspiration. IV ceftriaxone administered at the ER. 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 Admission Exam Per Admitting Provider GENERAL: Slightly uncomfortable, slightly anxious, pleasant, no respiratory distress SKIN: Pallor, warm HEENT: Pale palpebral conjunctivae, no ptosis, dry buccal mucosa NECK : Supple, no tenderness CHEST : Well coaptated incision right chest wall, decreased breath sounds, right chest wall tenderness HEART : RRR, no obvious murmurs ABDOMEN: Some distention, hypogastric tenderness EXTREMITIES : No LE swelling/tenderness, no other conspicuous deformities noted NEUROLOGIC : Coherent, no facial asymmetry, no other gross focality Principal Dx & Hospital Course #1 = Principal Diagnosis (1) Shortness of breath at rest: (2) Pleural effusion: (3) Myofibroblastic neoplasm: (4) History of lung surgery: (5) Pneumonia: Plan Pt is a 53yoF with PMHx significant for right lung mass (myofibroblastoma) s/p elective robotic right VATS with R lung bilobectomy and lymphadenectomy on 04/03, HTN, chronic anemia (baseline hemoglobin of 10), anxiety/mood disorder who presented with a worsening cough, right sided pleuritic chest pain, SOB and fevers/chills at home. Pleural Effusion, right Pneumonia, right Hx of R lung bilobectomy Pt presented with a worsening cough, right sided pleuritic chest pain, SOB and fevers/chills at home that started 2 days [employer]CTION[employer]Y [employer]RAF[employer] She is s/p elective robotic right VATS with R lung bilobectomy and lymphadenectomy on 04/03 at [facility], where she was hospitalized until Apr 08 after removal of right lung mass (myofibroblastoma). Was afebrile on admission, on room air, WBC >10K Chest XR noted patchy right opacities, post op changes and moderate R pleural effusion CTA chest noted no PE, partial lobectomy, R multilobar pneumonia and moderate R pleural effusion Pulmonology was consulted: -recommended broad spectrum antibiotics -recommended addition of doxycycline for 5 days for atypical coverage -follow sputum culture -thoracentesis of the right side after pulmonology discussed it with her cardiothoracic surgeon Dr. Parikh at [facility] Pt was treated for pneumonia with IV Zosyn and 2 days of doxycycline before transfer Pt was unable to expectorate so sputum culture was not collected She underwent thoracentesis with placement of a right sided chest tube by IR on 04/19/23 -pleural fluid studies pending -required pain control in composite with fentanyl 100mcg, IV Dilaudid 0.5mg and oxycodone 10mg before and after procedure and was concerned that her pain was not adequately controlled. -she also received Ativan 1mg around that time as well -pt also concerned about volume of chest tube output, by the end of the day on 04/19 was ~900mls Per pt, she prefers to not follow with [facility] pulmonology at this time and requested transfer to [facility] for further care by her cardiothoracic team at [facility]. She was accepted for transfer by Dr Parikh and his team at [facility] on 04/19/23. However, transport was delayed reportedly due to EMS concern that chest tube will need critical care transport/transport with RN despite pulmonology recommendations that pt can go with chest tube clamped or draining to gravity. Pt was transported via ground with RN. Was stable on discharge with no increased oxygen requirement. HTN-slightly elevated likely secondary discomfort. Per pt no longer on lis inopril. BP on d/c was on the lower end but still within normal limits. Chronic anemia, hemoglobin at baseline of ~10. repeat h/h at 10.4 with chest tube output after procedure on 04/19. Anxiety/mood disorder- patient mildly anxious on exam, tearful at times. Has been receiving prn Ativan Discharge Exam General: Alert, oriented. Psych: pleasant mood and affect Neuro: difficulty with movements in the bed, notes pain HEENT: NC/AT. CV: RRR Chest: chest tube in place in right chest wall. Resp: breath sounds clear bilaterally, no increased effort of breathing however cannot take deep breaths. Abdomen: Soft, nontender Extremities: No edema in lower extremities bilaterally. Updated Medication List Medication Instructions Recorded Confirmed Type bupropion HCl 150 mg 24 hr tablet, 150 mg PO DAILY 02/19/21 04/17/23 History extended release docusate sodium 100 mg capsule 100 mg PO DAILY 02/08/23 04/17/23 History (Stool Softener) buspirone 7.5 mg tablet 7.5 mg PO BID #60 tabs 02/10/23 04/17/23 Rx cyanocobalamin (vitamin B-12) 500 500 mcg PO QAM #30 tabs 02/10/23 04/17/23 Rx mcg tablet ferrous gluconate 324 mg (38 mg 324 mg PO QAM #30 tabs 02/10/23 04/17/23 Rx iron) tablet folic acid 1 mg tablet 1 mg PO QAM #30 tabs 02/10/23 04/17/23 Rx hydroxyzine HCl 25 mg tablet 25 mg PO Q8H PRN anxiety #60 tabs 02/10/23 04/17/23 Rx lisinopril 40 mg tablet 20 mg (1/2 x 40 mg) PO DAILY #15 02/10/23 04/17/23 Rx tabs acetaminophen 500 mg tablet 1,000 mg PO Q6H PRN Pain 04/17/23 04/17/23 History (Tylenol Extra Strength) gabapentin 300 mg capsule 300 mg PO TID 04/17/23 04/17/23 History ibuprofen 600 mg tablet 600 mg PO Q6H PRN pain 04/17/23 04/17/23 History lorazepam 0.5 mg tablet 0.5 mg PO Q8H PRN ANXIETY/INSOMNIA 04/17/23 04/17/23 History multivitamin 1 tab PO DAILY 04/17/23 04/17/23 History oxycodone 5 mg tablet 5 mg PO Q4H PRN Pain 04/17/23 04/17/23 History polyethylene glycol 3350 17 17 g PO DAILY 04/17/23 04/17/23 History gram/dose oral powder (Miralax) valacyclovir 1 gram tablet 2,000 mg PO Q12H PRN Cold Sores 04/17/23 04/17/23 History (Valtrex) doxycycline hyclate 100 mg capsule 100 mg PO BID #8 caps 04/19/23 Rx Additional Medication Comments Current Inpatient Medications Acetaminophen (Acetaminophen 325 Mg Tab) 650 mg PO QID PRN PRN Reason: pain/fever Stop: 05/18/23 00:52 Last Admin: 04/18/23 19:32 Dose: 650 mg Bupropion HCl (Bupropion Xl 150 Mg Tabcr) 150 mg PO DAILY [facility] Stop: 05/18/23 08:59 Last Admin: 04/20/23 08:03 Dose: 150 mg Buspirone HCl (Buspirone 7.5 Mg Tab) 7.5 mg PO BID [facility] Stop: 05/18/23 08:59 Last Admin: 04/20/23 08:03 Dose: 7.5 mg Cyanocobalamin (Cyanocobalamin (B-12) 500 Mcg Tablet) 500 mcg PO QAM [facility] Stop: 05/18/23 08:59 Last Admin: 04/20/23 08:03 Dose: 500 mcg Docusate Sodium (Docusate Sodium 100 Mg Cap) 100 mg PO DAILY [facility] Stop: 05/18/23 08:59 Last Admin: 04/20/23 08:04 Dose: Not Given Doxycycline Hyclate (Doxycycline Hyclate 100 Mg Cap) 100 mg PO BID [facility] Stop: 04/23/23 09:01 Last Admin: 04/20/23 08:03 Dose: 100 mg Ferrous Gluconate (Ferrous Gluconate 324 Mg Tab) 324 mg PO QAM [facility] Stop: 05/18/23 08:59 Last Admin: 04/20/23 08:03 Dose: 324 mg Folic Acid (Folic Acid 1 Mg Tab) 1 mg PO QAM [facility] Stop: 05/18/23 08:59 Last Admin: 04/20/23 08:03 Dose: 1 mg Gabapentin (Gabapentin 300 Mg Cap) 300 mg PO TID [facility] Stop: 05/18/23 08:59 Last Admin: 04/20/23 08:03 Dose: 300 mg Hydromorphone HCl (Hydromorphone Inj 1 Mg/Ml Syringe) 1 mg IV Q4H PRN PRN Reason: Pain Stop: 05/03/23 23:30 Last Admin: 04/20/23 03:02 Dose: 1 mg Promethazine HCl 12.5 mg/ (Sodium Chloride) 50.5 mls @ 202 mls/hr IV Q6H PRN PRN Reason: Nausea And Vomiting Stop: 05/17/23 23:47 Piperacillin Sod/Tazobactam (Sod 4.5 gm/ Dextrose) 100 mls @ 25 mls/hr IV Q8H [facility]; Protocol Stop: 04/25/23 05:59 Last Admin: 04/20/23 05:31 Dose: 25 mls/hr Lidocaine (Lidocaine 5% 1 Patch) 1 patch TD HS [facility] Stop: 05/18/23 20:59 Last Admin: 04/19/23 19:54 Dose: 1 patch Lisinopril (Lisinopril 20 Mg Tab) 20 mg PO DAILY [facility] Stop: 05/18/23 08:59 Last Admin: 04/20/23 08:04 Dose: Not Given Lorazepam (Lorazepam 1 Mg Tab) 1 mg PO Q4H PRN PRN Reason: Anxiety Stop: 05/17/23 23:33 Last Admin: 04/20/23 08:03 Dose: 1 mg Miscellaneous (Remove Lidoderm Patch) 1 each N/A DAILY@0900 [facility] Stop: 05/19/23 08:59 Last Admin: 04/20/23 08:03 Dose: 1 each Multivitamins (Multivitamin Tab) 1 tab PO DAILY [facility] Stop: 05/18/23 08:59 Last Admin: 04/20/23 08:03 Dose: 1 tab Oxycodone HCl (Oxycodone Hcl Ir 5 Mg Tab (Immediate Release)) 5 - 10 mg PO Q4H PRN PRN Reason: Pain Stop: 05/01/23 23:33 Last Admin: 04/20/23 05:35 Dose: 10 mg Polyethylene Glycol (Polyethylene (Miralax) 17 Gm Pack) 17 gm PO DAILY [facility] Stop: 05/18/23 08:59 Last Admin: 04/20/23 08:03 Dose: 17 gm Hospital Stay Data Consultations 04/17/23 23:08 ED Decision to Admit Stat 04/18/23 07:35 Consult Pulmonology Routine 04/19/23 14:06 Burn CD for patient Routine Diagnostic Imagining Performed 04/17/23 21:07 CT Abd and Pelvis [CT abd pelvis IV con only] Stat CT angio chest PE protocol Stat 04/19/23 09:10 IR thoracentesis w/tube US Routine Chest X-Ray 04/17/23 19:07 XR chest 1V portable HISTORY: 53 years-old Female Fever, right chest pain acute right-sided chest pain with fever COMPARISON: CTA chest of same day TECHNIQUE: AP view the chest FINDINGS: Cardiac silhouette is mildly enlarged. No pneumothorax or overt pulmonary edema. The left lung is clear. Postoperative changes of the right hemithorax with moderate size right pleural effusion. Patchy right lung airspace opacities. Bones appear grossly intact. IMPRESSION: 1. Patchy right lung airspace opacities are likely infectious or inflammatory. 2. Postoperative changes of the right lung with moderate-sized right pleural effusion. ACT 112: Negative or not required by law. The above report was generated using voice recognition software. It may contain grammatical, syntax or spelling errors. Electronically signed by: Sanjay Little M.D. 04/18/2023 7:14 AM Abdomen/Pelvis CT 04/17/23 21:07 Exam(s): CT ABDOMEN + PELVIS With Contrast IV Amt: 115 cc opti 320 EXAM: CT Abdomen and Pelvis With Intravenous Contrast CLINICAL HISTORY: Reason for exam: ruq pain. TECHNIQUE: Axial computed tomography images of the abdomen and pelvis with intravenous contrast. CTDI is 65.12 mGy and DLP is 2180.78 mGy-cm. Automated exposure control was utilized for the study. A dose lowering technique was utilized adhering to the principles of ALARA. CONTRAST: Patient received 115 cc opti 320 of IV contrast COMPARISON: No relevant prior studies available. FINDINGS: Lung bases: See below. Pleural space: Moderate RIGHT pleural effusion. Mild patchy consolidation of the RIGHT lung base, correlate for mild pneumonia. Partial RIGHT lobectomy. ABDOMEN: Liver: Unremarkable. No mass. Gallbladder and bile ducts: Unremarkable. No calcified stones. No ductal dilation. Pancreas: Unremarkable. No mass. No ductal dilation. Spleen: Unremarkable. No splenomegaly. Adrenals: Unremarkable. No mass. Kidneys and ureters: Unremarkable. No solid mass. No hydronephrosis. Stomach and bowel: Unremarkable. No obstruction. No mucosal thickening. PELVIS: Appendix: No findings to suggest acute appendicitis. Bladder: Unremarkable. No mass. Reproductive: Unremarkable as visualized. ABDOMEN and PELVIS: Intraperitoneal space: Unremarkable. No free air. No significant fluid collection. Bones/joints: No acute fracture. No dislocation. Soft tissues: Unremarkable. Vasculature: Unremarkable. No abdominal aortic aneurysm. Lymph nodes: Unremarkable. No enlarged lymph nodes. IMPRESSION: Moderate RIGHT pleural effusion. Mild patchy consolidation of the RIGHT lung base, correlate for mild pneumonia. Partial RIGHT lobectomy. Electronically signed by: Rashid Velasco MD 04/17/23 22:05 PM Chest CTA 04/17/23 21:07 Exam(s): CTA CHEST IV Amt: 115 cc opti 320 EXAM: CT Angiography Chest With Intravenous Contrast CLINICAL HISTORY: Reason for exam: PE. TECHNIQUE: Axial computed tomographic angiography images of the chest with intravenous contrast. CTDI is 6512 mGy and DLP is 2180.78 mGy-cm. Automated exposure control was utilized for the study. A dose lowering technique was utilized adhering to the principles of ALARA. MIP reconstructed images were created and reviewed. COMPARISON: No relevant prior studies available. FINDINGS: Pulmonary arteries: Unremarkable. No acute pulmonary embolism. Aorta: No acute findings. No thoracic aortic aneurysm. Lungs: Partial lobectomy. Patchy consolidation in the RIGHT upper and lower lobes, consistent with multilobar pneumonia. Moderate RIGHT pleural effusion. Pleural space: See above. Heart: Unremarkable. No cardiomegaly. No significant pericardial effusion. No evidence of RV dysfunction. Bones/joints: No acute fracture. No dislocation. Soft tissues: Unremarkable. Lymph nodes: Unremarkable. No enlarged lymph nodes. IMPRESSION: 1. No acute pulmonary embolism. 2. Partial lobectomy. Patchy consolidation in the RIGHT upper and lower lobes, consistent with multilobar pneumonia. Moderate RIGHT pleural effusion. Electronically signed by: Rahsid Velasco MD 04/17/23 22:02 PM Thoracentesis/Paracentesis 04/19/23 09:10 Ultrasound-guided right pleural pigtail catheter placement INDICATION: Status post right lung surgery; right pleural effusion PROCEDURE: Procedure and risks were explained. Informed consent was obtained. A final timeout was completed. The right lateral thorax was prepped and draped in sterile fashion. 1% buffered lidocaine was utilized for skin anesthesia. The patient received 75 mcg fentanyl IV during the procedure. Utilizing ultrasound guidance, a 5 Ghanaian safety centesis catheter was advanced into the right pleural effusion. Approximately 50 mL of cloudy kelsey fluid was removed and sent to lab for analysis. Due to the nature of the fluid, it was decided to place a right pleural pigtail catheter. The 5 Ghanaian safety centesis catheter was removed and a 10 Ghanaian locking pigtail catheter was advanced into the right pleural effusion under ultrasound guidance and placed a 20 cm H2O wall suction. An additional 600 mL of cloudy kelsey fluid was drained into the Pleur- evac container. The catheter was sutured to the skin with 2-0 silk and sterile dressing applied. The patient tolerated the procedure well. A chest x-ray will be performed post procedure and vital signs will be monitored on the floor. IMPRESSION: Ultrasound-guided right pleural pigtail catheter placement as above. Performed, dictated, and signed by Vu Cha PA-C; to be co-signed by Dr. Oseas Brooks. Electronically signed by: Oseas Brooks M.D. 04/19/2023 1:14 PM Chest X-Ray 04/19/23 10:14 XR chest 1V portable HISTORY: 53 years-old Female s/p chest tube placement PATIENT with pleural effusion COMPARISON: 04/17/2023 TECHNIQUE: AP view of the chest FINDINGS: Right basilar chest tube in place. Right apical pneumothorax is noted with pleural separation of 12 mm. Persistent right pleural effusion with patchy multifocal right lung airspace opacities. The megaly. Pulmonary vascular congestion. The left lung is generally clear. IMPRESSION: 1. Right-sided hydropneumothorax with pleural catheter in place. 2. Persistent multifocal airspace opacities of the right lung. ACT 112: Negative or not required by law. The above report was generated using voice recognition software. It may contain grammatical, syntax or spelling errors. Electronically signed by: Sanjay Little M.D. 04/19/2023 10:36 AM Pending Results Patient Have Any Pending Studies at Discharge: Yes (Pleural Effusion cultures) Discharge Instructions Given to Patient (Per Discharging Provider) Ms. Workman, You are being transferred to [facility] per your request for further evaluation and management by your cardiothoracic team and/or pulmonology. It was a pleasure taking care of you while you were here. Total Time Total Time Spent Total Time Spent (In Minutes): > 30 minutes
--- OUTSIDE RECORDS SUMMARY | 2023-04-20 15:24 | External Medical Summary | Summary of Care ---
Author Name Unknown Organization [facility] Address [address] [place] [address] Phone [phone] Care Team Providers Care Home Health Aide Name Role Phone Jonny Pandya MD Primary Care Provider [phone] Reason for Visit * Reason Comments Research Screening Encounter Details Date Type Department Care Team (Late st Contact Info) Description 04/18/2023 Documentation Hematology Oncology [facility] [address] [place] [address] [facility] Office Hem Onc [address] [place] [address] Allergies No known active allergiesdocumented as of this encounter (statuses as of 04/18/2023) Medications Medication Sig Dispensed Refills Start Date [...] 04/15/2023 Active LORazepam 0.5 MG Oral Tablet (Ativan)Indications:A cute anxiety Take 1 Tablet by mouth every 8 hours as needed for Anxiety or Insomnia. 30 Tablet 0 04/17/2023 Active documented as of this encounter (statuses as of 04/18/2023) Active Problems Problem Noted Date Diagnosed Date 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 Obesity, Class I, BMI 30.0-34.9 (see actual BMI) 02/21/2023 Depression with anxiety 02/28/2021 HTN, goal below 130/80 12/22/2019 documented as of this encounter (statuses as of 04/18/2023) Resolved Problems Problem Noted Date Diagnosed Date [...] as of this encounter (statuses as of 04/18/2023) Immunizations Name Administration Dates Next Due Seasonal [...] as of this encounter Miscellaneous Notes * Research Note - Merline Oseguera RN - 04/18/2023 9:44 AM EST At the request of [facility], this patient has been screened for possible clinical trials options fortheir diagnosis. There are no clinical trials available at this time for this patient due to tumor type. Patient screened by TAYO Foote RN [facility] Oncology Clinical Research Coordinator II [facility] Department of Hematology-Oncology Research [facility] [phone] documented in this encounter Plan of Treatment Upcoming Encounters Date Type Department Care Team (Late st Contact Info) Description 04/22/2023 11:30 AM EST Office Visit [facility] [address] [place] [address] Mayra Johnson PA-C [address] [place] [address] 04/23/2023 3:20 PM EST Office Visit Family Practice [facility] [address] [address] Jonny Pandya MD [address] [address] Scheduled Procedures Name Priority Associated Diagnoses Date/Ti [...] Advance Directives occurred with: Patient Care Teams Home Health Aide Relationship Specialty Start Date End Date Jonny Pandya MD [address] [address] PCP - General Family Medicine 01/06/20 documented as of this encounter
--- OUTSIDE RECORDS SUMMARY | 2023-04-20 17:51 | External Medical Summary | Summary of Care ---
Author Name Unknown Organization [facility] Address [address] [place] [address] Phone [phone] Care Team Providers Care Director Utilization Management Name Role Phone Jonny Pandya MD Primary Care Provider [phone] Encounter Details Date Type Department Care Team (Late st Contact Info) Description 04/19/2023 Orders Only Thoracic Surg [facility] [address], [place] [id number] Vu Parikh MD [address], [place] [id number] Allergies No known active allergiesdocumented as of this encounter (statuses as of 04/19/2023) Medications Medication Sig Dispensed Refills Start Date [...] as of this encounter (statuses as of 04/19/2023) Active Problems Problem Noted Date Diagnosed Date 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 Obesity, Class I, BMI 30.0-34.9 (see actual BMI) 02/21/2023 Depression with anxiety 02/28/2021 HTN, goal below 130/80 12/22/2019 documented as of this encounter (statuses as of 04/19/2023) Resolved Problems Problem Noted Date Diagnosed Date [...] as of this encounter (statuses as of 04/19/2023) Immunizations Name Administration Dates Next Due Seasonal [...] Care Team (Late st Contact Info) Description 04/23/2023 3:20 PM EST Office Visit Family Practice [facility] [address] [place] [address] Jonny Pandya MD [address] [place] [address] Scheduled Procedures Name Priority Associated Diagnoses Date/Ti me COLONOSCOPY FLEXIBLE PROXIMA L DIAGNOSTIC Recall Family history of uterine cancer Screening for malignant neoplasm of colon Health Maintenance Due Date Last Done Comments HIV Screening 1984 Hepatitis C Screening 1987 Hepatitis B (1 of 3 - 19+ 3-dose series) 1988 Zoster Vaccines (1 of 2) 2019 Mammogram 05/11/2021 05/11/2020, 10/10/2016 COVID-19 Vaccine ( - 2022- season) 2022 Influenza Vaccine (FLU shot) (#1) [...] - GENERAL RAD (IMAGES ONLY,NO REPORT) Routine 04/19/2023 10:20 AM EST documented in this encounter Results * RADIOLOGY EXAM - GENERAL RAD (IMAGES ONLY,NO REPORT) (04/19/2023 10:20 AM EST) 04/19/2023 10:2 0 AM EST Narrative Scheduling, Silent - 04/19/2023 3:20 PM EST This is an imaging study not interpreted or resulted by a [facility] or [facility] contracted radiologist. Vu Parikh MD RADIOLOGY (RAD GENE RAL) documented in this encounter Advance Directives Latest Code Status on File Code Status Date Activated Date Inactivated Comments Full Code 04/03/2023 5:04 PM 04/08/2023 3:00 PM This o rder reflects the patients wishes and were consensually agreed upon. Question Answer Comments Discussion of Advance Directives occurred with: Patient Care Teams Director Utilization Management Relationship Specialty Start Date End Date Jonny Pandya MD [address] [address] PCP - General Family Medicine 01/06/20 documented as of this encounter
--- OUTSIDE RECORDS SUMMARY | 2023-04-20 17:51 | External Medical Summary | Summary of Care ---
Author Name Unknown Organization [facility] Address [address] [place] [address] Phone [phone] Care Team Providers Care Farmworker Fur Name Role Phone Jonny Pandya MD Primary Care Provider [phone] Encounter Details Date Type Department Care Team (Late st Contact Info) Description 04/19/2023 Orders Only Thoracic Surg [facility] [address], [place] [id number] Vu Parikh MD [address], [place] [id number] Allergies No known active allergiesdocumented as of [...] 3:20 PM EST Office Visit Family Practice [facility] [address] [place] [address] Jonny Pandya MD [address] [place] [address] Scheduled Procedures Name Priority Associated Diagnoses Date/Ti [...] Date/Time Associated Diagnosis Comments RADIOLOGY EXAM - US (IMAGES ONLY, NO REPORT) Routine 04/19/2023 8:40 AM EST documented in this encounter Results * RADIOLOGY EXAM - US (IMAGES ONLY, NO REPORT) (04/19/2023 8:40 AM EST) 04/19/2023 8:39 AM EST Narrative Scheduling, Silent - 04/19/2023 3:20 PM EST This is an imaging study not interpreted or resulted by a [facility] or [facility] contracted radiologist. Vu Parikh MD RAD ULTRASOUND documented in this encounter Advance Directives Latest Code Status on File Code Status Date Activated Date Inactivated Comments Full Code 04/03/2023 5:04 PM 04/08/2023 3:00 PM This o rder reflects the patients wishes and were consensually agreed upon. Question Answer Comments Discussion of Advance Directives occurred with: Patient Care Teams Farmworker Fur Relationship Specialty Start Date End Date Jonny Pandya MD [address] [place] [address] PCP - General Family Medicine 01/06/20 documented as of this encounter
--- OUTSIDE RECORDS SUMMARY | 2023-04-20 17:51 | External Medical Summary | Summary of Care ---
Author Name Unknown Organization [facility] Address [address] [place] [address] Phone [phone] Care Team Providers Care Reverberatory Furnace Supervisor Name Role Phone Jonny Pandya MD Primary Care Provider [phone] Encounter Details Date Type Department Care Team (Late st Contact Info) Description 04/17/2023 Orders Only Thoracic Surg [facility] [address], [place] [id number] Vu Parikh MD [address] [place], [place] [phone] Allergies No known active allergiesdocumented as of [...] 3:20 PM EST Office Visit Family Practice [facility] [address] [place] [address] Jonny Pandya MD [address] [place] [address] Scheduled Procedures Name Priority Associated Diagnoses Date/Ti [...] - CT (IMAGES ONLY, NO REPORT) Routine 04/17/2023 9:30 PM EST documented in this encounter Results * RADIOLOGY EXAM - CT (IMAGES ONLY, NO REPORT) (04/17/2023 9:30 PM EST) 04/17/2023 9:22 PM EST Narrative Scheduling, Silent - 04/19/2023 3:19 PM EST This is an imaging study not interpreted or resulted by a [facility]ologist. Vu Parikh MD RAD CT documented in this encounter Advance Directives Latest Code Status on File Code Status Date Activated Date Inactivated Comments Full Code 04/03/2023 5:04 PM 04/08/2023 3:00 PM This o rder reflects the patients wishes and were consensually agreed upon. Question Answer Comments Discussion of Advance Directives occurred with: Patient Care Teams Reverberatory Furnace Supervisor Relationship Specialty Start Date End Date Jonny Pandya MD [address] [address] PCP - General Family Medicine 01/06/20 documented as of this encounter
--- OUTSIDE RECORDS SUMMARY | 2023-04-20 17:51 | External Medical Summary | Summary of Care ---
Author Name Unknown Organization [facility] Address [address] [place] [address] Phone [phone] Care Team Providers Care Holter Technician Name Role Phone Jonny Pandya MD Primary Care Provider [phone] Encounter Details Date Type Department Care Team (Late st Contact Info) Description 04/17/2023 Orders Only Thoracic Surg [facility] [address], [place] [phone] Vu Parikh MD [address] [place], [place] [phone] Allergies No known active allergiesdocumented as of [...] 3:20 PM EST Office Visit Family Practice [facility] [address] [place] [address] Jonny Pandya MD [address] [place] [address] Scheduled Procedures Name Priority Associated Diagnoses Date/Ti [...] CT (IMAGES ONLY, NO REPORT) Routine 04/17/2023 9:25 PM EST documented in this encounter Results * RADIOLOGY EXAM - CT (IMAGES ONLY, NO REPORT) (04/17/2023 9:25 PM EST) 04/17/2023 9:22 PM EST Narrative Scheduling, Silent - 04/19/2023 3:18 PM EST This is an imaging study not interpreted or resulted [facility]. Vu Parikh MD RAD CT documented in this encounter Advance Directives Latest Code Status on File Code Status Date Activated Date Inactivated Comments Full Code 04/03/2023 5:04 PM 04/08/2023 3:00 PM This o rder reflects the patients wishes and were consensually agreed upon. Question Answer Comments Discussion of Advance Directives occurred with: Patient Care Teams Holter Technician Relationship Specialty Start Date End Date Jonny Pandya MD [address] [address] PCP - General Family Medicine 01/06/20 documented as of this encounter
--- OUTSIDE RECORDS SUMMARY | 2023-04-20 17:51 | External Medical Summary | Summary of Care ---
Author Name Unknown Organization [facility] Address [address] [place] [address] Phone [phone] Care Team Providers Care Card Services Specialist Name Role Phone Jonny Pandya MD Primary Care Provider [phone] Encounter Details Date Type Department Care Team (Late st Contact Info) Description 04/17/2023 Orders Only Thoracic Surg [facility] [address], [place] [phone] Vu Parikh MD [address] [place], [place] [phone] Allergies No known active allergiesdocumented as of [...] PM EST Office Visit Family Practice [facility] [address] [place] [address] Jonny Pandya MD [address] [place] [address] Scheduled Procedures Name Priority Associated Diagnoses Date/Ti [...] - GENERAL RAD (IMAGES ONLY,NO REPORT) Routine 04/17/2023 8:50 PM EST documented in this encounter Results * RADIOLOGY EXAM - GENERAL RAD (IMAGES ONLY,NO REPORT) (04/17/2023 8:50 PM EST) 04/17/2023 8:48 PM EST Narrative Scheduling, Silent - 04/19/2023 3:18 PM EST This is an imaging study not interpreted or resulted [facility] contracted radiologist. Vu Parikh MD RADIOLOGY (RAD GENE RAL) documented in this encounter Advance Directives Latest Code Status on File Code Status Date Activated Date Inactivated Comments Full Code 04/03/2023 5:04 PM 04/08/2023 3:00 PM This o rder reflects the patients wishes and were consensually agreed upon. Question Answer Comments Discussion of Advance Directives occurred with: Patient Care Teams Card Services Specialist Relationship Specialty Start Date End Date Jonny Pandya MD [address] [place] [address] PCP - General Family Medicine 01/06/20 documented as of this encounter
== END 2023-04-20 09:52 | disposition short-term general hospital (02) ==
LOC: ED 18:25 → EDINP 18:25 → SUATTDRO 04-18 00:53 → 3E 04-18 01:32